=== PATIENT | male | born 1960 | race Caucasian/White ===

== ENCOUNTER 2016-06-28 14:01 | Inpatient (IN) | payer MEDICARE, MEDICAID ==
[~2016-06-28] VITALS: Ht 182.9 cm; Wt 68.0 kg
[~2016-06-28 14:01] MED LIST: ACETAMINOPHEN650 M2 ORAL; ALBUTEROL2.5 MG/3 M HHN; AMANTADINE100 M2 ORAL; ATROVENT500 MCG/2. HHN; CRANBERRY500 MG PO; DEPAKOTE500 MG PO; GABAPENTIN400 MG ORAL; KEPPRA LIQ100 MG/1 M ORAL; LORAZEPAM1 MG ORAL; MILK OF MA400 MG/51 ORAL; MULTI-VITAMIN1 EACH PO; NUEDEXTA 20-101 EAC1 PO; PROVERA10 MG ORAL; RISPERDAL2 MG ORAL; SURFAK240 MG PO; ZYPREXA15 MG ORAL
[2016-06-28] MEDS ORDERED: AMANTADINE100 M2 ORAL (14:07)
[2016-06-28] MEDS ORDERED: ATIVAN1 MG ORAL (14:07)
--- NOTE | 2016-06-28 14:36 | Emergency Room Report ---
History of Present Illness General Chief Complaint: Fever Source: Medical Record, EMS Present Illness HPI This patient presents from a intermediate facility. He has a history of Parkinson's disease and dementia, psychosis and anxiety. He presents at the request of his primary care physician for evaluation of pneumonia. The patient had ongoing cough and fever. MAXIMUM TEMPERATURE of 101. The patient himself has no specific complaints. There is no other history available. Allergies: Coded Allergies: AMOXICILLIN (Verified Allergy, Unknown, 02/21/13) OBTAINED FROM MEDICAL RECORD ASPIRIN (Verified Allergy, Unknown, 02/21/13) OBTAINED FROM MEDICAL RECORD PENICILLINS (Unverified Allergy, Unknown, 12/06/14) Patient History Past Medical History: see triage record, COPD, seizures, psych hx, other - Parkinson's Social History: Denies: alcohol use, drug use, smoking Reviewed Nursing Documentation: PMH: Agreed, PSxH: Agreed Nursing Documentation-PMH Hx COPD: Yes Hx Cancer: No History Of Psychiatric Problem: Yes - Dementia, Parkinson's, Psychosis, Anxiety Hx Parkinson's Disease: Yes Hx Seizures: Yes Review of Systems All Other Systems: negative except mentioned in HPI Physical Exam Vital Signs Date Time Temp Pulse Resp B/P Pulse Ox O2 Delivery O2 Flow Rate FiO2 06/28/16 13:56 99.1 98 16 102/68 95 Room Air Sp02 EP Interpretation: reviewed, normal General Appearance: no apparent distress, alert, GCS 15, non-toxic Head: normocephalic, atraumatic Eyes: bilateral eye PERRL, bilateral eye normal inspection ENT: hearing grossly normal, normal pharynx, no angioedema, normal voice Neck: full range of motion, supple/symm/no masses Respiratory: chest non-tender, lungs clear, normal breath sounds, rhonchi, speaking full sentences Cardiovascular #1: no edema Gastrointestinal: normal bowel sounds, non tender, soft, non-distended, no guarding, no rebound Rectal: deferred Musculoskeletal: back normal, normal range of motion, non-tender Neurologic: alert, responsive, sensory intact, speech normal Psychiatric: judgement/insight normal, memory normal, mood/affect normal, no suicidal/homicidal ideation Skin: warm/dry, well hydrated, other - See RN report Medical Decision Making Diagnostic Impression: Primary Impression: Pneumonia Additional Impression: Sepsis ER Course Patient is found to have pneumonia. He was given broad-spectrum antibiotics with azithromycin and Rocephin. He is also given aggressive IV fluid. On arrival, he was febrile and tachycardic, however this resolved with Tylenol and IV fluids. Initially, the patient did have an elevated lactate. However, repeat lactate showed improvement to normal. The patient is stable and admitted to the medical surgical floor. Labs Test 06/28/16 14:25 06/28/16 15:11 06/28/16 15:40 06/28/16 16:54 Sodium Level 142 mEQ/L (135-145) Potassium Level 3.9 mEQ/L (3.4-4.9) Chloride Level 100 mEQ/L (98-107) Carbon Dioxide Level 28 mEQ/L (20-30) Anion Gap 14 (5-15) Blood Urea Nitrogen 22 mg/dL (7-23) Creatinine 1.2 mg/dL (0.7-1.2) Estimat Glomerular Filtration Rate > 60 mL/min (>60) Glucose Level 134 mg/dL (74-106) Lactic Acid Level 2.70 mmol/L (0.66-2.22) 1.90 mmol/L (0.66-2.22) Calcium Level 8.5 mg/dL (8.6-10.2) Total Bilirubin 0.3 mg/dL (0.0-1.2) Aspartate Amino Transf (AST/SGOT) 56 U/L (5-40) Alanine Aminotransferase (ALT/SGPT) 33 U/L (3-41) Alkaline Phosphatase 39 U/L (40-129) Total Creatine Kinase 1600 U/L (38-174) Creatine Kinase MB 3.5 ng/mL (< 6.7) Creatine Kinase MB Relative Index 0.2 Troponin I < 0.30 ng/mL (<=0.30) Total Protein 6.9 g/dL (6.6-8.7) Albumin 3.3 g/dL (3.5-5.2) Globulin 3.6 g/dL Albumin/Globulin Ratio 0.9 (1.0-2.7) White Blood Count 3.5 K/UL (4.8-10.8) Red Blood Count 6.12 M/UL (4.70-6.10) Hemoglobin 13.9 G/DL (14.2-18.0) Hematocrit 45.1 % (42.0-52.0) Mean Corpuscular Volume 74 FL (80-99) Mean Corpuscular Hemoglobin 22.7 PG (27.0-31.0) Mean Corpuscular Hemoglobin Concent 30.8 G/DL (32.0-36.0) Red Cell Distribution Width 13.3 % (11.6-14.8) Platelet Count 100 K/UL (150-450) Mean Platelet Volume 6.8 FL (6.5-10.1) Neutrophils (%) (Auto) 65.2 % (45.0-75.0) Lymphocytes (%) (Auto) 21.7 % (20.0-45.0) Monocytes (%) (Auto) 12.0 % (1.0-10.0) Eosinophils (%) (Auto) 0.1 % (0.0-3.0) Basophils (%) (Auto) 1.0 % (0.0-2.0) Urine Color Yellow Urine Appearance Clear Urine pH 6 (4.5-8.0) Urine Specific [place] 1.020 (1.005-1.035) Urine Protein 3+ (NEGATIVE) Urine Glucose (UA) Negative (NEGATIVE) Urine Ketones 1+ (NEGATIVE) Urine Occult Blood 2+ (NEGATIVE) Urine Nitrite Negative (NEGATIVE) Urine Bilirubin Negative (NEGATIVE) Urine Urobilinogen 1 MG/DL (0.0-1.0) Urine Leukocyte Esterase 1+ (NEGATIVE) Urine RBC 5-10 /HPF (0 - 0) Urine WBC 2-4 /HPF (0 - 0) Urine Squamous Epithelial Cells None /LPF (NONE/OCC) Urine Amorphous Sediment Few /LPF (NONE) Urine Bacteria Few /HPF (NONE) EKG Diagnostic Results Rate: tachycardiac Rhythm: other ST Segments: no acute changes Other Impression S.tachycardia Rhythm Strip Diag. Results EP Interpretation: yes Rate: 120's Rhythm: no PVC's, no ectopy Chest X-Ray Diagnostic Results EP Interpretation: No Findings: no pneumothorax, other Number of Views: 1 Other Impression RUL opacity. Probable pneumonia accounting for a density in the right upper lobe. Followup recommended Last Vital Signs Date Time Temp Pulse Resp B/P Pulse Ox O2 Delivery O2 Flow Rate FiO2 06/28/16 13:56 99.1 98 16 102/68 95 Room Air Status: improved Disposition: ADMITTED INPATIENT Condition: Serious Referrals: Bernardino Dallas MD (PCP) PEBBLES WILLS D.O. Jun 28, 2016 14:36
[2016-06-28] MEDS ORDERED: Azithromycin 500 MG in NS 250 ML IVPB ONE (14:45)
[2016-06-28 15:07] LABS: TROPONIN I < 0.30 ng/mL (<=0.30)
[2016-06-28 15:11] LABS: ALANINE AMINOTRANSFERASE 33 U/L (3-41); ALBUMIN/GLOBULIN RATIO 0.9 (1.0-2.7); ANION GAP 14 (5-15); ASPARTATE AMINO TRANSFERASE 56 U/L (5-40); CALCIUM 8.5 mg/dL (8.6-10.2); CARBON DIOXIDE 28 mEQ/L (20-30); CHLORIDE 100 mEQ/L (98-107); CREATININE 1.2 mg/dL (0.7-1.2); GLOMERULAR FILTRATION RATE > 60 mL/min (>60); HEMOLYSIS 76; POTASSIUM 3.9 mEQ/L (3.4-4.9); SODIUM 142 mEQ/L (135-145); TOTAL PROTEIN 6.9 g/dL (6.6-8.7)
[2016-06-28 15:21] VITALS: BP 99/65
[2016-06-28 15:22] LABS: CKMB 3.5 ng/mL (< 6.7)
[2016-06-28 15:33] LABS: REFLEX LACTIC ACID YES OR NO YES
[2016-06-28 15:39] LABS: EOSINOPHILS % (AUTO) 0.1 % (0.0-3.0); LYMPHOCYTES % (AUTO) 21.7 % (20.0-45.0); MEAN CORPUSCULAR HEMOGLOBIN 22.7 PG (27.0-31.0); MEAN CORPUSCULAR HGB CONC 30.8 G/DL (32.0-36.0); MEAN CORPUSCULAR VOLUME 74 FL (80-99); MEAN PLATELET VOLUME 6.8 FL (6.5-10.1); NEUTROPHILS % (AUTO) 65.2 % (45.0-75.0); PLATELET COUNT 100 K/UL (150-450); RED BLOOD COUNT 6.12 M/UL (4.70-6.10); RED CELL DISTRIBUTION WIDTH 13.3 % (11.6-14.8); WHITE BLOOD COUNT 3.5 K/UL (4.8-10.8)
[2016-06-28] MEDS ORDERED: Azithromycin Inj IV ONE (15:41)
--- NOTE | 2016-06-28 15:44 | Diagnostic Imaging Report ---
Indication: Chest Pain Comparison: 12/06/14 A single view chest radiograph was obtained. Findings: Slightly larger infiltrate versus mass noted in the right upper lobe. Please correlate clinically. Followup recommended. Heart size is normal. Impression: Probable pneumonia accounting for a density in the right upper lobe. Followup recommended
[2016-06-28 16:16] LABS: APPEARANCE,URINE CLEAR; KETONES,URINE 1+ (NEGATIVE); LEUKOCYTE ESTERASE ,URINE 1+ (NEGATIVE); NITRITE,URINE NEGATIVE (NEGATIVE); PH,URINE 6 (4.5-8.0); PROTEIN,URINE 3+ (NEGATIVE); UROBILINOGEN,URINE 1 MG/DL (0.0-1.0)
[2016-06-28 16:26] LABS: AMORPHOUS SEDIMENT,UR FEW /LPF; BACTERIA,URINE FEW /HPF
[2016-06-28 17:20] VITALS: BP 108/69
[2016-06-28] MEDS ORDERED: Miralax 17gm pkt ORAL PRN (19:00)
[2016-06-28] MEDS ORDERED: DuoNeb 0.5-3(2.5)mg/3ml neb HHN PRN (19:00)
[2016-06-28] MEDS ORDERED: Nitroglycerin Subl 0.4mg tab (Bottle Of 25) SL PRN (19:00)
[2016-06-28] MEDS ORDERED: Mylanta II UD 30ml ORAL PRN (19:00)
--- NOTE | 2016-06-28 19:02 | Consultation ---
History of Present Illness General Date patient seen: Jun 28, 2016 Chief Complaint: Fever Referring physician: Dr. Dallas Reason for Consultation: pneumonia Present Illness HPI 56 year old male with hx of psychiatric disorder, parkinson, anxiety and dementia [facility] for possible [facility]. The patient had ongoing cough and fever of 101. The patient himself has no specific complaints. There is no other history available. Patient is a poor historian and can't give any history and starts to scream in middle of interview. Allergies: Coded Allergies: AMOXICILLIN (Verified Allergy, Unknown, 02/21/13) OBTAINED FROM MEDICAL RECORD ASPIRIN (Verified Allergy, Unknown, 02/21/13) OBTAINED FROM MEDICAL RECORD PENICILLINS (Unverified Allergy, Unknown, 12/06/14) Medication History Scheduled Amantadine Hcl* (Amantadine*), 100 MG ORAL Q8HR, (Reported) Dextromethorphan Hbr/Quinidine (Nuedexta 20-10 Mg Capsule), 1 EACH PO Q12HR, ( Reported) Divalproex Sodium (Depakote), 250 MG PO Q8HR, (Reported) Docusate Calcium (Surfak), 240 MG PO DAILY, (Reported) Gabapentin* (Gabapentin*), 400 MG ORAL DAILY, (Reported) Levetiracetam (Keppra), 5 ML ORAL TWICE A DAY, (Reported) Lorazepam* (Ativan*), 1 MG ORAL BID, (Reported) Multivitamin (Multi-Vitamin Daily), 1 EACH PO DAILY, (Reported) Olanzapine (Zyprexa), 15 MG ORAL DAILY, (Reported) Risperidone* (Risperdal*), 2 MG ORAL QHS, (Reported) Scheduled PRN Acetaminophen (Acetaminophen 8 Hour), 650 MG ORAL Q6H PRN for Mild Pain/Temp > 100.5, (Reported) Albuterol Sulfate* (Albuterol Sulfate Hhn*), 2.5 MG HHN Q6H PRN for Shortness of Breath, (Reported) Cranberry Extract (Cranberry), 500 MG PO DAILY PRN, (Reported) Ipratropium [place] (Atrovent), 500 MCG HHN EVERY 6 HOURS PRN for Shortness of Breath, (Reported) Lorazepam* (Lorazepam*), 1 MG ORAL EVERY 8 HOURS PRN for Agitation, (Reported) Magnesium Hydroxide* (Milk Of Magnesia*), 30 ML ORAL DAILY PRN for Constipation, (Reported) Patient History Healthcare decision maker Resuscitation status Advanced Directive on File Past Medical/Surgical History Past Medical/Surgical History: (1) Seizure disorder (2) Psychiatric disorder (3) Cachexia Review of Systems All Other Systems: negative except mentioned in HPI Physical Exam Lines, tubes and drains: peripheral HEENT: normocephalic Neck: non-tender Respiratory/Chest: chest wall non-tender Cardiovascular/Chest: normal peripheral pulses Abdomen: normal bowel sounds Genitourinary/Rectal: normal genital exam Last 24 Hour Vital Signs Date Time Temp Pulse Resp B/P Pulse Ox O2 Delivery O2 Flow Rate FiO2 06/28/16 17:20 97.3 93 23 108/69 99 Room Air 06/28/16 15:21 97.4 120 12 99/65 99 Room Air 06/28/16 13:56 99.1 98 16 102/68 95 Room Air Laboratory Tests Test 06/28/16 14:25 06/28/16 15:11 06/28/16 15:40 06/28/16 16:54 Sodium Level 142 mEQ/L (135-145) Potassium Level 3.9 mEQ/L (3.4-4.9) Chloride Level 100 mEQ/L (98-107) Carbon Dioxide Level 28 mEQ/L (20-30) Anion Gap 14 (5-15) Blood Urea Nitrogen 22 mg/dL (7-23) Creatinine 1.2 mg/dL (0.7-1.2) Estimat Glomerular Filtration Rate > 60 mL/min (>60) Glucose Level 134 mg/dL (74-106) H Lactic Acid Level 2.70 mmol/L (0.66-2.22) H 1.90 mmol/L (0.66-2.22) Calcium Level 8.5 mg/dL (8.6-10.2) L Total Bilirubin 0.3 mg/dL (0.0-1.2) Aspartate Amino Transf (AST/SGOT) 56 U/L (5-40) H Alanine Aminotransferase (ALT/SGPT) 33 U/L (3-41) Alkaline Phosphatase 39 U/L (40-129) L Total Creatine Kinase 1600 U/L (38-174) H Creatine Kinase MB 3.5 ng/mL (< 6.7) Creatine Kinase MB Relative Index 0.2 Troponin I < 0.30 ng/mL (<=0.30) Total Protein 6.9 g/dL (6.6-8.7) Albumin 3.3 g/dL (3.5-5.2) L Globulin 3.6 g/dL Albumin/Globulin Ratio 0.9 (1.0-2.7) L White Blood Count 3.5 K/UL (4.8-10.8) L Red Blood Count 6.12 M/UL (4.70-6.10) H Hemoglobin 13.9 G/DL (14.2-18.0) L Hematocrit 45.1 % (42.0-52.0) Mean Corpuscular Volume 74 FL (80-99) L Mean Corpuscular Hemoglobin 22.7 PG (27.0-31.0) L Mean Corpuscular Hemoglobin Concent 30.8 G/DL (32.0-36.0) L Red Cell Distribution Width 13.3 % (11.6-14.8) Platelet Count 100 K/UL (150-450) L Mean Platelet Volume 6.8 FL (6.5-10.1) Neutrophils (%) (Auto) 65.2 % (45.0-75.0) Lymphocytes (%) (Auto) 21.7 % (20.0-45.0) Monocytes (%) (Auto) 12.0 % (1.0-10.0) H Eosinophils (%) (Auto) 0.1 % (0.0-3.0) Basophils (%) (Auto) 1.0 % (0.0-2.0) Urine Color Yellow Urine Appearance Clear Urine pH 6 (4.5-8.0) Urine Specific [place] 1.020 (1.005-1.035) Urine Protein 3+ (NEGATIVE) H Urine Glucose (UA) Negative (NEGATIVE) Urine Ketones 1+ (NEGATIVE) H Urine Occult Blood 2+ (NEGATIVE) H Urine Nitrite Negative (NEGATIVE) Urine Bilirubin Negative (NEGATIVE) Urine Urobilinogen 1 MG/DL (0.0-1.0) H Urine Leukocyte Esterase 1+ (NEGATIVE) H Urine RBC 5-10 /HPF (0 - 0) H Urine WBC 2-4 /HPF (0 - 0) Urine Squamous Epithelial Cells None /LPF (NONE/OCC) Urine Amorphous Sediment Few /LPF (NONE) H Urine Bacteria Few /HPF (NONE) Height (Feet): 6 Weight (Pounds): 150 Assessment/Plan Problem List: (1) Pneumonia ICD Codes: J18.9 - Pneumonia, unspecified organism SNOMED: 800276674 (2) UTI (urinary tract infection) ICD Codes: N39.0 - Urinary tract infection, site not specified SNOMED: 61691177 (3) Seizure disorder ICD Codes: G40.909 - Seizure disorder SNOMED: 376902172 (4) Psychiatric disorder ICD Codes: F99 - Psychiatric disorder SNOMED: 11689789 (5) Cachexia ICD Codes: R64 - Cachexia SNOMED: 092621806 Assessment/Plan sputum inductin respiratory treatment iv antibiotics check sputum CT of chest NEERAJ DAMON Jun 28, 2016 19:02
[2016-06-28 19:08] VITALS: BP 108/69
--- NOTE | 2016-06-28 20:17 | Infectious Diseases Prog Note ---
Assessment/Plan Problems: (1) Sepsis Assessment & Plan: continue vancomycin and aztreonam, add flagyl , and send blood culture (2) Pneumonia Assessment & Plan: with RUL consolidation , suspect aspiration pneumonia, VS TB , VS tumor, will continue current antibiotics with vancomycin and aztreonam, add flagyl for anaerobic coverage, and order CT chest (3) UTI (urinary tract infection) Assessment & Plan: on aztreonam, send culture (4) Psychiatric disorder Assessment & Plan: continue psych meds. (5) Seizure disorder Assessment & Plan: continue seizure meds , with hossein check, consult neurology (6) Failure to thrive Assessment & Plan: recommend dietry consult Subjective Allergies: Coded Allergies: AMOXICILLIN (Verified Allergy, Unknown, 02/21/13) OBTAINED FROM MEDICAL RECORD ASPIRIN (Verified Allergy, Unknown, 02/21/13) OBTAINED FROM MEDICAL RECORD PENICILLINS (Unverified Allergy, Unknown, 12/06/14) Objective Vital Signs Last 24 Hour Vital Signs Date Time Temp Pulse Resp B/P Pulse Ox O2 Delivery O2 Flow Rate FiO2 06/28/16 20:02 97.3 93 23 108/69 99 Room Air 06/28/16 19:08 97.3 93 23 108/69 99 Room Air 06/28/16 17:20 97.3 93 23 108/69 99 Room Air 06/28/16 15:21 97.4 120 12 99/65 99 Room Air 06/28/16 13:56 99.1 98 16 102/68 95 Room Air Height (Feet): 6 Weight (Pounds): 150 Laboratory Tests Test 06/28/16 14:25 06/28/16 15:11 06/28/16 15:40 06/28/16 16:54 Sodium Level 142 mEQ/L (135-145) Potassium Level 3.9 mEQ/L (3.4-4.9) Chloride Level 100 mEQ/L (98-107) Carbon Dioxide Level 28 mEQ/L (20-30) Anion Gap 14 (5-15) Blood Urea Nitrogen 22 mg/dL (7-23) Creatinine 1.2 mg/dL (0.7-1.2) Estimat Glomerular Filtration Rate > 60 mL/min (>60) Glucose Level 134 mg/dL (74-106) H Lactic Acid Level 2.70 mmol/L (0.66-2.22) H 1.90 mmol/L (0.66-2.22) Calcium Level 8.5 mg/dL (8.6-10.2) L Total Bilirubin 0.3 mg/dL (0.0-1.2) Aspartate Amino Transf (AST/SGOT) 56 U/L (5-40) H Alanine Aminotransferase (ALT/SGPT) 33 U/L (3-41) Alkaline Phosphatase 39 U/L (40-129) L Total Creatine Kinase 1600 U/L (38-174) H Creatine Kinase MB 3.5 ng/mL (< 6.7) Creatine Kinase MB Relative Index 0.2 Troponin I < 0.30 ng/mL (<=0.30) Total Protein 6.9 g/dL (6.6-8.7) Albumin 3.3 g/dL (3.5-5.2) L Globulin 3.6 g/dL Albumin/Globulin Ratio 0.9 (1.0-2.7) L White Blood Count 3.5 K/UL (4.8-10.8) L Red Blood Count 6.12 M/UL (4.70-6.10) H Hemoglobin 13.9 G/DL (14.2-18.0) L Hematocrit 45.1 % (42.0-52.0) Mean Corpuscular Volume 74 FL (80-99) L Mean Corpuscular Hemoglobin 22.7 PG (27.0-31.0) L Mean Corpuscular Hemoglobin Concent 30.8 G/DL (32.0-36.0) L Red Cell Distribution Width 13.3 % (11.6-14.8) Platelet Count 100 K/UL (150-450) L Mean Platelet Volume 6.8 FL (6.5-10.1) Neutrophils (%) (Auto) 65.2 % (45.0-75.0) Lymphocytes (%) (Auto) 21.7 % (20.0-45.0) Monocytes (%) (Auto) 12.0 % (1.0-10.0) H Eosinophils (%) (Auto) 0.1 % (0.0-3.0) Basophils (%) (Auto) 1.0 % (0.0-2.0) Urine Color Yellow Urine Appearance Clear Urine pH 6 (4.5-8.0) Urine Specific [place] 1.020 (1.005-1.035) Urine Protein 3+ (NEGATIVE) H Urine Glucose (UA) Negative (NEGATIVE) Urine Ketones 1+ (NEGATIVE) H Urine Occult Blood 2+ (NEGATIVE) H Urine Nitrite Negative (NEGATIVE) Urine Bilirubin Negative (NEGATIVE) Urine Urobilinogen 1 MG/DL (0.0-1.0) H Urine Leukocyte Esterase 1+ (NEGATIVE) H Urine RBC 5-10 /HPF (0 - 0) H Urine WBC 2-4 /HPF (0 - 0) Urine Squamous Epithelial Cells None /LPF (NONE/OCC) Urine Amorphous Sediment Few /LPF (NONE) H Urine Bacteria Few /HPF (NONE) Current Medications Medications (Trade) Dose Ordered Sig/Yanelis Route PRN Reason Start Time Stop Time Status Last Admin Dose Admin Acetaminophen (Tylenol) 650 mg Q4H PRN ORAL fever 06/28/16 19:00 07/28/16 18:59 Al Hydroxide/Mg Hydroxide (Mylanta II) 30 ml Q6H PRN ORAL dyspepsia 06/28/16 19:00 07/28/16 18:59 Albuterol/ Ipratropium (DuoNeb 0.5-3(2.5)mg/3ml) 3 ml EVERY 4 HOURS PRN HHN Shortness of Breath 06/28/16 19:00 07/03/16 18:59 Amantadine HCl (Symmetrel) 100 mg Q8HR ORAL 06/28/16 22:00 07/28/16 21:59 Aztreonam 1 gm/ Sodium Chloride 50 ml @ 100 mls/hr EVERY 8 HOURS IVPB 06/28/16 22:00 07/05/16 21:59 Dextromethorphan/ Quinidine (Nuedexta Capsule) 1 cap Q12HR ORAL 06/28/16 21:00 07/28/16 20:59 Divalproex Sodium (Depakote) 250 mg Q8HR ORAL 06/28/16 22:00 07/28/16 21:59 Gabapentin (Neurontin) 400 mg DAILY ORAL 06/29/16 09:00 07/29/16 08:59 Heparin Sodium (Porcine) (Heparin 5000 units/ml) 5,000 units EVERY 12 HOURS SUBQ 06/28/16 21:00 07/28/16 20:59 Levetiracetam (Keppra) 500 mg TWICE A DAY ORAL 06/29/16 09:00 07/29/16 08:59 Nitroglycerin (Ntg) 0.4 mg Q5M PRN SL Prn Chest Pain 06/28/16 19:00 07/28/16 18:59 Ondansetron HCl (Zofran) 4 mg Q6H PRN IVP Nausea & Vomiting 06/28/16 19:00 07/28/16 18:59 Polyethylene Glycol (Miralax) 17 gm DAILYPRN PRN ORAL Constipation 06/28/16 19:00 07/28/16 18:59 Promethazine HCl/ Codeine (Phenergan with Codeine) 5 ml Q4H PRN ORAL For Cough 06/28/16 19:00 07/28/16 18:59 Risperidone (RisperDAL) 2 mg QHS ORAL 06/28/16 21:00 07/28/16 20:59 Temazepam (Restoril) 15 mg HSPRN PRN ORAL Insomnia 06/28/16 19:00 07/05/16 18:59 Vancomycin HCl 1 ea 1 ea DAILY PRN MISC Per rx protocol 06/28/16 19:00 07/28/16 18:59 Vancomycin HCl 1 gm/Dextrose 250 ml @ 167 mls/hr ONCE ONCE IVPB 06/28/16 20:30 06/28/16 21:59 Vancomycin HCl/ Dextrose (Vancomycin/D5W 250ml) 250 ml @ 167 mls/hr Q12HR@0800,2000 IVPB 06/29/16 08:00 07/04/16 07:59 Carli Saleem M.D. Jun 28, 2016 20:17
[2016-06-28 20:29] VITALS: BP_SYST 126; BP_SYST 132; BP_DIAS 73; BP_DIAS 75
[2016-06-28] MEDS ORDERED: Vancomycin 1gm/D5W 250ml IVPB ONE ×2 (20:30)
[2016-06-28] MEDS: Heparin 5000 units/ml inj SUBQ SCH (20:52)
[2016-06-28 20:53] VITALS: BP 126/73
[2016-06-28] MEDS ORDERED: metroNIDAZOLE 500mg 100 ML IVPB SCH (21:00)
[2016-06-28] MEDS: Nuedexta Capsule 20/10mg ORAL SCH (21:14)
[2016-06-28] MEDS: Amantadine 100mg cap ORAL SCH (21:15)
[2016-06-28] MEDS ORDERED: Aztreonam Inj 1 GM in NS 50 ML IVPB SCH (22:00)
[2016-06-29] VITALS: BP 125/61
[2016-06-29] MEDS: metroNIDAZOLE 500mg 100 ML IVPB SCH ×3 (01:19→17:00)
[2016-06-29] MEDS ORDERED: Aztreonam Inj 1 GM in NS 50 ML IVPB SCH (02:00)
[2016-06-29] MEDS: Amantadine 100mg cap ORAL SCH ×4 (06:00→23:08)
[2016-06-29 07:39] LABS: BASOPHILS % (AUTO) 1.8 % (0.0-2.0); LYMPHOCYTES % (AUTO) 28.1 % (20.0-45.0); MEAN CORPUSCULAR HEMOGLOBIN 22.9 PG (27.0-31.0); MEAN CORPUSCULAR HGB CONC 30.4 G/DL (32.0-36.0); MEAN CORPUSCULAR VOLUME 75 FL (80-99); MEAN PLATELET VOLUME 7.1 FL (6.5-10.1); MONOCYTES % (AUTO) 14.8 % (1.0-10.0); NEUTROPHILS % (AUTO) 55.3 % (45.0-75.0); PLATELET COUNT 101 K/UL (150-450); RED BLOOD COUNT 5.34 M/UL (4.70-6.10); RED CELL DISTRIBUTION WIDTH 13.1 % (11.6-14.8); WHITE BLOOD COUNT 4.7 K/UL (4.8-10.8)
[2016-06-29 07:58] LABS: ANION GAP 12 (5-15); CALCIUM 7.7 mg/dL (8.6-10.2); CARBON DIOXIDE 27 mEQ/L (20-30); CHLORIDE 105 mEQ/L (98-107); CREATININE 0.8 mg/dL (0.7-1.2); GLOMERULAR FILTRATION RATE > 60 mL/min (>60); HEMOLYSIS 3; PHOSPHORUS 2.6 mg/dL (2.5-4.8); POTASSIUM 4.3 mEQ/L (3.4-4.9); SODIUM 144 mEQ/L (135-145)
[2016-06-29] MEDS: Vancomycin 750mg/D5W 250ml IVPB SCH ×4 (08:08→20:00)
[2016-06-29] MEDS: Nuedexta Capsule 20/10mg ORAL SCH ×2 (08:08→20:32)
[2016-06-29] MEDS: Heparin 5000 units/ml inj SUBQ SCH ×2 (08:09→20:32)
[2016-06-29] MEDS: levETIRAcetam 500mg/5ml Liquid ORAL SCH ×2 (08:09→17:59)
[2016-06-29 08:28] VITALS: BP 106/65
[2016-06-29 12:00] VITALS: BP 110/67
--- NOTE | 2016-06-29 12:22 | Diagnostic Imaging Report ---
Indications: Chest pain, ill-defined masslike opacity in right upper lung chest radiograph requiring further evaluation Technique: Continuous helical CT imaging of the thorax and upper abdomen was performed with automatic exposure control on a Siemens sensation [address] scanner. Axial images were reconstructed at 5 mm slice thickness and interval. Coronal images were reconstructed at 5 mm slice thickness. No IV contrast was administered secondary to requesting physician's order, despite no contraindications listed in either submitted clinical data or tech note.. CTDI volume(s): 17 mGy Total DLP: 651 mGy-cm Findings: Comparison: None Lack of IV contrast limits evaluation. Irregular lobulated masslike opacity in right upper lobe, 3.5 x 3 x 3 cm. Similar 2.5 x 1.5 x 2 cm masslike opacity medial segment right middle lobe. Similar 1.5 cm irregular lobulated masslike opacity anteromedial aspect left upper lobe. Patchy peripherally based groundglass opacities and in both upper lobes, right lower lobe. Superimposed subsegmental parenchymal consolidation dependent portions of both lower lobes.. Bilateral bronchial barber mildly thickened. No obvious pleural abnormalities. Asymmetric soft tissue fullness right hilar region, cannot separate from vasculature adjacent vasculature. No obvious mediastinal enlarged lymph nodes identified. Heart normal size. No pericardial abnormality. Scattered arterial mural calcifications. Vascular patency indeterminate. Thoracic aorta nonaneurysmal. Chest wall soft tissues nonfocal. Subcentimeter circumscribed low-attenuation focus in the posterior periphery of hepatic segment 3, not further characterizable. Remainder of imaged upper abdominal anatomy unremarkable. No focal skeletal abnormality identified. IMPRESSION: Bilateral pulmonary parenchymal irregular masslike opacities, may be neoplastic or inflammatory Questionable right hilar adenopathy, unable to adequately evaluate due to lack of IV contrast Patchy groundglass opacities in both lungs may be congestive or inflammatory Subsegmental atelectasis in both lung bases Mild bilateral bronchial wall thickening, nonspecific, may be acute or chronic Arteriosclerosis Small low-attenuation focus left hepatic lobe not further characterizable, most likely but not definitely cysts. Ultrasound correlation suggested..
[2016-06-29 16:00] VITALS: BP 115/69
--- NOTE | 2016-06-29 17:50 | Pulmonology Progress Note ---
Assessment/Plan Problems: (1) rule out Tuberculosis (2) Right upper lobe pneumonia (3) UTI (urinary tract infection) (4) Seizure disorder (5) Psychiatric disorder (6) Cachexia Assessment/Plan iv antibiotics sputum for afb TB gold test isolation fungi serology ppd skin test Subjective ROS Limited/Unobtainable: No Interval Events: awake, agitated at times Allergies: Coded Allergies: AMOXICILLIN (Verified Allergy, Unknown, 02/21/13) OBTAINED FROM MEDICAL RECORD ASPIRIN (Verified Allergy, Unknown, 02/21/13) OBTAINED FROM MEDICAL RECORD PENICILLINS (Unverified Allergy, Unknown, 12/06/14) Objective Last 24 Hour Vital Signs Date Time Temp Pulse Resp B/P Pulse Ox O2 Delivery O2 Flow Rate FiO2 06/29/16 16:00 99.7 76 26 115/69 98 Room Air 06/29/16 12:00 99.0 84 20 110/67 95 Room Air 06/29/16 10:20 99.2 06/29/16 08:28 99.2 86 20 106/65 94 Room Air 06/29/16 07:40 103 20 Room Air 21 06/29/16 01:22 99.0 06/29/16 00:00 102.4 103 19 125/61 93 Room Air 06/28/16 20:53 98.2 104 22 126/73 98 Room Air 06/28/16 20:29 98.2 104 22 126/73 98 Room Air 06/28/16 20:02 97.3 93 23 108/69 99 Room Air 06/28/16 19:08 97.3 93 23 108/69 99 Room Air Intake and Output 06/28/16 06/29/16 19:00 07:00 Intake Total 1200 ml 750 ml Balance 1200 ml 750 ml Intake Oral 0 ml 600 ml IV Total 1200 ml 150 ml # Voids 3 General Appearance: WD/WN HEENT: normocephalic, atraumatic Respiratory/Chest: chest wall non-tender, lungs clear Cardiovascular: normal peripheral pulses, normal rate Abdomen: normal bowel sounds, soft, non tender Genitourinary: normal external genitalia Neurologic/Psychiatric: premix operator concentrate II-XII grossly normal Lymphatic: no neck adenopathy Laboratory Tests 06/29/16 06:30: White Blood Count 4.7L, Red Blood Count 5.34, Hemoglobin 12.2L, Hematocrit 40.2L , Mean Corpuscular Volume 75L, Mean Corpuscular Hemoglobin 22.9L, Mean Corpuscular Hemoglobin Concent 30.4L, Red Cell Distribution Width 13.1, Platelet Count 101L, Mean Platelet Volume 7.1, Neutrophils (%) (Auto) 55.3, Lymphocytes (%) (Auto) 28.1, Monocytes (%) (Auto) 14.8H, Eosinophils (%) (Auto) 0.0, Basophils (%) (Auto) 1.8, Sodium Level 144, Potassium Level 4.3, Chloride Level 105, Carbon Dioxide Level 27, Anion Gap 12, Blood Urea Nitrogen 18, Creatinine 0.8, Estimat Glomerular Filtration Rate > 60, Glucose Level 88, Calcium Level 7.7L, Phosphorus Level 2.6, Albumin 3.0L, Blastomyces Ab Immunodiffusion [Pending], Coccidioides Antibody (Comp Fix) [Pending], Cryptococcus Antigen [Pending], Histoplasma Mycelial Antibody [Pending], Histoplasma Antibody w Mycelial Ag [Pending], Histoplasma Antibody with Yeast Ag [Pending], HIV (1&2) Antibody Rapid Negative, Aspergillus flavus Antibody [ Pending], Aspergillus fumigatus Antibody [Pending], Aspergillus niger Antibody [ Pending], TB Test (T-Spot) [Pending], TB Test Nil Control (T-Spot) [Pending], TB Test Panel A (T-Spot) [Pending], TB Test Panel B (T-Spot) [Pending], TB Test Positive Control (T-Spot) [Pending] Current Medications Medications (Trade) Dose Ordered Sig/Yanelis Route PRN Reason Start Time Stop Time Status Last Admin Dose Admin Acetaminophen (Tylenol) 650 mg Q4H PRN ORAL fever 06/28/16 19:00 07/28/16 18:59 06/29/16 00:18 Al Hydroxide/Mg Hydroxide (Mylanta II) 30 ml Q6H PRN ORAL dyspepsia 06/28/16 19:00 07/28/16 18:59 Albuterol/ Ipratropium (DuoNeb 0.5-3(2.5)mg/3ml) 3 ml EVERY 4 HOURS PRN HHN Shortness of Breath 06/28/16 19:00 07/03/16 18:59 Amantadine HCl (Symmetrel) 100 mg Q8HR ORAL 06/28/16 22:00 07/28/16 21:59 06/29/16 15:00 Aztreonam/Dextrose (Azactam/D5W 50ml) 50 ml @ 100 mls/hr Q8HR@0200,1000,1800 IVPB 06/29/16 18:00 07/06/16 17:59 Dextromethorphan/ Quinidine (Nuedexta Capsule) 1 cap Q12HR ORAL 06/28/16 21:00 07/28/16 20:59 06/29/16 08:08 Divalproex Sodium (Depakote) 250 mg Q8HR ORAL 06/28/16 22:00 07/28/16 21:59 06/29/16 15:00 Gabapentin (Neurontin) 400 mg DAILY ORAL 06/29/16 09:00 07/29/16 08:59 06/29/16 08:08 Heparin Sodium (Porcine) (Heparin 5000 units/ml) 5,000 units EVERY 12 HOURS SUBQ 06/28/16 21:00 07/28/16 20:59 Levetiracetam (Keppra) 500 mg TWICE A DAY ORAL 06/29/16 09:00 07/29/16 08:59 06/29/16 08:09 Metronidazole 100 ml @ 100 mls/hr Q8HR@0100,0900,1700 IVPB 06/29/16 01:30 07/06/16 01:29 06/29/16 10:00 Nitroglycerin (Ntg) 0.4 mg Q5M PRN SL Prn Chest Pain 06/28/16 19:00 07/28/16 18:59 Ondansetron HCl (Zofran) 4 mg Q6H PRN IVP Nausea & Vomiting 06/28/16 19:00 07/28/16 18:59 Polyethylene Glycol (Miralax) 17 gm DAILYPRN PRN ORAL Constipation 06/28/16 19:00 07/28/16 18:59 Promethazine HCl/ Codeine (Phenergan with Codeine) 5 ml Q4H PRN ORAL For Cough 06/28/16 19:00 07/28/16 18:59 Risperidone (RisperDAL) 2 mg QHS ORAL 06/28/16 21:00 07/28/16 20:59 06/28/16 21:14 Temazepam (Restoril) 15 mg HSPRN PRN ORAL Insomnia 06/28/16 19:00 07/05/16 18:59 Vancomycin HCl 750 mg/Dextrose 250 ml @ 167 mls/hr Q12HR@0800,2000 IVPB 06/29/16 08:00 07/04/16 07:59 06/29/16 08:08 Vancomycin HCl 1 ea 1 ea DAILY PRN MISC Per rx protocol 06/28/16 19:00 07/28/16 18:59 NEERAJ DAMON Jun 29, 2016 17:50
[2016-06-29] MEDS: D5W IVPB SCH (18:00)
[2016-06-29] MEDS: AZTREONAM IVPB SCH (18:00)
--- NOTE | 2016-06-29 18:23 | Infectious Diseases Prog Note ---
Assessment/Plan Problems: (1) Sepsis Assessment & Plan: due to pneumonia , continue vancomycin and aztreonam, and Flagyl , await blood culture (2) Pneumonia Assessment & Plan: with multiple mass like opacities and consolidation , infectious pneumonia, VS TB, VS fungal VS mets, will send fungal serology screening, quantiferon test is pending, HIV test is negative, continue current antibiotics with vancomycin and aztreonam, and flagyl for anaerobic coverage. (3) UTI (urinary tract infection) Assessment & Plan: on aztreonam, send culture (4) Psychiatric disorder Assessment & Plan: continue psych meds. (5) Seizure disorder Assessment & Plan: continue seizure meds , with hossein check, consult neurology (6) Failure to thrive Assessment & Plan: recommend dietry consult Subjective ROS Limited/Unobtainable: Yes Allergies: Coded Allergies: AMOXICILLIN (Verified Allergy, Unknown, 02/21/13) OBTAINED FROM MEDICAL RECORD ASPIRIN (Verified Allergy, Unknown, 02/21/13) OBTAINED FROM MEDICAL RECORD PENICILLINS (Unverified Allergy, Unknown, 12/06/14) Subjective he is demented, was agitated , dosen't follow commands. Objective Vital Signs Last 24 Hour Vital Signs Date Time Temp Pulse Resp B/P Pulse Ox O2 Delivery O2 Flow Rate FiO2 06/29/16 16:00 99.7 76 26 115/69 98 Room Air 06/29/16 12:00 99.0 84 20 110/67 95 Room Air 06/29/16 10:20 99.2 06/29/16 08:28 99.2 86 20 106/65 94 Room Air 06/29/16 07:40 103 20 Room Air 21 06/29/16 01:22 99.0 06/29/16 00:00 102.4 103 19 125/61 93 Room Air 06/28/16 20:53 98.2 104 22 126/73 98 Room Air 06/28/16 20:29 98.2 104 22 126/73 98 Room Air 06/28/16 20:02 97.3 93 23 108/69 99 Room Air 06/28/16 19:08 97.3 93 23 108/69 99 Room Air Height (Feet): 6 Height (Inches): 0.00 Weight (Pounds): 150 General Appearance: WD/WN, no acute distress HEENT: normocephalic, atraumatic, anicteric, mucous membranes moist Respiratory/Chest: chest wall non-tender, normal breath sounds, no respiratory distress, no accessory muscle use, decreased breath sounds, expiratory wheezing Cardiovascular: normal peripheral pulses, normal rate, regular rhythm, no gallop/murmur Abdomen: normal bowel sounds, soft, non tender, no organomegaly, non distended , no mass Extremities: no cyanosis, no clubbing Skin: no rash, no lesions, ulcers Laboratory Tests Test 06/29/16 06:30 White Blood Count 4.7 K/UL (4.8-10.8) L Red Blood Count 5.34 M/UL (4.70-6.10) Hemoglobin 12.2 G/DL (14.2-18.0) L Hematocrit 40.2 % (42.0-52.0) L Mean Corpuscular Volume 75 FL (80-99) L Mean Corpuscular Hemoglobin 22.9 PG (27.0-31.0) L Mean Corpuscular Hemoglobin Concent 30.4 G/DL (32.0-36.0) L Red Cell Distribution Width 13.1 % (11.6-14.8) Platelet Count 101 K/UL (150-450) L Mean Platelet Volume 7.1 FL (6.5-10.1) Neutrophils (%) (Auto) 55.3 % (45.0-75.0) Lymphocytes (%) (Auto) 28.1 % (20.0-45.0) Monocytes (%) (Auto) 14.8 % (1.0-10.0) H Eosinophils (%) (Auto) 0.0 % (0.0-3.0) Basophils (%) (Auto) 1.8 % (0.0-2.0) Sodium Level 144 mEQ/L (135-145) Potassium Level 4.3 mEQ/L (3.4-4.9) Chloride Level 105 mEQ/L (98-107) Carbon Dioxide Level 27 mEQ/L (20-30) Anion Gap 12 (5-15) Blood Urea Nitrogen 18 mg/dL (7-23) Creatinine 0.8 mg/dL (0.7-1.2) Estimat Glomerular Filtration Rate > 60 mL/min (>60) Glucose Level 88 mg/dL (74-106) Calcium Level 7.7 mg/dL (8.6-10.2) L Phosphorus Level 2.6 mg/dL (2.5-4.8) Albumin 3.0 g/dL (3.5-5.2) L Blastomyces Ab Immunodiffusion Pending Coccidioides Antibody (Comp Fix) Pending Cryptococcus Antigen Pending Histoplasma Mycelial Antibody Pending Histoplasma Antibody w Mycelial Ag Pending Histoplasma Antibody with Yeast Ag Pending HIV (1&2) Antibody Rapid Negative (NEGATIVE) Aspergillus flavus Antibody Pending Aspergillus fumigatus Antibody Pending Aspergillus niger Antibody Pending TB Test (T-Spot) Pending TB Test Nil Control (T-Spot) Pending TB Test Panel A (T-Spot) Pending TB Test Panel B (T-Spot) Pending TB Test Positive Control (T-Spot) Pending Current Medications Medications (Trade) Dose Ordered Sig/Yanelis Route PRN Reason Start Time Stop Time Status Last Admin Dose Admin Acetaminophen (Tylenol) 650 mg Q4H PRN ORAL fever 06/28/16 19:00 07/28/16 18:59 06/29/16 00:18 Al Hydroxide/Mg Hydroxide (Mylanta II) 30 ml Q6H PRN ORAL dyspepsia 06/28/16 19:00 07/28/16 18:59 Albuterol/ Ipratropium (DuoNeb 0.5-3(2.5)mg/3ml) 3 ml EVERY 4 HOURS PRN HHN Shortness of Breath 06/28/16 19:00 07/03/16 18:59 Amantadine HCl (Symmetrel) 100 mg Q8HR ORAL 06/28/16 22:00 07/28/16 21:59 06/29/16 15:00 Aztreonam/Dextrose (Azactam/D5W 50ml) 50 ml @ 100 mls/hr Q8HR@0200,1000,1800 IVPB 06/29/16 18:00 07/06/16 17:59 Dextromethorphan/ Quinidine (Nuedexta Capsule) 1 cap Q12HR ORAL 06/28/16 21:00 07/28/16 20:59 06/29/16 08:08 Divalproex Sodium (Depakote) 250 mg Q8HR ORAL 06/28/16 22:00 2/8/17 21:59 06/29/16 15:00 Gabapentin (Neurontin) 400 mg DAILY ORAL 06/29/16 09:00 07/29/16 08:59 06/29/16 08:08 Heparin Sodium (Porcine) (Heparin 5000 units/ml) 5,000 units EVERY 12 HOURS SUBQ 06/28/16 21:00 07/28/16 20:59 Levetiracetam (Keppra) 500 mg TWICE A DAY ORAL 06/29/16 09:00 07/29/16 08:59 06/29/16 17:59 Metronidazole 100 ml @ 100 mls/hr Q8HR@0100,0900,1700 IVPB 06/29/16 01:30 07/06/16 01:29 06/29/16 10:00 Nitroglycerin (Ntg) 0.4 mg Q5M PRN SL Prn Chest Pain 06/28/16 19:00 07/28/16 18:59 Ondansetron HCl (Zofran) 4 mg Q6H PRN IVP Nausea & Vomiting 06/28/16 19:00 07/28/16 18:59 Polyethylene Glycol (Miralax) 17 gm DAILYPRN PRN ORAL Constipation 06/28/16 19:00 07/28/16 18:59 Promethazine HCl/ Codeine (Phenergan with Codeine) 5 ml Q4H PRN ORAL For Cough 06/28/16 19:00 07/28/16 18:59 Risperidone (RisperDAL) 2 mg QHS ORAL 06/28/16 21:00 07/28/16 20:59 06/28/16 21:14 Temazepam (Restoril) 15 mg HSPRN PRN ORAL Insomnia 06/28/16 19:00 07/05/16 18:59 Tuberculin PPD (Tubersol (PPD)) 0.1 ml ONCE ONCE IDERMAL 06/29/16 19:00 06/29/16 19:01 Vancomycin HCl 750 mg/Dextrose 250 ml @ 167 mls/hr Q12HR@0800,2000 IVPB 06/29/16 08:00 07/04/16 07:59 06/29/16 08:08 Vancomycin HCl 1 ea 1 ea DAILY PRN MISC Per rx protocol 06/28/16 19:00 07/28/16 18:59 Carli Saleem M.D. Jun 29, 2016 18:23
[2016-06-29] MEDS ORDERED: PPD Tuberculin Skin Test 5TU IDERMAL ONE (19:00)
--- NOTE | 2016-06-29 19:17 | History and Physical Report ---
DATE OF ADMISSION: 06/28/2016 HISTORY OF PRESENT ILLNESS: The patient is a very poor historian, cannot obtain any reliable history from the patient. The patient admitted for pneumonia and cough. The patient has tachycardia as well. I cannot obtain any history. The patient with . PAST MEDICAL HISTORY: Advanced dementia, anxiety, psychosis, seizure disorder, GERD. PAST SURGICAL HISTORY: Denies. MEDICATIONS: As mentioned are Depakote, Colace, and Keppra. ALLERGIES: Penicillin and aspirin. FAMILY HISTORY: Unable to obtain. SOCIAL HISTORY: Unable to obtain. REVIEW OF SYSTEMS: Unable to obtain, very poor historian. PHYSICAL EXAMINATION: VITAL SIGNS: Temperature is 102.4 degrees, pulse 103, and blood pressure 125/61. HEENT: PERRLA. NECK: Supple. No lymphadenopathy. CHEST: Clear to auscultation. GASTROINTESTINAL: Soft, nontender and nondistended. No organomegaly. EXTREMITIES: No edema. Moves all four extremities. NEUROLOGIC: Reflexes are equal on both sides. Oriented to name only. LABORATORY AND DIAGNOSTIC DATA: WBC 3.5, hemoglobin 13.9, and platelets 100,000. Sodium 140, potassium 3.9, BUN 22, creatinine 1.2, and glucose 134. ASSESSMENT: 1. Pneumonia. 2. Fever. 3. Tachycardia most likely due to fever. I have asked Dr. Guzman, Dr. Saleem, and Dr. Jay to see the patient regarding the above-mentioned diagnoses and treatment. Bernardino Dallas M.D. DR: uJsto JOB#: [id number] CC:
[2016-06-29 20:00] VITALS: BP 109/58
[2016-06-29 21:59] LABS: ANISOCYTOSIS 1+; BAND NEUTROPHILS % (MANUAL) 12 % (0-8); BASOPHILS % (MANUAL) 2 % (0-2); EOSINOPHILS % (MANUAL) 0 % (0-3); LYMPHOCYTES % (MANUAL) 33 % (20-45); NEUTROPHILS % (MANUAL) 39 % (45-75); PLATELET ESTIMATE DECREASED; PLATELET MORPHOLOGY NORMAL; TOTAL CELLS COUNTED 100
[2016-06-29 22:01] LABS: PATH BLOOD SMEAR/OMC SENT TO PATHOLOGIST
--- NOTE | 2016-06-29 22:27 | Consultation ---
DATE OF CONSULTATION: 06/29/2016 INFECTIOUS DISEASE CONSULTATION REQUESTING PHYSICIAN: Bernardino Dallas M.D. REASON FOR CONSULTATION: Fever and pneumonia. Recommendation for antibiotics therapy in a patient who is allergic to penicillin and amoxicillin. HISTORY OF PRESENT ILLNESS: The patient is a 56-year-old male with history of Parkinson disease, dementia, and psych disorder was sent to [facility] at the request of his primary care physician for evaluation of pneumonia. The patient had a chronic cough and fever with maximum temperature of 101 for a while. Unclear whether he had any recent travel or sick contact. Unclear whether he received any antibiotics as an outpatient. The patient by himself cannot provide any history. He continued to cough mainly dry. At the time of my interview, the patient seems to be demented and unable to provide any history. History was mainly obtained from the medical record and the nursing staff. PAST MEDICAL HISTORY: Significant for COPD, seizure disorder, psych disorder, dementia, and Parkinson disease. ALLERGIES: He is allergic to amoxicillin, aspirin, and penicillin. MEDICATIONS: He is on aztreonam, vancomycin, amantadine, Keppra, Neurontin, Depakote, dextromethorphan, risperidone, heparin, Tylenol, MiraLax, Mylanta, nitroglycerin, Phenergan, DuoNeb, Zofran, and Restoril. SOCIAL HISTORY: The patient lives at residential facility. No recent drugs, tobacco, or alcohol. FAMILY HISTORY: Unable to obtain. REVIEW OF SYSTEMS: A 14-point of system reviewed were all negative apart from the one I mentioned above in my History and Physical. PHYSICAL EXAMINATION: VITAL SIGNS: Temperature 98.2 degrees, pulse 104, respirations 22, blood pressure 126/73, and pulse oximetry 98% on room air. GENERAL: The patient is a middle-aged male, demented, restless in bed, awake, alert, and nonverbal does not follow commands, not in distress. HEENT: Normocephalic and atraumatic. Pupils reactive to light equally. Dry oral mucosa. No exudate. NECK: Supple. No lymphadenopathy. CARDIOVASCULAR: Regular rate and rhythm. No murmur or gallop. LUNG: He had diminished breathing sound on both side with wheezing at the upper lobes. Normal breathing efforts. ABDOMEN: Soft, nontender, and nondistended. Positive bowel sounds. No hepatosplenomegaly. No ascites. EXTREMITIES: No edema. No cyanosis. SKIN: No rash. No hives. No ulceration. LABORATORY DATA: Labs showed white count of 3.5, hemoglobin of 13.9, hematocrit of 45.1, and platelet count of 100,000. BUN of 22 and creatinine of 1.2. Lactic acid of 2.7. AST of 56, alkaline phosphatase of 39, and total CK of 1600. Urinalysis showed negative nitrate, +1 leukocyte esterase, WBC 2 to 4, and few bacteria. Microbiology is pending. Imaging, chest x-ray showed probable pneumonia accounting for a density in the right upper lobe. ASSESSMENT AND PLAN: 1. Healthcare-acquired pneumonia with right upper lobe consolidation rule out aspiration pneumonia versus tuberculosis versus fungal infection versus metastases or tumor. I agree on the current antibiotics with vancomycin, aztreonam and Flagyl since he is allergic for penicillin and amoxicillin. We will order CT scan of the chest to further evaluate his lung consolidation and to rule out cavitary lesion or abscess. 2. Urinary tract infection. The patient already on aztreonam. We will sent for culture. 3. Sepsis due to the above. Continue wide-spectrum antibiotics therapy. Await blood culture results. 4. Seizure disorder stable. Continue seizure medications and neuro check. 5. Psychosis with anxiety. Continue psych medications and sitter at the bedside. 6. Failure to thrive. Recommend dietary consultation and TSH checked. Thank you for the consult. Infectious Disease will continue to follow. Carli Saleem M.D. DR: TOMAS JOB#: [id number] CC:
[2016-06-30] MEDS: metroNIDAZOLE 500mg 100 ML IVPB SCH ×3 (01:00→17:00)
--- NOTE | 2016-06-30 01:38 | Consultation ---
DATE OF CONSULTATION: HISTORY OF PRESENT ILLNESS: The patient is a 56-year-old male with a history of multiple medical problems including Parkinson disease, seizure disorder, and psychotic disorder. He has been admitted for pneumonia, however, he is currently diagnosed with . The patient is a poor historian. He is unable to be engaged during the evaluation. He is compliant with p.o. medication, however, has been disrobing and removing his IV access. The patient cooperates with placement of the IV access, however, afterwards he gets more confused and pulled out his IV access. PAST PSYCHIATRIC HISTORY: Significant for psychotic disorder, anxiety, and also dementia. PAST MEDICAL HISTORY: Includes seizure disorder and GERD. PAST SURGICAL HISTORY: None. MEDICATIONS: Include Depakote, Colace, and Keppra. ALLERGIES: Includes penicillin and aspirin. SUBSTANCE ABUSE HISTORY: There is no known history of illicit drug use or alcohol. MENTAL STATUS EXAMINATION: The patient is alert and oriented x1, confused, disoriented, and unable to provide any history. Mood is anxious. Affect is blunted. Congruent with mood and appropriate. Thought process is tangential. Thought content positive for delusions. No suicidal or homicidal ideation. Cognition is impaired. Insight and judgment impaired. ASSESSMENT: AXIS I Delirium due to underlying medical condition. AXIS II Deferred. AXIS III See past medical history. AXIS IV Low. AXIS V 10. PLAN: 1. The patient was started on olanzapine 5 mg at bedtime. 2. Olanzapine 5 mg every 6 hours p.r.n. for anxiety and agitation. 3. Also ordered soft restraint to prevent removing of his IV access. 4. We will continue follow and readjust the medications. Bridget Jay M.D. DR: Myrna JOB#: [id number] CC:
[2016-06-30] MEDS: AZTREONAM IVPB SCH ×3 (02:00→18:00)
[2016-06-30] MEDS: D5W IVPB SCH ×3 (02:00→18:00)
[2016-06-30] MEDS: Amantadine 100mg cap ORAL SCH ×4 (06:00→22:00)
[2016-06-30] MEDS: Vancomycin 750mg/D5W 250ml IVPB SCH ×4 (08:00→20:00)
[2016-06-30 08:29] VITALS: BP 148/72
[2016-06-30] MEDS: D5 1/2NS 1,000 ML IV SCH (09:00)
[2016-06-30] MEDS: Heparin 5000 units/ml inj SUBQ SCH ×2 (09:00→21:00)
[2016-06-30] MEDS: Nuedexta Capsule 20/10mg ORAL SCH ×2 (09:30→21:00)
[2016-06-30] MEDS: levETIRAcetam 500mg/5ml Liquid ORAL SCH ×2 (09:30→18:15)
--- NOTE | 2016-06-30 10:27 | Consultation ---
DATE OF CONSULTATION: 06/29/2016 NOTE: VERY VERY POOR AUDIO QUALITY: HEMATOLOGY/ONCOLOGY CONSULTATION CONSULTING PHYSICIAN: Farzad Montejo M.D. Requesting Physician: 00:08 REASON FOR CONSULTATION: Evaluation of thrombocytopenia. IDENTIFICATION DATA: Dear Dr. Bernardino Dallas The patient is a pleasant 56-year-old male with a past medical history significant for seizure disorder, history of psychiatric disorder, cachexia, and Parkinson disease at this time presents to [facility] from the halfway facility for evaluation of pneumonia and the fact the patient was febrile. He has been having ongoing cough. At the time of presentation to ER, he had a CAT scan of the chest completed as well as evaluation Pulmonary for potential infectious causes for his pneumonia. The patient antibiotics. Pending TB test as well as AFB sputum. The patient is noted to be white count 4.7 . Hematology service was consulted for further evaluation and treatment. PAST MEDICAL HISTORY: As noted above, seizure disorder, psychiatric disease, and cachexia. PAST SURGICAL HISTORY: None. Unable to obtain MEDICATIONS: ____ dextromethorphan, Colace, ____ multivitamin, . ALLERGIES: Allergic to amoxicillin,aspirin, and penicillin. REVIEW OF SYSTEMS: Difficult to obtain given the patient's mental status. PHYSICAL EXAMINATION: General: No acute distress. VITAL SIGNS: Blood pressure 103/65, O2 saturation 99% on room air, respiratory rate 12, temperature of 97 degrees Fahrenheit, PULMONARY: Decreased breath sounds. CARDIOVASCULAR: Regular rate and rhythm. ABDOMEN: Soft, nontender, nondistended. EXTREMITIES: Edema.1+ LABORATORY DATA: WBC of 4.7, hemoglobin 12.2, hematocrit 40, and platelet count of . BUN of 18 and creatinine 0.8. 2.7 and improved to 1.9. ALT and AST 56. CAT scan of the chest shows bilateral pulmonary parenchymal opacities . Chest x-ray shows probable pneumonia, upper lobe of the right side. ASSESSMENT: 1. Thrombocytopenia, and sepsis. 2. Leukopenia, rule out medication side effects versus infection. 3. Pulmonary masses, potential pneumonia process. We will need to be in 2 to 3 months as per Pulmonary recommendations. 4. pneumonia, rule out . 5. Cachexia. 6. . 7. Infectious etiology workup renal workup. 8. . RECOMMENDATIONS: 1. pending. 2. is pending. 3. . 4. Obtain ultrasound of the abdomen. 5. Discuss with 6. Monitor platelet count. Thank you, Dr. Bernardino Dallas, for this kind referral. Please do not hesitate to contact me with any further questions. Farzad Montejo M.D. DR: Zenobia JOB#: [id number] CC:
--- NOTE | 2016-06-30 16:53 | Diagnostic Imaging Report ---
Indication:Abdominal pain Technique: Grayscale and duplex Doppler imaging of the abdomen performed. Comparison: None Findings: The liver appears enlarged measuring about 20 cm. The demonstrated part of the pancreas, gallbladder, aorta and IVC, both kidneys, spleen appear unremarkable. There is no biliary ductal dilatation identified. CBD is 4 mm. Doppler evaluation of the main portal vein shows patency. There is no ascites. No hydronephrosis seen. Impression: Hepatomegaly
--- NOTE | 2016-06-30 17:05 | General Progress Note ---
Assessment/Plan Assessment/Plan ASSESSMENT: 1. Thrombocytopenia, due to infection and sepsis. 2. Leukopenia, rule out medication side effects versus infection. 3. Pulmonary masses bilaterally, potential 2/2 pneumonia process. We will need to be reimaged in 2 to 3 months as per Pulmonary recommendations. 4. Health care associated PNA 5. Anemia 2/2 chronic disease 6. Decreased h/h rule out GI bleed 7. Infectious etiology workup pending RECOMMENDATIONS: 1. Monitor counts 2. Transfuse as needed 3. Review peripheral smear 4. Transfuse prbc >7, plt >10k 5. Abd US has been ordered 6. Followup on GI, pulm recs 7. D/W staff Thank you, Farzad Montejo MD Subjective Constitutional: Reports: no symptoms HEENT: Reports: no symptoms Cardiovascular: Reports: no symptoms Respiratory: Reports: no symptoms Gastrointestinal/Abdominal: Reports: poor appetite Genitourinary: Reports: no symptoms Neurologic/Psychiatric: Reports: no symptoms Endocrine: Reports: no symptoms Hematologic/Lymphatic: Reports: anemia Allergies: Coded Allergies: AMOXICILLIN (Verified Allergy, Unknown, 02/21/13) OBTAINED FROM MEDICAL RECORD ASPIRIN (Verified Allergy, Unknown, 02/21/13) OBTAINED FROM MEDICAL RECORD PENICILLINS (Unverified Allergy, Unknown, 12/06/14) Subjective stable, no events overnight, no bleeding Objective Last 24 Hour Vital Signs Date Time Temp Pulse Resp B/P Pulse Ox O2 Delivery O2 Flow Rate FiO2 06/30/16 10:28 99.0 06/30/16 08:29 99.0 68 20 148/72 98 Room Air 06/29/16 20:28 90 20 Room Air 21 06/29/16 20:00 98.9 80 24 109/58 98 Room Air Intake and Output 06/29/16 06/30/16 19:00 07:00 Intake Total 250 ml Balance 250 ml IV Total 250 ml # Voids 4 Height (Feet): 6 Height (Inches): 0.00 Weight (Pounds): 150 General Appearance: alert EENT: TMs normal Neck: supple Cardiovascular: normal rate Respiratory/Chest: lungs clear Extremities: non-tender Edema: 1+ Leg (L), 1+ Leg (R) Edema: mild edema Neurologic: alert Skin: warm/dry Farzad Montejo Jun 30, 2016 17:05
[2016-06-30] MEDS: LORazepam 1mg tab ORAL PRN (18:15)
--- NOTE | 2016-06-30 18:21 | General Progress Note ---
Assessment/Plan Problem List: (1) Pneumonia ICD Codes: J18.9 - Pneumonia, unspecified organism SNOMED: 359272557 Status: progressing Assessment/Plan pna is improving afebrile vitals stable Subjective ROS Limited/Unobtainable: Yes Allergies: Coded Allergies: AMOXICILLIN (Verified Allergy, Unknown, 02/21/13) OBTAINED FROM MEDICAL RECORD ASPIRIN (Verified Allergy, Unknown, 02/21/13) OBTAINED FROM MEDICAL RECORD PENICILLINS (Unverified Allergy, Unknown, 12/06/14) Objective Last 24 Hour Vital Signs Date Time Temp Pulse Resp B/P Pulse Ox O2 Delivery O2 Flow Rate FiO2 06/30/16 10:28 99.0 06/30/16 08:29 99.0 68 20 148/72 98 Room Air 06/30/16 07:10 86 18 Room Air 21 06/29/16 20:28 90 20 Room Air 21 06/29/16 20:00 98.9 80 24 109/58 98 Room Air Intake and Output 06/29/16 06/30/16 19:00 07:00 Intake Total 250 ml Balance 250 ml IV Total 250 ml # Voids 4 Height (Feet): 6 Height (Inches): 0.00 Weight (Pounds): 150 EENT: PERRL/EOMI Cardiovascular: normal rate Respiratory/Chest: lungs clear Bernardino Dallas MD Jun 30, 2016 18:21
--- NOTE | 2016-06-30 18:31 | Infectious Diseases Prog Note ---
Assessment/Plan Problems: (1) Sepsis Assessment & Plan: due to pneumonia , continue vancomycin,aztreonam, and Flagyl , await blood culture (2) Pneumonia Assessment & Plan: with multiple mass like opacities and consolidation , infectious pneumonia, VS TB, VS fungal VS mets, will send fungal serology screening, quantiferon test is pending, HIV test is negative, continue current antibiotics with vancomycin and aztreonam, and Flagyl for anaerobic coverage. (3) UTI (urinary tract infection) Assessment & Plan: on aztreonam, await culture (4) Psychiatric disorder Assessment & Plan: continue psych meds. (5) Seizure disorder Assessment & Plan: continue seizure meds , with hossein check, consult neurology (6) Failure to thrive Assessment & Plan: recommend dietry consult Subjective ROS Limited/Unobtainable: Yes Allergies: Coded Allergies: AMOXICILLIN (Verified Allergy, Unknown, 02/21/13) OBTAINED FROM MEDICAL RECORD ASPIRIN (Verified Allergy, Unknown, 02/21/13) OBTAINED FROM MEDICAL RECORD PENICILLINS (Unverified Allergy, Unknown, 12/06/14) Subjective he is demented, agitated , pulled iv line , didn't receive his iv antibiotics , dosen't follow commands. Objective Vital Signs Last 24 Hour Vital Signs Date Time Temp Pulse Resp B/P Pulse Ox O2 Delivery O2 Flow Rate FiO2 06/30/16 10:28 99.0 06/30/16 08:29 99.0 68 20 148/72 98 Room Air 06/30/16 07:10 86 18 Room Air 21 06/29/16 20:28 90 20 Room Air 21 06/29/16 20:00 98.9 80 24 109/58 98 Room Air Height (Feet): 6 Height (Inches): 0.00 Weight (Pounds): 150 General Appearance: WD/WN, other - agitated, restless HEENT: normocephalic, atraumatic, anicteric, mucous membranes moist Respiratory/Chest: normal breath sounds, no respiratory distress, decreased breath sounds, crackles/rales Cardiovascular: normal peripheral pulses, normal rate, regular rhythm, no gallop/murmur Abdomen: normal bowel sounds, soft, non tender, no organomegaly, non distended , no mass Extremities: no cyanosis, no clubbing Skin: no rash, no lesions Microbiology Date/Time Source Procedure Growth Status 06/28/16 15:11 Blood Blood Culture - Preliminary Resulted 06/28/16 14:25 Blood Blood Culture - Preliminary NO GROWTH AFTER 24 HOURS Resulted 06/28/16 19:00 Nasal Nares MRSA Culture - Final Staphylococcus Aureus - Mrsa Complete 06/28/16 19:00 Rectum VRE Culture - Final NO VANCOMYCIN RESISTANT ENTEROCOCCUS ... Complete Current Medications Medications (Trade) Dose Ordered Sig/Yanelis Route PRN Reason Start Time Stop Time Status Last Admin Dose Admin Acetaminophen (Tylenol) 650 mg Q4H PRN ORAL fever 06/28/16 19:00 07/28/16 18:59 06/29/16 00:18 Al Hydroxide/Mg Hydroxide (Mylanta II) 30 ml Q6H PRN ORAL dyspepsia 06/28/16 19:00 07/28/16 18:59 Albuterol/ Ipratropium (DuoNeb 0.5-3(2.5)mg/3ml) 3 ml EVERY 4 HOURS PRN HHN Shortness of Breath 06/28/16 19:00 07/03/16 18:59 Amantadine HCl (Symmetrel) 100 mg Q8HR ORAL 06/28/16 22:00 07/28/16 21:59 06/30/16 14:17 Aztreonam/Dextrose (Azactam/D5W 50ml) 50 ml @ 100 mls/hr Q8HR@0200,1000,1800 IVPB 06/29/16 18:00 07/06/16 17:59 Dextromethorphan/ Quinidine (Nuedexta Capsule) 1 cap Q12HR ORAL 06/28/16 21:00 07/28/16 20:59 06/30/16 09:30 Dextrose/Sodium Chloride (D5 0.45% NS) 1,000 ml @ 50 mls/hr Q20H IV 06/30/16 09:00 07/30/16 08:59 Divalproex Sodium (Depakote) 250 mg Q8HR ORAL 06/28/16 22:00 07/28/16 21:59 06/30/16 14:18 Gabapentin (Neurontin) 400 mg DAILY ORAL 06/29/16 09:00 07/29/16 08:59 06/30/16 09:29 Heparin Sodium (Porcine) (Heparin 5000 units/ml) 5,000 units EVERY 12 HOURS SUBQ 06/28/16 21:00 07/28/16 20:59 Levetiracetam (Keppra) 500 mg TWICE A DAY ORAL 06/29/16 09:00 07/29/16 08:59 06/30/16 18:15 Lorazepam (Ativan) 2 mg Q6H PRN ORAL For Anxiety 06/30/16 14:30 07/07/16 14:29 06/30/16 18:15 Metronidazole 100 ml @ 100 mls/hr Q8HR@0100,0900,1700 IVPB 06/29/16 01:30 07/06/16 01:29 06/29/16 10:00 Nitroglycerin (Ntg) 0.4 mg Q5M PRN SL Prn Chest Pain 06/28/16 19:00 07/28/16 18:59 Olanzapine (ZyPREXA) 5 mg QHS ORAL 06/30/16 22:00 07/30/16 21:59 Olanzapine 5 mg 5 mg Q6HR PRN ORAL Agitation 06/29/16 21:30 07/29/16 21:29 06/30/16 09:30 Ondansetron HCl (Zofran) 4 mg Q6H PRN IVP Nausea & Vomiting 06/28/16 19:00 07/28/16 18:59 Polyethylene Glycol (Miralax) 17 gm DAILYPRN PRN ORAL Constipation 06/28/16 19:00 07/28/16 18:59 Promethazine HCl/ Codeine (Phenergan with Codeine) 5 ml Q4H PRN ORAL For Cough 06/28/16 19:00 07/28/16 18:59 Risperidone (RisperDAL) 2 mg QHS ORAL 06/28/16 21:00 07/28/16 20:59 06/29/16 20:32 Temazepam (Restoril) 15 mg HSPRN PRN ORAL Insomnia 06/28/16 19:00 07/05/16 18:59 Vancomycin HCl 750 mg/Dextrose 250 ml @ 167 mls/hr Q12HR@0800,2000 IVPB 06/29/16 08:00 07/04/16 07:59 06/29/16 08:08 Vancomycin HCl 1 ea 1 ea DAILY PRN MISC Per rx protocol 06/28/16 19:00 07/28/16 18:59 Carli Saleem M.D. Jun 30, 2016 18:31
[2016-06-30] MEDS ORDERED: Tubing IV Secondary IV ONE ×2 (18:40)
[2016-06-30] MEDS ORDERED: NS 275ml ONE ×2 (18:40)
--- NOTE | 2016-06-30 18:47 | Pulmonology Progress Note ---
Assessment/Plan Problems: (1) rule out Tuberculosis (2) Right upper lobe pneumonia (3) UTI (urinary tract infection) (4) Seizure disorder (5) Psychiatric disorder (6) Cachexia Assessment/Plan iv antibiotics sputum for afb TB gold test isolation fungi serology ppd skin test HIV testing was negative Subjective ROS Limited/Unobtainable: No Interval Events: no new complains Allergies: Coded Allergies: AMOXICILLIN (Verified Allergy, Unknown, 02/21/13) OBTAINED FROM MEDICAL RECORD ASPIRIN (Verified Allergy, Unknown, 02/21/13) OBTAINED FROM MEDICAL RECORD PENICILLINS (Unverified Allergy, Unknown, 12/06/14) Objective Last 24 Hour Vital Signs Date Time Temp Pulse Resp B/P Pulse Ox O2 Delivery O2 Flow Rate FiO2 06/30/16 10:28 99.0 06/30/16 08:29 99.0 68 20 148/72 98 Room Air 06/30/16 07:10 86 18 Room Air 21 06/29/16 20:28 90 20 Room Air 21 06/29/16 20:00 98.9 80 24 109/58 98 Room Air Intake and Output 06/29/16 06/30/16 19:00 07:00 Intake Total 250 ml Balance 250 ml IV Total 250 ml # Voids 4 General Appearance: WD/WN HEENT: normocephalic, anicteric Respiratory/Chest: chest wall non-tender, lungs clear Cardiovascular: normal peripheral pulses, normal rate Abdomen: normal bowel sounds, soft, non tender Genitourinary: normal external genitalia Extremities: no cyanosis 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 Complete Current Medications Medications (Trade) Dose Ordered Sig/Yanelis Route PRN Reason Start Time Stop Time Status Last Admin Dose Admin Acetaminophen (Tylenol) 650 mg Q4H PRN ORAL fever 06/28/16 19:00 07/28/16 18:59 06/29/16 00:18 Al Hydroxide/Mg Hydroxide (Mylanta II) 30 ml Q6H PRN ORAL dyspepsia 06/28/16 19:00 07/28/16 18:59 Albuterol/ Ipratropium (DuoNeb 0.5-3(2.5)mg/3ml) 3 ml EVERY 4 HOURS PRN HHN Shortness of Breath 06/28/16 19:00 07/03/16 18:59 Amantadine HCl (Symmetrel) 100 mg Q8HR ORAL 06/28/16 22:00 07/28/16 21:59 06/30/16 14:17 Aztreonam/Dextrose (Azactam/D5W 50ml) 50 ml @ 100 mls/hr Q8HR@0200,1000,1800 IVPB 06/29/16 18:00 07/06/16 17:59 Dextromethorphan/ Quinidine (Nuedexta Capsule) 1 cap Q12HR ORAL 06/28/16 21:00 07/28/16 20:59 06/30/16 09:30 Dextrose/Sodium Chloride (D5 0.45% NS) 1,000 ml @ 50 mls/hr Q20H IV 06/30/16 09:00 07/30/16 08:59 Divalproex Sodium (Depakote) 250 mg Q8HR ORAL 06/28/16 22:00 07/28/16 21:59 06/30/16 14:18 Gabapentin (Neurontin) 400 mg DAILY ORAL 06/29/16 09:00 07/29/16 08:59 06/30/16 09:29 Heparin Sodium (Porcine) (Heparin 5000 units/ml) 5,000 units EVERY 12 HOURS SUBQ 06/28/16 21:00 07/28/16 20:59 Levetiracetam (Keppra) 500 mg TWICE A DAY ORAL 06/29/16 09:00 07/29/16 08:59 06/30/16 18:15 Lorazepam (Ativan) 2 mg Q6H PRN ORAL For Anxiety 06/30/16 14:30 07/07/16 14:29 06/30/16 18:15 Metronidazole 100 ml @ 100 mls/hr Q8HR@0100,0900,1700 IVPB 06/29/16 01:30 07/06/16 01:29 06/29/16 10:00 Nitroglycerin (Ntg) 0.4 mg Q5M PRN SL Prn Chest Pain 06/28/16 19:00 07/28/16 18:59 Olanzapine (ZyPREXA) 5 mg QHS ORAL 06/30/16 22:00 07/30/16 21:59 Olanzapine 5 mg 5 mg Q6HR PRN ORAL Agitation 06/29/16 21:30 07/29/16 21:29 06/30/16 09:30 Ondansetron HCl (Zofran) 4 mg Q6H PRN IVP Nausea & Vomiting 06/28/16 19:00 07/28/16 18:59 Polyethylene Glycol (Miralax) 17 gm DAILYPRN PRN ORAL Constipation 06/28/16 19:00 07/28/16 18:59 Promethazine HCl/ Codeine (Phenergan with Codeine) 5 ml Q4H PRN ORAL For Cough 06/28/16 19:00 07/28/16 18:59 Risperidone (RisperDAL) 2 mg QHS ORAL 06/28/16 21:00 07/28/16 20:59 06/29/16 20:32 Temazepam (Restoril) 15 mg HSPRN PRN ORAL Insomnia 06/28/16 19:00 07/05/16 18:59 Vancomycin HCl 750 mg/Dextrose 250 ml @ 167 mls/hr Q12HR@0800,2000 IVPB 06/29/16 08:00 07/04/16 07:59 06/29/16 08:08 Vancomycin HCl 1 ea 1 ea DAILY PRN MISC Per rx protocol 06/28/16 19:00 07/28/16 18:59 NEERAJ DAMON Jun 30, 2016 18:47
[2016-07-01] VITALS: BP_SYST 121; BP_SYST 138; BP_DIAS 106; BP_DIAS 71
[2016-07-01] MEDS: D5 1/2NS 1,000 ML IV SCH ×2 (00:02→19:25)
[2016-07-01] MEDS: metroNIDAZOLE 500mg 100 ML IVPB SCH ×3 (00:28→18:09)
[2016-07-01] MEDS: D5W IVPB SCH ×3 (01:35→19:26)
[2016-07-01] MEDS: AZTREONAM IVPB SCH ×3 (01:35→19:26)
[2016-07-01 04:00] VITALS: BP 118/70
[2016-07-01] MEDS: Amantadine 100mg cap ORAL SCH ×3 (06:06→22:16)
[2016-07-01 07:44] VITALS: BP 134/70
[2016-07-01] MEDS: Vancomycin 750mg/D5W 250ml IVPB SCH ×6 (09:00→22:18)
[2016-07-01] MEDS: Heparin 5000 units/ml inj SUBQ SCH ×2 (09:00→22:16)
[2016-07-01] MEDS: Nuedexta Capsule 20/10mg ORAL SCH ×2 (09:01→22:15)
[2016-07-01] MEDS: levETIRAcetam 500mg/5ml Liquid ORAL SCH ×2 (09:01→18:24)
--- NOTE | 2016-07-01 11:43 | General Progress Note ---
Assessment/Plan Problem List: (1) Pneumonia ICD Codes: J18.9 - Pneumonia, unspecified organism SNOMED: 753265056 Status: progressing Assessment/Plan pna is improving afebrile dc planning back to snf improving Subjective ROS Limited/Unobtainable: Yes Allergies: Coded Allergies: AMOXICILLIN (Verified Allergy, Unknown, 02/21/13) OBTAINED FROM MEDICAL RECORD ASPIRIN (Verified Allergy, Unknown, 02/21/13) OBTAINED FROM MEDICAL RECORD PENICILLINS (Unverified Allergy, Unknown, 12/06/14) Objective Last 24 Hour Vital Signs Date Time Temp Pulse Resp B/P Pulse Ox O2 Delivery O2 Flow Rate FiO2 07/01/16 10:11 98.1 07/01/16 07:44 98.1 79 18 134/70 97 Room Air 07/01/16 07:12 79 20 Room Air 21 07/01/16 04:00 98.4 89 16 118/70 95 Room Air 07/01/16 00:00 98.1 92 16 121/71 94 Room Air 06/30/16 20:18 70 18 Room Air 21 Intake and Output 06/30/16 07/01/16 19:00 07:00 Intake Total 485 ml Balance 485 ml Intake Oral 60 ml IV Total 425 ml # Voids 5 5 Height (Feet): 6 Height (Inches): 0.00 Weight (Pounds): 150 General Appearance: confused EENT: PERRL/EOMI Cardiovascular: normal rate Respiratory/Chest: lungs clear Bernardino Dallas MD Jul 01, 2016 11:43
[2016-07-01 12:00] VITALS: BP 117/82
[2016-07-01] MEDS: Promethazine/Codeine 5ml UD ORAL PRN (12:49)
--- NOTE | 2016-07-01 15:09 | Infectious Diseases Prog Note ---
Assessment/Plan Problems: (1) Sepsis Assessment & Plan: blood culture grew coag negative staph from one bottle, most likely contaminant , continue vancomycin,aztreonam, and Flagyl , await final blood culture (2) Pneumonia Assessment & Plan: with multiple mass like opacities and consolidation , infectious pneumonia, VS TB, VS fungal VS mets, fungal serology screening,and T- spot test is pending, HIV test is negative, continue current antibiotics with vancomycin and aztreonam, and Flagyl , send sputum culture x3 for AFB, keep in Airborn isolation (3) UTI (urinary tract infection) Assessment & Plan: on aztreonam, await culture (4) Psychiatric disorder Assessment & Plan: continue psych meds. (5) Seizure disorder Assessment & Plan: continue seizure meds , with hossein check, consult neurology (6) Failure to thrive Assessment & Plan: recommend dietry consult Subjective ROS Limited/Unobtainable: Yes Allergies: Coded Allergies: AMOXICILLIN (Verified Allergy, Unknown, 02/21/13) OBTAINED FROM MEDICAL RECORD ASPIRIN (Verified Allergy, Unknown, 02/21/13) OBTAINED FROM MEDICAL RECORD PENICILLINS (Unverified Allergy, Unknown, 12/06/14) Subjective he is demented, not agitated today , comfortable , doesn't follow commands. Objective Vital Signs Last 24 Hour Vital Signs Date Time Temp Pulse Resp B/P Pulse Ox O2 Delivery O2 Flow Rate FiO2 07/01/16 12:00 97.9 80 18 117/82 97 Room Air 07/01/16 10:11 98.1 07/01/16 07:44 98.1 79 18 134/70 97 Room Air 07/01/16 07:12 79 20 Room Air 21 07/01/16 04:00 98.4 89 16 118/70 95 Room Air 07/01/16 00:00 98.1 92 16 121/71 94 Room Air 06/30/16 20:18 70 18 Room Air 21 Height (Feet): 6 Height (Inches): 0.00 Weight (Pounds): 150 General Appearance: WD/WN, no acute distress HEENT: normocephalic, atraumatic, anicteric, mucous membranes moist, PERRL Respiratory/Chest: chest wall non-tender, normal breath sounds, no respiratory distress, no accessory muscle use, decreased breath sounds, inspiratory wheezing Cardiovascular: normal peripheral pulses, normal rate, regular rhythm, no gallop/murmur, no JVD Abdomen: normal bowel sounds, soft, non tender, no organomegaly, non distended , no mass, no scars Extremities: no cyanosis, no clubbing Skin: no rash, no lesions, no ulcers Microbiology Date/Time Source Procedure Growth Status 06/28/16 15:11 Blood Blood Culture - Preliminary Staphylococcus Sp Coag Neg Resulted 06/28/16 19:00 Nasal Nares MRSA Culture - Final Staphylococcus Aureus - Mrsa Complete 06/28/16 19:00 Rectum VRE Culture - Final NO VANCOMYCIN RESISTANT ENTEROCOCCUS ... Complete Current Medications Medications (Trade) Dose Ordered Sig/Yanelis Route PRN Reason Start Time Stop Time Status Last Admin Dose Admin Acetaminophen (Tylenol) 650 mg Q4H PRN ORAL fever 06/28/16 19:00 07/28/16 18:59 06/29/16 00:18 Al Hydroxide/Mg Hydroxide (Mylanta II) 30 ml Q6H PRN ORAL dyspepsia 06/28/16 19:00 07/28/16 18:59 Albuterol/ Ipratropium (DuoNeb 0.5-3(2.5)mg/3ml) 3 ml EVERY 4 HOURS PRN HHN Shortness of Breath 06/28/16 19:00 07/03/16 18:59 Amantadine HCl (Symmetrel) 100 mg Q8HR ORAL 06/28/16 22:00 07/28/16 21:59 07/01/16 12:41 Aztreonam/Dextrose (Azactam/D5W 50ml) 50 ml @ 100 mls/hr Q8HR@0200,1000,1800 IVPB 06/29/16 18:00 07/06/16 17:59 07/01/16 10:11 Dextromethorphan/ Quinidine (Nuedexta Capsule) 1 cap Q12HR ORAL 06/28/16 21:00 07/28/16 20:59 07/01/16 09:01 Dextrose/Sodium Chloride (D5 0.45% NS) 1,000 ml @ 50 mls/hr Q20H IV 06/30/16 09:00 07/30/16 08:59 07/01/16 00:02 Divalproex Sodium (Depakote) 250 mg Q8HR ORAL 06/28/16 22:00 07/28/16 21:59 07/01/16 12:41 Gabapentin (Neurontin) 400 mg DAILY ORAL 06/29/16 09:00 07/29/16 08:59 07/01/16 09:01 Heparin Sodium (Porcine) (Heparin 5000 units/ml) 5,000 units EVERY 12 HOURS SUBQ 06/28/16 21:00 07/28/16 20:59 Levetiracetam (Keppra) 500 mg TWICE A DAY ORAL 06/29/16 09:00 07/29/16 08:59 07/01/16 09:01 Lorazepam (Ativan) 2 mg Q6H PRN ORAL For Anxiety 06/30/16 14:30 07/07/16 14:29 06/30/16 18:15 Metronidazole 100 ml @ 100 mls/hr Q8HR@0100,0900,1700 IVPB 06/29/16 01:30 07/06/16 01:29 07/01/16 09:01 Nitroglycerin (Ntg) 0.4 mg Q5M PRN SL Prn Chest Pain 06/28/16 19:00 07/28/16 18:59 Olanzapine (ZyPREXA) 5 mg QHS ORAL 06/30/16 22:00 07/30/16 21:59 Olanzapine 5 mg 5 mg Q6HR PRN ORAL Agitation 06/29/16 21:30 07/29/16 21:29 06/30/16 09:30 Ondansetron HCl (Zofran) 4 mg Q6H PRN IVP Nausea & Vomiting 06/28/16 19:00 07/28/16 18:59 Polyethylene Glycol (Miralax) 17 gm DAILYPRN PRN ORAL Constipation 06/28/16 19:00 07/28/16 18:59 Promethazine HCl/ Codeine (Phenergan with Codeine) 5 ml Q4H PRN ORAL For Cough 06/28/16 19:00 07/28/16 18:59 07/01/16 12:49 Risperidone (RisperDAL) 2 mg QHS ORAL 06/28/16 21:00 07/28/16 20:59 06/29/16 20:32 Temazepam (Restoril) 15 mg HSPRN PRN ORAL Insomnia 06/28/16 19:00 07/05/16 18:59 Vancomycin HCl 750 mg/Dextrose 250 ml @ 167 mls/hr Q12HR@0800,2000 IVPB 06/29/16 08:00 07/04/16 07:59 07/01/16 09:00 Vancomycin HCl 1 ea 1 ea DAILY PRN MISC Per rx protocol 06/28/16 19:00 07/28/16 18:59 Carli Saleem M.D. Jul 01, 2016 15:09
[2016-07-01 16:00] VITALS: BP 120/77
[2016-07-01] MEDS: LORazepam 1mg tab ORAL PRN (16:29)
--- NOTE | 2016-07-01 17:20 | General Progress Note ---
Assessment/Plan Assessment/Plan ASSESSMENT: 1. Thrombocytopenia, due to infection and sepsis. >90k has been stable 2. Leukopenia, rule out medication side effects versus infection. 3. Bilateral pulmonary masses bilaterally, potential 2/2 pneumonia process. Reimage as per Pulmonary recs 4. Health care associated PNA 5. Anemia 2/2 chronic disease 6. Decreased h/h rule out GI bleed 7. Infectious etiology workup pending RECOMMENDATIONS: 1. Monitor counts 2. Transfuse as needed 3. Review peripheral smear 4. Transfuse prbc >7, plt >10k 5. Reimage CT scan of pulmonary mass like opacities as per Pulmonary recs 6. Followup on GI, ID, pulm recs 7. D/W staff Thank you, Farzad Montejo MD Subjective Constitutional: Reports: no symptoms HEENT: Reports: no symptoms Cardiovascular: Reports: no symptoms Respiratory: Reports: no symptoms Gastrointestinal/Abdominal: Reports: poor appetite Genitourinary: Reports: no symptoms Neurologic/Psychiatric: Reports: no symptoms Endocrine: Reports: no symptoms Hematologic/Lymphatic: Reports: anemia Allergies: Coded Allergies: AMOXICILLIN (Verified Allergy, Unknown, 02/21/13) OBTAINED FROM MEDICAL RECORD ASPIRIN (Verified Allergy, Unknown, 02/21/13) OBTAINED FROM MEDICAL RECORD PENICILLINS (Unverified Allergy, Unknown, 12/06/14) Subjective stable, no events overnight, is not bleeding Objective Last 24 Hour Vital Signs Date Time Temp Pulse Resp B/P Pulse Ox O2 Delivery O2 Flow Rate FiO2 07/01/16 16:00 98.4 44 18 120/77 95 Room Air 07/01/16 12:00 97.9 80 18 117/82 97 Room Air 07/01/16 10:11 98.1 07/01/16 07:44 98.1 79 18 134/70 97 Room Air 07/01/16 07:12 79 20 Room Air 21 07/01/16 04:00 98.4 89 16 118/70 95 Room Air 07/01/16 00:00 98.1 92 16 121/71 94 Room Air 06/30/16 20:18 70 18 Room Air 21 Intake and Output 06/30/16 07/01/16 19:00 07:00 Intake Total 485 ml Balance 485 ml Intake Oral 60 ml IV Total 425 ml # Voids 5 5 Height (Feet): 6 Height (Inches): 0.00 Weight (Pounds): 150 General Appearance: no apparent distress EENT: TMs normal Neck: supple Cardiovascular: regular rhythm Respiratory/Chest: lungs clear Abdomen: non tender Extremities: non-tender Edema: no edema noted Leg (L), no edema noted Leg (R) Edema: mild edema Neurologic: alert Skin: warm/dry Farzad Montejo Jul 01, 2016 17:20
[2016-07-01 19:00] VITALS: BP 92/34
--- NOTE | 2016-07-01 19:14 | Pulmonology Progress Note ---
Assessment/Plan Problems: (1) rule out Tuberculosis (2) Right upper lobe pneumonia (3) UTI (urinary tract infection) (4) Seizure disorder (5) Psychiatric disorder (6) Cachexia Assessment/Plan iv antibiotics sputum for afb TB gold test isolation fungi serology ppd skin test HIV testing was negative Subjective ROS Limited/Unobtainable: No Respiratory: Reports: dry cough, dyspnea at rest, dyspnea on exertion, hemoptysis, pleuritic pain, shortness of breath, wheezing Allergies: Coded Allergies: AMOXICILLIN (Verified Allergy, Unknown, 02/21/13) OBTAINED FROM MEDICAL RECORD ASPIRIN (Verified Allergy, Unknown, 02/21/13) OBTAINED FROM MEDICAL RECORD PENICILLINS (Unverified Allergy, Unknown, 12/06/14) Objective Last 24 Hour Vital Signs Date Time Temp Pulse Resp B/P Pulse Ox O2 Delivery O2 Flow Rate FiO2 07/01/16 16:00 98.4 44 18 120/77 95 Room Air 07/01/16 12:00 97.9 80 18 117/82 97 Room Air 07/01/16 10:11 98.1 07/01/16 07:44 98.1 79 18 134/70 97 Room Air 07/01/16 07:12 79 20 Room Air 21 07/01/16 04:00 98.4 89 16 118/70 95 Room Air 07/01/16 00:00 98.1 92 16 121/71 94 Room Air 06/30/16 20:18 70 18 Room Air 21 Intake and Output 06/30/16 07/01/16 19:00 07:00 Intake Total 485 ml Balance 485 ml Intake Oral 60 ml IV Total 425 ml # Voids 5 5 General Appearance: no acute distress HEENT: atraumatic, PERRL Respiratory/Chest: chest wall non-tender, decreased breath sounds, accessory muscle use, rhonchi Cardiovascular: normal peripheral pulses, normal rate, regular rhythm, no JVD Abdomen: normal bowel sounds, soft, non tender, no organomegaly, non distended , no mass Genitourinary: normal external genitalia Extremities: no cyanosis Skin: no rash, no lesions 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, no motor/sensory deficits Current Medications Medications (Trade) Dose Ordered Sig/Yanelis Route PRN Reason Start Time Stop Time Status Last Admin Dose Admin Acetaminophen (Tylenol) 650 mg Q4H PRN ORAL fever 06/28/16 19:00 2/8/17 18:59 06/29/16 00:18 Al Hydroxide/Mg Hydroxide (Mylanta II) 30 ml Q6H PRN ORAL dyspepsia 06/28/16 19:00 07/28/16 18:59 Albuterol/ Ipratropium (DuoNeb 0.5-3(2.5)mg/3ml) 3 ml EVERY 4 HOURS PRN HHN Shortness of Breath 06/28/16 19:00 07/03/16 18:59 Amantadine HCl (Symmetrel) 100 mg Q8HR ORAL 06/28/16 22:00 07/28/16 21:59 07/01/16 12:41 Aztreonam/Dextrose (Azactam/D5W 50ml) 50 ml @ 100 mls/hr Q8HR@0200,1000,1800 IVPB 06/29/16 18:00 07/06/16 17:59 07/01/16 10:11 Dextromethorphan/ Quinidine (Nuedexta Capsule) 1 cap Q12HR ORAL 06/28/16 21:00 07/28/16 20:59 07/01/16 09:01 Dextrose/Sodium Chloride (D5 0.45% NS) 1,000 ml @ 50 mls/hr Q20H IV 06/30/16 09:00 07/30/16 08:59 07/01/16 00:02 Divalproex Sodium (Depakote) 250 mg Q8HR ORAL 06/28/16 22:00 07/28/16 21:59 07/01/16 12:41 Gabapentin (Neurontin) 400 mg DAILY ORAL 06/29/16 09:00 07/29/16 08:59 07/01/16 09:01 Heparin Sodium (Porcine) (Heparin 5000 units/ml) 5,000 units EVERY 12 HOURS SUBQ 06/28/16 21:00 07/28/16 20:59 Levetiracetam (Keppra) 500 mg TWICE A DAY ORAL 06/29/16 09:00 07/29/16 08:59 07/01/16 18:24 Lorazepam (Ativan) 2 mg Q6H PRN ORAL For Anxiety 06/30/16 14:30 07/07/16 14:29 07/01/16 16:29 Metronidazole 100 ml @ 100 mls/hr Q8HR@0100,0900,1700 IVPB 06/29/16 01:30 07/06/16 01:29 07/01/16 18:09 Nitroglycerin (Ntg) 0.4 mg Q5M PRN SL Prn Chest Pain 06/28/16 19:00 07/28/16 18:59 Olanzapine (ZyPREXA) 5 mg QHS ORAL 06/30/16 22:00 07/30/16 21:59 Olanzapine 5 mg 5 mg Q6HR PRN ORAL Agitation 06/29/16 21:30 07/29/16 21:29 07/01/16 18:24 Ondansetron HCl (Zofran) 4 mg Q6H PRN IVP Nausea & Vomiting 06/28/16 19:00 07/28/16 18:59 Polyethylene Glycol (Miralax) 17 gm DAILYPRN PRN ORAL Constipation 06/28/16 19:00 07/28/16 18:59 Promethazine HCl/ Codeine (Phenergan with Codeine) 5 ml Q4H PRN ORAL For Cough 06/28/16 19:00 07/28/16 18:59 07/01/16 12:49 Risperidone (RisperDAL) 2 mg QHS ORAL 06/28/16 21:00 07/28/16 20:59 06/29/16 20:32 Temazepam (Restoril) 15 mg HSPRN PRN ORAL Insomnia 06/28/16 19:00 07/05/16 18:59 Vancomycin HCl 750 mg/Dextrose 250 ml @ 167 mls/hr Q12HR@0800,2000 IVPB 06/29/16 08:00 07/04/16 07:59 07/01/16 09:00 Vancomycin HCl 1 ea 1 ea DAILY PRN MISC Per rx protocol 06/28/16 19:00 07/28/16 18:59 NEERAJ DAMON Jul 01, 2016 19:14
[2016-07-02] VITALS: BP 138/106
[2016-07-02] MEDS: metroNIDAZOLE 500mg 100 ML IVPB SCH ×3 (00:28→16:12)
[2016-07-02] MEDS: LORazepam 1mg tab ORAL PRN ×2 (01:56→16:13)
[2016-07-02] MEDS: D5W IVPB SCH ×3 (01:56→17:33)
[2016-07-02] MEDS: AZTREONAM IVPB SCH ×3 (01:56→17:33)
[2016-07-02 04:00] VITALS: BP 131/66
[2016-07-02] MEDS: Amantadine 100mg cap ORAL SCH ×3 (05:25→21:24)
[2016-07-02] MEDS: Vancomycin 750mg/D5W 250ml IVPB SCH ×2 (08:18)
[2016-07-02] MEDS: levETIRAcetam 500mg/5ml Liquid ORAL SCH ×2 (08:19→17:34)
[2016-07-02] MEDS: Nuedexta Capsule 20/10mg ORAL SCH ×2 (08:19→21:24)
[2016-07-02] MEDS: Heparin 5000 units/ml inj SUBQ SCH ×2 (08:19→21:00)
[2016-07-02 13:25] LABS: BASOPHILS % (AUTO) 0.5 % (0.0-2.0); EOSINOPHILS % (AUTO) 1.1 % (0.0-3.0); LYMPHOCYTES % (AUTO) 14.3 % (20.0-45.0); MEAN CORPUSCULAR HEMOGLOBIN 22.6 PG (27.0-31.0); MEAN CORPUSCULAR HGB CONC 31.6 G/DL (32.0-36.0); MEAN CORPUSCULAR VOLUME 71 FL (80-99); MONOCYTES % (AUTO) 14.8 % (1.0-10.0); NEUTROPHILS % (AUTO) 69.4 % (45.0-75.0); PLATELET COUNT 293 K/UL (150-450); RED BLOOD COUNT 5.27 M/UL (4.70-6.10); RED CELL DISTRIBUTION WIDTH 13.1 % (11.6-14.8); WHITE BLOOD COUNT 8.6 K/UL (4.8-10.8)
[2016-07-02] MEDS ORDERED: NS 55ml IV ONE (14:22)
[2016-07-02 16:00] VITALS: BP 119/80
--- NOTE | 2016-07-02 16:51 | Pulmonology Progress Note ---
Assessment/Plan Problems: (1) rule out Tuberculosis (2) Right upper lobe pneumonia (3) UTI (urinary tract infection) (4) Seizure disorder (5) Psychiatric disorder (6) Cachexia Assessment/Plan iv antibiotics sputum for afb TB gold test isolation fungi serology ppd skin test HIV testing was negative Subjective ROS Limited/Unobtainable: No Constitutional: Reports: no symptoms HEENT: Repors: no symptoms Respiratory: Reports: no symptoms Cardiovascular: Reports: no symptoms Gastrointestinal/Abdominal: Reports: no symptoms Allergies: Coded Allergies: AMOXICILLIN (Verified Allergy, Unknown, 02/21/13) OBTAINED FROM MEDICAL RECORD ASPIRIN (Verified Allergy, Unknown, 02/21/13) OBTAINED FROM MEDICAL RECORD PENICILLINS (Unverified Allergy, Unknown, 12/06/14) Objective Last 24 Hour Vital Signs Date Time Temp Pulse Resp B/P Pulse Ox O2 Delivery O2 Flow Rate FiO2 07/02/16 16:00 98.1 83 22 119/80 99 Room Air 07/02/16 09:18 98.2 07/02/16 08:30 80 20 Room Air 07/02/16 04:00 98.2 108 20 131/66 92 Room Air 07/02/16 00:00 100.8 100 19 138/106 92 Room Air 07/01/16 19:31 81 20 Room Air 07/01/16 19:00 97.3 96 20 92/34 92 Room Air Intake and Output 07/01/16 07/02/16 19:00 07:00 Intake Total 200 ml 970 ml Balance 200 ml 970 ml Intake Oral 200 ml 120 ml IV Total 0 ml 850 ml # Voids 2 6 # Bowel Movements 1 General Appearance: WD/WN HEENT: normocephalic Respiratory/Chest: chest wall non-tender, lungs clear Cardiovascular: normal peripheral pulses, regular rhythm Abdomen: soft, non tender Extremities: no clubbing 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 tuberculosis Complex DNA (PCR) [Pending] 07/02/16 12:35: White Blood Count 8.6, Red Blood Count 5.27, Hemoglobin 11.9L, Hematocrit 37.6L , Mean Corpuscular Volume 71L, Mean Corpuscular Hemoglobin 22.6L, Mean Corpuscular Hemoglobin Concent 31.6L, Red Cell Distribution Width 13.1, Platelet Count 293, Mean Platelet Volume 6.0L, Neutrophils (%) (Auto) 69.4, Lymphocytes (%) (Auto) 14.3L, Monocytes (%) (Auto) 14.8H, Eosinophils (%) (Auto ) 1.1, Basophils (%) (Auto) 0.5, Hepatitis A IgM Antibody [Pending], Hepatitis B Surface Antigen [Pending], Hepatitis B Core IgM Antibody [Pending], Hepatitis C Antibody [Pending] Current Medications Medications (Trade) Dose Ordered Sig/Yanelis Route PRN Reason Start Time Stop Time Status Last Admin Dose Admin Acetaminophen (Tylenol) 650 mg Q4H PRN ORAL fever 06/28/16 19:00 07/28/16 18:59 06/29/16 00:18 Al Hydroxide/Mg Hydroxide (Mylanta II) 30 ml Q6H PRN ORAL dyspepsia 06/28/16 19:00 07/28/16 18:59 Albuterol/ Ipratropium (DuoNeb 0.5-3(2.5)mg/3ml) 3 ml EVERY 4 HOURS PRN HHN Shortness of Breath 06/28/16 19:00 07/03/16 18:59 Amantadine HCl (Symmetrel) 100 mg Q8HR ORAL 06/28/16 22:00 07/28/16 21:59 07/02/16 14:30 Aztreonam/Dextrose (Azactam/D5W 50ml) 50 ml @ 100 mls/hr Q8HR@0200,1000,1800 IVPB 06/29/16 18:00 07/06/16 17:59 07/02/16 11:40 Dextromethorphan/ Quinidine (Nuedexta Capsule) 1 cap Q12HR ORAL 06/28/16 21:00 07/28/16 20:59 07/02/16 08:19 Dextrose/Sodium Chloride (D5 0.45% NS) 1,000 ml @ 50 mls/hr Q20H IV 06/30/16 09:00 07/30/16 08:59 07/01/16 19:25 Divalproex Sodium (Depakote) 250 mg Q8HR ORAL 06/28/16 22:00 07/28/16 21:59 07/02/16 14:32 Gabapentin (Neurontin) 400 mg DAILY ORAL 06/29/16 09:00 07/29/16 08:59 07/02/16 08:19 Heparin Sodium (Porcine) (Heparin 5000 units/ml) 5,000 units EVERY 12 HOURS SUBQ 06/28/16 21:00 07/28/16 20:59 Levetiracetam (Keppra) 500 mg TWICE A DAY ORAL 06/29/16 09:00 07/29/16 08:59 07/02/16 08:19 Lorazepam (Ativan) 2 mg Q6H PRN ORAL For Anxiety 06/30/16 14:30 07/07/16 14:29 07/02/16 16:13 Metronidazole 100 ml @ 100 mls/hr Q8HR@0100,0900,1700 IVPB 06/29/16 01:30 07/06/16 01:29 07/02/16 16:12 Nitroglycerin (Ntg) 0.4 mg Q5M PRN SL Prn Chest Pain 06/28/16 19:00 07/28/16 18:59 Olanzapine (ZyPREXA) 5 mg QHS ORAL 06/30/16 22:00 07/30/16 21:59 07/01/16 22:15 Olanzapine 5 mg 5 mg Q6HR PRN ORAL Agitation 06/29/16 21:30 07/29/16 21:29 07/01/16 18:24 Ondansetron HCl (Zofran) 4 mg Q6H PRN IVP Nausea & Vomiting 06/28/16 19:00 07/28/16 18:59 Polyethylene Glycol (Miralax) 17 gm DAILYPRN PRN ORAL Constipation 06/28/16 19:00 07/28/16 18:59 Promethazine HCl/ Codeine (Phenergan with Codeine) 5 ml Q4H PRN ORAL For Cough 06/28/16 19:00 07/28/16 18:59 07/01/16 12:49 Risperidone (RisperDAL) 2 mg QHS ORAL 06/28/16 21:00 07/28/16 20:59 07/01/16 22:13 Temazepam (Restoril) 15 mg HSPRN PRN ORAL Insomnia 06/28/16 19:00 07/05/16 18:59 Vancomycin HCl 750 mg/Dextrose 250 ml @ 167 mls/hr Q12HR@0800,2000 IVPB 06/29/16 08:00 07/04/16 07:59 07/02/16 08:18 Vancomycin HCl 1 ea 1 ea DAILY PRN MISC Per rx protocol 06/28/16 19:00 07/28/16 18:59 NEERAJ DAMON Jul 02, 2016 16:51
[2016-07-02] MEDS ORDERED: D5 1/2NS 1000ml IV ONE (18:20)
[2016-07-02] MEDS ORDERED: Tubing IV Secondary IV ONE (18:20)
--- NOTE | 2016-07-02 19:17 | Infectious Diseases Prog Note ---
Assessment/Plan Problems: (1) Sepsis Assessment & Plan: had fever since he was not receiving his iv antibiotics , blood culture grew coag negative staph from one bottle, most likely contaminant , continue vancomycin,aztreonam, and Flagyl , await final blood culture (2) Pneumonia Assessment & Plan: with multiple mass like opacities and consolidation , infectious pneumonia, VS TB, VS fungal VS mets, fungal serology screening,and T- spot test is pending, HIV test is negative, continue current antibiotics with vancomycin and aztreonam, and Flagyl , send sputum culture x3 for AFB, keep in Airborne isolation (3) UTI (urinary tract infection) Assessment & Plan: on aztreonam, await culture (4) Psychiatric disorder Assessment & Plan: continue psych meds. (5) Seizure disorder Assessment & Plan: continue seizure meds , with hossein check, consult neurology (6) Failure to thrive Assessment & Plan: recommend dietry consult Subjective ROS Limited/Unobtainable: Yes Allergies: Coded Allergies: AMOXICILLIN (Verified Allergy, Unknown, 02/21/13) OBTAINED FROM MEDICAL RECORD ASPIRIN (Verified Allergy, Unknown, 02/21/13) OBTAINED FROM MEDICAL RECORD PENICILLINS (Unverified Allergy, Unknown, 12/06/14) Subjective he is demented, not agitated today , comfortable , doesn't follow commands.had fever today, didn't receive antibiotics yesterday Objective Vital Signs Last 24 Hour Vital Signs Date Time Temp Pulse Resp B/P Pulse Ox O2 Delivery O2 Flow Rate FiO2 07/02/16 16:00 98.1 83 22 119/80 99 Room Air 07/02/16 09:18 98.2 07/02/16 08:30 80 20 Room Air 07/02/16 04:00 98.2 108 20 131/66 92 Room Air 07/02/16 00:00 100.8 100 19 138/106 92 Room Air 07/01/16 19:31 81 20 Room Air Height (Feet): 6 Height (Inches): 0.00 Weight (Pounds): 150 General Appearance: WD/WN, no acute distress HEENT: normocephalic, atraumatic, anicteric, supple, no JVD Respiratory/Chest: chest wall non-tender, normal breath sounds, no respiratory distress, decreased breath sounds, expiratory wheezing Cardiovascular: normal peripheral pulses, normal rate, regular rhythm, no gallop/murmur, no JVD Abdomen: normal bowel sounds, soft, non tender, no organomegaly, non distended , no mass, no scars Extremities: no cyanosis, no clubbing Skin: no rash, no lesions, no ulcers Laboratory Tests Test 07/02/16 11:50 07/02/16 12:35 07/02/16 18:40 M. tuberculosis Complex DNA (PCR) Pending White Blood Count 8.6 K/UL (4.8-10.8) Red Blood Count 5.27 M/UL (4.70-6.10) Hemoglobin 11.9 G/DL (14.2-18.0) L Hematocrit 37.6 % (42.0-52.0) L Mean Corpuscular Volume 71 FL (80-99) L Mean Corpuscular Hemoglobin 22.6 PG (27.0-31.0) L Mean Corpuscular Hemoglobin Concent 31.6 G/DL (32.0-36.0) L Red Cell Distribution Width 13.1 % (11.6-14.8) Platelet Count 293 K/UL (150-450) Mean Platelet Volume 6.0 FL (6.5-10.1) L Neutrophils (%) (Auto) 69.4 % (45.0-75.0) Lymphocytes (%) (Auto) 14.3 % (20.0-45.0) L Monocytes (%) (Auto) 14.8 % (1.0-10.0) H Eosinophils (%) (Auto) 1.1 % (0.0-3.0) Basophils (%) (Auto) 0.5 % (0.0-2.0) Hepatitis A IgM Antibody Pending Hepatitis B Surface Antigen Pending Hepatitis B Core IgM Antibody Pending Hepatitis C Antibody Pending Vancomycin Level Trough Pending Current Medications Medications (Trade) Dose Ordered Sig/Yanelis Route PRN Reason Start Time Stop Time Status Last Admin Dose Admin Acetaminophen (Tylenol) 650 mg Q4H PRN ORAL fever 06/28/16 19:00 07/28/16 18:59 06/29/16 00:18 Al Hydroxide/Mg Hydroxide (Mylanta II) 30 ml Q6H PRN ORAL dyspepsia 06/28/16 19:00 07/28/16 18:59 Albuterol/ Ipratropium (DuoNeb 0.5-3(2.5)mg/3ml) 3 ml EVERY 4 HOURS PRN HHN Shortness of Breath 06/28/16 19:00 07/03/16 18:59 Amantadine HCl (Symmetrel) 100 mg Q8HR ORAL 06/28/16 22:00 07/28/16 21:59 07/02/16 14:30 Aztreonam/Dextrose (Azactam/D5W 50ml) 50 ml @ 100 mls/hr Q8HR@0200,1000,1800 IVPB 06/29/16 18:00 07/06/16 17:59 07/02/16 17:33 Dextromethorphan/ Quinidine (Nuedexta Capsule) 1 cap Q12HR ORAL 06/28/16 21:00 07/28/16 20:59 07/02/16 08:19 Dextrose/Sodium Chloride (D5 0.45% NS) 1,000 ml @ 50 mls/hr Q20H IV 06/30/16 09:00 07/30/16 08:59 07/01/16 19:25 Divalproex Sodium (Depakote) 250 mg Q8HR ORAL 06/28/16 22:00 07/28/16 21:59 07/02/16 14:32 Gabapentin (Neurontin) 400 mg DAILY ORAL 06/29/16 09:00 07/29/16 08:59 07/02/16 08:19 Heparin Sodium (Porcine) (Heparin 5000 units/ml) 5,000 units EVERY 12 HOURS SUBQ 06/28/16 21:00 07/28/16 20:59 Levetiracetam (Keppra) 500 mg TWICE A DAY ORAL 06/29/16 09:00 07/29/16 08:59 07/02/16 17:34 Lorazepam (Ativan) 2 mg Q6H PRN ORAL For Anxiety 06/30/16 14:30 07/07/16 14:29 07/02/16 16:13 Metronidazole 100 ml @ 100 mls/hr Q8HR@0100,0900,1700 IVPB 06/29/16 01:30 07/06/16 01:29 07/02/16 16:12 Nitroglycerin (Ntg) 0.4 mg Q5M PRN SL Prn Chest Pain 06/28/16 19:00 07/28/16 18:59 Olanzapine (ZyPREXA) 5 mg QHS ORAL 06/30/16 22:00 07/30/16 21:59 07/01/16 22:15 Olanzapine 5 mg 5 mg Q6HR PRN ORAL Agitation 06/29/16 21:30 07/29/16 21:29 07/01/16 18:24 Ondansetron HCl (Zofran) 4 mg Q6H PRN IVP Nausea & Vomiting 06/28/16 19:00 07/28/16 18:59 Polyethylene Glycol (Miralax) 17 gm DAILYPRN PRN ORAL Constipation 06/28/16 19:00 07/28/16 18:59 Promethazine HCl/ Codeine (Phenergan with Codeine) 5 ml Q4H PRN ORAL For Cough 06/28/16 19:00 07/28/16 18:59 07/01/16 12:49 Risperidone (RisperDAL) 2 mg QHS ORAL 06/28/16 21:00 07/28/16 20:59 07/01/16 22:13 Temazepam (Restoril) 15 mg HSPRN PRN ORAL Insomnia 06/28/16 19:00 07/05/16 18:59 Vancomycin HCl 750 mg/Dextrose 250 ml @ 167 mls/hr Q12HR@0800,2000 IVPB 06/29/16 08:00 07/04/16 07:59 07/02/16 08:18 Vancomycin HCl 1 ea 1 ea DAILY PRN MISC Per rx protocol 06/28/16 19:00 07/28/16 18:59 Carli Saleem M.D. Jul 02, 2016 19:17
[2016-07-02 20:00] VITALS: BP 118/95
[2016-07-02] MEDS: D5 1/2NS 1,000 ML IV SCH (21:00)
[2016-07-03 00:23] VITALS: BP 119/87
[2016-07-03] MEDS: metroNIDAZOLE 500mg 100 ML IVPB SCH ×3 (01:19→17:31)
[2016-07-03] MEDS: D5W IVPB SCH ×3 (02:32→17:52)
[2016-07-03] MEDS: AZTREONAM IVPB SCH ×3 (02:32→17:52)
[2016-07-03] MEDS: LORazepam 1mg tab ORAL PRN ×2 (02:50→18:00)
[2016-07-03 04:09] VITALS: BP 114/96
[2016-07-03] MEDS: Amantadine 100mg cap ORAL SCH ×3 (05:46→22:41)
--- NOTE | 2016-07-03 08:29 | Diagnostic Imaging Report ---
Indication: Dysphasia Procedure and findings: Real-time fluoroscopic imaging performed in a lateral projection in conjunction with the speech pathologist evaluation. Variable consistencies of barium given per mouth. Findings: Significant abnormalities of both oral and pharyngeal phases of swallowing are demonstrated. Total fluoroscopic time 126 seconds. No aspiration appreciated. Abnormal video swallow. Please refer to speech pathology evaluation for more information.
[2016-07-03] MEDS: Heparin 5000 units/ml inj SUBQ SCH ×2 (09:00→20:13)
[2016-07-03] MEDS: levETIRAcetam 500mg/5ml Liquid ORAL SCH ×2 (09:20→18:00)
[2016-07-03] MEDS: Nuedexta Capsule 20/10mg ORAL SCH ×2 (09:21→20:13)
[2016-07-03 09:28] VITALS: BP 135/89
--- NOTE | 2016-07-03 13:40 | General Progress Note ---
Assessment/Plan Problem List: (1) Pneumonia ICD Codes: J18.9 - Pneumonia, unspecified organism SNOMED: [id number] Assessment/Plan id and pulm are trying to r/o tb so needs aft to be negative before dc Subjective ROS Limited/Unobtainable: Yes Allergies: Coded Allergies: AMOXICILLIN (Verified Allergy, Unknown, 02/21/13) OBTAINED FROM MEDICAL RECORD ASPIRIN (Verified Allergy, Unknown, 02/21/13) OBTAINED FROM MEDICAL RECORD PENICILLINS (Unverified Allergy, Unknown, 12/06/14) Objective Last 24 Hour Vital Signs Date Time Temp Pulse Resp B/P Pulse Ox O2 Delivery O2 Flow Rate FiO2 07/03/16 09:40 90 20 Room Air 07/03/16 09:28 98.1 99 22 135/89 95 Room Air 07/03/16 04:09 98.2 88 18 114/96 93 Room Air 07/03/16 00:23 99.0 100 18 119/87 95 Room Air 07/02/16 20:00 98.1 92 22 118/95 91 Room Air 07/02/16 19:00 82 20 Room Air 07/02/16 16:00 98.1 83 22 119/80 99 Room Air Intake and Output 07/02/16 07/03/16 18:59 06:59 Intake Total 770 ml 1163 ml Balance 770 ml 1163 ml Intake Oral 120 ml 480 ml IV Total 650 ml 683 ml # Voids 2 4 Laboratory Tests 07/02/16 18:40: Vancomycin Level Trough 4.5L Height (Feet): 6 Height (Inches): 0.00 Weight (Pounds): 150 EENT: PERRL/EOMI Neck: supple Cardiovascular: regular rhythm Respiratory/Chest: lungs clear Bernardino Dallas MD Jul 03, 2016 13:40
--- NOTE | 2016-07-03 15:15 | General Progress Note ---
Assessment/Plan Assessment/Plan ASSESSMENT: 1. Thrombocytopenia, due to infection and sepsis. >100k has been stable 2. Leukopenia, rule out medication side effects versus infection. 3. Bilateral pulmonary masses bilaterally, potential 2/2 pneumonia process. Reimage as per Pulmonary recs 4. Health care associated PNA 5. Anemia 2/2 chronic disease 6. Decreased h/h rule out GI bleed 7. Infectious etiology workup pending RECOMMENDATIONS: 1. Monitor counts 2. Transfuse as needed 3. Review peripheral smear 4. Transfuse prbc >7, plt >10k 5. Reimage CT scan of pulmonary mass like opacities as per Pulmonary recs 6. Followup on GI, ID, pulm recs 7. D/W staff Thank you, Viji Montejo MD Subjective Constitutional: Reports: no symptoms HEENT: Reports: no symptoms Cardiovascular: Reports: no symptoms Respiratory: Reports: no symptoms Gastrointestinal/Abdominal: Reports: poor appetite Genitourinary: Reports: no symptoms Neurologic/Psychiatric: Reports: no symptoms Endocrine: Reports: no symptoms Hematologic/Lymphatic: Reports: anemia Allergies: Coded Allergies: AMOXICILLIN (Verified Allergy, Unknown, 02/21/13) OBTAINED FROM MEDICAL RECORD ASPIRIN (Verified Allergy, Unknown, 02/21/13) OBTAINED FROM MEDICAL RECORD PENICILLINS (Unverified Allergy, Unknown, 12/06/14) Subjective no bleeding, in bed no complaints Objective Last 24 Hour Vital Signs Date Time Temp Pulse Resp B/P Pulse Ox O2 Delivery O2 Flow Rate FiO2 07/03/16 09:40 90 20 Room Air 07/03/16 09:28 98.1 99 22 135/89 95 Room Air 07/03/16 04:09 98.2 88 18 114/96 93 Room Air 07/03/16 00:23 99.0 100 18 119/87 95 Room Air 07/02/16 20:00 98.1 92 22 118/95 91 Room Air 07/02/16 19:00 82 20 Room Air 07/02/16 16:00 98.1 83 22 119/80 99 Room Air Intake and Output 07/02/16 07/03/16 19:00 07:00 Intake Total 720 ml 1163 ml Balance 720 ml 1163 ml Intake Oral 120 ml 480 ml IV Total 600 ml 683 ml # Voids 2 4 Laboratory Tests 07/02/16 18:40: Vancomycin Level Trough 4.5L Height (Feet): 6 Height (Inches): 0.00 Weight (Pounds): 150 General Appearance: alert EENT: TMs normal Neck: normal alignment Cardiovascular: normal rate Respiratory/Chest: chest wall non-tender Pelvis: normal rectal exam Genitourinary/Rectal: normal rectal exam Extremities: normal range of motion Edema: 1+ Leg (L), 1+ Leg (R) Edema: mild edema Skin: warm/dry VIJI MONTEJO Jul 03, 2016 15:15
--- NOTE | 2016-07-03 15:21 | Infectious Diseases Prog Note ---
Assessment/Plan Problems: (1) Sepsis Assessment & Plan: blood culture grew coag negative staph from one bottle, most likely contaminant , continue vancomycin, aztreonam, and Flagyl , await final blood culture (2) Pneumonia Assessment & Plan: with multiple mass like opacities and consolidation , infectious pneumonia, VS TB, VS fungal VS mets, fungal serology screening,and T- spot test is pending, HIV test is negative, continue current antibiotics with vancomycin and aztreonam, and Flagyl , send sputum culture x3 for AFB, keep in Airborne isolation (3) UTI (urinary tract infection) Assessment & Plan: on aztreonam, await culture (4) Psychiatric disorder Assessment & Plan: continue psych meds. (5) Seizure disorder Assessment & Plan: continue seizure meds , with hossein check, consult neurology (6) Failure to thrive Assessment & Plan: recommend dietry consult Subjective ROS Limited/Unobtainable: Yes Allergies: Coded Allergies: AMOXICILLIN (Verified Allergy, Unknown, 02/21/13) OBTAINED FROM MEDICAL RECORD ASPIRIN (Verified Allergy, Unknown, 02/21/13) OBTAINED FROM MEDICAL RECORD PENICILLINS (Unverified Allergy, Unknown, 12/06/14) Subjective he is demented, not agitated , resting in bed, doesn't follow commands. Objective Vital Signs Last 24 Hour Vital Signs Date Time Temp Pulse Resp B/P Pulse Ox O2 Delivery O2 Flow Rate FiO2 07/03/16 09:40 90 20 Room Air 07/03/16 09:28 98.1 99 22 135/89 95 Room Air 07/03/16 04:09 98.2 88 18 114/96 93 Room Air 07/03/16 00:23 99.0 100 18 119/87 95 Room Air 07/02/16 20:00 98.1 92 22 118/95 91 Room Air 07/02/16 19:00 82 20 Room Air 07/02/16 16:00 98.1 83 22 119/80 99 Room Air Height (Feet): 6 Height (Inches): 0.00 Weight (Pounds): 150 General Appearance: WD/WN, no acute distress HEENT: normocephalic, atraumatic, anicteric, mucous membranes moist Respiratory/Chest: chest wall non-tender, no respiratory distress, no accessory muscle use, decreased breath sounds, expiratory wheezing Cardiovascular: normal peripheral pulses, normal rate, regular rhythm, no gallop/murmur Abdomen: normal bowel sounds, soft, non tender, no organomegaly, non distended , no mass, no scars Extremities: no cyanosis, no clubbing Skin: no rash, no lesions Microbiology Date/Time Source Procedure Growth Status 07/02/16 11:50 Sputum AFB Specimen Processing Tissue - Final Resulted 07/02/16 11:50 Sputum Acid Fast Bacilli Smear - Final Resulted 07/02/16 11:50 Sputum Acid Fast Bacilli Culture Pending Resulted Laboratory Tests Test 07/02/16 18:40 Vancomycin Level Trough 4.5 ug/mL (5.0-12.0) L Current Medications Medications (Trade) Dose Ordered Sig/Yanelis Route PRN Reason Start Time Stop Time Status Last Admin Dose Admin Acetaminophen (Tylenol) 650 mg Q4H PRN ORAL fever 06/28/16 19:00 07/28/16 18:59 06/29/16 00:18 Al Hydroxide/Mg Hydroxide (Mylanta II) 30 ml Q6H PRN ORAL dyspepsia 06/28/16 19:00 07/28/16 18:59 Albuterol/ Ipratropium (DuoNeb 0.5-3(2.5)mg/3ml) 3 ml EVERY 4 HOURS PRN HHN Shortness of Breath 06/28/16 19:00 07/03/16 18:59 Amantadine HCl (Symmetrel) 100 mg Q8HR ORAL 06/28/16 22:00 07/28/16 21:59 07/03/16 05:46 Aztreonam/Dextrose (Azactam/D5W 50ml) 50 ml @ 100 mls/hr Q8HR@0200,1000,1800 IVPB 06/29/16 18:00 07/06/16 17:59 07/03/16 13:16 Dextromethorphan/ Quinidine (Nuedexta Capsule) 1 cap Q12HR ORAL 06/28/16 21:00 07/28/16 20:59 07/03/16 09:21 Dextrose/Sodium Chloride (D5 0.45% NS) 1,000 ml @ 50 mls/hr Q20H IV 06/30/16 09:00 07/30/16 08:59 07/01/16 19:25 Divalproex Sodium (Depakote) 250 mg Q8HR ORAL 06/28/16 22:00 07/28/16 21:59 07/03/16 05:46 Gabapentin (Neurontin) 400 mg DAILY ORAL 06/29/16 09:00 07/29/16 08:59 07/03/16 13:23 Heparin Sodium (Porcine) (Heparin 5000 units/ml) 5,000 units EVERY 12 HOURS SUBQ 06/28/16 21:00 07/28/16 20:59 Levetiracetam (Keppra) 500 mg TWICE A DAY ORAL 06/29/16 09:00 07/29/16 08:59 07/03/16 09:20 Lorazepam 2 mg 2 mg Q6H PRN ORAL For Anxiety 06/30/16 14:30 07/07/16 14:29 07/03/16 02:50 Metronidazole 100 ml @ 100 mls/hr Q8HR@0100,0900,1700 IVPB 06/29/16 01:30 07/06/16 01:29 07/03/16 09:19 Nitroglycerin (Ntg) 0.4 mg Q5M PRN SL Prn Chest Pain 06/28/16 19:00 07/28/16 18:59 Olanzapine (ZyPREXA) 5 mg QHS ORAL 06/30/16 22:00 07/30/16 21:59 07/02/16 21:23 Olanzapine 5 mg 5 mg Q6HR PRN ORAL Agitation 06/29/16 21:30 07/29/16 21:29 07/01/16 18:24 Ondansetron HCl (Zofran) 4 mg Q6H PRN IVP Nausea & Vomiting 06/28/16 19:00 07/28/16 18:59 Polyethylene Glycol (Miralax) 17 gm DAILYPRN PRN ORAL Constipation 06/28/16 19:00 07/28/16 18:59 Promethazine HCl/ Codeine (Phenergan with Codeine) 5 ml Q4H PRN ORAL For Cough 06/28/16 19:00 07/28/16 18:59 07/01/16 12:49 Risperidone (RisperDAL) 2 mg QHS ORAL 06/28/16 21:00 07/28/16 20:59 07/02/16 21:23 Temazepam (Restoril) 15 mg HSPRN PRN ORAL Insomnia 06/28/16 19:00 07/05/16 18:59 07/02/16 21:24 Vancomycin HCl 1 ea 1 ea DAILY PRN MISC Per rx protocol 06/28/16 19:00 07/28/16 18:59 Vancomycin HCl/ Dextrose (Vancomycin/D5W 250ml) 250 ml @ 167 mls/hr Q8H IVPB 07/02/16 20:00 07/07/16 19:59 07/03/16 13:24 Carli Saleem M.D. Jul 03, 2016 15:21
--- NOTE | 2016-07-03 16:09 | Pulmonology Progress Note ---
Assessment/Plan Problems: (1) rule out Tuberculosis (2) Right upper lobe pneumonia (3) UTI (urinary tract infection) (4) Seizure disorder (5) Psychiatric disorder (6) Cachexia Assessment/Plan iv antibiotics sputum for afb TB gold test isolation fungi serology ppd skin test HIV testing was negative Subjective Allergies: Coded Allergies: AMOXICILLIN (Verified Allergy, Unknown, 02/21/13) OBTAINED FROM MEDICAL RECORD ASPIRIN (Verified Allergy, Unknown, 02/21/13) OBTAINED FROM MEDICAL RECORD PENICILLINS (Unverified Allergy, Unknown, 12/06/14) Objective Last 24 Hour Vital Signs Date Time Temp Pulse Resp B/P Pulse Ox O2 Delivery O2 Flow Rate FiO2 07/03/16 09:40 90 20 Room Air 07/03/16 09:28 98.1 99 22 135/89 95 Room Air 07/03/16 04:09 98.2 88 18 114/96 93 Room Air 07/03/16 00:23 99.0 100 18 119/87 95 Room Air 07/02/16 20:00 98.1 92 22 118/95 91 Room Air 07/02/16 19:00 82 20 Room Air Intake and Output 07/02/16 07/03/16 19:00 07:00 Intake Total 720 ml 1163 ml Balance 720 ml 1163 ml Intake Oral 120 ml 480 ml IV Total 600 ml 683 ml # Voids 2 4 General Appearance: no acute distress HEENT: normocephalic, atraumatic, PERRL Respiratory/Chest: chest wall non-tender, decreased breath sounds, accessory muscle use, rhonchi Cardiovascular: normal peripheral pulses, normal rate, regular rhythm, no JVD Abdomen: normal bowel sounds, soft, non tender, no organomegaly, non distended Genitourinary: normal external genitalia Extremities: no cyanosis Skin: no rash, no lesions 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, no motor/sensory deficits Microbiology Date/Time Source Procedure Growth Status 07/02/16 11:50 Sputum AFB Specimen Processing Tissue - Final Resulted 07/02/16 11:50 Sputum Acid Fast Bacilli Smear - Final Resulted 07/02/16 11:50 Sputum Acid Fast Bacilli Culture Pending Resulted Laboratory Tests 07/02/16 18:40: Vancomycin Level Trough 4.5L Current Medications Medications (Trade) Dose Ordered Sig/Yanelis Route PRN Reason Start Time Stop Time Status Last Admin Dose Admin Acetaminophen (Tylenol) 650 mg Q4H PRN ORAL fever 06/28/16 19:00 07/28/16 18:59 06/29/16 00:18 Al Hydroxide/Mg Hydroxide (Mylanta II) 30 ml Q6H PRN ORAL dyspepsia 06/28/16 19:00 07/28/16 18:59 Albuterol/ Ipratropium (DuoNeb 0.5-3(2.5)mg/3ml) 3 ml EVERY 4 HOURS PRN HHN Shortness of Breath 06/28/16 19:00 07/03/16 18:59 Amantadine HCl (Symmetrel) 100 mg Q8HR ORAL 06/28/16 22:00 07/28/16 21:59 07/03/16 15:31 Aztreonam/Dextrose (Azactam/D5W 50ml) 50 ml @ 100 mls/hr Q8HR@0200,1000,1800 IVPB 06/29/16 18:00 07/06/16 17:59 07/03/16 13:16 Dextromethorphan/ Quinidine (Nuedexta Capsule) 1 cap Q12HR ORAL 06/28/16 21:00 07/28/16 20:59 07/03/16 09:21 Dextrose/Sodium Chloride (D5 0.45% NS) 1,000 ml @ 50 mls/hr Q20H IV 06/30/16 09:00 07/30/16 08:59 07/01/16 19:25 Divalproex Sodium (Depakote) 250 mg Q8HR ORAL 06/28/16 22:00 07/28/16 21:59 07/03/16 15:30 Gabapentin (Neurontin) 400 mg DAILY ORAL 06/29/16 09:00 07/29/16 08:59 07/03/16 13:23 Heparin Sodium (Porcine) (Heparin 5000 units/ml) 5,000 units EVERY 12 HOURS SUBQ 06/28/16 21:00 07/28/16 20:59 Levetiracetam (Keppra) 500 mg TWICE A DAY ORAL 06/29/16 09:00 07/29/16 08:59 07/03/16 09:20 Lorazepam 2 mg 2 mg Q6H PRN ORAL For Anxiety 06/30/16 14:30 07/07/16 14:29 07/03/16 02:50 Metronidazole 100 ml @ 100 mls/hr Q8HR@0100,0900,1700 IVPB 06/29/16 01:30 07/06/16 01:29 07/03/16 09:19 Nitroglycerin (Ntg) 0.4 mg Q5M PRN SL Prn Chest Pain 06/28/16 19:00 07/28/16 18:59 Olanzapine (ZyPREXA) 5 mg QHS ORAL 06/30/16 22:00 07/30/16 21:59 07/02/16 21:23 Olanzapine 5 mg 5 mg Q6HR PRN ORAL Agitation 06/29/16 21:30 07/29/16 21:29 07/01/16 18:24 Ondansetron HCl (Zofran) 4 mg Q6H PRN IVP Nausea & Vomiting 06/28/16 19:00 07/28/16 18:59 Polyethylene Glycol (Miralax) 17 gm DAILYPRN PRN ORAL Constipation 06/28/16 19:00 07/28/16 18:59 Promethazine HCl/ Codeine (Phenergan with Codeine) 5 ml Q4H PRN ORAL For Cough 06/28/16 19:00 07/28/16 18:59 07/01/16 12:49 Risperidone (RisperDAL) 2 mg QHS ORAL 06/28/16 21:00 07/28/16 20:59 07/02/16 21:23 Temazepam (Restoril) 15 mg HSPRN PRN ORAL Insomnia 06/28/16 19:00 07/05/16 18:59 07/02/16 21:24 Vancomycin HCl 1 ea 1 ea DAILY PRN MISC Per rx protocol 06/28/16 19:00 07/28/16 18:59 Vancomycin HCl/ Dextrose (Vancomycin/D5W 250ml) 250 ml @ 167 mls/hr Q8H IVPB 07/02/16 20:00 07/07/16 19:59 07/03/16 13:24 NEERAJ DAMON Jul 03, 2016 16:09
[2016-07-03 16:14] LABS: COCCIDIODES AB-CF/SERUM Negative (Neg:<1:2)
[2016-07-03 17:08] LABS: BLASTOMYCES AB - ID Negative (Neg:<1:1); HISTO AB MYCELIAL Negative (Neg:<1:2); HISTO AB YEAST Negative (Neg:<1:2); HISTOPLASMA MYCELIAL ID AB Negative (Negative)
[2016-07-03] MEDS: D5 1/2NS 1,000 ML IV SCH ×2 (17:32→22:41)
[2016-07-03 20:00] VITALS: BP 127/72
[2016-07-03] MEDS ORDERED: Vancomycin 500mg/D5W 100ml IV ONE ×2 (22:00)
[2016-07-03] MEDS: Promethazine/Codeine 5ml UD ORAL PRN (22:41)
[2016-07-04] VITALS: BP 137/92
[2016-07-04] MEDS: metroNIDAZOLE 500mg 100 ML IVPB SCH ×3 (00:42→19:40)
[2016-07-04] MEDS: AZTREONAM IVPB SCH ×3 (01:50→22:04)
[2016-07-04] MEDS: D5W IVPB SCH ×3 (01:50→22:04)
[2016-07-04 04:00] VITALS: BP 127/71
[2016-07-04] MEDS: Vancomycin 750 MG in D5W 250 ML IVPB SCH ×3 (05:23→22:43)
[2016-07-04] MEDS: Amantadine 100mg cap ORAL SCH ×4 (05:24→22:04)
[2016-07-04 08:00] VITALS: BP 127/73
--- NOTE | 2016-07-04 08:06 | General Progress Note ---
Assessment/Plan Assessment/Plan ASSESSMENT: 1. Thrombocytopenia, due to infection and sepsis. >100k has been stable 2. Leukopenia, rule out medication side effects versus infection. 3. Bilateral pulmonary masses bilaterally, potential 2/2 pneumonia process. Reimage as per Pulm recs 4. Health care associated PNA 5. Anemia 2/2 chronic disease 6. Decreased h/h rule out GI bleed 7. Infectious etiology workup pending RECOMMENDATIONS: 1. Monitor counts 2. Transfuse as needed 3. Review peripheral smear 4. Transfuse prbc >7, plt >10k 5. Reimage CT scan of pulmonary mass like opacities as per Pulmonary recs 6. Followup on GI, ID, pulm recs 7. D/W staff Thank you, Viji Montejo MD Subjective Constitutional: Reports: no symptoms HEENT: Reports: no symptoms Cardiovascular: Reports: no symptoms Respiratory: Reports: no symptoms Gastrointestinal/Abdominal: Reports: no symptoms Genitourinary: Reports: no symptoms Neurologic/Psychiatric: Reports: no symptoms Endocrine: Reports: no symptoms Hematologic/Lymphatic: Reports: anemia Allergies: Coded Allergies: AMOXICILLIN (Verified Allergy, Unknown, 02/21/13) OBTAINED FROM MEDICAL RECORD ASPIRIN (Verified Allergy, Unknown, 02/21/13) OBTAINED FROM MEDICAL RECORD PENICILLINS (Unverified Allergy, Unknown, 12/06/14) Subjective no bleeding, in bed without complaints Objective Last 24 Hour Vital Signs Date Time Temp Pulse Resp B/P Pulse Ox O2 Delivery O2 Flow Rate FiO2 07/04/16 04:00 98.0 66 18 127/71 93 Room Air 07/04/16 00:00 98.4 100 18 137/92 95 Room Air 07/03/16 20:00 99.0 99 18 127/72 95 Room Air 07/03/16 19:20 95 20 Room Air 07/03/16 09:40 90 20 Room Air 07/03/16 09:28 98.1 99 22 135/89 95 Room Air Intake and Output 07/03/16 07/04/16 18:59 06:59 Intake Total 567 ml 370 ml Output Total 300 ml Balance 267 ml 370 ml Intake Oral 50 ml 120 ml IV Total 517 ml 250 ml Output Urine Total 300 ml # Voids 2 3 Laboratory Tests 07/03/16 18:20: Vancomycin Level Trough 6.8 Height (Feet): 6 Height (Inches): 0.00 Weight (Pounds): 150 General Appearance: no apparent distress EENT: normal ENT inspection Neck: normal alignment Cardiovascular: normal rate Respiratory/Chest: lungs clear Abdomen: soft Extremities: non-tender Edema: 1+ Leg (L), 1+ Leg (R) Edema: mild edema Neurologic: no motor/sensory deficits Skin: warm/dry VIJI MONTEJO Jul 04, 2016 08:06
[2016-07-04] MEDS: levETIRAcetam 500mg/5ml Liquid ORAL SCH ×2 (09:08→19:16)
[2016-07-04] MEDS: Nuedexta Capsule 20/10mg ORAL SCH ×2 (09:08→22:04)
[2016-07-04] MEDS: Heparin 5000 units/ml inj SUBQ SCH ×2 (09:13→22:06)
[2016-07-04 12:00] VITALS: BP 132/70
--- NOTE | 2016-07-04 13:27 | General Progress Note ---
Assessment/Plan Problem List: (1) Pneumonia ICD Codes: J18.9 - Pneumonia, unspecified organism SNOMED: 276155903 Assessment/Plan id and pulm are trying to r/o tb so needs aft to be negative before dc once off isolation will dc to snf Subjective ROS Limited/Unobtainable: Yes Allergies: Coded Allergies: AMOXICILLIN (Verified Allergy, Unknown, 02/21/13) OBTAINED FROM MEDICAL RECORD ASPIRIN (Verified Allergy, Unknown, 02/21/13) OBTAINED FROM MEDICAL RECORD PENICILLINS (Unverified Allergy, Unknown, 12/06/14) Objective Last 24 Hour Vital Signs Date Time Temp Pulse Resp B/P Pulse Ox O2 Delivery O2 Flow Rate FiO2 07/04/16 07:56 66 20 Room Air 07/04/16 04:00 98.0 66 18 127/71 93 Room Air 07/04/16 00:00 98.4 100 18 137/92 95 Room Air 07/03/16 20:00 99.0 99 18 127/72 95 Room Air 07/03/16 19:20 95 20 Room Air Intake and Output 07/03/16 07/04/16 19:00 07:00 Intake Total 567 ml 370 ml Output Total 300 ml Balance 267 ml 370 ml Intake Oral 50 ml 120 ml IV Total 517 ml 250 ml Output Urine Total 300 ml # Voids 2 3 Laboratory Tests 07/03/16 18:20: Vancomycin Level Trough 6.8 Height (Feet): 6 Height (Inches): 0.00 Weight (Pounds): 150 General Appearance: confused Cardiovascular: normal rate Respiratory/Chest: lungs clear Abdomen: soft Bernardino Dallas MD Jul 04, 2016 13:27
[2016-07-04 15:44] VITALS: BP 138/105
[2016-07-04] MEDS: LORazepam 1mg tab ORAL PRN (16:19)
--- NOTE | 2016-07-04 16:21 | Infectious Diseases Prog Note ---
Assessment/Plan Problems: (1) Sepsis Assessment & Plan: blood culture grew coag negative staph from one bottle, most likely contaminant , continue vancomycin, aztreonam, and Flagyl , await final blood culture (2) Pneumonia Assessment & Plan: with multiple mass like opacities and consolidation , infectious pneumonia, VS TB, VS mets, fungal serology screening are al negative ,T-spot test is pending, HIV test is negative, continue current antibiotics with vancomycin and aztreonam, and Flagyl , await sputum culture x3 for AFB, keep in Airborne isolation, may need bronchoscopy with biopsy if work up is negative (3) UTI (urinary tract infection) Assessment & Plan: on aztreonam, await culture (4) Psychiatric disorder Assessment & Plan: continue psych meds. (5) Seizure disorder Assessment & Plan: continue seizure meds , with hossein check, consult neurology (6) Failure to thrive Assessment & Plan: recommend dietry consult Subjective ROS Limited/Unobtainable: Yes Allergies: Coded Allergies: AMOXICILLIN (Verified Allergy, Unknown, 02/21/13) OBTAINED FROM MEDICAL RECORD ASPIRIN (Verified Allergy, Unknown, 02/21/13) OBTAINED FROM MEDICAL RECORD PENICILLINS (Unverified Allergy, Unknown, 12/06/14) Subjective he is demented, not agitated , resting in bed, doesn't follow commands. Objective Vital Signs Last 24 Hour Vital Signs Date Time Temp Pulse Resp B/P Pulse Ox O2 Delivery O2 Flow Rate FiO2 07/04/16 15:44 98.3 101 22 138/105 95 07/04/16 12:00 98.2 68 22 132/70 92 Room Air 07/04/16 08:00 97.3 72 18 127/73 96 Room Air 07/04/16 07:56 66 20 Room Air 07/04/16 04:00 98.0 66 18 127/71 93 Room Air 07/04/16 00:00 98.4 100 18 137/92 95 Room Air 07/03/16 20:00 99.0 99 18 127/72 95 Room Air 07/03/16 19:20 95 20 Room Air Height (Feet): 6 Height (Inches): 0.00 Weight (Pounds): 150 General Appearance: WD/WN, no acute distress HEENT: normocephalic, atraumatic, anicteric, mucous membranes moist, PERRL Respiratory/Chest: chest wall non-tender, normal breath sounds, no respiratory distress, no accessory muscle use, decreased breath sounds, expiratory wheezing Cardiovascular: normal peripheral pulses, normal rate, regular rhythm, no gallop/murmur, no JVD Abdomen: normal bowel sounds, soft, non tender, no organomegaly, non distended , no mass, no scars Extremities: no cyanosis, no clubbing Skin: no rash, no lesions, no ulcers Microbiology Date/Time Source Procedure Growth Status 07/03/16 10:40 Sputum AFB Specimen Processing Tissue - Final Resulted 07/03/16 10:40 Sputum Acid Fast Bacilli Smear - Final Resulted 07/03/16 10:40 Sputum Acid Fast Bacilli Culture Pending Resulted 07/02/16 11:50 Sputum AFB Specimen Processing Tissue - Final Resulted 07/02/16 11:50 Sputum Acid Fast Bacilli Smear - Final Resulted 07/02/16 11:50 Sputum Acid Fast Bacilli Culture Pending Resulted Laboratory Tests Test 07/03/16 18:20 07/04/16 12:33 Vancomycin Level Trough 6.8 ug/mL (5.0-12.0) M. tuberculosis Complex DNA (PCR) Pending Current Medications Medications (Trade) Dose Ordered Sig/Yanelis Route PRN Reason Start Time Stop Time Status Last Admin Dose Admin Acetaminophen (Tylenol) 650 mg Q4H PRN ORAL fever 06/28/16 19:00 07/28/16 18:59 06/29/16 00:18 Al Hydroxide/Mg Hydroxide (Mylanta II) 30 ml Q6H PRN ORAL dyspepsia 06/28/16 19:00 07/28/16 18:59 Amantadine HCl (Symmetrel) 100 mg Q8HR ORAL 06/28/16 22:00 07/28/16 21:59 07/04/16 14:13 Aztreonam/Dextrose (Azactam/D5W 50ml) 50 ml @ 100 mls/hr Q8HR@0200,1000,1800 IVPB 06/29/16 18:00 07/06/16 17:59 07/04/16 10:53 Dextromethorphan/ Quinidine (Nuedexta Capsule) 1 cap Q12HR ORAL 06/28/16 21:00 07/28/16 20:59 07/04/16 09:08 Dextrose/Sodium Chloride (D5 0.45% NS) 1,000 ml @ 50 mls/hr Q20H IV 06/30/16 09:00 07/30/16 08:59 07/03/16 22:41 Divalproex Sodium (Depakote) 250 mg Q8HR ORAL 06/28/16 22:00 07/28/16 21:59 07/04/16 14:14 Gabapentin (Neurontin) 400 mg DAILY ORAL 06/29/16 09:00 07/29/16 08:59 07/03/16 13:23 Heparin Sodium (Porcine) (Heparin 5000 units/ml) 5,000 units EVERY 12 HOURS SUBQ 06/28/16 21:00 07/28/16 20:59 07/04/16 09:13 Levetiracetam (Keppra) 500 mg TWICE A DAY ORAL 06/29/16 09:00 07/29/16 08:59 07/04/16 09:08 Lorazepam 2 mg 2 mg Q6H PRN ORAL For Anxiety 06/30/16 14:30 07/07/16 14:29 07/03/16 18:00 Metronidazole 100 ml @ 100 mls/hr Q8HR@0100,0900,1700 IVPB 06/29/16 01:30 07/06/16 01:29 07/04/16 09:08 Nitroglycerin (Ntg) 0.4 mg Q5M PRN SL Prn Chest Pain 06/28/16 19:00 07/28/16 18:59 Olanzapine (ZyPREXA) 5 mg QHS ORAL 06/30/16 22:00 07/30/16 21:59 07/03/16 20:13 Olanzapine 5 mg 5 mg Q6HR PRN ORAL Agitation 06/29/16 21:30 07/29/16 21:29 07/03/16 18:00 Ondansetron HCl (Zofran) 4 mg Q6H PRN IVP Nausea & Vomiting 06/28/16 19:00 07/28/16 18:59 Polyethylene Glycol (Miralax) 17 gm DAILYPRN PRN ORAL Constipation 06/28/16 19:00 07/28/16 18:59 Promethazine HCl/ Codeine (Phenergan with Codeine) 5 ml Q4H PRN ORAL For Cough 06/28/16 19:00 07/28/16 18:59 07/03/16 22:41 Risperidone (RisperDAL) 2 mg QHS ORAL 06/28/16 21:00 07/28/16 20:59 07/03/16 20:13 Temazepam (Restoril) 15 mg HSPRN PRN ORAL Insomnia 06/28/16 19:00 07/05/16 18:59 07/03/16 22:41 Vancomycin HCl 1 ea 1 ea DAILY PRN MISC Per rx protocol 06/28/16 19:00 07/28/16 18:59 Vancomycin HCl/ Dextrose (Vancomycin/D5W 250ml) 250 ml @ 167 mls/hr Q6HR IVPB 07/04/16 06:00 07/09/16 05:59 07/04/16 12:12 Carli Saleem M.D. Jul 04, 2016 16:21
--- NOTE | 2016-07-04 19:07 | Pulmonology Progress Note ---
Assessment/Plan Problems: (1) rule out Tuberculosis (2) Right upper lobe pneumonia (3) UTI (urinary tract infection) (4) Seizure disorder (5) Psychiatric disorder (6) Cachexia Assessment/Plan iv antibiotics sputum for afb TB gold test isolation fungi serology ppd skin test HIV testing was negative Subjective ROS Limited/Unobtainable: No Constitutional: Reports: anorexia, fatigue Neurologic: Reports: confusion, numbness, seizures Allergies: Coded Allergies: AMOXICILLIN (Verified Allergy, Unknown, 02/21/13) OBTAINED FROM MEDICAL RECORD ASPIRIN (Verified Allergy, Unknown, 02/21/13) OBTAINED FROM MEDICAL RECORD PENICILLINS (Unverified Allergy, Unknown, 12/06/14) Objective Last 24 Hour Vital Signs Date Time Temp Pulse Resp B/P Pulse Ox O2 Delivery O2 Flow Rate FiO2 07/04/16 15:44 98.3 101 22 138/105 95 07/04/16 12:00 98.2 68 22 132/70 92 Room Air 07/04/16 08:00 97.3 72 18 127/73 96 Room Air 07/04/16 07:56 66 20 Room Air 07/04/16 04:00 98.0 66 18 127/71 93 Room Air 07/04/16 00:00 98.4 100 18 137/92 95 Room Air 07/03/16 20:00 99.0 99 18 127/72 95 Room Air 07/03/16 19:20 95 20 Room Air Intake and Output 07/03/16 07/04/16 19:00 07:00 Intake Total 567 ml 420 ml Output Total 300 ml Balance 267 ml 420 ml Intake Oral 50 ml 120 ml IV Total 517 ml 300 ml Output Urine Total 300 ml # Voids 2 3 General Appearance: no acute distress, cachetic HEENT: normocephalic, atraumatic, anicteric, PERRL Respiratory/Chest: chest wall non-tender, decreased breath sounds, accessory muscle use, rhonchi Cardiovascular: normal peripheral pulses, normal rate, regular rhythm, no JVD Abdomen: normal bowel sounds, soft, non tender, no organomegaly, non distended Genitourinary: normal external genitalia Extremities: no cyanosis Skin: no rash, no lesions 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 tuberculosis Complex DNA (PCR) [Pending] Current Medications Medications (Trade) Dose Ordered Sig/Yanelis Route PRN Reason Start Time Stop Time Status Last Admin Dose Admin Acetaminophen (Tylenol) 650 mg Q4H PRN ORAL fever 06/28/16 19:00 07/28/16 18:59 06/29/16 00:18 Al Hydroxide/Mg Hydroxide (Mylanta II) 30 ml Q6H PRN ORAL dyspepsia 06/28/16 19:00 07/28/16 18:59 Amantadine HCl (Symmetrel) 100 mg Q8HR ORAL 06/28/16 22:00 07/28/16 21:59 07/04/16 14:13 Aztreonam/Dextrose (Azactam/D5W 50ml) 50 ml @ 100 mls/hr Q8HR@0200,1000,1800 IVPB 06/29/16 18:00 07/06/16 17:59 07/04/16 10:53 Dextromethorphan/ Quinidine (Nuedexta Capsule) 1 cap Q12HR ORAL 06/28/16 21:00 07/28/16 20:59 07/04/16 09:08 Dextrose/Sodium Chloride (D5 0.45% NS) 1,000 ml @ 50 mls/hr Q20H IV 06/30/16 09:00 07/30/16 08:59 07/03/16 22:41 Divalproex Sodium (Depakote) 250 mg Q8HR ORAL 06/28/16 22:00 07/28/16 21:59 07/04/16 14:14 Gabapentin (Neurontin) 400 mg DAILY ORAL 06/29/16 09:00 07/29/16 08:59 07/03/16 13:23 Heparin Sodium (Porcine) (Heparin 5000 units/ml) 5,000 units EVERY 12 HOURS SUBQ 06/28/16 21:00 07/28/16 20:59 07/04/16 09:13 Levetiracetam (Keppra) 500 mg TWICE A DAY ORAL 06/29/16 09:00 07/29/16 08:59 07/04/16 09:08 Lorazepam 2 mg 2 mg Q6H PRN ORAL For Anxiety 06/30/16 14:30 07/07/16 14:29 07/04/16 16:19 Metronidazole 100 ml @ 100 mls/hr Q8HR@0100,0900,1700 IVPB 06/29/16 01:30 07/06/16 01:29 07/04/16 09:08 Nitroglycerin (Ntg) 0.4 mg Q5M PRN SL Prn Chest Pain 06/28/16 19:00 07/28/16 18:59 Olanzapine (ZyPREXA) 5 mg QHS ORAL 06/30/16 22:00 07/30/16 21:59 07/03/16 20:13 Olanzapine 5 mg 5 mg Q6HR PRN ORAL Agitation 06/29/16 21:30 07/29/16 21:29 07/03/16 18:00 Ondansetron HCl (Zofran) 4 mg Q6H PRN IVP Nausea & Vomiting 06/28/16 19:00 07/28/16 18:59 Polyethylene Glycol (Miralax) 17 gm DAILYPRN PRN ORAL Constipation 06/28/16 19:00 07/28/16 18:59 Promethazine HCl/ Codeine (Phenergan with Codeine) 5 ml Q4H PRN ORAL For Cough 06/28/16 19:00 07/28/16 18:59 07/03/16 22:41 Risperidone (RisperDAL) 2 mg QHS ORAL 06/28/16 21:00 07/28/16 20:59 07/03/16 20:13 Temazepam (Restoril) 15 mg HSPRN PRN ORAL Insomnia 06/28/16 19:00 07/05/16 18:59 07/03/16 22:41 Vancomycin HCl 1 ea 1 ea DAILY PRN MISC Per rx protocol 06/28/16 19:00 07/28/16 18:59 Vancomycin HCl/ Dextrose (Vancomycin/D5W 250ml) 250 ml @ 167 mls/hr Q6HR IVPB 07/04/16 06:00 07/09/16 05:59 07/04/16 12:12 NEERAJ DAMON Jul 04, 2016 19:07
[2016-07-04 20:00] VITALS: BP 132/81
[2016-07-05] VITALS: BP 126/85
[2016-07-05] MEDS: Vancomycin 750 MG in D5W 250 ML IVPB SCH ×4 (00:44→19:43)
[2016-07-05] MEDS: metroNIDAZOLE 500mg 100 ML IVPB SCH ×3 (02:21→17:25)
[2016-07-05] MEDS: LORazepam 1mg tab ORAL PRN ×2 (02:23→22:47)
[2016-07-05] MEDS: D5W IVPB SCH ×3 (03:53→18:28)
[2016-07-05] MEDS: AZTREONAM IVPB SCH ×3 (03:53→18:28)
[2016-07-05 04:00] VITALS: BP 131/77
[2016-07-05] MEDS: Amantadine 100mg cap ORAL SCH ×3 (06:00→22:49)
[2016-07-05 08:00] VITALS: BP 150/74
--- NOTE | 2016-07-05 08:42 | General Progress Note ---
Assessment/Plan Assessment/Plan ASSESSMENT: 1. Thrombocytopenia, due to infection and sepsis. >100k and has been stable 2. Leukopenia, rule out medication side effects versus infection. 3. Bilateral pulmonary masses bilaterally, potential 2/2 pneumonia process. PPD pending, reimage as per Pulm recs 4. Health care associated PNA 5. Anemia 2/2 chronic disease 6. Decreased h/h rule out GI bleed 7. Infectious etiology workup pending RECOMMENDATIONS: 1. Monitor counts 2. Transfuse as needed 3. Antibiotics as needed 4. Transfuse prbc >7, plt >10k 5. DVT ppx heparin 6. Followup on GI, ID, pulm recs 7. D/W staff Thank you, Farzad Montejo MD Subjective Constitutional: Reports: no symptoms HEENT: Reports: no symptoms Cardiovascular: Reports: no symptoms Respiratory: Reports: no symptoms Gastrointestinal/Abdominal: Reports: poor appetite Genitourinary: Reports: no symptoms Neurologic/Psychiatric: Reports: no symptoms Endocrine: Reports: no symptoms Hematologic/Lymphatic: Reports: anemia Allergies: Coded Allergies: AMOXICILLIN (Verified Allergy, Unknown, 02/21/13) OBTAINED FROM MEDICAL RECORD ASPIRIN (Verified Allergy, Unknown, 02/21/13) OBTAINED FROM MEDICAL RECORD PENICILLINS (Unverified Allergy, Unknown, 12/06/14) Subjective stable, without any events overnight, no bleeding Objective Last 24 Hour Vital Signs Date Time Temp Pulse Resp B/P Pulse Ox O2 Delivery O2 Flow Rate FiO2 07/05/16 08:00 97.4 88 22 150/74 97 Room Air 07/05/16 04:00 89 18 131/77 97 Room Air 07/05/16 00:00 97.2 101 20 126/85 92 Room Air 07/04/16 20:00 97.7 106 21 132/81 93 Room Air 07/04/16 19:30 70 20 Room Air 21 07/04/16 15:44 98.3 101 22 138/105 95 07/04/16 12:00 98.2 68 22 132/70 92 Room Air Intake and Output 07/04/16 07/05/16 19:00 07:00 Intake Total 1116 ml 275 ml Balance 1116 ml 275 ml Intake Oral 240 ml 125 ml IV Total 876 ml 150 ml # Voids 4 2 Laboratory Tests 07/04/16 12:33: M. tuberculosis Complex DNA (PCR) [Pending] 07/05/16 05:20: Vancomycin Level Trough 19.2H Height (Feet): 6 Height (Inches): 0.00 Weight (Pounds): 150 General Appearance: no apparent distress EENT: TMs normal Neck: supple Cardiovascular: regular rhythm Respiratory/Chest: normal breath sounds Abdomen: no organomegaly Extremities: non-tender Edema: no edema noted Leg (L), no edema noted Leg (R) Neurologic: alert Skin: warm/dry Farzad Montejo Jul 05, 2016 08:42
[2016-07-05 08:54] LABS: BASOPHILS % (AUTO) 0.6 % (0.0-2.0); EOSINOPHILS % (AUTO) 3.2 % (0.0-3.0); LYMPHOCYTES % (AUTO) 18.9 % (20.0-45.0); MEAN CORPUSCULAR HEMOGLOBIN 22.7 PG (27.0-31.0); MEAN CORPUSCULAR HGB CONC 31.4 G/DL (32.0-36.0); MEAN CORPUSCULAR VOLUME 72 FL (80-99); MEAN PLATELET VOLUME 5.6 FL (6.5-10.1); MONOCYTES % (AUTO) 13.2 % (1.0-10.0); NEUTROPHILS % (AUTO) 64.1 % (45.0-75.0); PLATELET COUNT 403 K/UL (150-450); RED BLOOD COUNT 5.26 M/UL (4.70-6.10); RED CELL DISTRIBUTION WIDTH 13.3 % (11.6-14.8)
[2016-07-05] MEDS: D5 1/2NS 1,000 ML IV SCH (09:00)
[2016-07-05] MEDS: levETIRAcetam 500mg/5ml Liquid ORAL SCH ×2 (09:23→17:25)
[2016-07-05] MEDS: Nuedexta Capsule 20/10mg ORAL SCH ×2 (09:24→22:50)
[2016-07-05] MEDS: Heparin 5000 units/ml inj SUBQ SCH ×2 (09:34→22:56)
[2016-07-05 11:15] LABS: CRYPTOCOCCAL ANTIGEN SERUM Negative (Negative)
--- NOTE | 2016-07-05 11:50 | General Progress Note ---
Assessment/Plan Problem List: (1) Pneumonia ICD Codes: J18.9 - Pneumonia, unspecified organism SNOMED: 546170099 Status: progressing Assessment/Plan id and pulm are trying to r/o tb so needs aft to be negative before dc afebrile abx per id Subjective ROS Limited/Unobtainable: Yes Constitutional: Reports: no symptoms Allergies: Coded Allergies: AMOXICILLIN (Verified Allergy, Unknown, 02/21/13) OBTAINED FROM MEDICAL RECORD ASPIRIN (Verified Allergy, Unknown, 02/21/13) OBTAINED FROM MEDICAL RECORD PENICILLINS (Unverified Allergy, Unknown, 12/06/14) Objective Last 24 Hour Vital Signs Date Time Temp Pulse Resp B/P Pulse Ox O2 Delivery O2 Flow Rate FiO2 07/05/16 08:00 97.4 88 22 150/74 97 Room Air 07/05/16 04:00 89 18 131/77 97 Room Air 07/05/16 00:00 97.2 101 20 126/85 92 Room Air 07/04/16 20:00 97.7 106 21 132/81 93 Room Air 07/04/16 19:30 70 20 Room Air 21 07/04/16 15:44 98.3 101 22 138/105 95 07/04/16 12:00 98.2 68 22 132/70 92 Room Air Intake and Output 07/04/16 07/05/16 18:59 06:59 Intake Total 1166 ml 275 ml Balance 1166 ml 275 ml Intake Oral 240 ml 125 ml IV Total 926 ml 150 ml # Voids 4 2 Laboratory Tests 07/04/16 12:33: M. tuberculosis Complex DNA (PCR) [Pending] 07/05/16 05:20: White Blood Count 7.0, Red Blood Count 5.26, Hemoglobin 11.9L, Hematocrit 38.0L , Mean Corpuscular Volume 72L, Mean Corpuscular Hemoglobin 22.7L, Mean Corpuscular Hemoglobin Concent 31.4L, Red Cell Distribution Width 13.3, Platelet Count 403, Mean Platelet Volume 5.6L, Neutrophils (%) (Auto) 64.1, Lymphocytes (%) (Auto) 18.9L, Monocytes (%) (Auto) 13.2H, Eosinophils (%) (Auto ) 3.2H, Basophils (%) (Auto) 0.6, Vancomycin Level Trough 19.2H Height (Feet): 6 Height (Inches): 0.00 Weight (Pounds): 150 General Appearance: confused Neck: supple Cardiovascular: normal rate Respiratory/Chest: lungs clear Bernardino Dallas MD Jul 05, 2016 11:50
[2016-07-05 12:00] VITALS: BP 118/78
[2016-07-05 16:00] VITALS: BP 123/86
--- NOTE | 2016-07-05 16:03 | Infectious Diseases Prog Note ---
Assessment/Plan Problems: (1) Sepsis Assessment & Plan: blood culture grew coag negative staph from one bottle, most likely contaminant , continue vancomycin, aztreonam, and Flagyl , await final blood culture (2) Pneumonia Assessment & Plan: with multiple mass like opacities and consolidation , infectious pneumonia, VS TB, VS mets, fungal serology screening are all negative ,T-spot test is pending, HIV test is negative, continue current antibiotics with vancomycin and aztreonam, and Flagyl , await sputum culture x3 for AFB, keep in Airborne isolation, may need bronchoscopy with biopsy if work up is negative (3) UTI (urinary tract infection) Assessment & Plan: on aztreonam, await culture (4) Psychiatric disorder Assessment & Plan: continue psych meds, and sitter . (5) Seizure disorder Assessment & Plan: continue seizure meds , with hossein check, consult neurology (6) Failure to thrive Assessment & Plan: recommend dietry consult Subjective ROS Limited/Unobtainable: Yes Allergies: Coded Allergies: AMOXICILLIN (Verified Allergy, Unknown, 02/21/13) OBTAINED FROM MEDICAL RECORD ASPIRIN (Verified Allergy, Unknown, 02/21/13) OBTAINED FROM MEDICAL RECORD PENICILLINS (Unverified Allergy, Unknown, 12/06/14) Subjective he is demented, not agitated , resting in bed, doesn't follow commands. Objective Vital Signs Last 24 Hour Vital Signs Date Time Temp Pulse Resp B/P Pulse Ox O2 Delivery O2 Flow Rate FiO2 07/05/16 12:00 97.9 79 24 118/78 95 Room Air 07/05/16 08:00 97.4 88 22 150/74 97 Room Air 07/05/16 04:00 89 18 131/77 97 Room Air 07/05/16 00:00 97.2 101 20 126/85 92 Room Air 07/04/16 20:00 97.7 106 21 132/81 93 Room Air 07/04/16 19:30 70 20 Room Air 21 Height (Feet): 6 Height (Inches): 0.00 Weight (Pounds): 150 General Appearance: WD/WN, no acute distress HEENT: normocephalic, atraumatic, anicteric, mucous membranes moist Respiratory/Chest: chest wall non-tender, normal breath sounds, no respiratory distress, no accessory muscle use, decreased breath sounds, crackles/rales Cardiovascular: normal peripheral pulses, normal rate, regular rhythm, no gallop/murmur Abdomen: normal bowel sounds, soft, non tender, no organomegaly, non distended , no mass, no scars Extremities: no cyanosis, no clubbing Skin: no rash, no lesions, no ulcers Microbiology Date/Time Source Procedure Growth Status 07/03/16 10:40 Sputum AFB Specimen Processing Tissue - Final Resulted 07/03/16 10:40 Sputum Acid Fast Bacilli Smear - Final Resulted 07/03/16 10:40 Sputum Acid Fast Bacilli Culture Pending Resulted Laboratory Tests Test 07/05/16 05:20 White Blood Count 7.0 K/UL (4.8-10.8) Red Blood Count 5.26 M/UL (4.70-6.10) Hemoglobin 11.9 G/DL (14.2-18.0) L Hematocrit 38.0 % (42.0-52.0) L Mean Corpuscular Volume 72 FL (80-99) L Mean Corpuscular Hemoglobin 22.7 PG (27.0-31.0) L Mean Corpuscular Hemoglobin Concent 31.4 G/DL (32.0-36.0) L Red Cell Distribution Width 13.3 % (11.6-14.8) Platelet Count 403 K/UL (150-450) Mean Platelet Volume 5.6 FL (6.5-10.1) L Neutrophils (%) (Auto) 64.1 % (45.0-75.0) Lymphocytes (%) (Auto) 18.9 % (20.0-45.0) L Monocytes (%) (Auto) 13.2 % (1.0-10.0) H Eosinophils (%) (Auto) 3.2 % (0.0-3.0) H Basophils (%) (Auto) 0.6 % (0.0-2.0) Vancomycin Level Trough 19.2 ug/mL (5.0-12.0) H Current Medications Medications (Trade) Dose Ordered Sig/Yanelis Route PRN Reason Start Time Stop Time Status Last Admin Dose Admin Acetaminophen (Tylenol) 650 mg Q4H PRN ORAL fever 06/28/16 19:00 07/28/16 18:59 06/29/16 00:18 Al Hydroxide/Mg Hydroxide (Mylanta II) 30 ml Q6H PRN ORAL dyspepsia 06/28/16 19:00 07/28/16 18:59 Amantadine HCl (Symmetrel) 100 mg Q8HR ORAL 06/28/16 22:00 07/28/16 21:59 07/05/16 13:35 Aztreonam/Dextrose (Azactam/D5W 50ml) 50 ml @ 100 mls/hr Q8HR@0200,1000,1800 IVPB 06/29/16 18:00 07/08/16 17:59 07/05/16 09:27 Dextromethorphan/ Quinidine (Nuedexta Capsule) 1 cap Q12HR ORAL 06/28/16 21:00 07/28/16 20:59 07/05/16 09:24 Dextrose/Sodium Chloride (D5 0.45% NS) 1,000 ml @ 50 mls/hr Q20H IV 06/30/16 09:00 07/30/16 08:59 07/03/16 22:41 Divalproex Sodium (Depakote) 250 mg Q8HR ORAL 06/28/16 22:00 07/28/16 21:59 07/05/16 13:36 Gabapentin (Neurontin) 400 mg DAILY ORAL 06/29/16 09:00 07/29/16 08:59 07/05/16 09:25 Heparin Sodium (Porcine) (Heparin 5000 units/ml) 5,000 units EVERY 12 HOURS SUBQ 06/28/16 21:00 07/28/16 20:59 07/05/16 09:34 Levetiracetam (Keppra) 500 mg TWICE A DAY ORAL 06/29/16 09:00 07/29/16 08:59 07/05/16 09:23 Lorazepam 2 mg 2 mg Q6H PRN ORAL For Anxiety 06/30/16 14:30 07/07/16 14:29 07/05/16 02:23 Metronidazole 100 ml @ 100 mls/hr Q8HR@0100,0900,1700 IVPB 06/29/16 01:30 07/08/16 01:29 07/05/16 09:25 Nitroglycerin (Ntg) 0.4 mg Q5M PRN SL Prn Chest Pain 06/28/16 19:00 07/28/16 18:59 Olanzapine (ZyPREXA) 5 mg QHS ORAL 06/30/16 22:00 07/30/16 21:59 07/04/16 22:04 Olanzapine 5 mg 5 mg Q6HR PRN ORAL Agitation 06/29/16 21:30 07/29/16 21:29 07/05/16 09:24 Ondansetron HCl (Zofran) 4 mg Q6H PRN IVP Nausea & Vomiting 06/28/16 19:00 07/28/16 18:59 Polyethylene Glycol (Miralax) 17 gm DAILYPRN PRN ORAL Constipation 06/28/16 19:00 07/28/16 18:59 Promethazine HCl/ Codeine (Phenergan with Codeine) 5 ml Q4H PRN ORAL For Cough 06/28/16 19:00 07/28/16 18:59 07/03/16 22:41 Risperidone (RisperDAL) 2 mg QHS ORAL 06/28/16 21:00 07/28/16 20:59 07/04/16 22:04 Temazepam (Restoril) 15 mg HSPRN PRN ORAL Insomnia 06/28/16 19:00 07/05/16 18:59 07/04/16 23:43 Vancomycin HCl 1 ea 1 ea DAILY PRN MISC Per rx protocol 06/28/16 19:00 07/28/16 18:59 Vancomycin HCl/ Dextrose (Vancomycin/D5W 250ml) 250 ml @ 167 mls/hr Q6HR IVPB 07/04/16 06:00 07/09/16 05:59 07/05/16 11:43 Carli Saleem M.D. Jul 05, 2016 16:03
[2016-07-05 19:57] VITALS: BP 118/78
[2016-07-06] MEDS: Vancomycin 750 MG in D5W 250 ML IVPB SCH ×5 (00:17→23:36)
[2016-07-06 00:35] VITALS: BP 118/71
[2016-07-06] MEDS: metroNIDAZOLE 500mg 100 ML IVPB SCH ×3 (01:46→17:58)
[2016-07-06] MEDS: D5W IVPB SCH ×3 (02:20→19:09)
[2016-07-06] MEDS: AZTREONAM IVPB SCH ×3 (02:20→19:09)
[2016-07-06 04:00] VITALS: BP 121/78
[2016-07-06] MEDS: D5 1/2NS 1,000 ML IV SCH (04:31)
[2016-07-06] MEDS: Amantadine 100mg cap ORAL SCH ×3 (05:46→20:26)
[2016-07-06 07:42] LABS: ALANINE AMINOTRANSFERASE 29 U/L (3-41); ALBUMIN/GLOBULIN RATIO 0.6 (1.0-2.7); ANION GAP 12 (5-15); ASPARTATE AMINO TRANSFERASE 41 U/L (5-40); CALCIUM 8.4 mg/dL (8.6-10.2); CARBON DIOXIDE 27 mEQ/L (20-30); CHLORIDE 99 mEQ/L (98-107); CREATININE 0.8 mg/dL (0.7-1.2); GLOMERULAR FILTRATION RATE > 60 mL/min (>60); HEMOLYSIS 3; POTASSIUM 3.7 mEQ/L (3.4-4.9); SODIUM 138 mEQ/L (135-145); TOTAL PROTEIN 6.8 g/dL (6.6-8.7)
[2016-07-06 08:00] VITALS: BP 118/68
[2016-07-06 08:13] LABS: BASOPHILS % (AUTO) 0.7 % (0.0-2.0); EOSINOPHILS % (AUTO) 3.3 % (0.0-3.0); LYMPHOCYTES % (AUTO) 22.3 % (20.0-45.0); MEAN CORPUSCULAR HEMOGLOBIN 22.4 PG (27.0-31.0); MEAN CORPUSCULAR HGB CONC 31.3 G/DL (32.0-36.0); MEAN CORPUSCULAR VOLUME 72 FL (80-99); MEAN PLATELET VOLUME 5.5 FL (6.5-10.1); MONOCYTES % (AUTO) 13.3 % (1.0-10.0); NEUTROPHILS % (AUTO) 60.5 % (45.0-75.0); PLATELET COUNT 451 K/UL (150-450); RED BLOOD COUNT 5.36 M/UL (4.70-6.10); RED CELL DISTRIBUTION WIDTH 13.3 % (11.6-14.8); WHITE BLOOD COUNT 6.4 K/UL (4.8-10.8)
[2016-07-06] MEDS: Nuedexta Capsule 20/10mg ORAL SCH ×2 (08:28→20:27)
[2016-07-06] MEDS: LORazepam 1mg tab ORAL PRN ×2 (08:28→14:42)
[2016-07-06] MEDS: levETIRAcetam 500mg/5ml Liquid ORAL SCH ×3 (08:28→19:09)
[2016-07-06] MEDS: Heparin 5000 units/ml inj SUBQ SCH ×2 (08:29→20:40)
[2016-07-06 11:36] LABS: NIL (NEG) CONTROL SPOT COUNT 0 (0-9); PANEL A SPOT COUNT 0; PANEL B SPOT COUNT 0; POSITIVE CONTROL SPOT COUNT > 20; T SPOT TB NEGATIVE
[2016-07-06 12:00] VITALS: BP 134/72
--- NOTE | 2016-07-06 12:52 | General Progress Note ---
Assessment/Plan Problem List: (1) Pneumonia ICD Codes: J18.9 - Pneumonia, unspecified organism SNOMED: [id number] Status: progressing Assessment/Plan id and pulm are trying to r/o tb so needs aft to be negative before dc afebrilr awaiting clearance by id and pulm before dc on isolation to r/o tb Subjective ROS Limited/Unobtainable: Yes Constitutional: Reports: no symptoms Allergies: Coded Allergies: AMOXICILLIN (Verified Allergy, Unknown, 02/21/13) OBTAINED FROM MEDICAL RECORD ASPIRIN (Verified Allergy, Unknown, 02/21/13) OBTAINED FROM MEDICAL RECORD PENICILLINS (Unverified Allergy, Unknown, 12/06/14) Objective Last 24 Hour Vital Signs Date Time Temp Pulse Resp B/P Pulse Ox O2 Delivery O2 Flow Rate FiO2 07/06/16 12:00 98.1 89 18 134/72 97 Room Air 89 07/06/16 09:27 97.5 07/06/16 08:00 97.8 89 18 118/68 95 07/06/16 06:30 82 16 Room Air 21 07/06/16 04:00 97.5 101 16 121/78 95 Room Air 07/06/16 00:35 97.4 81 20 118/71 95 Room Air 07/05/16 19:57 97.9 79 24 118/78 95 Room Air 07/05/16 19:41 82 20 Room Air 07/05/16 16:00 96.1 93 22 123/86 92 Room Air Intake and Output 07/05/16 07/06/16 19:00 07:00 Intake Total 1095 ml 535 ml Balance 1095 ml 535 ml Intake Oral 245 ml 135 ml IV Total 850 ml 400 ml # Voids 3 Laboratory Tests 07/06/16 06:35: White Blood Count 6.4, Red Blood Count 5.36, Hemoglobin 12.0L, Hematocrit 38.3L , Mean Corpuscular Volume 72L, Mean Corpuscular Hemoglobin 22.4L, Mean Corpuscular Hemoglobin Concent 31.3L, Red Cell Distribution Width 13.3, Platelet Count 451H, Mean Platelet Volume 5.5L, Neutrophils (%) (Auto) 60.5, Lymphocytes (%) (Auto) 22.3, Monocytes (%) (Auto) 13.3H, Eosinophils (%) (Auto) 3.3H, Basophils (%) (Auto) 0.7, Sodium Level 138, Potassium Level 3.7, Chloride Level 99, Carbon Dioxide Level 27, Anion Gap 12, Blood Urea Nitrogen 10, Creatinine 0.8, Estimat Glomerular Filtration Rate > 60, Glucose Level 111H, Calcium Level 8.4L, Total Bilirubin 0.3, Aspartate Amino Transf (AST/SGOT) 41H, Alanine Aminotransferase (ALT/SGPT) 29, Alkaline Phosphatase 41, Total Protein 6.8, Albumin 2.6L, Globulin 4.2, Albumin/Globulin Ratio 0.6L Height (Feet): 6 Height (Inches): 0.00 Weight (Pounds): 150 Neck: supple Cardiovascular: normal rate Respiratory/Chest: lungs clear Abdomen: soft Bernardino Dallas MD Jul 06, 2016 12:52
[2016-07-06] MEDS: Promethazine/Codeine 5ml UD ORAL PRN (14:36)
--- NOTE | 2016-07-06 14:38 | Diagnostic Imaging Report ---
Indication: Chest pain Technique: Continuous helical transaxial imaging of the chest was obtained from the thoracic inlet to the upper abdomen. No intravenous contrast was administered. Coronal 2-D reformats were also obtained. Total Dose length Product (DLP): [address] Dose Index Volume (CTDIvol): 17 mGy Comparison: none Findings: Groundglass opacities and reticulonodular opacities with minor alveolar component demonstrated in the parenchyma of the right upper lobe. Findings could represent ill-defined infiltrate such as pneumonia. The appearance has changed significantly since 06/29/16. The parenchymal opacities are much less nodular and masslike on the current study. Followup to resolution is recommended. Also, please correlate clinically. The lungs are relatively clear otherwise. There is a trace amount of infiltrate in the left upper lobe. There is a trace basilar effusion on the left side. No adenopathy is appreciated. The heart is unremarkable. Visualized upper abdomen is unremarkable. Impression: Ill-defined infiltrate in the right upper lobe with a minor left upper lobe infiltrate. The parenchymal disease has changed significantly over the last 7 days and is less masslike in appearance. The findings are likely due to pneumonia. Please correlate clinically. Followup until resolution is recommended. The CT scanner at [facility] is accredited by the [employer] [employer] and the scans are performed using protocols designed to limit radiation exposure to as low as reasonably achievable to attain images of sufficient resolution adequate for diagnostic evaluation.
--- NOTE | 2016-07-06 14:55 | Cardiology Report ---
APPROVED REPORT EKG Measurement Heart [id number] DC [id number] [id number] Sinus tachycardia Possible Left atrial enlargement Incomplete right bundle branch block Borderline ECG
[2016-07-06 15:27] VITALS: BP 129/68
--- NOTE | 2016-07-06 16:01 | Diagnostic Imaging Report ---
Indication: Dyspnea Comparison: 06/28/16 A single view chest radiograph was obtained. Findings: Suspected infiltrate in the right upper lobe demonstrated. Heart size is borderline. Lung volumes are low. Bones are osteopenic. Impression: Right upper lobe infiltrate suspected
--- NOTE | 2016-07-06 16:46 | Pulmonology Progress Note ---
Assessment/Plan Problems: (1) rule out Tuberculosis (2) Right upper lobe pneumonia (3) UTI (urinary tract infection) (4) Seizure disorder (5) Psychiatric disorder (6) Cachexia Assessment/Plan Repeat Ct from today showing much improvement iv antibiotics, Vancomycin, Flagyl, sputum for afb TB gold test isolation fungi serology pending HIV testing was negative Subjective ROS Limited/Unobtainable: No Constitutional: Reports: no symptoms Allergies: Coded Allergies: AMOXICILLIN (Verified Allergy, Unknown, 02/21/13) OBTAINED FROM MEDICAL RECORD ASPIRIN (Verified Allergy, Unknown, 02/21/13) OBTAINED FROM MEDICAL RECORD PENICILLINS (Unverified Allergy, Unknown, 12/06/14) Objective Last 24 Hour Vital Signs Date Time Temp Pulse Resp B/P Pulse Ox O2 Delivery O2 Flow Rate FiO2 07/06/16 15:27 98.6 80 19 129/68 94 Room Air 07/06/16 12:00 98.1 89 18 134/72 97 Room Air 89 07/06/16 09:27 97.5 07/06/16 08:00 97.8 89 18 118/68 95 07/06/16 06:30 82 16 Room Air 21 07/06/16 04:00 97.5 101 16 121/78 95 Room Air 07/06/16 00:35 97.4 81 20 118/71 95 Room Air 07/05/16 19:57 97.9 79 24 118/78 95 Room Air 07/05/16 19:41 82 20 Room Air Intake and Output 07/05/16 07/06/16 19:00 07:00 Intake Total 1095 ml 535 ml Balance 1095 ml 535 ml Intake Oral 245 ml 135 ml IV Total 850 ml 400 ml # Voids 3 General Appearance: WD/WN HEENT: normocephalic Respiratory/Chest: chest wall non-tender Cardiovascular: normal peripheral pulses, normal rate Abdomen: normal bowel sounds, soft, non tender Extremities: no cyanosis, no clubbing Skin: no ulcers 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 Laboratory Tests 07/06/16 06:35: White Blood Count 6.4, Red Blood Count 5.36, Hemoglobin 12.0L, Hematocrit 38.3L , Mean Corpuscular Volume 72L, Mean Corpuscular Hemoglobin 22.4L, Mean Corpuscular Hemoglobin Concent 31.3L, Red Cell Distribution Width 13.3, Platelet Count 451H, Mean Platelet Volume 5.5L, Neutrophils (%) (Auto) 60.5, Lymphocytes (%) (Auto) 22.3, Monocytes (%) (Auto) 13.3H, Eosinophils (%) (Auto) 3.3H, Basophils (%) (Auto) 0.7, Sodium Level 138, Potassium Level 3.7, Chloride Level 99, Carbon Dioxide Level 27, Anion Gap 12, Blood Urea Nitrogen 10, Creatinine 0.8, Estimat Glomerular Filtration Rate > 60, Glucose Level 111H, Calcium Level 8.4L, Total Bilirubin 0.3, Aspartate Amino Transf (AST/SGOT) 41H, Alanine Aminotransferase (ALT/SGPT) 29, Alkaline Phosphatase 41, Total Protein 6.8, Albumin 2.6L, Globulin 4.2, Albumin/Globulin Ratio 0.6L Current Medications Medications (Trade) Dose Ordered Sig/Yanelis Route PRN Reason Start Time Stop Time Status Last Admin Dose Admin Acetaminophen (Tylenol) 650 mg Q4H PRN ORAL fever 06/28/16 19:00 07/28/16 18:59 06/29/16 00:18 Al Hydroxide/Mg Hydroxide (Mylanta II) 30 ml Q6H PRN ORAL dyspepsia 06/28/16 19:00 07/28/16 18:59 Amantadine HCl (Symmetrel) 100 mg Q8HR ORAL 06/28/16 22:00 07/28/16 21:59 07/06/16 14:36 Aztreonam/Dextrose (Azactam/D5W 50ml) 50 ml @ 100 mls/hr Q8HR@0200,1000,1800 IVPB 06/29/16 18:00 07/08/16 17:59 07/06/16 02:20 Dextromethorphan/ Quinidine (Nuedexta Capsule) 1 cap Q12HR ORAL 06/28/16 21:00 07/28/16 20:59 07/06/16 08:28 Dextrose/Sodium Chloride (D5 0.45% NS) 1,000 ml @ 50 mls/hr Q20H IV 06/30/16 09:00 07/30/16 08:59 07/06/16 04:31 Divalproex Sodium (Depakote) 250 mg Q8HR ORAL 06/28/16 22:00 07/28/16 21:59 07/06/16 14:36 Gabapentin (Neurontin) 400 mg DAILY ORAL 06/29/16 09:00 07/29/16 08:59 07/06/16 08:28 Heparin Sodium (Porcine) (Heparin 5000 units/ml) 5,000 units EVERY 12 HOURS SUBQ 06/28/16 21:00 07/28/16 20:59 07/05/16 22:56 Levetiracetam (Keppra) 500 mg TWICE A DAY ORAL 06/29/16 09:00 07/29/16 08:59 07/06/16 08:28 Lorazepam 2 mg 2 mg Q6H PRN ORAL For Anxiety 06/30/16 14:30 07/07/16 14:29 07/06/16 14:42 Metronidazole 100 ml @ 100 mls/hr Q8HR@0100,0900,1700 IVPB 06/29/16 01:30 07/08/16 01:29 07/06/16 01:46 Nitroglycerin (Ntg) 0.4 mg Q5M PRN SL Prn Chest Pain 06/28/16 19:00 07/28/16 18:59 Olanzapine (ZyPREXA) 5 mg QHS ORAL 06/30/16 22:00 07/30/16 21:59 07/05/16 22:48 Olanzapine 5 mg 5 mg Q6HR PRN ORAL Agitation 06/29/16 21:30 07/29/16 21:29 07/05/16 09:24 Ondansetron HCl (Zofran) 4 mg Q6H PRN IVP Nausea & Vomiting 06/28/16 19:00 07/28/16 18:59 Polyethylene Glycol (Miralax) 17 gm DAILYPRN PRN ORAL Constipation 06/28/16 19:00 07/28/16 18:59 Promethazine HCl/ Codeine (Phenergan with Codeine) 5 ml Q4H PRN ORAL For Cough 06/28/16 19:00 07/28/16 18:59 07/06/16 14:36 Risperidone (RisperDAL) 2 mg QHS ORAL 06/28/16 21:00 07/28/16 20:59 07/05/16 22:49 Vancomycin HCl 1 ea 1 ea DAILY PRN MISC Per rx protocol 06/28/16 19:00 07/28/16 18:59 Vancomycin HCl/ Dextrose (Vancomycin/D5W 250ml) 250 ml @ 167 mls/hr Q6HR IVPB 07/04/16 06:00 07/09/16 05:59 07/06/16 05:46 NEERAJ DAMON Jul 06, 2016 16:46
--- NOTE | 2016-07-06 16:55 | Infectious Diseases Prog Note ---
Assessment/Plan Problems: (1) Sepsis Assessment & Plan: blood culture grew coag negative staph from one bottle, most likely contaminant , continue vancomycin, aztreonam, and Flagyl for now pending further work up (2) Pneumonia Assessment & Plan: with multiple mass like opacities and consolidation , infectious pneumonia, VS mets, fungal serology screening are all negative ,T- spot test is negative which rule out TB, HIV test is negative, continue current antibiotics with vancomycin and aztreonam, and Flagyl , await sputum culture x3 for AFB, keep in Airborne isolation, may need bronchoscopy with biopsy if work up is negative (3) UTI (urinary tract infection) Assessment & Plan: on aztreonam, await culture (4) Psychiatric disorder Assessment & Plan: continue psych meds, and sitter . (5) Seizure disorder Assessment & Plan: continue seizure meds , with hossein check, consult neurology (6) Failure to thrive Assessment & Plan: recommend dietry consult Subjective ROS Limited/Unobtainable: Yes Allergies: Coded Allergies: AMOXICILLIN (Verified Allergy, Unknown, 02/21/13) OBTAINED FROM MEDICAL RECORD ASPIRIN (Verified Allergy, Unknown, 02/21/13) OBTAINED FROM MEDICAL RECORD PENICILLINS (Unverified Allergy, Unknown, 12/06/14) Subjective he is demented, not agitated , resting in bed, doesn't follow commands. Objective Vital Signs Last 24 Hour Vital Signs Date Time Temp Pulse Resp B/P Pulse Ox O2 Delivery O2 Flow Rate FiO2 07/06/16 15:27 98.6 80 19 129/68 94 Room Air 07/06/16 12:00 98.1 89 18 134/72 97 Room Air 89 07/06/16 09:27 97.5 07/06/16 08:00 97.8 89 18 118/68 95 07/06/16 06:30 82 16 Room Air 21 07/06/16 04:00 97.5 101 16 121/78 95 Room Air 07/06/16 00:35 97.4 81 20 118/71 95 Room Air 07/05/16 19:57 97.9 79 24 118/78 95 Room Air 07/05/16 19:41 82 20 Room Air Height (Feet): 6 Height (Inches): 0.00 Weight (Pounds): 150 General Appearance: WD/WN, other - demented, and sleeping in bed HEENT: normocephalic, atraumatic, anicteric Respiratory/Chest: chest wall non-tender, no respiratory distress, no accessory muscle use, decreased breath sounds Cardiovascular: normal peripheral pulses, normal rate, regular rhythm, no gallop/murmur Abdomen: normal bowel sounds, soft, non tender, no organomegaly, non distended , no mass, no scars Extremities: no cyanosis, no clubbing Skin: no rash, no lesions, no ulcers Laboratory Tests Test 07/06/16 06:35 White Blood Count 6.4 K/UL (4.8-10.8) Red Blood Count 5.36 M/UL (4.70-6.10) Hemoglobin 12.0 G/DL (14.2-18.0) L Hematocrit 38.3 % (42.0-52.0) L Mean Corpuscular Volume 72 FL (80-99) L Mean Corpuscular Hemoglobin 22.4 PG (27.0-31.0) L Mean Corpuscular Hemoglobin Concent 31.3 G/DL (32.0-36.0) L Red Cell Distribution Width 13.3 % (11.6-14.8) Platelet Count 451 K/UL (150-450) H Mean Platelet Volume 5.5 FL (6.5-10.1) L Neutrophils (%) (Auto) 60.5 % (45.0-75.0) Lymphocytes (%) (Auto) 22.3 % (20.0-45.0) Monocytes (%) (Auto) 13.3 % (1.0-10.0) H Eosinophils (%) (Auto) 3.3 % (0.0-3.0) H Basophils (%) (Auto) 0.7 % (0.0-2.0) Sodium Level 138 mEQ/L (135-145) Potassium Level 3.7 mEQ/L (3.4-4.9) Chloride Level 99 mEQ/L (98-107) Carbon Dioxide Level 27 mEQ/L (20-30) Anion Gap 12 (5-15) Blood Urea Nitrogen 10 mg/dL (7-23) Creatinine 0.8 mg/dL (0.7-1.2) Estimat Glomerular Filtration Rate > 60 mL/min (>60) Glucose Level 111 mg/dL (74-106) H Calcium Level 8.4 mg/dL (8.6-10.2) L Total Bilirubin 0.3 mg/dL (0.0-1.2) Aspartate Amino Transf (AST/SGOT) 41 U/L (5-40) H Alanine Aminotransferase (ALT/SGPT) 29 U/L (3-41) Alkaline Phosphatase 41 U/L (40-129) Total Protein 6.8 g/dL (6.6-8.7) Albumin 2.6 g/dL (3.5-5.2) L Globulin 4.2 g/dL Albumin/Globulin Ratio 0.6 (1.0-2.7) L Current Medications Medications (Trade) Dose Ordered Sig/Yanelis Route PRN Reason Start Time Stop Time Status Last Admin Dose Admin Acetaminophen (Tylenol) 650 mg Q4H PRN ORAL fever 06/28/16 19:00 07/28/16 18:59 06/29/16 00:18 Al Hydroxide/Mg Hydroxide (Mylanta II) 30 ml Q6H PRN ORAL dyspepsia 06/28/16 19:00 07/28/16 18:59 Amantadine HCl (Symmetrel) 100 mg Q8HR ORAL 06/28/16 22:00 07/28/16 21:59 07/06/16 14:36 Aztreonam/Dextrose (Azactam/D5W 50ml) 50 ml @ 100 mls/hr Q8HR@0200,1000,1800 IVPB 06/29/16 18:00 07/08/16 17:59 07/06/16 02:20 Dextromethorphan/ Quinidine (Nuedexta Capsule) 1 cap Q12HR ORAL 06/28/16 21:00 07/28/16 20:59 07/06/16 08:28 Dextrose/Sodium Chloride (D5 0.45% NS) 1,000 ml @ 50 mls/hr Q20H IV 06/30/16 09:00 07/30/16 08:59 07/06/16 04:31 Divalproex Sodium (Depakote) 250 mg Q8HR ORAL 06/28/16 22:00 07/28/16 21:59 07/06/16 14:36 Gabapentin (Neurontin) 400 mg DAILY ORAL 06/29/16 09:00 07/29/16 08:59 07/06/16 08:28 Heparin Sodium (Porcine) (Heparin 5000 units/ml) 5,000 units EVERY 12 HOURS SUBQ 06/28/16 21:00 07/28/16 20:59 07/05/16 22:56 Levetiracetam (Keppra) 500 mg TWICE A DAY ORAL 06/29/16 09:00 07/29/16 08:59 07/06/16 08:28 Lorazepam 2 mg 2 mg Q6H PRN ORAL For Anxiety 06/30/16 14:30 07/07/16 14:29 07/06/16 14:42 Metronidazole 100 ml @ 100 mls/hr Q8HR@0100,0900,1700 IVPB 06/29/16 01:30 07/08/16 01:29 07/06/16 01:46 Nitroglycerin (Ntg) 0.4 mg Q5M PRN SL Prn Chest Pain 06/28/16 19:00 07/28/16 18:59 Olanzapine (ZyPREXA) 5 mg QHS ORAL 06/30/16 22:00 07/30/16 21:59 07/05/16 22:48 Olanzapine 5 mg 5 mg Q6HR PRN ORAL Agitation 06/29/16 21:30 07/29/16 21:29 07/05/16 09:24 Ondansetron HCl (Zofran) 4 mg Q6H PRN IVP Nausea & Vomiting 06/28/16 19:00 07/28/16 18:59 Polyethylene Glycol (Miralax) 17 gm DAILYPRN PRN ORAL Constipation 06/28/16 19:00 07/28/16 18:59 Promethazine HCl/ Codeine (Phenergan with Codeine) 5 ml Q4H PRN ORAL For Cough 06/28/16 19:00 07/28/16 18:59 07/06/16 14:36 Risperidone (RisperDAL) 2 mg QHS ORAL 06/28/16 21:00 07/28/16 20:59 07/05/16 22:49 Vancomycin HCl 1 ea 1 ea DAILY PRN MISC Per rx protocol 06/28/16 19:00 07/28/16 18:59 Vancomycin HCl/ Dextrose (Vancomycin/D5W 250ml) 250 ml @ 167 mls/hr Q6HR IVPB 07/04/16 06:00 1/20/17 05:59 07/06/16 05:46 Carli Saleem M.D. Jul 06, 2016 16:55
[2016-07-06 19:28] VITALS: BP 128/70
[2016-07-07] VITALS (7 sets, daily range): BP systolic 115–141; BP diastolic 67–80
--- NOTE | 2016-07-07 00:02 | General Progress Note ---
Assessment/Plan Assessment/Plan ASSESSMENT: 1. Thrombocytopenia, due to infection and sepsis. Improved >200k 2. Leukopenia, rule out medication side effects versus infection. Improved 3. Bilateral pulmonary masses bilaterally, potential 2/2 pneumonia process. Has improved 4. Health care associated PNA 5. Anemia 2/2 chronic disease, >10 6. Decreased h/h rule out GI bleed 7. Infectious etiology workup pending RECOMMENDATIONS: 1. Monitor counts 2. Transfuse as needed 3. Antibiotics as needed 4. Transfuse prbc >7, plt >10k 5. DVT ppx heparin sq 6. Followup on GI, ID, pulm recs 7. D/W staff Thank you, Farzad Montejo MD Subjective Date patient seen: Jul 06, 2016 Constitutional: Reports: no symptoms HEENT: Reports: no symptoms Cardiovascular: Reports: no symptoms Respiratory: Reports: cough Gastrointestinal/Abdominal: Reports: poor appetite Genitourinary: Reports: no symptoms Neurologic/Psychiatric: Reports: anxiety Endocrine: Reports: no symptoms Hematologic/Lymphatic: Reports: anemia Allergies: Coded Allergies: AMOXICILLIN (Verified Allergy, Unknown, 02/21/13) OBTAINED FROM MEDICAL RECORD ASPIRIN (Verified Allergy, Unknown, 02/21/13) OBTAINED FROM MEDICAL RECORD PENICILLINS (Unverified Allergy, Unknown, 12/06/14) Subjective stable, without any events overnight, without bleeding Objective Last 24 Hour Vital Signs Date Time Temp Pulse Resp B/P Pulse Ox O2 Delivery O2 Flow Rate FiO2 07/06/16 20:52 85 18 Room Air 21 07/06/16 19:28 97.6 82 18 128/70 95 Room Air 07/06/16 15:27 98.6 80 19 129/68 94 Room Air 07/06/16 12:00 98.1 89 18 134/72 97 Room Air 89 07/06/16 09:27 97.5 07/06/16 08:00 97.8 89 18 118/68 95 07/06/16 06:30 82 16 Room Air 21 07/06/16 04:00 97.5 101 16 121/78 95 Room Air 07/06/16 00:35 97.4 81 20 118/71 95 Room Air Intake and Output 07/06/16 07/07/16 19:00 07:00 Intake Total 220 ml 540 ml Balance 220 ml 540 ml Intake Oral 120 ml 240 ml IV Total 100 ml 300 ml # Voids 3 # Bowel Movements 1 Laboratory Tests 07/06/16 06:35: White Blood Count 6.4, Red Blood Count 5.36, Hemoglobin 12.0L, Hematocrit 38.3L , Mean Corpuscular Volume 72L, Mean Corpuscular Hemoglobin 22.4L, Mean Corpuscular Hemoglobin Concent 31.3L, Red Cell Distribution Width 13.3, Platelet Count 451H, Mean Platelet Volume 5.5L, Neutrophils (%) (Auto) 60.5, Lymphocytes (%) (Auto) 22.3, Monocytes (%) (Auto) 13.3H, Eosinophils (%) (Auto) 3.3H, Basophils (%) (Auto) 0.7, Sodium Level 138, Potassium Level 3.7, Chloride Level 99, Carbon Dioxide Level 27, Anion Gap 12, Blood Urea Nitrogen 10, Creatinine 0.8, Estimat Glomerular Filtration Rate > 60, Glucose Level 111H, Calcium Level 8.4L, Total Bilirubin 0.3, Aspartate Amino Transf (AST/SGOT) 41H, Alanine Aminotransferase (ALT/SGPT) 29, Alkaline Phosphatase 41, Total Protein 6.8, Albumin 2.6L, Globulin 4.2, Albumin/Globulin Ratio 0.6L Height (Feet): 6 Height (Inches): 0.00 Weight (Pounds): 150 General Appearance: no apparent distress EENT: TMs normal Neck: normal alignment Cardiovascular: regular rhythm Respiratory/Chest: lungs clear Abdomen: normal bowel sounds Extremities: non-tender Edema: no edema noted Leg (L), no edema noted Leg (R) Edema: mild edema Neurologic: alert Skin: warm/dry Farzad Montejo Jul 07, 2016 00:02
[2016-07-07] MEDS: D5 1/2NS 1,000 ML IV SCH (01:00)
[2016-07-07] MEDS: metroNIDAZOLE 500mg 100 ML IVPB SCH ×2 (01:20→09:00)
[2016-07-07] MEDS: D5W IVPB SCH (02:45)
[2016-07-07] MEDS: AZTREONAM IVPB SCH (02:45)
[2016-07-07] MEDS: Amantadine 100mg cap ORAL SCH ×3 (05:35→22:35)
[2016-07-07] MEDS: Vancomycin 750 MG in D5W 250 ML IVPB SCH (05:35)
[2016-07-07] MEDS: Nuedexta Capsule 20/10mg ORAL SCH ×2 (08:59→22:35)
[2016-07-07] MEDS: LORazepam 1mg tab ORAL PRN ×2 (08:59→22:34)
[2016-07-07] MEDS: levETIRAcetam 500mg/5ml Liquid ORAL SCH ×2 (09:00→22:36)
[2016-07-07] MEDS: Heparin 5000 units/ml inj SUBQ SCH ×2 (09:03→22:43)
[2016-07-07] MEDS: Levofloxacin 500mg tab ORAL SCH (10:06)
--- NOTE | 2016-07-07 11:41 | General Progress Note ---
Assessment/Plan Problem List: (1) Pneumonia ICD Codes: J18.9 - Pneumonia, unspecified organism SNOMED: 400861354 Status: progressing Assessment/Plan once cleared from pulm and id will be dc to snf on isolation to r/o tb Subjective ROS Limited/Unobtainable: Yes Constitutional: Reports: no symptoms Allergies: Coded Allergies: AMOXICILLIN (Verified Allergy, Unknown, 02/21/13) OBTAINED FROM MEDICAL RECORD ASPIRIN (Verified Allergy, Unknown, 02/21/13) OBTAINED FROM MEDICAL RECORD PENICILLINS (Unverified Allergy, Unknown, 12/06/14) Objective Last 24 Hour Vital Signs Date Time Temp Pulse Resp B/P Pulse Ox O2 Delivery O2 Flow Rate FiO2 07/07/16 09:58 97.5 07/07/16 08:00 97.5 94 19 139/80 96 Room Air 07/07/16 07:49 93 18 Room Air 21 07/07/16 04:00 97.1 95 18 119/79 97 Room Air 07/07/16 00:00 97.6 98 22 141/68 95 Room Air 07/06/16 20:52 85 18 Room Air 21 07/06/16 19:28 97.6 82 18 128/70 95 Room Air 07/06/16 15:27 98.6 80 19 129/68 94 Room Air 07/06/16 12:00 98.1 89 18 134/72 97 Room Air 89 Intake and Output 07/06/16 07/07/16 19:00 07:00 Intake Total 220 ml 1167 ml Balance 220 ml 1167 ml Intake Oral 120 ml 300 ml IV Total 100 ml 867 ml # Voids 3 5 # Bowel Movements 1 Height (Feet): 6 Height (Inches): 0.00 Weight (Pounds): 150 EENT: PERRL/EOMI Cardiovascular: normal rate Respiratory/Chest: lungs clear Abdomen: soft Bernardino Dallas MD Jul 07, 2016 11:41
--- NOTE | 2016-07-07 13:42 | General Progress Note ---
Assessment/Plan Assessment/Plan ASSESSMENT: 1. Thrombocytopenia, due to infection and sepsis. Improved >200k 2. Leukopenia, rule out medication side effects versus infection. Improved 3. Bilateral pulmonary masses bilaterally, potential 2/2 pneumonia process. Has improved 4. Health care associated PNA 5. Anemia 2/2 chronic disease, >10 6. Decreased h/h rule out GI bleed 7. UTI RECOMMENDATIONS: 1. Monitor counts 2. Transfuse as needed 3. Antibiotics as needed 4. Transfuse prbc >7, plt >10k 5. DVT ppx heparin sq 6. Followup on GI, ID, pulm recs 7. D/W staff Thank you, Farzad Montejo MD Subjective Date patient seen: Jul 07, 2016 Constitutional: Reports: no symptoms HEENT: Reports: no symptoms Cardiovascular: Reports: no symptoms Respiratory: Reports: no symptoms Gastrointestinal/Abdominal: Reports: poor fluid intake Genitourinary: Reports: no symptoms Neurologic/Psychiatric: Reports: no symptoms Endocrine: Reports: no symptoms Hematologic/Lymphatic: Reports: anemia Allergies: Coded Allergies: AMOXICILLIN (Verified Allergy, Unknown, 02/21/13) OBTAINED FROM MEDICAL RECORD ASPIRIN (Verified Allergy, Unknown, 02/21/13) OBTAINED FROM MEDICAL RECORD PENICILLINS (Unverified Allergy, Unknown, 12/06/14) Subjective stable, without any events overnight, somewhat agitated overnight Objective Last 24 Hour Vital Signs Date Time Temp Pulse Resp B/P Pulse Ox O2 Delivery O2 Flow Rate FiO2 07/07/16 12:00 97.7 95 19 115/75 98 Room Air 07/07/16 09:58 97.5 07/07/16 08:00 97.5 94 19 139/80 96 Room Air 07/07/16 07:49 93 18 Room Air 07/07/16 04:00 97.1 95 18 119/79 97 Room Air 07/07/16 00:00 97.6 98 22 141/68 95 Room Air 07/06/16 20:52 85 18 Room Air 21 07/06/16 19:28 97.6 82 18 128/70 95 Room Air 07/06/16 15:27 98.6 80 19 129/68 94 Room Air Intake and Output 07/06/16 07/07/16 19:00 07:00 Intake Total 220 ml 1167 ml Balance 220 ml 1167 ml Intake Oral 120 ml 300 ml IV Total 100 ml 867 ml # Voids 3 5 # Bowel Movements 1 Height (Feet): 6 Height (Inches): 0.00 Weight (Pounds): 150 General Appearance: no apparent distress EENT: TMs normal Neck: supple Cardiovascular: regular rhythm Respiratory/Chest: normal breath sounds Genitourinary/Rectal: normal rectal exam Extremities: non-tender Edema: no edema noted Leg (L), no edema noted Leg (R) Edema: mild edema Neurologic: alert Skin: warm/dry Farzad Montejo Jul 07, 2016 13:42
[2016-07-07] MEDS ORDERED: LORazepam 1mg tab ORAL PRN (15:45)
--- NOTE | 2016-07-07 17:11 | Infectious Diseases Prog Note ---
Assessment/Plan Problems: (1) Sepsis Assessment & Plan: blood culture grew coag negative staph from one bottle, most likely contaminant , on vancomycin, aztreonam, and Flagyl unfortunetly he has been refusing iv treatment and pulled his IV line multiple times, so we will switch his antibiotics to oral zyvox and levofloxacin for now pending further work up (2) Pneumonia Assessment & Plan: with multiple mass like opacities and consolidation , infectious pneumonia, VS mets, fungal serology screening are all negative ,T- spot test is negative which rule out TB, HIV test is negative, continue current antibiotics for two weeks total, sputum culture x3 for AFB are negative , may remove from Airborne isolation, may need bronchoscopy with biopsy to rule out METS (3) UTI (urinary tract infection) Assessment & Plan: on Levofloxacin, await culture (4) Psychiatric disorder Assessment & Plan: continue psych meds, and sitter . (5) Seizure disorder Assessment & Plan: continue seizure meds , with hossein check, consult neurology (6) Failure to thrive Assessment & Plan: recommend dietry consult Subjective ROS Limited/Unobtainable: Yes Allergies: Coded Allergies: AMOXICILLIN (Verified Allergy, Unknown, 02/21/13) OBTAINED FROM MEDICAL RECORD ASPIRIN (Verified Allergy, Unknown, 02/21/13) OBTAINED FROM MEDICAL RECORD PENICILLINS (Unverified Allergy, Unknown, 12/06/14) Subjective he is demented, not agitated , resting in bed, doesn't follow commands. Objective Vital Signs Last 24 Hour Vital Signs Date Time Temp Pulse Resp B/P Pulse Ox O2 Delivery O2 Flow Rate FiO2 07/07/16 16:00 97.7 105 19 129/67 96 Room Air 07/07/16 12:00 97.7 95 19 115/75 98 Room Air 07/07/16 09:58 97.5 07/07/16 08:00 97.5 94 19 139/80 96 Room Air 07/07/16 07:49 93 18 Room Air 21 07/07/16 04:00 97.1 95 18 119/79 97 Room Air 07/07/16 00:00 97.6 98 22 141/68 95 Room Air 07/06/16 20:52 85 18 Room Air 21 07/06/16 19:28 97.6 82 18 128/70 95 Room Air Height (Feet): 6 Height (Inches): 0.00 Weight (Pounds): 150 General Appearance: WD/WN, no acute distress HEENT: normocephalic, atraumatic, anicteric, mucous membranes moist Respiratory/Chest: chest wall non-tender, no respiratory distress, no accessory muscle use, decreased breath sounds, expiratory wheezing Cardiovascular: normal peripheral pulses, normal rate, regular rhythm, no gallop/murmur Abdomen: normal bowel sounds, soft, non tender, no organomegaly, non distended , no mass, no scars Extremities: no cyanosis, no clubbing Skin: no rash, no lesions, no ulcers Microbiology Date/Time Source Procedure Growth Status 07/06/16 00:30 Sputum AFB Specimen Processing Tissue - Final Resulted 07/06/16 00:30 Sputum Acid Fast Bacilli Smear - Final Resulted 07/06/16 00:30 Sputum Acid Fast Bacilli Culture Pending Resulted Current Medications Medications (Trade) Dose Ordered Sig/Yanelis Route PRN Reason Start Time Stop Time Status Last Admin Dose Admin Acetaminophen (Tylenol) 650 mg Q4H PRN ORAL fever 06/28/16 19:00 07/28/16 18:59 06/29/16 00:18 Al Hydroxide/Mg Hydroxide (Mylanta II) 30 ml Q6H PRN ORAL dyspepsia 06/28/16 19:00 07/28/16 18:59 Amantadine HCl (Symmetrel) 100 mg Q8HR ORAL 06/28/16 22:00 07/28/16 21:59 07/07/16 13:28 Dextromethorphan/ Quinidine (Nuedexta Capsule) 1 cap Q12HR ORAL 06/28/16 21:00 07/28/16 20:59 07/07/16 08:59 Divalproex Sodium (Depakote) 250 mg Q8HR ORAL 06/28/16 22:00 07/28/16 21:59 07/07/16 13:29 Gabapentin (Neurontin) 400 mg DAILY ORAL 06/29/16 09:00 07/29/16 08:59 07/07/16 08:59 Heparin Sodium (Porcine) (Heparin 5000 units/ml) 5,000 units EVERY 12 HOURS SUBQ 06/28/16 21:00 07/28/16 20:59 07/07/16 09:03 Levetiracetam (Keppra) 500 mg Q12HR ORAL 07/06/16 21:00 07/29/16 08:59 07/07/16 09:00 Levofloxacin (Levaquin) 500 mg Q24H ORAL 07/07/16 10:00 07/14/16 09:59 07/07/16 10:06 Linezolid (Zyvox) 600 mg EVERY 12 HOURS ORAL 07/07/16 10:00 07/12/16 09:59 07/07/16 10:06 Lorazepam (Ativan) 2 mg Q6H PRN ORAL For Anxiety 07/07/16 16:00 07/14/16 15:59 Nitroglycerin (Ntg) 0.4 mg Q5M PRN SL Prn Chest Pain 06/28/16 19:00 07/28/16 18:59 Olanzapine (ZyPREXA) 5 mg Q6HR PRN ORAL Agitation 06/29/16 21:30 07/29/16 21:29 07/05/16 09:24 Olanzapine (ZyPREXA) 5 mg QHS ORAL 06/30/16 22:00 07/30/16 21:59 07/06/16 20:26 Ondansetron HCl (Zofran) 4 mg Q6H PRN IVP Nausea & Vomiting 06/28/16 19:00 07/28/16 18:59 Polyethylene Glycol (Miralax) 17 gm DAILYPRN PRN ORAL Constipation 06/28/16 19:00 07/28/16 18:59 Promethazine HCl/ Codeine (Phenergan with Codeine) 5 ml Q4H PRN ORAL For Cough 06/28/16 19:00 07/28/16 18:59 07/06/16 14:36 Risperidone (RisperDAL) 2 mg QHS ORAL 06/28/16 21:00 07/28/16 20:59 07/06/16 20:26 Carli Saleem M.D. Jul 07, 2016 17:11
[2016-07-07 20:13] LABS: MTB PROCESSING Concentration (.)
[2016-07-08] VITALS (7 sets, daily range): BP systolic 118–137; BP diastolic 64–95
[2016-07-08] MEDS: Amantadine 100mg cap ORAL SCH ×3 (05:27→22:00)
[2016-07-08] MEDS: levETIRAcetam 500mg/5ml Liquid ORAL SCH ×2 (09:00→22:20)
[2016-07-08] MEDS: Nuedexta Capsule 20/10mg ORAL SCH ×2 (09:00→22:19)
[2016-07-08] MEDS: Heparin 5000 units/ml inj SUBQ SCH ×2 (09:00→22:30)
[2016-07-08] MEDS: Levofloxacin 500mg tab ORAL SCH (10:09)
--- NOTE | 2016-07-08 10:41 | General Progress Note ---
Assessment/Plan Problem List: (1) Pneumonia ICD Codes: J18.9 - Pneumonia, unspecified organism SNOMED: [id number] Status: stable, progressing Assessment/Plan afebrile vitals stable pna awaiting clearance from pulm and id before dc r/o tb Subjective ROS Limited/Unobtainable: Yes Constitutional: Reports: no symptoms Allergies: Coded Allergies: AMOXICILLIN (Verified Allergy, Unknown, 02/21/13) OBTAINED FROM MEDICAL RECORD ASPIRIN (Verified Allergy, Unknown, 02/21/13) OBTAINED FROM MEDICAL RECORD PENICILLINS (Unverified Allergy, Unknown, 12/06/14) Objective Last 24 Hour Vital Signs Date Time Temp Pulse Resp B/P Pulse Ox O2 Delivery O2 Flow Rate FiO2 07/08/16 07:48 94 18 Room Air 21 07/08/16 07:27 96.8 107 20 118/77 98 Room Air 07/08/16 04:45 97.9 92 18 118/69 96 Room Air 07/08/16 00:00 97.9 70 18 133/81 96 Room Air 07/07/16 20:00 97.5 80 19 131/67 97 Room Air 07/07/16 19:00 100 16 Room Air 21 07/07/16 16:00 97.7 105 19 129/67 96 Room Air 07/07/16 12:00 97.7 95 19 115/75 98 Room Air Intake and Output 07/07/16 07/08/16 19:00 07:00 Intake Total 443 ml 360 ml Balance 443 ml 360 ml Intake Oral 360 ml 360 ml IV Total 83 ml # Voids 3 2 Height (Feet): 6 Height (Inches): 0.00 Weight (Pounds): 150 EENT: PERRL/EOMI Neck: supple Cardiovascular: normal rate Respiratory/Chest: lungs clear Abdomen: soft Bernardino Dallas MD Jul 08, 2016 10:41
--- NOTE | 2016-07-08 17:31 | Infectious Diseases Prog Note ---
Assessment/Plan Problems: (1) Sepsis Assessment & Plan: blood culture grew coag negative staph from one bottle, most likely contaminant , was started on vancomycin, aztreonam, and Flagyl, unfortunately he has been refusing iv treatment and pulled his IV line multiple times, so we will switch his antibiotics to oral zyvox and levofloxacin for now pending further work up (2) Pneumonia Assessment & Plan: with multiple mass like opacities and consolidation , infectious pneumonia, VS mets, fungal serology screening are all negative ,T- spot test is negative which rule out TB, HIV test is negative, continue current antibiotics for two weeks total, sputum culture x3 for AFB are negative , may remove from Airborne isolation, may need bronchoscopy with biopsy to rule out mets with close follow up with another CT chest (3) UTI (urinary tract infection) Assessment & Plan: on Levofloxacin, await culture (4) Psychiatric disorder Assessment & Plan: continue psych meds, and sitter . (5) Seizure disorder Assessment & Plan: continue seizure meds , with hossein check, consult neurology (6) Failure to thrive Assessment & Plan: recommend dietry consult Subjective ROS Limited/Unobtainable: Yes Allergies: Coded Allergies: AMOXICILLIN (Verified Allergy, Unknown, 02/21/13) OBTAINED FROM MEDICAL RECORD ASPIRIN (Verified Allergy, Unknown, 02/21/13) OBTAINED FROM MEDICAL RECORD PENICILLINS (Unverified Allergy, Unknown, 12/06/14) Subjective he is demented, not agitated , resting in bed, doesn't follow commands. Objective Vital Signs Last 24 Hour Vital Signs Date Time Temp Pulse Resp B/P Pulse Ox O2 Delivery O2 Flow Rate FiO2 07/08/16 15:38 98.0 116 20 137/92 98 Room Air 07/08/16 12:02 97.5 111 21 120/79 95 Room Air 07/08/16 10:15 97.9 07/08/16 07:48 94 18 Room Air 21 07/08/16 07:27 96.8 107 20 118/77 98 Room Air 07/08/16 04:45 97.9 92 18 118/69 96 Room Air 07/08/16 00:00 97.9 70 18 133/81 96 Room Air 07/07/16 20:00 97.5 80 19 131/67 97 Room Air 07/07/16 19:00 100 16 Room Air 21 Height (Feet): 6 Height (Inches): 0.00 Weight (Pounds): 150 General Appearance: WD/WN, no acute distress HEENT: normocephalic, atraumatic, anicteric, mucous membranes moist Respiratory/Chest: chest wall non-tender, lungs clear, normal breath sounds, no respiratory distress, no accessory muscle use Cardiovascular: normal peripheral pulses, normal rate, regular rhythm, no gallop/murmur Abdomen: normal bowel sounds, soft, non tender, no organomegaly, non distended , no mass Extremities: no cyanosis, no clubbing Skin: no rash, no lesions, no ulcers Microbiology Date/Time Source Procedure Growth Status 07/06/16 00:30 Sputum AFB Specimen Processing Tissue - Final Resulted 07/06/16 00:30 Sputum Acid Fast Bacilli Smear - Final Resulted 07/06/16 00:30 Sputum Acid Fast Bacilli Culture Pending Resulted Current Medications Medications (Trade) Dose Ordered Sig/Yanelis Route PRN Reason Start Time Stop Time Status Last Admin Dose Admin Acetaminophen (Tylenol) 650 mg Q4H PRN ORAL fever 06/28/16 19:00 07/28/16 18:59 06/29/16 00:18 Al Hydroxide/Mg Hydroxide (Mylanta II) 30 ml Q6H PRN ORAL dyspepsia 06/28/16 19:00 07/28/16 18:59 Amantadine HCl (Symmetrel) 100 mg Q8HR ORAL 06/28/16 22:00 07/28/16 21:59 07/08/16 14:26 Dextromethorphan/ Quinidine (Nuedexta Capsule) 1 cap Q12HR ORAL 06/28/16 21:00 07/28/16 20:59 07/08/16 09:00 Divalproex Sodium (Depakote) 250 mg Q8HR ORAL 06/28/16 22:00 07/28/16 21:59 07/08/16 14:19 Gabapentin (Neurontin) 400 mg DAILY ORAL 06/29/16 09:00 07/29/16 08:59 07/08/16 09:00 Heparin Sodium (Porcine) (Heparin 5000 units/ml) 5,000 units EVERY 12 HOURS SUBQ 06/28/16 21:00 07/28/16 20:59 07/08/16 09:00 Levetiracetam (Keppra) 500 mg Q12HR ORAL 07/06/16 21:00 07/29/16 08:59 07/08/16 09:00 Levofloxacin (Levaquin) 500 mg Q24H ORAL 07/07/16 10:00 07/14/16 09:59 07/08/16 10:09 Linezolid (Zyvox) 600 mg EVERY 12 HOURS ORAL 07/07/16 10:00 07/12/16 09:59 07/08/16 09:00 Lorazepam (Ativan) 2 mg Q6H PRN ORAL For Anxiety 07/07/16 16:00 07/14/16 15:59 07/07/16 22:34 Nitroglycerin (Ntg) 0.4 mg Q5M PRN SL Prn Chest Pain 06/28/16 19:00 07/28/16 18:59 Olanzapine (ZyPREXA) 5 mg Q6HR PRN ORAL Agitation 06/29/16 21:30 07/29/16 21:29 07/05/16 09:24 Olanzapine (ZyPREXA) 5 mg QHS ORAL 06/30/16 22:00 07/30/16 21:59 07/07/16 22:35 Ondansetron HCl (Zofran) 4 mg Q6H PRN IVP Nausea & Vomiting 06/28/16 19:00 07/28/16 18:59 Polyethylene Glycol (Miralax) 17 gm DAILYPRN PRN ORAL Constipation 06/28/16 19:00 07/28/16 18:59 Promethazine HCl/ Codeine (Phenergan with Codeine) 5 ml Q4H PRN ORAL For Cough 06/28/16 19:00 07/28/16 18:59 07/06/16 14:36 Risperidone (RisperDAL) 2 mg QHS ORAL 06/28/16 21:00 07/28/16 20:59 07/07/16 22:35 Carli Saleem M.D. Jul 08, 2016 17:31
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
--- NOTE | 2016-07-09 00:20 | General Progress Note ---
Assessment/Plan Assessment/Plan ASSESSMENT: 1. Anemia 2/2 chronic disease, hgb>10 2. Thrombocytopenia, due to infection and sepsis. Improved >200k 3. Leukopenia-- Improved 4. Bilateral pulmonary masses bilaterally, potential 2/2 pneumonia process. Has improved 5. Health care associated PNA----improed 6. UTI RECOMMENDATIONS: 1. Monitor counts 2. Transfuse as needed 3. Antibiotics as needed 4. Transfuse prbc >7, plt >10k 5. DVT ppx heparin sq 6. Followup on GI, ID, pulm recs 7. D/W staff Thank you, Farzad Montejo MD Subjective Constitutional: Reports: no symptoms HEENT: Reports: no symptoms Respiratory: Reports: no symptoms Genitourinary: Reports: no symptoms Neurologic/Psychiatric: Reports: no symptoms Endocrine: Reports: no symptoms Hematologic/Lymphatic: Reports: no symptoms Allergies: Coded Allergies: AMOXICILLIN (Verified Allergy, Unknown, 02/21/13) OBTAINED FROM MEDICAL RECORD ASPIRIN (Verified Allergy, Unknown, 02/21/13) OBTAINED FROM MEDICAL RECORD PENICILLINS (Unverified Allergy, Unknown, 12/06/14) Subjective stable, without any events overnight Objective Last 24 Hour Vital Signs Date Time Temp Pulse Resp B/P Pulse Ox O2 Delivery O2 Flow Rate FiO2 07/08/16 23:53 97.2 92 20 126/95 94 Room Air 07/08/16 20:00 97.5 100 20 134/64 97 Room Air 07/08/16 19:15 96 18 Room Air 21 07/08/16 15:38 98.0 116 20 137/92 98 Room Air 07/08/16 12:02 97.5 111 21 120/79 95 Room Air 07/08/16 10:15 97.9 Intake and Output 07/08/16 07/08/16 11:00 23:00 Intake Total 120 ml 410 ml Balance 120 ml 410 ml Intake Oral 120 ml 410 ml # Voids 4 2 # Bowel Movements 2 Height (Feet): 6 Height (Inches): 0.00 Weight (Pounds): 150 General Appearance: no apparent distress EENT: PERRL/EOMI Neck: supple Respiratory/Chest: no respiratory distress Edema: no edema noted Leg (L), no edema noted Leg (R) Farzad Montejo Jul 09, 2016 00:20
[2016-07-09 01:24] LABS: MTB DETECTION NAA Negative (Negative)
[2016-07-09] MEDS: LORazepam 1mg tab ORAL PRN ×2 (01:46→21:18)
[2016-07-09 04:28] VITALS: BP 119/81
[2016-07-09] MEDS: Amantadine 100mg cap ORAL SCH ×3 (06:00→21:42)
[2016-07-09] MEDS: Nuedexta Capsule 20/10mg ORAL SCH ×2 (08:31→20:32)
[2016-07-09] MEDS: levETIRAcetam 500mg/5ml Liquid ORAL SCH ×2 (08:31→20:32)
[2016-07-09] MEDS: Heparin 5000 units/ml inj SUBQ SCH ×2 (08:39→20:34)
[2016-07-09 08:49] VITALS: BP 152/73
--- NOTE | 2016-07-09 09:15 | General Progress Note ---
Assessment/Plan Assessment/Plan ASSESSMENT: 1. Anemia 2/2 chronic disease, hgb > 10 2. Thrombocytopenia, due to infection and sepsis. Improved >200k 3. Leukopenia - Improved 4. Bilateral pulmonary masses bilaterally, potential 2/2 pneumonia process. Has improved 5. Health care associated PNA - improved 6. UTI RECOMMENDATIONS: 1. Monitor counts 2. Transfuse as needed 3. Antibiotics as needed 4. Transfuse prbc >7 5. DVT ppx heparin sq 6. Followup on GI, ID, pulm recs 7. D/W staff Thank you, Farzad Montejo MD Subjective Constitutional: Reports: no symptoms HEENT: Reports: no symptoms Cardiovascular: Reports: no symptoms Respiratory: Reports: no symptoms Gastrointestinal/Abdominal: Reports: poor appetite Genitourinary: Reports: no symptoms Neurologic/Psychiatric: Reports: no symptoms Endocrine: Reports: no symptoms Hematologic/Lymphatic: Reports: anemia Allergies: Coded Allergies: AMOXICILLIN (Verified Allergy, Unknown, 02/21/13) OBTAINED FROM MEDICAL RECORD ASPIRIN (Verified Allergy, Unknown, 02/21/13) OBTAINED FROM MEDICAL RECORD PENICILLINS (Unverified Allergy, Unknown, 12/06/14) Subjective stable, without any events overnight, no bleeding Objective Last 24 Hour Vital Signs Date Time Temp Pulse Resp B/P Pulse Ox O2 Delivery O2 Flow Rate FiO2 07/09/16 08:49 97.8 86 20 152/73 97 Room Air 07/09/16 06:45 110 20 Room Air 07/09/16 04:28 97.0 96 19 119/81 97 Room Air 07/08/16 23:53 97.2 92 20 126/95 94 Room Air 07/08/16 20:00 97.5 100 20 134/64 97 Room Air 07/08/16 19:15 96 18 Room Air 21 07/08/16 15:38 98.0 116 20 137/92 98 Room Air 07/08/16 12:02 97.5 111 21 120/79 95 Room Air 07/08/16 10:15 97.9 Intake and Output 07/08/16 07/09/16 19:00 07:00 Intake Total 170 ml 360 ml Balance 170 ml 360 ml Intake Oral 170 ml 360 ml # Voids 4 2 # Bowel Movements 2 1 Height (Feet): 6 Height (Inches): 0.00 Weight (Pounds): 150 General Appearance: no apparent distress EENT: TMs normal Neck: supple Cardiovascular: regular rhythm Respiratory/Chest: normal breath sounds Abdomen: non tender Extremities: non-tender Edema: no edema noted Leg (L), no edema noted Leg (R) Edema: mild edema Neurologic: alert Skin: normal pigmentation Farzad Montejo Jul 09, 2016 09:15
--- NOTE | 2016-07-09 11:26 | General Progress Note ---
Assessment/Plan Problem List: (1) Pneumonia ICD Codes: J18.9 - Pneumonia, unspecified organism SNOMED: 685077218 Status: progressing Assessment/Plan no chills poor historian pna awaiting clearance from pulm and id before dc r/o tb Subjective ROS Limited/Unobtainable: Yes Constitutional: Reports: no symptoms Allergies: Coded Allergies: AMOXICILLIN (Verified Allergy, Unknown, 02/21/13) OBTAINED FROM MEDICAL RECORD ASPIRIN (Verified Allergy, Unknown, 02/21/13) OBTAINED FROM MEDICAL RECORD PENICILLINS (Unverified Allergy, Unknown, 12/06/14) Objective Last 24 Hour Vital Signs Date Time Temp Pulse Resp B/P Pulse Ox O2 Delivery O2 Flow Rate FiO2 07/09/16 09:30 97.8 07/09/16 08:49 97.8 86 20 152/73 97 Room Air 07/09/16 06:45 110 20 Room Air 07/09/16 04:28 97.0 96 19 119/81 97 Room Air 07/08/16 23:53 97.2 92 20 126/95 94 Room Air 07/08/16 20:00 97.5 100 20 134/64 97 Room Air 07/08/16 19:15 96 18 Room Air 21 07/08/16 15:38 98.0 116 20 137/92 98 Room Air 07/08/16 12:02 97.5 111 21 120/79 95 Room Air Intake and Output 07/08/16 07/09/16 19:00 07:00 Intake Total 170 ml 360 ml Balance 170 ml 360 ml Intake Oral 170 ml 360 ml # Voids 4 2 # Bowel Movements 2 1 Height (Feet): 6 Height (Inches): 0.00 Weight (Pounds): 150 EENT: PERRL/EOMI Neck: supple Cardiovascular: normal rate Respiratory/Chest: lungs clear Abdomen: soft Bernardino Dallas MD Jul 09, 2016 11:26
[2016-07-09 12:00] VITALS: BP 138/76
[2016-07-09] MEDS: Levofloxacin 500mg tab ORAL SCH (12:11)
--- NOTE | 2016-07-09 12:23 | Pulmonology Progress Note ---
Assessment/Plan Assessment/Plan ASSESSMENT sepsis RUL PNA r/o TB UTI seizure disorder cachexia psychiatric disorder failure to thrive dysphagia PLAN OF CARE MS floor abx , ID follows, blood cx /+ SCON, likely contaminant as rer ID sputum AFB x 3 negative fungal serology negative TB spot test and PPD negative HIV test negative off isolation, TB ruled out repeated CT chest better- Ill-defined infiltrate in the right upper lobe with a minor left upper lobe infiltrate. The parenchymal disease has changed significantly over the last 7 days and is less masslike in appearance. The findings are likely due to pneumonia. O2 HHN prn antitussive prn fup with CXR strict aspiration precaution, diet as per ST recommendation , for quality of life dietary eval seizure precautions, continue Keppra psych meds resumed PMD DVT prophylaxis sitter at the bedside cleared for dc from pulmo stand point need ID recommendations as to duration of abx and type of abx recommend to repeat CT chest in 2 weeks to assure resolution of PNA case discussed and evaluated by supervising physician Subjective Allergies: Coded Allergies: AMOXICILLIN (Verified Allergy, Unknown, 02/21/13) OBTAINED FROM MEDICAL RECORD ASPIRIN (Verified Allergy, Unknown, 02/21/13) OBTAINED FROM MEDICAL RECORD PENICILLINS (Unverified Allergy, Unknown, 12/06/14) Subjective afebrile, no leucocytosis on RA no signs of respiratory distress, stable O2 sat CT chest repeated- better, most consistent with PNA Objective Last 24 Hour Vital Signs Date Time Temp Pulse Resp B/P Pulse Ox O2 Delivery O2 Flow Rate FiO2 07/09/16 09:30 97.8 07/09/16 08:49 97.8 86 20 152/73 97 Room Air 07/09/16 06:45 110 20 Room Air 07/09/16 04:28 97.0 96 19 119/81 97 Room Air 07/08/16 23:53 97.2 92 20 126/95 94 Room Air 07/08/16 20:00 97.5 100 20 134/64 97 Room Air 07/08/16 19:15 96 18 Room Air 21 07/08/16 15:38 98.0 116 20 137/92 98 Room Air Intake and Output 07/08/16 07/09/16 19:00 07:00 Intake Total 170 ml 360 ml Balance 170 ml 360 ml Intake Oral 170 ml 360 ml # Voids 4 2 # Bowel Movements 2 1 General Appearance: no acute distress, cachetic, other - awake, confused, HEENT: normocephalic, atraumatic, anicteric Respiratory/Chest: lungs clear - with moderate air entry Cardiovascular: normal rate, regular rhythm, no JVD Abdomen: normal bowel sounds, soft, non tender, non distended Genitourinary: normal external genitalia Extremities: no edema, pedal pulses normal Neurologic/Psychiatric: abnormal gait, alert Musculoskeletal: atrophy - BLE Current Medications Medications (Trade) Dose Ordered Sig/Yanelis Route PRN Reason Start Time Stop Time Status Last Admin Dose Admin Acetaminophen (Tylenol) 650 mg Q4H PRN ORAL fever 06/28/16 19:00 07/28/16 18:59 06/29/16 00:18 Al Hydroxide/Mg Hydroxide (Mylanta II) 30 ml Q6H PRN ORAL dyspepsia 06/28/16 19:00 07/28/16 18:59 Amantadine HCl (Symmetrel) 100 mg Q8HR ORAL 06/28/16 22:00 07/28/16 21:59 07/08/16 14:26 Dextromethorphan/ Quinidine (Nuedexta Capsule) 1 cap Q12HR ORAL 06/28/16 21:00 07/28/16 20:59 07/09/16 08:31 Divalproex Sodium (Depakote) 250 mg Q8HR ORAL 06/28/16 22:00 07/28/16 21:59 07/08/16 22:20 Gabapentin (Neurontin) 400 mg DAILY ORAL 06/29/16 09:00 07/29/16 08:59 07/09/16 08:31 Heparin Sodium (Porcine) (Heparin 5000 units/ml) 5,000 units EVERY 12 HOURS SUBQ 06/28/16 21:00 07/28/16 20:59 07/09/16 08:39 Levetiracetam (Keppra) 500 mg Q12HR ORAL 07/06/16 21:00 07/29/16 08:59 07/09/16 08:31 Levofloxacin (Levaquin) 500 mg Q24H ORAL 07/07/16 10:00 07/14/16 09:59 07/08/16 10:09 Linezolid (Zyvox) 600 mg EVERY 12 HOURS ORAL 07/07/16 10:00 07/12/16 09:59 07/08/16 22:20 Lorazepam (Ativan) 2 mg Q6H PRN ORAL For Anxiety 07/07/16 16:00 07/14/16 15:59 07/09/16 01:46 Nitroglycerin (Ntg) 0.4 mg Q5M PRN SL Prn Chest Pain 06/28/16 19:00 07/28/16 18:59 Olanzapine (ZyPREXA) 5 mg Q6HR PRN ORAL Agitation 06/29/16 21:30 07/29/16 21:29 07/05/16 09:24 Olanzapine (ZyPREXA) 5 mg QHS ORAL 06/30/16 22:00 07/30/16 21:59 07/08/16 22:20 Ondansetron HCl (Zofran) 4 mg Q6H PRN IVP Nausea & Vomiting 06/28/16 19:00 07/28/16 18:59 Polyethylene Glycol (Miralax) 17 gm DAILYPRN PRN ORAL Constipation 06/28/16 19:00 07/28/16 18:59 Promethazine HCl/ Codeine (Phenergan with Codeine) 5 ml Q4H PRN ORAL For Cough 06/28/16 19:00 07/28/16 18:59 07/06/16 14:36 Risperidone (RisperDAL) 2 mg QHS ORAL 06/28/16 21:00 07/28/16 20:59 07/08/16 22:20 [facility] Hospital[facility] NP Jul 09, 2016 12:23
[2016-07-09 16:05] VITALS: BP 150/70
--- NOTE | 2016-07-09 17:25 | Infectious Diseases Prog Note ---
Assessment/Plan Problems: (1) Sepsis Assessment & Plan: blood culture grew coag negative staph from one bottle, most likely contaminant , was started on vancomycin, aztreonam, and Flagyl, unfortunately he has been refusing iv treatment and pulled his IV line multiple times, so we will continue oral zyvox and levofloxacin for 10 days to treat for possible pneumonia and repeat CT scan image, he will need lung biopsy if continue to have lung nodules on repeated image (2) Pneumonia Assessment & Plan: with multiple mass like opacities and consolidation , infectious pneumonia, VS mets, fungal serology screening are all negative ,T- spot test is negative which rule out TB, HIV test is negative, continue current antibiotics for two weeks total, sputum culture x3 for AFB are negative , may remove from Airborne isolation, may need bronchoscopy with biopsy to rule out mets with close follow up with another CT chest (3) UTI (urinary tract infection) Assessment & Plan: on Levofloxacin, no urine culture was done (4) Psychiatric disorder Assessment & Plan: continue psych meds, and sitter . (5) Seizure disorder Assessment & Plan: continue seizure meds , with hossein check, consult neurology (6) Failure to thrive Assessment & Plan: recommend dietry consult Subjective ROS Limited/Unobtainable: Yes Allergies: Coded Allergies: AMOXICILLIN (Verified Allergy, Unknown, 02/21/13) OBTAINED FROM MEDICAL RECORD ASPIRIN (Verified Allergy, Unknown, 02/21/13) OBTAINED FROM MEDICAL RECORD PENICILLINS (Unverified Allergy, Unknown, 12/06/14) Subjective he is demented, not agitated , resting in bed, doesn't follow commands. Objective Vital Signs Last 24 Hour Vital Signs Date Time Temp Pulse Resp B/P Pulse Ox O2 Delivery O2 Flow Rate FiO2 07/09/16 16:05 97.0 81 19 150/70 97 Room Air 07/09/16 12:00 97.5 100 19 138/76 95 Room Air 07/09/16 09:30 97.8 07/09/16 08:49 97.8 86 20 152/73 97 Room Air 07/09/16 06:45 110 20 Room Air 07/09/16 04:28 97.0 96 19 119/81 97 Room Air 07/08/16 23:53 97.2 92 20 126/95 94 Room Air 07/08/16 20:00 97.5 100 20 134/64 97 Room Air 07/08/16 19:15 96 18 Room Air 21 Height (Feet): 6 Height (Inches): 0.00 Weight (Pounds): 150 General Appearance: WD/WN, no acute distress HEENT: normocephalic, atraumatic, anicteric, mucous membranes moist Respiratory/Chest: chest wall non-tender, lungs clear, no respiratory distress , no accessory muscle use, decreased breath sounds, crackles/rales Cardiovascular: normal peripheral pulses, normal rate, regular rhythm, no gallop/murmur Abdomen: normal bowel sounds, soft, non tender, no organomegaly, non distended , no mass, no scars Extremities: no cyanosis, no clubbing Skin: no rash, no lesions, no ulcers Current Medications Medications (Trade) Dose Ordered Sig/Yanelis Route PRN Reason Start Time Stop Time Status Last Admin Dose Admin Acetaminophen (Tylenol) 650 mg Q4H PRN ORAL fever 06/28/16 19:00 07/28/16 18:59 06/29/16 00:18 Al Hydroxide/Mg Hydroxide (Mylanta II) 30 ml Q6H PRN ORAL dyspepsia 06/28/16 19:00 07/28/16 18:59 Amantadine HCl (Symmetrel) 100 mg Q8HR ORAL 06/28/16 22:00 07/28/16 21:59 07/09/16 13:48 Dextromethorphan/ Quinidine (Nuedexta Capsule) 1 cap Q12HR ORAL 06/28/16 21:00 07/28/16 20:59 07/09/16 08:31 Divalproex Sodium (Depakote) 250 mg Q8HR ORAL 06/28/16 22:00 07/28/16 21:59 07/09/16 13:48 Gabapentin (Neurontin) 400 mg DAILY ORAL 06/29/16 09:00 07/29/16 08:59 07/09/16 08:31 Heparin Sodium (Porcine) (Heparin 5000 units/ml) 5,000 units EVERY 12 HOURS SUBQ 06/28/16 21:00 07/28/16 20:59 07/09/16 08:39 Levetiracetam (Keppra) 500 mg Q12HR ORAL 07/06/16 21:00 07/29/16 08:59 07/09/16 08:31 Levofloxacin (Levaquin) 500 mg Q24H ORAL 07/07/16 10:00 07/14/16 09:59 07/09/16 12:11 Linezolid (Zyvox) 600 mg EVERY 12 HOURS ORAL 07/07/16 10:00 07/12/16 09:59 07/09/16 12:11 Lorazepam (Ativan) 2 mg Q6H PRN ORAL For Anxiety 07/07/16 16:00 07/14/16 15:59 07/09/16 01:46 Nitroglycerin (Ntg) 0.4 mg Q5M PRN SL Prn Chest Pain 06/28/16 19:00 07/28/16 18:59 Olanzapine (ZyPREXA) 5 mg Q6HR PRN ORAL Agitation 06/29/16 21:30 07/29/16 21:29 07/05/16 09:24 Olanzapine (ZyPREXA) 5 mg QHS ORAL 06/30/16 22:00 07/30/16 21:59 07/08/16 22:20 Ondansetron HCl (Zofran) 4 mg Q6H PRN IVP Nausea & Vomiting 06/28/16 19:00 07/28/16 18:59 Polyethylene Glycol (Miralax) 17 gm DAILYPRN PRN ORAL Constipation 06/28/16 19:00 07/28/16 18:59 Promethazine HCl/ Codeine (Phenergan with Codeine) 5 ml Q4H PRN ORAL For Cough 06/28/16 19:00 07/28/16 18:59 07/06/16 14:36 Risperidone (RisperDAL) 2 mg QHS ORAL 06/28/16 21:00 07/28/16 20:59 07/08/16 22:20 Carli Saleem M.D. Jul 09, 2016 17:25
[2016-07-09 20:00] VITALS: BP 120/78
[2016-07-10 04:43] VITALS: BP 133/85
[2016-07-10] MEDS: Amantadine 100mg cap ORAL SCH ×3 (06:29→21:24)
[2016-07-10 08:00] VITALS: BP 154/88
[2016-07-10] MEDS: levETIRAcetam 500mg/5ml Liquid ORAL SCH ×2 (09:10→21:23)
[2016-07-10] MEDS: Nuedexta Capsule 20/10mg ORAL SCH ×2 (09:10→21:24)
[2016-07-10] MEDS: Heparin 5000 units/ml inj SUBQ SCH ×2 (09:11→21:28)
--- NOTE | 2016-07-10 10:49 | General Progress Note ---
Assessment/Plan Assessment/Plan ASSESSMENT: 1. Anemia 2/2 chronic disease, hgb > 11 2. Thrombocytopenia, due to infection and sepsis. Improved >200k 3. Leukopenia - Improved 4. Bilateral pulmonary masses bilaterally, potential 2/2 pneumonia process. Has improved as well 5. Health care associated PNA - improved 6. UTI RECOMMENDATIONS: 1. Monitor counts 2. Transfuse as needed 3. Antibiotics as needed 4. Transfuse prbc >7 5. DVT ppx heparin sq 6. Followup on GI, ID, pulm recs 7. D/W staff Thank you, Viji Montejo MD Subjective Constitutional: Reports: no symptoms HEENT: Reports: no symptoms Cardiovascular: Reports: no symptoms Respiratory: Reports: no symptoms Gastrointestinal/Abdominal: Reports: poor appetite Genitourinary: Reports: no symptoms Neurologic/Psychiatric: Reports: no symptoms Endocrine: Reports: no symptoms Hematologic/Lymphatic: Reports: anemia Allergies: Coded Allergies: AMOXICILLIN (Verified Allergy, Unknown, 02/21/13) OBTAINED FROM MEDICAL RECORD ASPIRIN (Verified Allergy, Unknown, 02/21/13) OBTAINED FROM MEDICAL RECORD PENICILLINS (Unverified Allergy, Unknown, 12/06/14) Subjective no bleeding, in bed without any complaints Objective Last 24 Hour Vital Signs Date Time Temp Pulse Resp B/P Pulse Ox O2 Delivery O2 Flow Rate FiO2 07/10/16 10:09 97.5 07/10/16 08:00 97.5 105 19 154/88 96 Room Air 07/10/16 07:39 105 18 Room Air 07/10/16 04:43 97.7 112 18 133/85 96 Room Air 07/09/16 20:00 98.2 100 20 120/78 98 Room Air 07/09/16 19:00 118 20 Room Air 07/09/16 16:05 97.0 81 19 150/70 97 Room Air 07/09/16 12:00 97.5 100 19 138/76 95 Room Air Intake and Output 07/09/16 07/10/16 19:00 07:00 Intake Total 560 ml 440 ml Balance 560 ml 440 ml Intake Oral 560 ml 440 ml # Voids 2 2 # Bowel Movements 1 Height (Feet): 6 Height (Inches): 0.00 Weight (Pounds): 150 General Appearance: no apparent distress EENT: normal ENT inspection Neck: supple Cardiovascular: normal rate Respiratory/Chest: normal breath sounds Abdomen: normal bowel sounds Extremities: non-tender Edema: 1+ Leg (L), 1+ Leg (R) Edema: mild edema Neurologic: alert Skin: warm/dry VIJI MONTEJO Jul 10, 2016 10:49
[2016-07-10] MEDS: Levofloxacin 500mg tab ORAL SCH (11:20)
--- NOTE | 2016-07-10 11:22 | General Progress Note ---
Assessment/Plan Problem List: (1) Pneumonia ICD Codes: J18.9 - Pneumonia, unspecified organism SNOMED: 592225269 Status: progressing Assessment/Plan afebrile no wheezing vitals stable waiting clearance from pulm and id before dc afebrile Subjective ROS Limited/Unobtainable: Yes Allergies: Coded Allergies: AMOXICILLIN (Verified Allergy, Unknown, 02/21/13) OBTAINED FROM MEDICAL RECORD ASPIRIN (Verified Allergy, Unknown, 02/21/13) OBTAINED FROM MEDICAL RECORD PENICILLINS (Unverified Allergy, Unknown, 12/06/14) Objective Last 24 Hour Vital Signs Date Time Temp Pulse Resp B/P Pulse Ox O2 Delivery O2 Flow Rate FiO2 07/10/16 10:09 97.5 07/10/16 08:00 97.5 105 19 154/88 96 Room Air 07/10/16 07:39 105 18 Room Air 07/10/16 04:43 97.7 112 18 133/85 96 Room Air 07/09/16 20:00 98.2 100 20 120/78 98 Room Air 07/09/16 19:00 118 20 Room Air 07/09/16 16:05 97.0 81 19 150/70 97 Room Air 07/09/16 12:00 97.5 100 19 138/76 95 Room Air Intake and Output 07/09/16 07/10/16 18:59 06:59 Intake Total 560 ml 440 ml Balance 560 ml 440 ml Intake Oral 560 ml 440 ml # Voids 2 2 # Bowel Movements 1 Height (Feet): 6 Height (Inches): 0.00 Weight (Pounds): 150 EENT: PERRL/EOMI Neck: supple Cardiovascular: normal rate Respiratory/Chest: lungs clear Abdomen: soft Bernardino Dallas MD Jul 10, 2016 11:22
[2016-07-10 12:00] VITALS: BP 116/84
[2016-07-10] MEDS ORDERED: D5 1/2NS 1000ml IV ONE ×2 (14:39→16:04)
[2016-07-10] MEDS ORDERED: Tubing IV Secondary IV ONE ×2 (14:39→14:40)
[2016-07-10] MEDS ORDERED: NS 275ml ONE (14:40)
--- NOTE | 2016-07-10 14:52 | Infectious Diseases Prog Note ---
Assessment/Plan Problems: (1) Sepsis Assessment & Plan: improved, blood culture grew coag negative staph from one bottle, most likely contaminant , received initially vancomycin, aztreonam, and Flagyl, unfortunately he has been refusing iv treatment and pulled his IV line multiple times, so we will continue oral zyvox and levofloxacin for 10 days to treat for possible pneumonia and repeat CT scan image, he will need lung biopsy if continue to have lung nodules on repeated image (2) Pneumonia Assessment & Plan: with multiple mass like opacities and consolidation , infectious pneumonia, VS mets, fungal serology screening are all negative ,T- spot test is negative which rule out TB, HIV test is negative, continue current antibiotics for two weeks total, sputum culture x3 for AFB are negative , may remove from Airborne isolation, may need bronchoscopy with biopsy to rule out mets with close follow up with another CT chest (3) UTI (urinary tract infection) Assessment & Plan: on Levofloxacin, no urine culture was done (4) Psychiatric disorder Assessment & Plan: continue psych meds, and sitter . (5) Seizure disorder Assessment & Plan: continue seizure meds , with hossein check, consult neurology (6) Failure to thrive Assessment & Plan: recommend dietry consult Subjective ROS Limited/Unobtainable: Yes Allergies: Coded Allergies: AMOXICILLIN (Verified Allergy, Unknown, 02/21/13) OBTAINED FROM MEDICAL RECORD ASPIRIN (Verified Allergy, Unknown, 02/21/13) OBTAINED FROM MEDICAL RECORD PENICILLINS (Unverified Allergy, Unknown, 12/06/14) Subjective he is demented, not agitated , resting in bed, doesn't follow commands. Objective Vital Signs Last 24 Hour Vital Signs Date Time Temp Pulse Resp B/P Pulse Ox O2 Delivery O2 Flow Rate FiO2 07/10/16 10:09 97.5 07/10/16 08:00 97.5 105 19 154/88 96 Room Air 07/10/16 07:39 105 18 Room Air 07/10/16 04:43 97.7 112 18 133/85 96 Room Air 07/09/16 20:00 98.2 100 20 120/78 98 Room Air 07/09/16 19:00 118 20 Room Air 07/09/16 16:05 97.0 81 19 150/70 97 Room Air Height (Feet): 6 Height (Inches): 0.00 Weight (Pounds): 150 General Appearance: WD/WN, no acute distress HEENT: normocephalic, atraumatic, anicteric, mucous membranes moist Respiratory/Chest: chest wall non-tender, lungs clear, normal breath sounds, no respiratory distress, no accessory muscle use Cardiovascular: normal peripheral pulses, normal rate, regular rhythm, no gallop/murmur, no JVD Abdomen: normal bowel sounds, soft, non tender, no organomegaly, non distended , no mass Extremities: no cyanosis, no clubbing Skin: no rash, no lesions, no ulcers Current Medications Medications (Trade) Dose Ordered Sig/Yanelis Route PRN Reason Start Time Stop Time Status Last Admin Dose Admin Acetaminophen (Tylenol) 650 mg Q4H PRN ORAL fever 06/28/16 19:00 07/28/16 18:59 06/29/16 00:18 Al Hydroxide/Mg Hydroxide (Mylanta II) 30 ml Q6H PRN ORAL dyspepsia 06/28/16 19:00 07/28/16 18:59 Amantadine HCl (Symmetrel) 100 mg Q8HR ORAL 06/28/16 22:00 07/28/16 21:59 07/10/16 14:00 Dextromethorphan/ Quinidine (Nuedexta Capsule) 1 cap Q12HR ORAL 06/28/16 21:00 07/28/16 20:59 07/10/16 09:10 Divalproex Sodium (Depakote) 250 mg Q8HR ORAL 06/28/16 22:00 07/28/16 21:59 07/10/16 14:45 Gabapentin (Neurontin) 400 mg DAILY ORAL 06/29/16 09:00 07/29/16 08:59 07/10/16 09:10 Heparin Sodium (Porcine) (Heparin 5000 units/ml) 5,000 units EVERY 12 HOURS SUBQ 06/28/16 21:00 07/28/16 20:59 07/10/16 09:11 Levetiracetam (Keppra) 500 mg Q12HR ORAL 07/06/16 21:00 07/29/16 08:59 07/10/16 09:10 Levofloxacin (Levaquin) 500 mg Q24H ORAL 07/07/16 10:00 07/14/16 09:59 07/10/16 11:20 Linezolid (Zyvox) 600 mg EVERY 12 HOURS ORAL 07/07/16 10:00 07/12/16 09:59 07/10/16 09:10 Lorazepam (Ativan) 2 mg Q6H PRN ORAL For Anxiety 07/07/16 16:00 07/14/16 15:59 07/09/16 21:18 Nitroglycerin (Ntg) 0.4 mg Q5M PRN SL Prn Chest Pain 06/28/16 19:00 07/28/16 18:59 Olanzapine (ZyPREXA) 5 mg Q6HR PRN ORAL Agitation 06/29/16 21:30 07/29/16 21:29 07/05/16 09:24 Olanzapine (ZyPREXA) 5 mg QHS ORAL 06/30/16 22:00 07/30/16 21:59 07/09/16 20:32 Ondansetron HCl (Zofran) 4 mg Q6H PRN IVP Nausea & Vomiting 06/28/16 19:00 07/28/16 18:59 Polyethylene Glycol (Miralax) 17 gm DAILYPRN PRN ORAL Constipation 06/28/16 19:00 07/28/16 18:59 Promethazine HCl/ Codeine (Phenergan with Codeine) 5 ml Q4H PRN ORAL For Cough 06/28/16 19:00 07/28/16 18:59 07/06/16 14:36 Risperidone (RisperDAL) 2 mg QHS ORAL 06/28/16 21:00 07/28/16 20:59 07/09/16 20:32 Carli Saleem M.D. Jul 10, 2016 14:52
[2016-07-10 16:00] VITALS: BP 130/79
--- NOTE | 2016-07-10 16:59 | Pulmonology Progress Note ---
Assessment/Plan Assessment/Plan ASSESSMENT sepsis RUL PNA r/o TB UTI seizure disorder cachexia psychiatric disorder failure to thrive dysphagia PLAN OF CARE MS floor abx , ID follows, blood cx /+ SCON, likely contaminant as rer ID sputum AFB x 3 negative fungal serology negative TB spot test and PPD negative HIV test negative off isolation, TB ruled out repeated CT chest better- Ill-defined infiltrate in the right upper lobe with a minor left upper lobe infiltrate. The parenchymal disease has changed significantly over the last 7 days and is less masslike in appearance. The findings are likely due to pneumonia. O2 HHN prn antitussive prn fup with CXR strict aspiration precaution, diet as per ST recommendation , for quality of life dietary eval seizure precautions, continue Keppra psych meds resumed PMD DVT prophylaxis sitter at the bedside cleared for dc from pulmo stand point need ID recommendations as to duration of abx and type of abx recommend to repeat CT chest in 2 weeks to assure resolution of PNA case discussed and evaluated by supervising physician Subjective Allergies: Coded Allergies: AMOXICILLIN (Verified Allergy, Unknown, 02/21/13) OBTAINED FROM MEDICAL RECORD ASPIRIN (Verified Allergy, Unknown, 02/21/13) OBTAINED FROM MEDICAL RECORD PENICILLINS (Unverified Allergy, Unknown, 12/06/14) Subjective afebrile, no leucocytosis on RA no signs of respiratory distress, stable O2 sat CT chest repeated- better, most consistent with PNA Objective Last 24 Hour Vital Signs Date Time Temp Pulse Resp B/P Pulse Ox O2 Delivery O2 Flow Rate FiO2 07/10/16 12:00 96.6 119 19 116/84 100 Room Air 07/10/16 10:09 97.5 07/10/16 08:00 97.5 105 19 154/88 96 Room Air 07/10/16 07:39 105 18 Room Air 07/10/16 04:43 97.7 112 18 133/85 96 Room Air 07/09/16 20:00 98.2 100 20 120/78 98 Room Air 07/09/16 19:00 118 20 Room Air Intake and Output 07/09/16 07/10/16 19:00 07:00 Intake Total 560 ml 440 ml Balance 560 ml 440 ml Intake Oral 560 ml 440 ml # Voids 2 2 # Bowel Movements 1 Objective General Appearance: no acute distress, cachetic, awake, confused, HEENT: normocephalic, atraumatic, anicteric Respiratory/Chest: lungs clear - with moderate air entry Cardiovascular: normal rate, regular rhythm, no JVD Abdomen: normal bowel sounds, soft, non tender, non distended Genitourinary: normal external genitalia Extremities: no edema, pedal pulses normal Neurologic/Psychiatric: abnormal gait, alert Musculoskeletal: atrophy - BLE Current Medications Medications (Trade) Dose Ordered Sig/Yanelis Route PRN Reason Start Time Stop Time Status Last Admin Dose Admin Acetaminophen (Tylenol) 650 mg Q4H PRN ORAL fever 06/28/16 19:00 07/28/16 18:59 06/29/16 00:18 Al Hydroxide/Mg Hydroxide (Mylanta II) 30 ml Q6H PRN ORAL dyspepsia 06/28/16 19:00 07/28/16 18:59 Amantadine HCl (Symmetrel) 100 mg Q8HR ORAL 06/28/16 22:00 07/28/16 21:59 07/10/16 14:00 Dextromethorphan/ Quinidine (Nuedexta Capsule) 1 cap Q12HR ORAL 06/28/16 21:00 07/28/16 20:59 07/10/16 09:10 Divalproex Sodium (Depakote) 250 mg Q8HR ORAL 06/28/16 22:00 07/28/16 21:59 07/10/16 14:45 Gabapentin (Neurontin) 400 mg DAILY ORAL 06/29/16 09:00 07/29/16 08:59 07/10/16 09:10 Heparin Sodium (Porcine) (Heparin 5000 units/ml) 5,000 units EVERY 12 HOURS SUBQ 06/28/16 21:00 07/28/16 20:59 07/10/16 09:11 Levetiracetam (Keppra) 500 mg Q12HR ORAL 07/06/16 21:00 07/29/16 08:59 07/10/16 09:10 Levofloxacin (Levaquin) 500 mg Q24H ORAL 07/07/16 10:00 07/14/16 09:59 07/10/16 11:20 Linezolid (Zyvox) 600 mg EVERY 12 HOURS ORAL 07/07/16 10:00 07/12/16 09:59 07/10/16 09:10 Lorazepam (Ativan) 2 mg Q6H PRN ORAL For Anxiety 07/07/16 16:00 07/14/16 15:59 07/09/16 21:18 Nitroglycerin (Ntg) 0.4 mg Q5M PRN SL Prn Chest Pain 06/28/16 19:00 07/28/16 18:59 Olanzapine (ZyPREXA) 5 mg Q6HR PRN ORAL Agitation 06/29/16 21:30 07/29/16 21:29 07/05/16 09:24 Olanzapine (ZyPREXA) 5 mg QHS ORAL 06/30/16 22:00 07/30/16 21:59 07/09/16 20:32 Ondansetron HCl (Zofran) 4 mg Q6H PRN IVP Nausea & Vomiting 06/28/16 19:00 07/28/16 18:59 Polyethylene Glycol (Miralax) 17 gm DAILYPRN PRN ORAL Constipation 06/28/16 19:00 07/28/16 18:59 Promethazine HCl/ Codeine (Phenergan with Codeine) 5 ml Q4H PRN ORAL For Cough 06/28/16 19:00 07/28/16 18:59 07/06/16 14:36 Risperidone (RisperDAL) 2 mg QHS ORAL 06/28/16 21:00 07/28/16 20:59 07/09/16 20:32 Mayur DeanWe[facility] CenterSoraida Washington NP Jul 10, 2016 16:59
[2016-07-10 20:00] VITALS: BP 115/92
[2016-07-11 00:50] VITALS: BP 120/78
[2016-07-11 04:00] VITALS: BP 118/78
[2016-07-11] MEDS: Amantadine 100mg cap ORAL SCH ×3 (05:41→22:21)
[2016-07-11 08:00] VITALS: BP 105/72
[2016-07-11] MEDS: levETIRAcetam 500mg/5ml Liquid ORAL SCH ×2 (09:17→22:23)
[2016-07-11] MEDS: Nuedexta Capsule 20/10mg ORAL SCH ×2 (09:17→22:21)
[2016-07-11] MEDS: Heparin 5000 units/ml inj SUBQ SCH ×2 (09:18→22:24)
[2016-07-11] MEDS: Levofloxacin 500mg tab ORAL SCH (09:20)
--- NOTE | 2016-07-11 09:28 | General Progress Note ---
Assessment/Plan Assessment/Plan ASSESSMENT: 1. Anemia 2/2 chronic disease, hgb >11 2. Thrombocytopenia, due to infection and sepsis. Improved >200k 3. Leukopenia - Improved 4. Bilateral pulmonary masses bilaterally, potential 2/2 pneumonia process. Has improved as well 5. Health care associated PNA - improved 6. UTI RECOMMENDATIONS: 1. Monitor counts 2. Transfuse as needed 3. Antibiotics as needed 4. Transfuse prbc >7 5. DVT ppx heparin sq 6. Followup on GI, ID, pulm recs 7. D/W staff Thank you, Viji Montejo MD Subjective Constitutional: Reports: no symptoms HEENT: Reports: no symptoms Cardiovascular: Reports: no symptoms Respiratory: Reports: no symptoms Gastrointestinal/Abdominal: Reports: no symptoms Genitourinary: Reports: no symptoms Neurologic/Psychiatric: Reports: no symptoms Endocrine: Reports: no symptoms Hematologic/Lymphatic: Reports: anemia Allergies: Coded Allergies: AMOXICILLIN (Verified Allergy, Unknown, 02/21/13) OBTAINED FROM MEDICAL RECORD ASPIRIN (Verified Allergy, Unknown, 02/21/13) OBTAINED FROM MEDICAL RECORD PENICILLINS (Unverified Allergy, Unknown, 12/06/14) Subjective no bleeding, is restless with sitter Objective Last 24 Hour Vital Signs Date Time Temp Pulse Resp B/P Pulse Ox O2 Delivery O2 Flow Rate FiO2 07/11/16 08:00 97.3 69 18 105/72 96 Room Air 07/11/16 04:00 97.3 88 18 118/78 98 Room Air 07/11/16 00:50 97.9 115 18 120/78 96 Room Air 07/10/16 20:00 97.7 117 22 115/92 98 Room Air 07/10/16 19:10 117 18 Room Air 07/10/16 16:00 97.5 107 19 130/79 96 Room Air 07/10/16 12:00 96.6 119 19 116/84 100 Room Air 07/10/16 10:09 97.5 Intake and Output 07/10/16 07/11/16 19:00 07:00 Intake Total 120 ml 270 ml Output Total 2 ml Balance 120 ml 268 ml Intake Oral 120 ml 270 ml Output Urine Total 2 ml Height (Feet): 6 Height (Inches): 0.00 Weight (Pounds): 150 General Appearance: no apparent distress EENT: TMs normal Neck: supple Cardiovascular: regular rhythm Respiratory/Chest: normal breath sounds Abdomen: soft Extremities: non-tender Edema: mild edema Neurologic: alert Skin: warm/dry VIJI MONTEJO Jul 11, 2016 09:28
--- NOTE | 2016-07-11 11:54 | General Progress Note ---
Assessment/Plan Problem List: (1) Pneumonia ICD Codes: J18.9 - Pneumonia, unspecified organism SNOMED: 650741671 Status: progressing Assessment/Plan pna r/o tb improving symptoms afebrile Subjective ROS Limited/Unobtainable: Yes Constitutional: Reports: no symptoms Allergies: Coded Allergies: AMOXICILLIN (Verified Allergy, Unknown, 02/21/13) OBTAINED FROM MEDICAL RECORD ASPIRIN (Verified Allergy, Unknown, 02/21/13) OBTAINED FROM MEDICAL RECORD PENICILLINS (Unverified Allergy, Unknown, 12/06/14) Objective Last 24 Hour Vital Signs Date Time Temp Pulse Resp B/P Pulse Ox O2 Delivery O2 Flow Rate FiO2 07/11/16 10:16 97.3 07/11/16 08:00 97.3 69 18 105/72 96 Room Air 07/11/16 04:00 97.3 88 18 118/78 98 Room Air 07/11/16 00:50 97.9 115 18 120/78 96 Room Air 07/10/16 20:00 97.7 117 22 115/92 98 Room Air 07/10/16 19:10 117 18 Room Air 07/10/16 16:00 97.5 107 19 130/79 96 Room Air 07/10/16 12:00 96.6 119 19 116/84 100 Room Air Intake and Output 07/10/16 07/11/16 18:59 06:59 Intake Total 120 ml 270 ml Output Total 2 ml Balance 120 ml 268 ml Intake Oral 120 ml 270 ml Output Urine Total 2 ml Height (Feet): 6 Height (Inches): 0.00 Weight (Pounds): 150 General Appearance: confused EENT: PERRL/EOMI Neck: supple Cardiovascular: normal rate Respiratory/Chest: lungs clear Bernardino Dallas MD Jul 11, 2016 11:54
[2016-07-11 12:00] VITALS: BP 116/78
--- NOTE | 2016-07-11 12:53 | Pulmonology Progress Note ---
Assessment/Plan Assessment/Plan ASSESSMENT sepsis RUL PNA r/o TB UTI seizure disorder cachexia psychiatric disorder failure to thrive dysphagia PLAN OF CARE MS floor abx , ID follows, blood cx /+ SCON, likely contaminant as rer ID sputum AFB x 3 negative fungal serology negative TB spot test and PPD negative HIV test negative off isolation, TB ruled out repeated CT chest better- Ill-defined infiltrate in the right upper lobe with a minor left upper lobe infiltrate. The parenchymal disease has changed significantly over the last 7 days and is less masslike in appearance. The findings are likely due to pneumonia. O2 HHN prn antitussive prn fup with CXR in am strict aspiration precaution, diet as per ST recommendation , for quality of life dietary eval seizure precautions, continue Keppra psych meds resumed PMD DVT prophylaxis sitter at the bedside cleared for dc from pulmo stand point need ID recommendations as to duration of abx and type of abx recommend to repeat CT chest in 2 weeks to assure resolution of PNA cleared fro dc from pulmo standpoint case discussed and evaluated by supervising physician Subjective Allergies: Coded Allergies: AMOXICILLIN (Verified Allergy, Unknown, 02/21/13) OBTAINED FROM MEDICAL RECORD ASPIRIN (Verified Allergy, Unknown, 02/21/13) OBTAINED FROM MEDICAL RECORD PENICILLINS (Unverified Allergy, Unknown, 12/06/14) Subjective afebrile, no leucocytosis on RA no signs of respiratory distress, stable O2 sat CT chest repeated- better, most consistent with PNA Objective Last 24 Hour Vital Signs Date Time Temp Pulse Resp B/P Pulse Ox O2 Delivery O2 Flow Rate FiO2 07/11/16 12:00 97.5 73 19 116/78 95 Room Air 07/11/16 10:16 97.3 07/11/16 08:00 97.3 69 18 105/72 96 Room Air 07/11/16 04:00 97.3 88 18 118/78 98 Room Air 07/11/16 00:50 97.9 115 18 120/78 96 Room Air 07/10/16 20:00 97.7 117 22 115/92 98 Room Air 07/10/16 19:10 117 18 Room Air 07/10/16 16:00 97.5 107 19 130/79 96 Room Air Intake and Output 07/10/16 07/11/16 19:00 07:00 Intake Total 120 ml 270 ml Output Total 2 ml Balance 120 ml 268 ml Intake Oral 120 ml 270 ml Output Urine Total 2 ml Objective General Appearance: no acute distress, cachetic, awake, confused, HEENT: normocephalic, atraumatic, anicteric Respiratory/Chest: lungs clear - with moderate air entry Cardiovascular: normal rate, regular rhythm, no JVD Abdomen: normal bowel sounds, soft, non tender, non distended Genitourinary: normal external genitalia Extremities: no edema, pedal pulses normal Neurologic/Psychiatric: abnormal gait, alert Musculoskeletal: atrophy - BLE Current Medications Medications (Trade) Dose Ordered Sig/Yanelis Route PRN Reason Start Time Stop Time Status Last Admin Dose Admin Acetaminophen (Tylenol) 650 mg Q4H PRN ORAL fever 06/28/16 19:00 07/28/16 18:59 06/29/16 00:18 Al Hydroxide/Mg Hydroxide (Mylanta II) 30 ml Q6H PRN ORAL dyspepsia 06/28/16 19:00 07/28/16 18:59 Amantadine HCl (Symmetrel) 100 mg Q8HR ORAL 06/28/16 22:00 07/28/16 21:59 07/11/16 05:41 Dextromethorphan/ Quinidine (Nuedexta Capsule) 1 cap Q12HR ORAL 06/28/16 21:00 07/28/16 20:59 07/11/16 09:17 Divalproex Sodium (Depakote) 250 mg Q8HR ORAL 06/28/16 22:00 07/28/16 21:59 07/11/16 05:41 Gabapentin (Neurontin) 400 mg DAILY ORAL 06/29/16 09:00 07/29/16 08:59 07/11/16 09:17 Heparin Sodium (Porcine) (Heparin 5000 units/ml) 5,000 units EVERY 12 HOURS SUBQ 06/28/16 21:00 07/28/16 20:59 07/11/16 09:18 Levetiracetam (Keppra) 500 mg Q12HR ORAL 07/06/16 21:00 07/29/16 08:59 07/11/16 09:17 Levofloxacin (Levaquin) 500 mg Q24H ORAL 07/07/16 10:00 07/14/16 09:59 07/11/16 09:20 Linezolid (Zyvox) 600 mg EVERY 12 HOURS ORAL 07/07/16 10:00 07/12/16 09:59 07/11/16 09:17 Lorazepam (Ativan) 2 mg Q6H PRN ORAL For Anxiety 07/07/16 16:00 07/14/16 15:59 07/09/16 21:18 Nitroglycerin (Ntg) 0.4 mg Q5M PRN SL Prn Chest Pain 06/28/16 19:00 07/28/16 18:59 Olanzapine (ZyPREXA) 5 mg Q6HR PRN ORAL Agitation 06/29/16 21:30 07/29/16 21:29 07/05/16 09:24 Olanzapine (ZyPREXA) 5 mg QHS ORAL 06/30/16 22:00 07/30/16 21:59 07/10/16 21:31 Ondansetron HCl (Zofran) 4 mg Q6H PRN IVP Nausea & Vomiting 06/28/16 19:00 07/28/16 18:59 Polyethylene Glycol (Miralax) 17 gm DAILYPRN PRN ORAL Constipation 06/28/16 19:00 07/28/16 18:59 Promethazine HCl/ Codeine (Phenergan with Codeine) 5 ml Q4H PRN ORAL For Cough 06/28/16 19:00 07/28/16 18:59 07/06/16 14:36 Risperidone (RisperDAL) 2 mg QHS ORAL 06/28/16 21:00 07/28/16 20:59 07/10/16 21:24 Mayur AmayaSoraida jacobo NP Jul 11, 2016 12:53
[2016-07-11 16:00] VITALS: BP 114/77
--- NOTE | 2016-07-11 16:29 | Infectious Diseases Prog Note ---
Assessment/Plan Problems: (1) Sepsis Assessment & Plan: improved, blood culture grew coag negative staph from one bottle, most likely contaminant , received initially vancomycin, aztreonam, and Flagyl, unfortunately he has been refusing iv treatment and pulled his IV line multiple times, so we will continue oral zyvox and levofloxacin for 10 days to treat for possible pneumonia and repeat CT scan image, he will need lung biopsy if continue to have lung nodules on repeated image (2) Pneumonia Assessment & Plan: with multiple mass like opacities and consolidation , infectious pneumonia, VS mets, fungal serology screening are all negative ,T- spot test is negative which rule out TB, HIV test is negative, continue current antibiotics for two weeks total, sputum culture x3 for AFB are negative , may remove from Airborne isolation, may need bronchoscopy with biopsy to rule out mets with close follow up with another CT chest (3) UTI (urinary tract infection) Assessment & Plan: on Levofloxacin, no urine culture was done (4) Psychiatric disorder Assessment & Plan: continue psych meds, and sitter . (5) Seizure disorder Assessment & Plan: continue seizure meds , with hossein check, consult neurology (6) Failure to thrive Assessment & Plan: recommend dietry consult Subjective ROS Limited/Unobtainable: Yes Allergies: Coded Allergies: AMOXICILLIN (Verified Allergy, Unknown, 02/21/13) OBTAINED FROM MEDICAL RECORD ASPIRIN (Verified Allergy, Unknown, 02/21/13) OBTAINED FROM MEDICAL RECORD PENICILLINS (Unverified Allergy, Unknown, 12/06/14) Subjective he is demented, not agitated , resting in bed, doesn't follow commands. Objective Vital Signs Last 24 Hour Vital Signs Date Time Temp Pulse Resp B/P Pulse Ox O2 Delivery O2 Flow Rate FiO2 07/11/16 12:00 97.5 73 19 116/78 95 Room Air 07/11/16 10:16 97.3 07/11/16 08:00 97.3 69 18 105/72 96 Room Air 07/11/16 04:00 97.3 88 18 118/78 98 Room Air 07/11/16 00:50 97.9 115 18 120/78 96 Room Air 07/10/16 20:00 97.7 117 22 115/92 98 Room Air 07/10/16 19:10 117 18 Room Air Height (Feet): 6 Height (Inches): 0.00 Weight (Pounds): 150 General Appearance: WD/WN, no acute distress HEENT: normocephalic, atraumatic, anicteric, mucous membranes moist Respiratory/Chest: chest wall non-tender, normal breath sounds, no accessory muscle use, decreased breath sounds, crackles/rales Cardiovascular: normal peripheral pulses, normal rate, regular rhythm, no gallop/murmur Abdomen: normal bowel sounds, soft, non tender, no organomegaly, non distended , no mass, no scars Extremities: no cyanosis, no clubbing Skin: no rash, no lesions Current Medications Medications (Trade) Dose Ordered Sig/Yanelis Route PRN Reason Start Time Stop Time Status Last Admin Dose Admin Acetaminophen (Tylenol) 650 mg Q4H PRN ORAL fever 06/28/16 19:00 07/28/16 18:59 06/29/16 00:18 Al Hydroxide/Mg Hydroxide (Mylanta II) 30 ml Q6H PRN ORAL dyspepsia 06/28/16 19:00 07/28/16 18:59 Amantadine HCl (Symmetrel) 100 mg Q8HR ORAL 06/28/16 22:00 07/28/16 21:59 07/11/16 13:56 Dextromethorphan/ Quinidine (Nuedexta Capsule) 1 cap Q12HR ORAL 06/28/16 21:00 07/28/16 20:59 07/11/16 09:17 Divalproex Sodium (Depakote) 250 mg Q8HR ORAL 06/28/16 22:00 07/28/16 21:59 07/11/16 13:57 Gabapentin (Neurontin) 400 mg DAILY ORAL 06/29/16 09:00 07/29/16 08:59 07/11/16 09:17 Heparin Sodium (Porcine) (Heparin 5000 units/ml) 5,000 units EVERY 12 HOURS SUBQ 06/28/16 21:00 07/28/16 20:59 07/11/16 09:18 Levetiracetam (Keppra) 500 mg Q12HR ORAL 07/06/16 21:00 07/29/16 08:59 07/11/16 09:17 Levofloxacin (Levaquin) 500 mg Q24H ORAL 07/07/16 10:00 07/17/16 09:59 07/11/16 09:20 Linezolid (Zyvox) 600 mg EVERY 12 HOURS ORAL 07/07/16 10:00 07/17/16 00:00 07/11/16 09:17 Lorazepam (Ativan) 2 mg Q6H PRN ORAL For Anxiety 07/07/16 16:00 07/14/16 15:59 07/09/16 21:18 Nitroglycerin (Ntg) 0.4 mg Q5M PRN SL Prn Chest Pain 06/28/16 19:00 07/28/16 18:59 Olanzapine (ZyPREXA) 5 mg Q6HR PRN ORAL Agitation 06/29/16 21:30 07/29/16 21:29 07/05/16 09:24 Olanzapine (ZyPREXA) 5 mg QHS ORAL 06/30/16 22:00 07/30/16 21:59 07/10/16 21:31 Ondansetron HCl (Zofran) 4 mg Q6H PRN IVP Nausea & Vomiting 06/28/16 19:00 07/28/16 18:59 Polyethylene Glycol (Miralax) 17 gm DAILYPRN PRN ORAL Constipation 06/28/16 19:00 07/28/16 18:59 Promethazine HCl/ Codeine (Phenergan with Codeine) 5 ml Q4H PRN ORAL For Cough 06/28/16 19:00 07/28/16 18:59 07/06/16 14:36 Risperidone (RisperDAL) 2 mg QHS ORAL 06/28/16 21:00 07/28/16 20:59 07/10/16 21:24 Carli Saleem M.D. Jul 11, 2016 16:29
[2016-07-11 20:00] VITALS: BP 112/67
[2016-07-12] VITALS: BP 104/85
[2016-07-12 04:00] VITALS: BP 108/77
[2016-07-12] MEDS: Amantadine 100mg cap ORAL SCH ×2 (05:51→12:18)
[2016-07-12 08:00] VITALS: BP 116/80
[2016-07-12] MEDS: Levofloxacin 500mg tab ORAL SCH (08:43)
[2016-07-12] MEDS: Nuedexta Capsule 20/10mg ORAL SCH (08:43)
[2016-07-12] MEDS: levETIRAcetam 500mg/5ml Liquid ORAL SCH (08:43)
[2016-07-12] MEDS: Heparin 5000 units/ml inj SUBQ SCH (08:45)
[2016-07-12] MEDS ORDERED: LEVAQUIN500 MG ORAL (10:40)
[2016-07-12] MEDS ORDERED: ZYVOX600 MG ORAL (10:41)
[2016-07-12 12:00] VITALS: BP 115/66
--- NOTE | 2016-07-12 14:19 | General Progress Note ---
Assessment/Plan Problem List: (1) Pneumonia ICD Codes: J18.9 - Pneumonia, unspecified organism SNOMED: 036344867 Status: progressing Assessment/Plan pna r/o tb improving symptoms dc to snf once cleared by dr carter and dr [facility] dept of health appparently already cleared the patient for dc Subjective ROS Limited/Unobtainable: Yes Constitutional: Reports: no symptoms Allergies: Coded Allergies: AMOXICILLIN (Verified Allergy, Unknown, 02/21/13) OBTAINED FROM MEDICAL RECORD ASPIRIN (Verified Allergy, Unknown, 02/21/13) OBTAINED FROM MEDICAL RECORD PENICILLINS (Unverified Allergy, Unknown, 12/06/14) Objective Last 24 Hour Vital Signs Date Time Temp Pulse Resp B/P Pulse Ox O2 Delivery O2 Flow Rate FiO2 07/12/16 12:00 96.6 104 16 115/66 96 Room Air 07/12/16 09:42 96.0 07/12/16 08:00 96.0 100 18 116/80 98 Room Air 07/12/16 04:00 97.3 102 20 108/77 95 Room Air 07/12/16 00:00 98.2 126 24 104/85 98 Room Air 07/11/16 20:00 96.8 106 22 112/67 96 Room Air 07/11/16 16:00 96.4 91 20 114/77 98 Room Air Intake and Output 07/11/16 07/12/16 19:00 07:00 Intake Total 360 ml Output Total 3 ml Balance 357 ml Intake Oral 360 ml Output Urine Total 3 ml # Voids 4 Height (Feet): 6 Height (Inches): 0.00 Weight (Pounds): 150 EENT: PERRL/EOMI Neck: supple Cardiovascular: normal rate Respiratory/Chest: lungs clear Bernardino Dallas MD Jul 12, 2016 14:19
--- NOTE | 2016-07-12 16:09 | General Progress Note ---
Assessment/Plan Assessment/Plan ASSESSMENT: 1. Anemia 2/2 chronic disease, hgb > 10 2. Thrombocytopenia, due to infection and sepsis. Has improved >200k 3. Leukopenia - Improved 4. Bilateral pulmonary masses bilaterally, potential 2/2 pneumonia process. Has improved 5. Health care associated PNA - improved 6. UTI RECOMMENDATIONS: 1. Monitor counts 2. Transfuse as needed 3. Antibiotics as needed 4. Transfuse to hgb goal >7 5. DVT ppx heparin sq 6. Followup on GI, ID, pulm recs 7. D/W staff Thank you, Farzad Montejo MD Subjective Constitutional: Reports: no symptoms HEENT: Reports: no symptoms Cardiovascular: Reports: no symptoms Respiratory: Reports: no symptoms Gastrointestinal/Abdominal: Reports: poor appetite Genitourinary: Reports: no symptoms Neurologic/Psychiatric: Reports: no symptoms Endocrine: Reports: no symptoms Hematologic/Lymphatic: Reports: anemia Allergies: Coded Allergies: AMOXICILLIN (Verified Allergy, Unknown, 02/21/13) OBTAINED FROM MEDICAL RECORD ASPIRIN (Verified Allergy, Unknown, 02/21/13) OBTAINED FROM MEDICAL RECORD PENICILLINS (Unverified Allergy, Unknown, 12/06/14) Subjective stable, potential d/c today Objective Last 24 Hour Vital Signs Date Time Temp Pulse Resp B/P Pulse Ox O2 Delivery O2 Flow Rate FiO2 07/12/16 12:00 96.6 104 16 115/66 96 Room Air 07/12/16 09:42 96.0 07/12/16 08:00 96.0 100 18 116/80 98 Room Air 07/12/16 04:00 97.3 102 20 108/77 95 Room Air 07/12/16 00:00 98.2 126 24 104/85 98 Room Air 07/11/16 20:00 96.8 106 22 112/67 96 Room Air Intake and Output 07/11/16 07/12/16 19:00 07:00 Intake Total 360 ml Output Total 3 ml Balance 357 ml Intake Oral 360 ml Output Urine Total 3 ml # Voids 4 Height (Feet): 6 Height (Inches): 0.00 Weight (Pounds): 150 General Appearance: no apparent distress EENT: TMs normal Neck: supple Cardiovascular: regular rhythm Respiratory/Chest: normal breath sounds Abdomen: no organomegaly Extremities: non-tender Edema: 1+ Leg (L), 1+ Leg (R) Edema: mild edema Neurologic: alert Skin: warm/dry Farzad Montejo Jul 12, 2016 16:09
--- NOTE | 2016-07-12 23:50 | Pulmonology Progress Note ---
Assessment/Plan Problems: (1) rule out Tuberculosis (2) Right upper lobe pneumonia (3) UTI (urinary tract infection) (4) Seizure disorder (5) Psychiatric disorder (6) Cachexia Assessment/Plan linezolid and levofloxacin sputum for afb, negative fungi serology negative HIV testing was negative bacterial pneumonia responding to antibiotics ok to dc to skilled nursing Subjective Respiratory: Reports: dyspnea at rest, productive cough, shortness of breath, sputum Neurologic: Reports: seizures Allergies: Coded Allergies: AMOXICILLIN (Verified Allergy, Unknown, 02/21/13) OBTAINED FROM MEDICAL RECORD ASPIRIN (Verified Allergy, Unknown, 02/21/13) OBTAINED FROM MEDICAL RECORD PENICILLINS (Unverified Allergy, Unknown, 12/06/14) Objective Last 24 Hour Vital Signs Date Time Temp Pulse Resp B/P Pulse Ox O2 Delivery O2 Flow Rate FiO2 07/12/16 12:00 96.6 104 16 115/66 96 Room Air 07/12/16 09:42 96.0 07/12/16 08:00 96.0 100 18 116/80 98 Room Air 07/12/16 04:00 97.3 102 20 108/77 95 Room Air 07/12/16 00:00 98.2 126 24 104/85 98 Room Air Intake and Output 07/11/16 07/12/16 19:00 07:00 Intake Total 360 ml Output Total 3 ml Balance 357 ml Intake Oral 360 ml Output Urine Total 3 ml # Voids 4 General Appearance: cachetic HEENT: normocephalic, atraumatic, PERRL Respiratory/Chest: chest wall non-tender, decreased breath sounds, rhonchi Cardiovascular: normal peripheral pulses, normal rate, regular rhythm Abdomen: normal bowel sounds, soft, non tender, no organomegaly Genitourinary: normal external genitalia Extremities: no cyanosis 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
--- NOTE | 2016-07-14 08:52 | Discharge Summary ---
Discharge Summary Hospital Course Date of Admission Jun 28, 2016 at 17:41 Date of Discharge Jul 12, 2016 at 15:00 Admitting Diagnosis Pneumonia HPI Otilio Graves is a 56 year old male who was admitted on Jun 28, 2016 at 17:41 for Pneumonia Hospital Course dc summary dictated #[id number] Discharge Medications Continued Medications: Acetaminophen (Acetaminophen 8 Hour) 650 Mg Tablet 650 MG ORAL Q6H PRN for Mild Pain/Temp > 100.5 Albuterol Sulfate* (Albuterol Sulfate Hhn*) 2.5 Mg/3 Ml Vial.neb 2.5 MG HHN Q6H PRN for Shortness of Breath Amantadine Hcl* (Amantadine*) 100 Mg Tablet 100 MG ORAL Q8HR, TAB Cranberry Extract (Cranberry) 500 Mg Capsule 500 MG PO DAILY PRN Dextromethorphan Hbr/Quinidine (Nuedexta 20-10 Mg Capsule) 1 Each Capsule 1 EACH PO Q12HR, CAP Divalproex Sodium (Depakote) 500 Mg Tabec 250 MG PO Q8HR Docusate Calcium (Surfak) 240 Mg Capsule 240 MG PO DAILY Gabapentin* (Gabapentin*) 400 Mg Capsule 400 MG ORAL DAILY, CAP 0 Refills Ipratropium [place] (Atrovent) 500 Mcg/2.5 Ml Soln 500 MCG HHN EVERY 6 HOURS PRN for Shortness of Breath Levetiracetam (Keppra) 100 Mg/1 Ml Liqd 5 ML ORAL TWICE A DAY, #300 ML 0 Refills Levofloxacin* (Levaquin*) 500 Mg Tablet 500 MG ORAL DAILY for 9 Days, TAB Linezolid* (Zyvox*) 600 Mg Tablet 600 MG ORAL EVERY 12 HOURS for 9 Days, TAB Lorazepam* (Lorazepam*) 1 Mg Tablet 1 MG ORAL EVERY 8 HOURS PRN for Agitation, TAB Lorazepam* (Ativan*) 1 Mg Tablet 1 MG ORAL BID, TAB Magnesium Hydroxide* (Milk Of Magnesia*) 400 Mg/5 Ml Oral.susp 30 ML ORAL DAILY PRN for Constipation, ML Multivitamin (Multi-Vitamin Daily) 1 Each Tablet 1 EACH PO DAILY Olanzapine (Zyprexa) 15 Mg Tablet 15 MG ORAL DAILY, #30 TAB 0 Refills Risperidone* (Risperdal*) 2 Mg Tablet 2 MG ORAL QHS, #30 TAB 0 Refills Discharge Condition Upon Discharge: stable Discharge Disposition [facility]charge Diagnoses: Discharge Instructions Discharge Instructions Special Instructions I have been assigned to complete a D/C Summary on this account. I was not involved in the patient management Soraida Merchant NP (Vanchtein) Jul 14, 2016 08:52
--- NOTE | 2016-07-15 06:18 | Discharge Summary 2 SIG ---
DATE OF ADMISSION: 06/28/2016 DATE OF DISCHARGE: 07/12/2016 REASON FOR ADMISSION: 56-year-old male with history of Parkinson disease, dementia, psychosis, and anxiety, was brought from the residential facility , where he resides, for evaluation of possible pneumonia. The patient had ongoing cough and fever. Upon arrival in the emergency room, the patient was febrile and tachycardiac. No leukocytosis. Chest x-ray with right upper lobe opacity concerning for pneumonia. The patient started on fluid resuscitation. Pancultured, empiric antibiotics initiated. Tachycardia and fever resolved after Tylenol. The patient admitted to med/surg floor for further management. ADMITTING DIAGNOSES: 1. Sepsis. 2. Pneumonia, healthcare associated . 3. Parkinson disease. 4. Dementia. HOSPITAL COURSE: The patient was on med/surg floor. Infectious Disease doctor, hotel registration clerk, book mender, and psychiatrist were all involved in the patient's care. The patient was placed initially in isolation because there was concern of possible TB due to the opacity in the right upper lobe. Subsequently, the patient undergone CT of the chest, which revealed bilateral pulmonary parenchymal irregular masslike opacity, neoplastic versus inflammatory. Questionable right heel adenopathy, unable to adequately evaluate due to the lack of IV contrast. Patchy ground-glass opacity in both lungs, congestive versus inflammatory. The patient was on supplemental oxygen. Pulmonary toilet provided. Workup for TB initiated. Pulmonary and ID followed. Sputum for AFB x3 was negative. Fungal serology negative. PPD negative. TB spot test was negative. HIV test negative. TB was ruled out. The patient was off the isolation. CT of the chest was repeated in one week after IV antibiotic and revealed ill-defined infiltrate in the right upper lobe with the minor left upper lobe infiltrate. The parenchymal disease has changed significantly over the last seven days and is less mass like in appearance. The findings are likely due to pneumonia. The patient to continue antibiotic upon discharge as per ID recommendation. Recommend to repeat CT chest after completion of IV antibiotics. Seizure precautions were maintained. No evidence of seizure while in the hospital. Continue Keppra. Swallow evaluation was done. Diet as per ST evaluation with aspiration precaution and one-to-one assistance. Sitter was at the bedside due to the psychiatric problem. Psychiatrist followed the patient and diagnosed with delirium secondary to medical condition. She started the patient on Zyprexa at bedtime as needed for anxiety. Again, sitter was at the bedside at all times. In terms of the nutritional support, dietary evaluation was done and the patient was on Ensure three times a day while in the hospital and to be continued at the residential facility. Building Operator followed the patient secondary to hematological issues. The patient initially with leukopenia, which improved and resolved likely secondary to infectious process. The patient found to have mild anemia of chronic disease. The patient found to have thrombocytopenia, which resolved and likely was also secondary to infectious process. The patient was stable for discharge back to residential facility with IV antibiotics. All consultants cleared for discharge. DISCHARGE DIAGNOSES: 1. Sepsis. 2. Right upper lobe healthcare associated pneumonia. 3. Tuberculosis was ruled out. 4. Urinary tract infection. 5. Seizure disorder. 6. Dysphagia. 7. Parkinson disease. 8. Thrombocytopenia. 9. Anemia of chronic disease. 10. Leukopenia. 11. Delirium secondary to underlying medical condition. DISCHARGE MEDICATIONS: See medication reconciliation list. DISCHARGE INSTRUCTIONS: The patient discharged to residential facility with antibiotic as per ID recommendation. Close monitoring at the residential facility. Bernardino Dallas M.D. I have been assigned to dictate discharge summary on this account and I was not involved in the patient's management. Soraida Amayadonnell N.PTamera DR: Kwame JOB#: [id number] CC: BRANDEE
== END 2016-07-12 15:00 | DRG 871 ==
LOC: EDBD 14:01 → EMR 14:07 → 4W 17:41 → EDBEDREQ 18:46 → 4W 20:08
DX: A41.9 Sepsis, unspecified organism (principal); J18.9 Pneumonia, unspecified organism; R64 Cachexia; G20 Parkinson's disease; D69.6 Thrombocytopenia, unspecified; F02.80 Dementia in other diseases classified elsewhere, unspecified severity, without behavioral disturbance, psychotic disturbance, mood disturbance, and anxiety; N39.0 Urinary tract infection, site not specified; G40.909 Epilepsy, unspecified, not intractable, without status epilepticus; R62.7 Adult failure to thrive; F41.9 Anxiety disorder, unspecified; F29 Unspecified psychosis not due to a substance or known physiological condition; Z88.1 Allergy status to other antibiotic agents; Z88.0 Allergy status to penicillin; D63.8 Anemia in other chronic diseases classified elsewhere; Z88.6 Allergy status to analgesic agent; R13.10 Dysphagia, unspecified
CPT/HCPCS: 36415; 71010; 71250; 74230; 76700; 80053; 80069; 80202; 81003; 82550; 82553; 83605; 84484; 85007; 85025; 85060; 86171; 86580; 86606; 86612; 86635; 86703; 86705; 86709; 86803; 87040; 87081; 87116; 87181; 87340; 87449; 87556; 93005; 94664

== ENCOUNTER 2016-08-05 18:03 | Inpatient (IN) | payer MEDICARE, MEDICAID ==
[~2016-08-05] VITALS: Ht 175.3 cm; Wt 72.6 kg
[2016-08-05 18:03] VITALS: BP 96/58
[~2016-08-05 18:03] MED LIST changes: +ATIVAN1 MG ORAL; +LEVAQUIN500 MG ORAL; +ZYVOX600 MG ORAL
[2016-08-05] MEDS ORDERED: Acetaminophen 650 MG SUPP RECTAL ONE (18:30)
[2016-08-05 18:39] LABS: BASOPHILS % (AUTO) 0.6 % (0.0-2.0); EOSINOPHILS % (AUTO) 0.1 % (0.0-3.0); LYMPHOCYTES % (AUTO) 8.4 % (20.0-45.0); MEAN CORPUSCULAR HEMOGLOBIN 24.5 PG (27.0-31.0); MEAN CORPUSCULAR HGB CONC 32.7 G/DL (32.0-36.0); MEAN CORPUSCULAR VOLUME 75 FL (80-99); MEAN PLATELET VOLUME 5.9 FL (6.5-10.1); MONOCYTES % (AUTO) 9.1 % (1.0-10.0); NEUTROPHILS % (AUTO) 81.8 % (45.0-75.0); PLATELET COUNT 208 K/UL (150-450); RED BLOOD COUNT 5.54 M/UL (4.70-6.10); RED CELL DISTRIBUTION WIDTH 15.8 % (11.6-14.8); WHITE BLOOD COUNT 17.8 K/UL (4.8-10.8)
[2016-08-05 18:46] LABS: APPEARANCE,URINE CLOUDY; KETONES,URINE 1+ (NEGATIVE); LEUKOCYTE ESTERASE ,URINE 3+ (NEGATIVE); NITRITE,URINE NEGATIVE (NEGATIVE); PH,URINE 8 (4.5-8.0); PROTEIN,URINE 2+ (NEGATIVE); UROBILINOGEN,URINE 1 MG/DL (0.0-1.0)
[2016-08-05 18:53] LABS: BACTERIA,URINE MANY /HPF; SQUAMOUS EPITHELIAL CELL,UR FEW /LPF (NONE/OCC); WBC,URINE TNTC /HPF (0 - 0)
[2016-08-05 18:56] LABS: ALANINE AMINOTRANSFERASE 8 U/L (3-41); ALBUMIN/GLOBULIN RATIO 1.2 (1.0-2.7); ANION GAP 13 (5-15); ASPARTATE AMINO TRANSFERASE 13 U/L (5-40); CARBON DIOXIDE 26 mEQ/L (20-30); CHLORIDE 96 mEQ/L (98-107); GLOMERULAR FILTRATION RATE > 60 mL/min (>60); HEMOLYSIS 31; POTASSIUM 4.3 mEQ/L (3.4-4.9); SODIUM 135 mEQ/L (135-145); TOTAL PROTEIN 6.6 g/dL (6.6-8.7); TROPONIN I < 0.30 ng/mL (<=0.30)
[2016-08-05 19:06] LABS: CKMB < 1.5 ng/mL (< 6.7)
[2016-08-05 19:24] VITALS: BP 104/65
[2016-08-05 20:17] VITALS: BP 129/69
--- NOTE | 2016-08-05 20:18 | Emergency Room Report ---
History of Present Illness General Chief Complaint: Fever Source: Medical Record, EMS Present Illness HPI 56-year-old male presents to ED for evaluation. Per EMS patient noted have fever at his convalescent home today. Temp in ED 100.8. Patient has dementia and is unable to provide any additional history at this time. No reported cough shortness of breath. No reported nausea or vomiting. No aggravating relieving factors. No other associated symptoms Allergies: Coded Allergies: AMOXICILLIN (Verified Allergy, Unknown, 02/21/13) OBTAINED FROM MEDICAL RECORD ASPIRIN (Verified Allergy, Unknown, 02/21/13) OBTAINED FROM MEDICAL RECORD PENICILLINS (Unverified Allergy, Unknown, 12/06/14) Patient History Past Medical History: COPD, dementia, seizures Social History: Denies: alcohol use, drug use, smoking Immunizations: UTD Reviewed Nursing Documentation: PMH: Agreed, PSxH: Agreed Nursing Documentation-PMH Past Medical History: No History, Except For Hx Cardiac Problems: No Hx COPD: Yes Hx Cancer: No Hx Gastrointestinal Problems: No Hx Dementia: Yes Hx Parkinson's Disease: Yes Hx Seizures: Yes - epipelsy, pneumonia, sepsis, BPH Hx Epilepsy: Yes Review of Systems All Other Systems: negative except mentioned in HPI Physical Exam Vital Signs Date Time Temp Pulse Resp B/P Pulse Ox O2 Delivery O2 Flow Rate FiO2 08/05/16 17:59 100.8 114 25 96/58 97 Room Air Sp02 EP Interpretation: reviewed, normal General Appearance: thin, other - dementia Head: normocephalic Eyes: bilateral eye PERRL, bilateral eye normal inspection ENT: normal ENT inspection, hearing grossly normal Neck: normal inspection Respiratory: chest non-tender, lungs clear, normal breath sounds, speaking full sentences Cardiovascular #1: regular rate, rhythm, no edema Gastrointestinal: normal bowel sounds, non tender, soft, non-distended, no guarding, no rebound Rectal: deferred Genitourinary: no CVA tenderness Musculoskeletal: normal inspection Neurologic: other - dementia Psychiatric: other - dementia Skin: normal inspection Lymphatic: normal inspection Medical Decision Making Diagnostic Impression: Primary Impression: UTI (urinary tract infection) Qualified Codes: N39.0 - Urinary tract infection, site not specified Additional Impression: Fever Qualified Codes: R50.9 - Fever, unspecified ER Course Hospital Course 56-year-old male presents to ED with fever times one day. h/o dementia Differential diagnoses include: Pneumonia, UTI, sepsis, dehydration, MT/ unstable angina Clinical course Patient placed on stretcher. On security investigator with tachycardia. After initial history and physical, I ordered labs, IV fluids, EKG, chest x-ray, blood cultures, UA, tylenol. Labs - electrolytes ok, lactateo k, noted leukocytosis, troponins negative, UA grossly positive for UTI EKG - sinus tachycardia, no ischemic changes CXR - no acute process Abx given. tachycardia resolving with IVFs. Case discussed with Dr Dallas and they agreed to admit patient to their service for further care and support I feel this is a highly complex case requiring extensive working including EKG/ Rhythm strip, Xray/CT/US, Blood/urine lab work, repeat exams while in ED, and administration of strong opiates/narcotics for pain control, admission to hospital or close patient follow up. Diagnosis - UTI, fever Patient admitted to floor in serious condition Labs Test 08/05/16 18:22 White Blood Count 17.8 K/UL (4.8-10.8) Red Blood Count 5.54 M/UL (4.70-6.10) Hemoglobin 13.6 G/DL (14.2-18.0) Hematocrit 41.5 % (42.0-52.0) Mean Corpuscular Volume 75 FL (80-99) Mean Corpuscular Hemoglobin 24.5 PG (27.0-31.0) Mean Corpuscular Hemoglobin Concent 32.7 G/DL (32.0-36.0) Red Cell Distribution Width 15.8 % (11.6-14.8) Platelet Count 208 K/UL (150-450) Mean Platelet Volume 5.9 FL (6.5-10.1) Neutrophils (%) (Auto) 81.8 % (45.0-75.0) Lymphocytes (%) (Auto) 8.4 % (20.0-45.0) Monocytes (%) (Auto) 9.1 % (1.0-10.0) Eosinophils (%) (Auto) 0.1 % (0.0-3.0) Basophils (%) (Auto) 0.6 % (0.0-2.0) Urine Color Yellow Urine Appearance Cloudy Urine pH 8 (4.5-8.0) Urine Specific [place] 1.010 (1.005-1.035) Urine Protein 2+ (NEGATIVE) Urine Glucose (UA) Negative (NEGATIVE) Urine Ketones 1+ (NEGATIVE) Urine Occult Blood 2+ (NEGATIVE) Urine Nitrite Negative (NEGATIVE) Urine Bilirubin Negative (NEGATIVE) Urine Urobilinogen 1 MG/DL (0.0-1.0) Urine Leukocyte Esterase 3+ (NEGATIVE) Urine RBC 2-4 /HPF (0 - 0) Urine WBC Tntc /HPF (0 - 0) Urine Squamous Epithelial Cells Few /LPF (NONE/OCC) Urine Bacteria Many /HPF (NONE) Sodium Level 135 mEQ/L (135-145) Potassium Level 4.3 mEQ/L (3.4-4.9) Chloride Level 96 mEQ/L (98-107) Carbon Dioxide Level 26 mEQ/L (20-30) Anion Gap 13 (5-15) Blood Urea Nitrogen 16 mg/dL (7-23) Creatinine 1.0 mg/dL (0.7-1.2) Estimat Glomerular Filtration Rate > 60 mL/min (>60) Glucose Level 106 mg/dL (74-106) Lactic Acid Level 1.70 mmol/L (0.66-2.22) Calcium Level 9.0 mg/dL (8.6-10.2) Total Bilirubin 0.3 mg/dL (0.0-1.2) Aspartate Amino Transf (AST/SGOT) 13 U/L (5-40) Alanine Aminotransferase (ALT/SGPT) 8 U/L (3-41) Alkaline Phosphatase 47 U/L (40-129) Total Creatine Kinase 34 U/L (38-174) Creatine Kinase MB < 1.5 ng/mL (< 6.7) Creatine Kinase MB Relative Index 4.4 Troponin I < 0.30 ng/mL (<=0.30) Total Protein 6.6 g/dL (6.6-8.7) Albumin 3.6 g/dL (3.5-5.2) Globulin 3.0 g/dL Albumin/Globulin Ratio 1.2 (1.0-2.7) EKG Diagnostic Results Rate: tachycardiac Rhythm: NSR ST Segments: no acute changes ASA given to the pt in ED: No Rhythm Strip Diag. Results EP Interpretation: yes Rhythm: NSR, no PVC's, no ectopy Chest X-Ray Diagnostic Results EP Interpretation: Yes Findings: no consolidation, no effusion, no pneumothorax, no acute cardiopulmonary disease Number of Views: 1 Last Vital Signs Date Time Temp Pulse Resp B/P Pulse Ox O2 Delivery O2 Flow Rate FiO2 08/05/16 19:24 99.4 108 20 104/65 98 Room Air Status: improved Disposition: ADMITTED INPATIENT Condition: Serious Referrals: Bernardino Dallas MD (PCP) MONSTER LEAL M.D. Aug 05, 2016 20:18
[2016-08-05] MEDS ORDERED: Miralax 17gm pkt ORAL PRN (20:30)
[2016-08-05] MEDS ORDERED: Nitroglycerin Subl 0.4mg tab (Bottle Of 25) SL PRN (20:30)
[2016-08-05] MEDS ORDERED: DuoNeb 0.5-3(2.5)mg/3ml neb HHN PRN (20:30)
[2016-08-05] MEDS ORDERED: Morphine Sulfate 2mg/ml Inj IVP PRN (20:30)
[2016-08-05] MEDS: Heparin 5000 units/ml inj SUBQ SCH (22:44)
[2016-08-05 22:53] VITALS: BP 130/70
[2016-08-06] MEDS: Vancomycin 1 GM in D5W 275 ML IVPB SCH ×2 (00:26→12:00)
[2016-08-06] MEDS ORDERED: Vancomycin 1 GM in D5W 275 ML IV SCH (00:30)
[2016-08-06] MEDS: Aztreonam Inj 1 GM in NS 55 ML IVPB SCH ×2 (02:37→12:37)
[2016-08-06 03:34] VITALS: BP 135/73
[2016-08-06 04:50] VITALS: BP 132/70
[2016-08-06] MEDS: Amantadine 100mg cap ORAL SCH ×3 (05:29→21:34)
[2016-08-06 07:15] LABS: ALANINE AMINOTRANSFERASE 5 U/L (3-41); ALBUMIN/GLOBULIN RATIO 0.9 (1.0-2.7); ANION GAP 13 (5-15); ASPARTATE AMINO TRANSFERASE 9 U/L (5-40); CALCIUM 8.5 mg/dL (8.6-10.2); CARBON DIOXIDE 24 mEQ/L (20-30); CHLORIDE 97 mEQ/L (98-107); CREATININE 0.8 mg/dL (0.7-1.2); GLOMERULAR FILTRATION RATE > 60 mL/min (>60); HEMOLYSIS 3; SODIUM 134 mEQ/L (135-145); TOTAL PROTEIN 6.1 g/dL (6.6-8.7)
[2016-08-06 07:24] LABS: MEAN CORPUSCULAR HEMOGLOBIN 23.1 PG (27.0-31.0); MEAN CORPUSCULAR HGB CONC 31.9 G/DL (32.0-36.0); MEAN CORPUSCULAR VOLUME 72 FL (80-99); MEAN PLATELET VOLUME 6.3 FL (6.5-10.1); PLATELET COUNT 185 K/UL (150-450); RED CELL DISTRIBUTION WIDTH 15.6 % (11.6-14.8); WHITE BLOOD COUNT 18.8 K/UL (4.8-10.8)
[2016-08-06 08:00] VITALS: BP 126/58
[2016-08-06] MEDS: Heparin 5000 units/ml inj SUBQ SCH ×2 (09:07→21:00)
[2016-08-06] MEDS: LORazepam Inj 2mg/ml 1ml IM PRN (10:19)
[2016-08-06 10:21] LABS: ANISOCYTOSIS 1+; BAND NEUTROPHILS % (MANUAL) 2 % (0-8); BASOPHILS % (MANUAL) 0 % (0-2); EOSINOPHILS % (MANUAL) 0 % (0-3); HYPOCHROMASIA 1+; LYMPHOCYTES % (MANUAL) 13 % (20-45); MICROCYTES 1+; NEUTROPHILS % (MANUAL) 79 % (45-75); PLATELET ESTIMATE ADEQUATE; PLATELET MORPHOLOGY NORMAL; TOTAL CELLS COUNTED 100
[2016-08-06 10:22] LABS: OVALOCYTES OCCASIONAL
--- NOTE | 2016-08-06 10:41 | Diagnostic Imaging Report ---
Indication: COUGH Technique: One view of the chest Comparison: none Findings: Lungs and pleural spaces are clear. Heart size is normal. The aorta is ectatic the prior exam of previously demonstrated right apical opacity has cleared Impression: No acute process. Interim clearing of previously demonstrated right upper lobe infiltrate This agrees with the preliminary interpretation provided by the emergency room physician
--- NOTE | 2016-08-06 11:43 | Diagnostic Imaging Report ---
Indication: DYSPNEA Technique: One view of the chest Comparison: 08/05/2016 Findings: Lungs and pleural spaces are clear. Heart size is normal . No significant change Impression: No acute process
[2016-08-06 12:55] VITALS: BP 122/60
--- NOTE | 2016-08-06 14:47 | Cardiology Report ---
APPROVED REPORT EKG Measurement Heart [id number] Sinus tachycardia Incomplete right bundle branch block Borderline ECG
--- NOTE | 2016-08-06 15:22 | Consultation ---
History of Present Illness General Date patient seen: Aug 06, 2016 Time patient seen: 14:30 Chief Complaint: Fever Referring physician: Gen Reason for Consultation: internal medicine management Present Illness HPI 56-year-old male presented to ED for evaluation.from SNF patient was noted to have fever at SNF. Temp in ED 100.8. Patient with underlying dementia and was unable to provide any additional history No reported cough shortness of breath. No reported nausea or vomiting. Workup in ED revealed leukocytosis (17.8), fever (101.9), tachycardia (113), low BP 96/58 UA grossly positive for UTI troponin negative ECG - no ischemic changes, ST with incomplete BBB CXR no acute process lytes stable, HH stable lactate WNL in ED started on IVF and empiric antibiotic patient was subsequently transferred to [facility] floor for further management Allergies: Coded Allergies: AMOXICILLIN (Verified Allergy, Unknown, 02/21/13) OBTAINED FROM MEDICAL RECORD ASPIRIN (Verified Allergy, Unknown, 02/21/13) OBTAINED FROM MEDICAL RECORD PENICILLINS (Unverified Allergy, Unknown, 12/06/14) Medication History Scheduled Amantadine Hcl* (Amantadine*), 100 MG ORAL Q8HR, (Reported) Dextromethorphan Hbr/Quinidine (Nuedexta 20-10 Mg Capsule), 1 EACH PO Q12HR, ( Reported) Divalproex Sodium (Depakote), 250 MG PO Q8HR, (Reported) Docusate Calcium (Surfak), 240 MG PO DAILY, (Reported) Gabapentin* (Gabapentin*), 400 MG ORAL DAILY, (Reported) Levetiracetam (Keppra), 5 ML ORAL TWICE A DAY, (Reported) Levofloxacin* (Levaquin*), 500 MG ORAL DAILY, (Reported) Linezolid* (Zyvox*), 600 MG ORAL EVERY 12 HOURS, (Reported) Lorazepam* (Ativan*), 1 MG ORAL BID, (Reported) Multivitamin (Multi-Vitamin Daily), 1 EACH PO DAILY, (Reported) Olanzapine (Zyprexa), 15 MG ORAL DAILY, (Reported) Risperidone* (Risperdal*), 2 MG ORAL QHS, (Reported) Scheduled PRN Acetaminophen (Acetaminophen 8 Hour), 650 MG ORAL Q6H PRN for Mild Pain/Temp > 100.5, (Reported) Albuterol Sulfate* (Albuterol Sulfate Hhn*), 2.5 MG HHN Q6H PRN for Shortness of Breath, (Reported) Cranberry Extract (Cranberry), 500 MG PO DAILY PRN, (Reported) Ipratropium [place] (Atrovent), 500 MCG HHN EVERY 6 HOURS PRN for Shortness of Breath, (Reported) Lorazepam* (Lorazepam*), 1 MG ORAL EVERY 8 HOURS PRN for Agitation, (Reported) Magnesium Hydroxide* (Milk Of Magnesia*), 30 ML ORAL DAILY PRN for Constipation, (Reported) Patient History History Provided By: Medical Record Healthcare decision maker Resuscitation status Full Code Advanced Directive on File Past Medical/Surgical History Past Medical/Surgical History: (1) Parkinson disease (2) BPH (benign prostatic hyperplasia) (3) Seizure disorder (4) Psychiatric disorder (5) Dehydration (6) Cachexia Review of Systems ROS Narrative unable to obtain ROS due to dementia Physical Exam General Appearance: no apparent distress, alert, confused Lines, tubes and drains: peripheral HEENT: normocephalic, atraumatic, anicteric, mucous membranes moist, PERRL Neck: non-tender, supple Respiratory/Chest: chest wall non-tender, lungs clear, no respiratory distress , no accessory muscle use Cardiovascular/Chest: normal peripheral pulses, normal rate, regular rhythm, no JVD Abdomen: normal bowel sounds, non tender, soft Extremities: no calf tenderness, normal capillary refill, no edema Neurologic: alert, responsive Musculoskeletal: atrophy - BLE Last 24 Hour Vital Signs Date Time Temp Pulse Resp B/P Pulse Ox O2 Delivery O2 Flow Rate FiO2 08/06/16 12:55 98.6 106 20 122/60 98 Room Air 106 08/06/16 11:25 78 18 Room Air 21 08/06/16 10:06 98.6 08/06/16 08:00 97.4 118 20 126/58 98 Room Air 08/06/16 04:50 98.6 98 22 132/70 95 Room Air 08/06/16 03:34 98.6 121 22 135/73 95 Room Air 08/05/16 23:13 99.1 08/05/16 22:53 99.1 80 20 130/70 98 Room Air 08/05/16 21:09 99.4 98 18 129/69 99 Room Air 08/05/16 20:17 99.4 98 18 129/69 99 Room Air 08/05/16 19:24 99.4 108 20 104/65 98 Room Air 08/05/16 19:05 99.4 08/05/16 18:03 101.9 113 25 96/58 97 Room Air 08/05/16 17:59 100.8 114 25 96/58 97 Room Air Intake and Output 08/05/16 08/06/16 19:00 07:00 Intake Total 1508.0 ml Output Total 100 ml 1800 ml Balance -100 ml -292.0 ml Intake Oral 178 ml IV Total 1330.0 ml Output Urine Total 100 ml 1800 ml # Voids 1 Laboratory Tests Test 08/05/16 18:22 08/06/16 05:15 White Blood Count 17.8 K/UL (4.8-10.8) H 18.8 K/UL (4.8-10.8) H Red Blood Count 5.54 M/UL (4.70-6.10) 5.00 M/UL (4.70-6.10) Hemoglobin 13.6 G/DL (14.2-18.0) L 11.5 G/DL (14.2-18.0) L Hematocrit 41.5 % (42.0-52.0) L 36.2 % (42.0-52.0) L Mean Corpuscular Volume 75 FL (80-99) L 72 FL (80-99) L Mean Corpuscular Hemoglobin 24.5 PG (27.0-31.0) L 23.1 PG (27.0-31.0) L Mean Corpuscular Hemoglobin Concent 32.7 G/DL (32.0-36.0) 31.9 G/DL (32.0-36.0) L Red Cell Distribution Width 15.8 % (11.6-14.8) H 15.6 % (11.6-14.8) H Platelet Count 208 K/UL (150-450) 185 K/UL (150-450) Mean Platelet Volume 5.9 FL (6.5-10.1) L 6.3 FL (6.5-10.1) L Neutrophils (%) (Auto) 81.8 % (45.0-75.0) H % (45.0-75.0) Lymphocytes (%) (Auto) 8.4 % (20.0-45.0) L % (20.0-45.0) Monocytes (%) (Auto) 9.1 % (1.0-10.0) % (1.0-10.0) Eosinophils (%) (Auto) 0.1 % (0.0-3.0) % (0.0-3.0) Basophils (%) (Auto) 0.6 % (0.0-2.0) % (0.0-2.0) Urine Color Yellow Urine Appearance Cloudy Urine pH 8 (4.5-8.0) Urine Specific [place] 1.010 (1.005-1.035) Urine Protein 2+ (NEGATIVE) H Urine Glucose (UA) Negative (NEGATIVE) Urine Ketones 1+ (NEGATIVE) H Urine Occult Blood 2+ (NEGATIVE) H Urine Nitrite Negative (NEGATIVE) Urine Bilirubin Negative (NEGATIVE) Urine Urobilinogen 1 MG/DL (0.0-1.0) H Urine Leukocyte Esterase 3+ (NEGATIVE) H Urine RBC 2-4 /HPF (0 - 0) H Urine WBC Tntc /HPF (0 - 0) H Urine Squamous Epithelial Cells Few /LPF (NONE/OCC) Urine Bacteria Many /HPF (NONE) H Sodium Level 135 mEQ/L (135-145) 134 mEQ/L (135-145) L Potassium Level 4.3 mEQ/L (3.4-4.9) 4.0 mEQ/L (3.4-4.9) Chloride Level 96 mEQ/L (98-107) L 97 mEQ/L (98-107) L Carbon Dioxide Level 26 mEQ/L (20-30) 24 mEQ/L (20-30) Anion Gap 13 (5-15) 13 (5-15) Blood Urea Nitrogen 16 mg/dL (7-23) 12 mg/dL (7-23) Creatinine 1.0 mg/dL (0.7-1.2) 0.8 mg/dL (0.7-1.2) Estimat Glomerular Filtration Rate > 60 mL/min (>60) > 60 mL/min (>60) Glucose Level 106 mg/dL (74-106) 80 mg/dL (74-106) Lactic Acid Level 1.70 mmol/L (0.66-2.22) Calcium Level 9.0 mg/dL (8.6-10.2) 8.5 mg/dL (8.6-10.2) L Total Bilirubin 0.3 mg/dL (0.0-1.2) 0.5 mg/dL (0.0-1.2) Aspartate Amino Transf (AST/SGOT) 13 U/L (5-40) 9 U/L (5-40) Alanine Aminotransferase (ALT/SGPT) 8 U/L (3-41) 5 U/L (3-41) Alkaline Phosphatase 47 U/L (40-129) 50 U/L (40-129) Total Creatine Kinase 34 U/L (38-174) L Creatine Kinase MB < 1.5 ng/mL (< 6.7) Creatine Kinase MB Relative Index 4.4 Troponin I < 0.30 ng/mL (<=0.30) Total Protein 6.6 g/dL (6.6-8.7) 6.1 g/dL (6.6-8.7) L Albumin 3.6 g/dL (3.5-5.2) 3.0 g/dL (3.5-5.2) L Globulin 3.0 g/dL 3.1 g/dL Albumin/Globulin Ratio 1.2 (1.0-2.7) 0.9 (1.0-2.7) L Differential Total Cells Counted 100 Neutrophils % (Manual) 79 % (45-75) H Lymphocytes % (Manual) 13 % (20-45) L Monocytes % (Manual) 6 % (1-10) Eosinophils % (Manual) 0 % (0-3) Basophils % (Manual) 0 % (0-2) Band Neutrophils 2 % (0-8) Platelet Estimate Adequate Platelet Morphology Normal Hypochromasia 1+ Anisocytosis 1+ Microcytosis 1+ Ovalocytes Occasional Microbiology Date/Time Source Procedure Growth Status 08/05/16 18:22 Urine,Clean Catch Urine Culture - Preliminary Gram Negative Bacillus 1 Resulted Height (Feet): 5 Height (Inches): 9.00 Weight (Pounds): 160 Medications Current Medications Medications (Trade) Dose Ordered Sig/Yanelis Route PRN Reason Start Time Stop Time Status Last Admin Dose Admin Acetaminophen (Tylenol) 650 mg Q4H PRN ORAL fever 08/05/16 20:30 09/04/16 20:29 Albuterol/ Ipratropium (DuoNeb 0.5-3(2.5)mg/3ml) 3 ml EVERY 4 HOURS PRN HHN Shortness of Breath 08/05/16 20:30 08/10/16 20:29 Amantadine HCl (Symmetrel) 100 mg Q8HR ORAL 08/06/16 06:00 09/05/16 05:59 08/06/16 14:00 Aztreonam 1 gm/ Sodium Chloride 55 ml @ 110 mls/hr EVERY 8 HOURS IVPB 08/06/16 02:00 08/13/16 01:59 08/06/16 02:37 Divalproex Sodium (Depakote) 250 mg Q8HR ORAL 08/05/16 22:00 09/04/16 21:59 08/06/16 14:49 Gabapentin (Neurontin) 400 mg DAILY ORAL 08/06/16 09:00 09/05/16 08:59 08/06/16 09:07 Heparin Sodium (Porcine) (Heparin 5000 units/ml) 5,000 units EVERY 12 HOURS SUBQ 08/05/16 22:00 09/04/16 21:59 08/06/16 09:07 Levetiracetam (Keppra) 500 mg Q12HR ORAL 08/05/16 22:00 09/04/16 21:59 08/06/16 09:07 Levofloxacin (Levaquin) 100 ml @ 100 mls/hr Q24H IVPB 08/06/16 20:00 08/13/16 19:59 Lorazepam (Ativan 2mg/ml 1ml) 1 mg Q4H PRN IM For Anxiety 08/06/16 10:00 08/13/16 09:59 08/06/16 10:19 Morphine Sulfate (Morphine Sulfate) 2 mg EVERY 4 HOURS PRN IVP Moderate Pain (Pain Scale 4-6) 08/05/16 20:30 08/12/16 20:29 08/05/16 22:43 Nitroglycerin 0.4 mg 0.4 mg Q5M PRN SL Prn Chest Pain 08/05/16 20:30 09/04/16 20:29 Ondansetron HCl (Zofran) 4 mg Q6H PRN IVP Nausea & Vomiting 08/05/16 20:30 09/04/16 20:29 Polyethylene Glycol (Miralax) 17 gm DAILYPRN PRN ORAL Constipation 08/05/16 20:30 09/04/16 20:29 Risperidone (RisperDAL) 2 mg QHS ORAL 08/05/16 22:00 09/04/16 21:59 08/05/16 22:43 Temazepam (Restoril) 15 mg HSPRN PRN ORAL Insomnia 08/05/16 20:30 08/12/16 20:29 08/06/16 01:10 Vancomycin HCl (Vanco rx to dose) 1 ea DAILY PRN MISC . 08/05/16 22:00 09/04/16 21:59 Vancomycin HCl 1 gm/Dextrose 275 ml @ 183.3 mls/ hr Q12HR@0000,1200 IVPB 08/06/16 00:00 08/11/16 00:00 08/06/16 00:26 Assessment/Plan Assessment/Plan ASSESSMENT sepsis UTI dehydration dementia seizure disorder Parkinson disease COPD PLAN OF CARE [facility] floor IVF monitor renal parameters, lytes empiric antibiotics, fup with cx ID consult - per PMD seizure precautions continue Keppra and Depakote O2, HHN prn bowel regimen DVT prophylaxis continue Amantadine case discussed and evaluated by supervising physician Mayur (Sreedhar),Soraida JENSEN Aug 06, 2016 15:22
[2016-08-06 16:00] VITALS: BP 120/60
--- NOTE | 2016-08-06 16:10 | Consultation ---
Consult Note Consult Note DATE OF CONSULTATION: 08/06/2016 NOTE: HEMATOLOGY/ONCOLOGY CONSULTATION CONSULTING PHYSICIAN: Frazad Montejo M.D. Requesting Physician: Bernardino Dallas MD REASON FOR CONSULTATION: Evaluation of anemia IDENTIFICATION DATA: Dear Dr. Bernardino Dallas, The patient is a pleasant 56-year-old male with a past medical history significant for seizure disorder, history of psychiatric disorder, cachexia, and Parkinson disease at this time presents to [facility] from the [facility] facility for evaluation of sepsis, elevated temp and went to the ER. He has been having ongoing cough. He was begun on abx. Lactate was wnl. He had a leukocytosis as well as a ongoing anemia and hematology service was consulted for further eval. Patient was nonverbal. PAST MEDICAL HISTORY: As noted above, seizure disorder, psychiatric disease, and cachexia. PAST SURGICAL HISTORY: None. MEDICATIONS: aztreonam, vanc, levo ALLERGIES: Allergic to amoxicillin,aspirin, and penicillin. REVIEW OF SYSTEMS: Difficult to obtain given the patient's mental status. PHYSICAL EXAMINATION: VITAL SIGNS: Last 24 Hour Vital Signs Date Time Temp Pulse Resp B/P Pulse Ox O2 Delivery O2 Flow Rate FiO2 08/06/16 12:55 98.6 106 20 122/60 98 Room Air 106 08/06/16 11:25 78 18 Room Air 21 08/06/16 10:06 98.6 08/06/16 08:00 97.4 118 20 126/58 98 Room Air 08/06/16 04:50 98.6 98 22 132/70 95 Room Air 08/06/16 03:34 98.6 121 22 135/73 95 Room Air 08/05/16 23:13 99.1 08/05/16 22:53 99.1 80 20 130/70 98 Room Air 08/05/16 21:09 99.4 98 18 129/69 99 Room Air 08/05/16 20:17 99.4 98 18 129/69 99 Room Air 08/05/16 19:24 99.4 108 20 104/65 98 Room Air 08/05/16 19:05 99.4 08/05/16 18:03 101.9 113 25 96/58 97 Room Air 08/05/16 17:59 100.8 114 25 96/58 97 Room Air General: No acute distress. PULMONARY: Decreased breath sounds. CARDIOVASCULAR: Regular rate and rhythm. ABDOMEN: Soft, nontender, nondistended. EXTREMITIES: Edema.1+ LABORATORY DATA: Laboratory Tests Test 08/05/16 18:22 08/06/16 05:15 White Blood Count 17.8 K/UL (4.8-10.8) H 18.8 K/UL (4.8-10.8) H Red Blood Count 5.54 M/UL (4.70-6.10) 5.00 M/UL (4.70-6.10) Hemoglobin 13.6 G/DL (14.2-18.0) L 11.5 G/DL (14.2-18.0) L Hematocrit 41.5 % (42.0-52.0) L 36.2 % (42.0-52.0) L Mean Corpuscular Volume 75 FL (80-99) L 72 FL (80-99) L Mean Corpuscular Hemoglobin 24.5 PG (27.0-31.0) L 23.1 PG (27.0-31.0) L Mean Corpuscular Hemoglobin Concent 32.7 G/DL (32.0-36.0) 31.9 G/DL (32.0-36.0) L Red Cell Distribution Width 15.8 % (11.6-14.8) H 15.6 % (11.6-14.8) H Platelet Count 208 K/UL (150-450) 185 K/UL (150-450) Mean Platelet Volume 5.9 FL (6.5-10.1) L 6.3 FL (6.5-10.1) L Neutrophils (%) (Auto) 81.8 % (45.0-75.0) H % (45.0-75.0) Lymphocytes (%) (Auto) 8.4 % (20.0-45.0) L % (20.0-45.0) Monocytes (%) (Auto) 9.1 % (1.0-10.0) % (1.0-10.0) Eosinophils (%) (Auto) 0.1 % (0.0-3.0) % (0.0-3.0) Basophils (%) (Auto) 0.6 % (0.0-2.0) % (0.0-2.0) Urine Color Yellow Urine Appearance Cloudy Urine pH 8 (4.5-8.0) Urine Specific [place] 1.010 (1.005-1.035) Urine Protein 2+ (NEGATIVE) H Urine Glucose (UA) Negative (NEGATIVE) Urine Ketones 1+ (NEGATIVE) H Urine Occult Blood 2+ (NEGATIVE) H Urine Nitrite Negative (NEGATIVE) Urine Bilirubin Negative (NEGATIVE) Urine Urobilinogen 1 MG/DL (0.0-1.0) H Urine Leukocyte Esterase 3+ (NEGATIVE) H Urine RBC 2-4 /HPF (0 - 0) H Urine WBC Tntc /HPF (0 - 0) H Urine Squamous Epithelial Cells Few /LPF (NONE/OCC) Urine Bacteria Many /HPF (NONE) H Sodium Level 135 mEQ/L (135-145) 134 mEQ/L (135-145) L Potassium Level 4.3 mEQ/L (3.4-4.9) 4.0 mEQ/L (3.4-4.9) Chloride Level 96 mEQ/L (98-107) L 97 mEQ/L (98-107) L Carbon Dioxide Level 26 mEQ/L (20-30) 24 mEQ/L (20-30) Anion Gap 13 (5-15) 13 (5-15) Blood Urea Nitrogen 16 mg/dL (7-23) 12 mg/dL (7-23) Creatinine 1.0 mg/dL (0.7-1.2) 0.8 mg/dL (0.7-1.2) Estimat Glomerular Filtration Rate > 60 mL/min (>60) > 60 mL/min (>60) Glucose Level 106 mg/dL (74-106) 80 mg/dL (74-106) Lactic Acid Level 1.70 mmol/L (0.66-2.22) Calcium Level 9.0 mg/dL (8.6-10.2) 8.5 mg/dL (8.6-10.2) L Total Bilirubin 0.3 mg/dL (0.0-1.2) 0.5 mg/dL (0.0-1.2) Aspartate Amino Transf (AST/SGOT) 13 U/L (5-40) 9 U/L (5-40) Alanine Aminotransferase (ALT/SGPT) 8 U/L (3-41) 5 U/L (3-41) Alkaline Phosphatase 47 U/L (40-129) 50 U/L (40-129) Total Creatine Kinase 34 U/L (38-174) L Creatine Kinase MB < 1.5 ng/mL (< 6.7) Creatine Kinase MB Relative Index 4.4 Troponin I < 0.30 ng/mL (<=0.30) Total Protein 6.6 g/dL (6.6-8.7) 6.1 g/dL (6.6-8.7) L Albumin 3.6 g/dL (3.5-5.2) 3.0 g/dL (3.5-5.2) L Globulin 3.0 g/dL 3.1 g/dL Albumin/Globulin Ratio 1.2 (1.0-2.7) 0.9 (1.0-2.7) L Differential Total Cells Counted 100 Neutrophils % (Manual) 79 % (45-75) H Lymphocytes % (Manual) 13 % (20-45) L Monocytes % (Manual) 6 % (1-10) Eosinophils % (Manual) 0 % (0-3) Basophils % (Manual) 0 % (0-2) Band Neutrophils 2 % (0-8) Platelet Estimate Adequate Platelet Morphology Normal Hypochromasia 1+ Anisocytosis 1+ Microcytosis 1+ Ovalocytes Occasional Chest x-ray shows probable pneumonia, upper lobe of the right side. ASSESSMENT: 1. Anemia 2/2 chronic disease, hgb > 10 2. Leukocytosis potentially 2/2 infection, is on abx 3. Thrombocytopenia, due to infection and sepsis. Has improved >200k 4. Bilateral pulmonary masses bilaterally, potential 2/2 pneumonia process. Has improved 5. Sepsis - being evaluated and treated by ID 6. Health care associated PNA - in prior, now improved RECS: 1. Monitor counts 2. Transfuse as needed 3. Antibiotics as needed 4. Transfuse to hgb goal >7 5. DVT ppx heparin sq 6. Followup on GI, ID, pulm recs 7. Ferritin has been ordered 8. D/W staff Thank you, Farzad Montejo MD Thank you, Dr. Bernardino Dallas, for this kind referral. Please do not hesitate to contact me with any further questions. Farzad Montejo Aug 06, 2016 16:10
--- NOTE | 2016-08-06 16:52 | Infectious Diseases Prog Note ---
Assessment/Plan Problems: (1) Sepsis Assessment & Plan: continue wide spectrum antibiotics, to cover for possible pneumonia too, await culture results. (2) UTI (urinary tract infection) Assessment & Plan: on aztreonam and levofloxacin, await urine culture (3) Cachexia Assessment & Plan: recommend dietary consult (4) Fever Assessment & Plan: due to the above, continue wide spectrum antibiotics, await culture (5) Seizure disorder Assessment & Plan: continue seizure meds, consult neurology Subjective Allergies: Coded Allergies: AMOXICILLIN (Verified Allergy, Unknown, 02/21/13) OBTAINED FROM MEDICAL RECORD ASPIRIN (Verified Allergy, Unknown, 02/21/13) OBTAINED FROM MEDICAL RECORD PENICILLINS (Unverified Allergy, Unknown, 12/06/14) Objective Vital Signs Last 24 Hour Vital Signs Date Time Temp Pulse Resp B/P Pulse Ox O2 Delivery O2 Flow Rate FiO2 08/06/16 12:55 98.6 106 20 122/60 98 Room Air 106 08/06/16 11:25 78 18 Room Air 21 08/06/16 10:06 98.6 08/06/16 08:00 97.4 118 20 126/58 98 Room Air 08/06/16 04:50 98.6 98 22 132/70 95 Room Air 08/06/16 03:34 98.6 121 22 135/73 95 Room Air 08/05/16 23:13 99.1 08/05/16 22:53 99.1 80 20 130/70 98 Room Air 08/05/16 21:09 99.4 98 18 129/69 99 Room Air 08/05/16 20:17 99.4 98 18 129/69 99 Room Air 08/05/16 19:24 99.4 108 20 104/65 98 Room Air 08/05/16 19:05 99.4 08/05/16 18:03 101.9 113 25 96/58 97 Room Air 08/05/16 17:59 100.8 114 25 96/58 97 Room Air Height (Feet): 5 Height (Inches): 9.00 Weight (Pounds): 160 Microbiology Date/Time Source Procedure Growth Status 08/05/16 18:22 Urine,Clean Catch Urine Culture - Preliminary Gram Negative Bacillus 1 Resulted Laboratory Tests Test 08/05/16 18:22 08/06/16 05:15 White Blood Count 17.8 K/UL (4.8-10.8) H 18.8 K/UL (4.8-10.8) H Red Blood Count 5.54 M/UL (4.70-6.10) 5.00 M/UL (4.70-6.10) Hemoglobin 13.6 G/DL (14.2-18.0) L 11.5 G/DL (14.2-18.0) L Hematocrit 41.5 % (42.0-52.0) L 36.2 % (42.0-52.0) L Mean Corpuscular Volume 75 FL (80-99) L 72 FL (80-99) L Mean Corpuscular Hemoglobin 24.5 PG (27.0-31.0) L 23.1 PG (27.0-31.0) L Mean Corpuscular Hemoglobin Concent 32.7 G/DL (32.0-36.0) 31.9 G/DL (32.0-36.0) L Red Cell Distribution Width 15.8 % (11.6-14.8) H 15.6 % (11.6-14.8) H Platelet Count 208 K/UL (150-450) 185 K/UL (150-450) Mean Platelet Volume 5.9 FL (6.5-10.1) L 6.3 FL (6.5-10.1) L Neutrophils (%) (Auto) 81.8 % (45.0-75.0) H % (45.0-75.0) Lymphocytes (%) (Auto) 8.4 % (20.0-45.0) L % (20.0-45.0) Monocytes (%) (Auto) 9.1 % (1.0-10.0) % (1.0-10.0) Eosinophils (%) (Auto) 0.1 % (0.0-3.0) % (0.0-3.0) Basophils (%) (Auto) 0.6 % (0.0-2.0) % (0.0-2.0) Urine Color Yellow Urine Appearance Cloudy Urine pH 8 (4.5-8.0) Urine Specific [place] 1.010 (1.005-1.035) Urine Protein 2+ (NEGATIVE) H Urine Glucose (UA) Negative (NEGATIVE) Urine Ketones 1+ (NEGATIVE) H Urine Occult Blood 2+ (NEGATIVE) H Urine Nitrite Negative (NEGATIVE) Urine Bilirubin Negative (NEGATIVE) Urine Urobilinogen 1 MG/DL (0.0-1.0) H Urine Leukocyte Esterase 3+ (NEGATIVE) H Urine RBC 2-4 /HPF (0 - 0) H Urine WBC Tntc /HPF (0 - 0) H Urine Squamous Epithelial Cells Few /LPF (NONE/OCC) Urine Bacteria Many /HPF (NONE) H Sodium Level 135 mEQ/L (135-145) 134 mEQ/L (135-145) L Potassium Level 4.3 mEQ/L (3.4-4.9) 4.0 mEQ/L (3.4-4.9) Chloride Level 96 mEQ/L (98-107) L 97 mEQ/L (98-107) L Carbon Dioxide Level 26 mEQ/L (20-30) 24 mEQ/L (20-30) Anion Gap 13 (5-15) 13 (5-15) Blood Urea Nitrogen 16 mg/dL (7-23) 12 mg/dL (7-23) Creatinine 1.0 mg/dL (0.7-1.2) 0.8 mg/dL (0.7-1.2) Estimat Glomerular Filtration Rate > 60 mL/min (>60) > 60 mL/min (>60) Glucose Level 106 mg/dL (74-106) 80 mg/dL (74-106) Lactic Acid Level 1.70 mmol/L (0.66-2.22) Calcium Level 9.0 mg/dL (8.6-10.2) 8.5 mg/dL (8.6-10.2) L Total Bilirubin 0.3 mg/dL (0.0-1.2) 0.5 mg/dL (0.0-1.2) Aspartate Amino Transf (AST/SGOT) 13 U/L (5-40) 9 U/L (5-40) Alanine Aminotransferase (ALT/SGPT) 8 U/L (3-41) 5 U/L (3-41) Alkaline Phosphatase 47 U/L (40-129) 50 U/L (40-129) Total Creatine Kinase 34 U/L (38-174) L Creatine Kinase MB < 1.5 ng/mL (< 6.7) Creatine Kinase MB Relative Index 4.4 Troponin I < 0.30 ng/mL (<=0.30) Total Protein 6.6 g/dL (6.6-8.7) 6.1 g/dL (6.6-8.7) L Albumin 3.6 g/dL (3.5-5.2) 3.0 g/dL (3.5-5.2) L Globulin 3.0 g/dL 3.1 g/dL Albumin/Globulin Ratio 1.2 (1.0-2.7) 0.9 (1.0-2.7) L Differential Total Cells Counted 100 Neutrophils % (Manual) 79 % (45-75) H Lymphocytes % (Manual) 13 % (20-45) L Monocytes % (Manual) 6 % (1-10) Eosinophils % (Manual) 0 % (0-3) Basophils % (Manual) 0 % (0-2) Band Neutrophils 2 % (0-8) Platelet Estimate Adequate Platelet Morphology Normal Hypochromasia 1+ Anisocytosis 1+ Microcytosis 1+ Ovalocytes Occasional Current Medications Medications (Trade) Dose Ordered Sig/Yanelis Route PRN Reason Start Time Stop Time Status Last Admin Dose Admin Acetaminophen (Tylenol) 650 mg Q4H PRN ORAL fever 08/05/16 20:30 09/04/16 20:29 Albuterol/ Ipratropium (DuoNeb 0.5-3(2.5)mg/3ml) 3 ml EVERY 4 HOURS PRN HHN Shortness of Breath 08/05/16 20:30 08/10/16 20:29 Amantadine HCl (Symmetrel) 100 mg Q8HR ORAL 08/06/16 06:00 09/05/16 05:59 08/06/16 14:00 Aztreonam 1 gm/ Sodium Chloride 55 ml @ 110 mls/hr EVERY 8 HOURS IVPB 08/06/16 02:00 08/13/16 01:59 08/06/16 02:37 Divalproex Sodium (Depakote) 250 mg Q8HR ORAL 08/05/16 22:00 09/04/16 21:59 08/06/16 14:49 Gabapentin (Neurontin) 400 mg DAILY ORAL 08/06/16 09:00 09/05/16 08:59 08/06/16 09:07 Heparin Sodium (Porcine) (Heparin 5000 units/ml) 5,000 units EVERY 12 HOURS SUBQ 08/05/16 22:00 09/04/16 21:59 08/06/16 09:07 Levetiracetam (Keppra) 500 mg Q12HR ORAL 08/05/16 22:00 09/04/16 21:59 08/06/16 09:07 Levofloxacin (Levaquin) 100 ml @ 100 mls/hr Q24H IVPB 08/06/16 20:00 08/13/16 19:59 Lorazepam (Ativan 2mg/ml 1ml) 1 mg Q4H PRN IM For Anxiety 08/06/16 10:00 08/13/16 09:59 08/06/16 10:19 Morphine Sulfate (Morphine Sulfate) 2 mg EVERY 4 HOURS PRN IVP Moderate Pain (Pain Scale 4-6) 08/05/16 20:30 08/12/16 20:29 08/05/16 22:43 Nitroglycerin 0.4 mg 0.4 mg Q5M PRN SL Prn Chest Pain 08/05/16 20:30 09/04/16 20:29 Ondansetron HCl (Zofran) 4 mg Q6H PRN IVP Nausea & Vomiting 08/05/16 20:30 09/04/16 20:29 Polyethylene Glycol (Miralax) 17 gm DAILYPRN PRN ORAL Constipation 08/05/16 20:30 09/04/16 20:29 Risperidone (RisperDAL) 2 mg QHS ORAL 08/05/16 22:00 09/04/16 21:59 08/05/16 22:43 Temazepam (Restoril) 15 mg HSPRN PRN ORAL Insomnia 08/05/16 20:30 08/12/16 20:29 08/06/16 01:10 Vancomycin HCl (Vanco rx to dose) 1 ea DAILY PRN MISC . 08/05/16 22:00 09/04/16 21:59 Vancomycin HCl 1 gm/Dextrose 275 ml @ 183.3 mls/ hr Q12HR@0000,1200 IVPB 08/06/16 00:00 08/11/16 00:00 08/06/16 00:26 Caril Saleem M.D. Aug 06, 2016 16:52
--- NOTE | 2016-08-06 19:29 | History and Physical Report ---
DATE OF ADMISSION: 08/05/2016 HISTORY OF PRESENT ILLNESS: The patient is a very poor historian, cannot obtain any history from the patient. The patient comes to the emergency room with a fever of 102, with sepsis, unknown source of infection. I cannot obtain any history from the patient. The patient is very demented. PAST MEDICAL HISTORY: Advanced dementia, history of seizure disorder, history of anxiety and psychosis, and GERD. PAST SURGICAL HISTORY: Denies. ALLERGIES: Aspirin and penicillin. MEDICATIONS: Amantadine, albuterol, gabapentin, Keppra, lorazepam, multivitamin, and Risperdal. FAMILY HISTORY: Unable to obtain. SOCIAL HISTORY: Unable to obtain. REVIEW OF SYSTEMS: Unable to obtain, very poor historian. PHYSICAL EXAMINATION: VITAL SIGNS: Temperature is 99.4 degrees, pulse 98, and blood pressure 129/65. HEENT: PERRLA. NECK: Supple. No lymphadenopathy. CHEST: Clear to auscultation. CARDIOVASCULAR: Regular rate and rhythm. No murmur. GASTROINTESTINAL: Soft, nontender and nondistended. No organomegaly. EXTREMITIES: No edema. NEUROLOGIC: He is at baseline. LABORATORY DATA: WBC 17.8, hemoglobin 13.6, and platelets 208,000. Sodium 135, potassium 4.3, BUN 16, and creatinine 1. ASSESSMENT: 1. Dehydration. 2. Severe sepsis. 3. Leukocytosis. PLAN: I have asked Dr. Marie and Dr. Saleem to see the patient for the above-mentioned diagnoses and treatment. I have also asked Infectious Diseases ____ pneumonia. Bernardino Dallas M.D. DR: KWASI JOB#: [id number] CC:
[2016-08-06 20:24] VITALS: BP 100/60
[2016-08-06] MEDS ORDERED: Levofloxacin 500mg tab ORAL SCH (21:00)
[2016-08-06] MEDS: Clindamycin 150mg cap ORAL SCH (21:30)
--- NOTE | 2016-08-06 22:19 | Consultation ---
DATE OF CONSULTATION: 08/05/2016 INFECTIOUS DISEASE CONSULTATION REASON FOR CONSULTATION: Seizure, UTI, possible sepsis, and recommendation for antibiotics therapy. REQUESTING PHYSICIAN: Bernardino Dallas M.D. HISTORY OF PRESENT ILLNESS: The patient is a 56-year-old male, well known to us from his previous admission when he had the multifocal pneumonia and discharged recently from the hospital a couple of weeks ago, was sent from the convalescent home yesterday for temperature of a 100.8. It is unclear whether he had a cough or shortness of breath at the convalescent home. No nausea or vomiting. No hematuria. The patient is a poor historian, cannot provide any history. History was mainly obtained from the medical record. In the emergency room, his temperature was found to be 100.8, and here he was saturating 97% on room air. Labs revealed leukocytosis and evidence of urinary tract infection. The patient was started on antibiotics and admitted to the hospital and I was consulted by the primary provider for antibiotics recommendation and further management. PAST MEDICAL HISTORY: Significant for COPD, dementia, Parkinson disease, seizure, and epilepsy. PAST SURGICAL HISTORY: Unknown. SOCIAL HISTORY: The patient lives in [facility]. No recent drugs, tobacco, or alcohol. ALLERGIES: He is allergic to amoxicillin, aspirin, and penicillin. MEDICATIONS: Currently, he is on levofloxacin, aztreonam, and vancomycin. REVIEW OF SYSTEMS: Unable to obtain. The patient is demented, cannot provide any history. PHYSICAL EXAMINATION: VITAL SIGNS: Temperature 98.6, pulse 106, respirations 20, blood pressure 122/60, and saturation 98% on room air. GENERAL: A middle-aged male, demented, cachectic, lying in bed, alert, not in any distress, and not agitated. HEENT: Normocephalic and atraumatic. Pupils are reactive to light. Pale sclera. Dry oral mucosa. No exudate. NECK: Supple. No lymphadenopathy. CARDIOVASCULAR: He is tachycardic. S1 and S2 positive. No murmur. No gallop. LUNGS: He has diminished breathing sound at the bases with crackles. No wheezing. No rhonchi. ABDOMEN: Soft, nontender, and nondistended. Positive bowel sounds. No hepatosplenomegaly. EXTREMITIES: No edema. No cyanosis. LABORATORY DATA: Labs today showed white count of 18.8, hemoglobin of 11.5, and platelet count of 185,000. BUN of 12 and creatinine of 0.8. Urinalysis showed +3 leukocyte esterase, WBC too numerous to count, and many bacteria. Microbiology, urine culture showed gram-negative bacillus. IMAGING DATA: Chest x-ray on 08/05/2016 showed no acute process improvement of previously demonstrated right upper lobe infiltrate. ASSESSMENT AND PLAN: 1. Sepsis, suspect due to urinary tract infection versus pneumonia. The patient is already on vancomycin, aztreonam, and levofloxacin. We will continue current coverage until further culture is obtained. We will monitor WBC. 2. Possible pneumonia. We will continue wide-spectrum antibiotics therapy and sent sputum culture. Pulmonary is following. 3. Urinary tract infection, gram-negative rods. He is already on aztreonam and levofloxacin. Await final identification and sensitivity. 4. Fever due to the above. We will continue wide-spectrum antibiotics. Await cultures. 5. Cachexia. Recommend dietary consultation and swallow evaluation to rule out aspiration. 6. Seizure disorder, stable. We will continue seizure medications. Consult Neurology. Carli Saleem M.D. DR: ANJANA JOB#: [id number] CC: BRANDEE
[2016-08-07] VITALS: BP 116/96
[2016-08-07 04:00] VITALS: BP 116/84
[2016-08-07] MEDS: Clindamycin 150mg cap ORAL SCH ×3 (05:26→21:46)
[2016-08-07] MEDS: Amantadine 100mg cap ORAL SCH ×3 (05:27→21:47)
[2016-08-07 07:39] LABS: ANION GAP 19 (5-15); CARBON DIOXIDE 24 mEQ/L (20-30); CHLORIDE 95 mEQ/L (98-107); CREATININE 0.9 mg/dL (0.7-1.2); GLOMERULAR FILTRATION RATE > 60 mL/min (>60); HEMOLYSIS 3; POTASSIUM 3.7 mEQ/L (3.4-4.9); SODIUM 138 mEQ/L (135-145)
[2016-08-07 07:45] LABS: BASOPHILS % (AUTO) 0.3 % (0.0-2.0); EOSINOPHILS % (AUTO) 0.8 % (0.0-3.0); LYMPHOCYTES % (AUTO) 9.1 % (20.0-45.0); MEAN CORPUSCULAR HEMOGLOBIN 23.4 PG (27.0-31.0); MEAN CORPUSCULAR HGB CONC 32.2 G/DL (32.0-36.0); MEAN CORPUSCULAR VOLUME 73 FL (80-99); MEAN PLATELET VOLUME 6.1 FL (6.5-10.1); MONOCYTES % (AUTO) 8.3 % (1.0-10.0); NEUTROPHILS % (AUTO) 81.4 % (45.0-75.0); PLATELET COUNT 210 K/UL (150-450); RED BLOOD COUNT 5.64 M/UL (4.70-6.10); RED CELL DISTRIBUTION WIDTH 15.3 % (11.6-14.8)
[2016-08-07 07:49] VITALS: BP 178/63
[2016-08-07] MEDS: LORazepam Inj 2mg/ml 1ml IM PRN (08:09)
[2016-08-07] MEDS: Heparin 5000 units/ml inj SUBQ SCH ×2 (08:09→21:51)
[2016-08-07 11:37] VITALS: BP 112/72
--- NOTE | 2016-08-07 12:19 | Pulmonology Progress Note ---
Assessment/Plan Assessment/Plan ASSESSMENT sepsis UTI dehydration dementia seizure disorder Parkinson disease COPD PLAN OF CARE MS floor s/p IVF monitor renal parameters, lytes-stable antibiotics, urine cx + Serratia, blood cx preliminary negative ID follows seizure precautions continue Keppra and Depakote O2, HHN prn bowel regimen DVT prophylaxis continue Amantadine case discussed and evaluated by supervising physician Subjective Allergies: Coded Allergies: AMOXICILLIN (Verified Allergy, Unknown, 02/21/13) OBTAINED FROM MEDICAL RECORD ASPIRIN (Verified Allergy, Unknown, 02/21/13) OBTAINED FROM MEDICAL RECORD PENICILLINS (Unverified Allergy, Unknown, 12/06/14) Subjective leukocytosis trending down,afebrile no signs of respiratory distress on RA, pulse oximetry stable Objective Last 24 Hour Vital Signs Date Time Temp Pulse Resp B/P Pulse Ox O2 Delivery O2 Flow Rate FiO2 08/07/16 11:37 98.0 117 20 112/72 99 Room Air 08/07/16 09:06 98.4 08/07/16 07:49 98.4 110 20 178/63 98 Room Air 08/07/16 07:30 110 20 Room Air 21 08/07/16 04:00 97.9 111 19 116/84 96 Room Air 08/07/16 00:00 98.8 110 22 116/96 97 Room Air 08/06/16 20:24 98.9 98 20 100/60 100 Room Air 08/06/16 18:45 89 18 Room Air 08/06/16 16:00 98.0 101 20 120/60 100 Room Air 08/06/16 12:55 98.6 106 20 122/60 98 Room Air 106 Intake and Output 08/06/16 08/07/16 19:00 07:00 Intake Total 120 ml 480 ml Output Total 200 ml 4700 ml Balance -80 ml -4220 ml Intake Oral 120 ml 480 ml Output Urine Total 200 ml 4700 ml # Bowel Movements 5 Objective General Appearance: no apparent distress, alert, confused Lines, tubes and drains: peripheral HEENT: normocephalic, atraumatic, anicteric, mucous membranes moist, PERRL Neck: non-tender, supple Respiratory/Chest: chest wall non-tender, lungs clear, no respiratory distress , no accessory muscle use Cardiovascular/Chest: normal peripheral pulses, normal rate, regular rhythm, no JVD Abdomen: normal bowel sounds, non tender, soft Extremities: no calf tenderness, normal capillary refill, no edema Neurologic: alert, responsive Musculoskeletal: atrophy BLE Microbiology Date/Time Source Procedure Growth Status 08/05/16 18:15 Blood Blood Culture - Preliminary NO GROWTH AFTER 24 HOURS Resulted 08/05/16 18:00 Blood Blood Culture - Preliminary NO GROWTH AFTER 24 HOURS Resulted 08/05/16 21:00 Nasal Nares MRSA Culture - Final Staphylococcus Aureus - Mrsa Complete 08/05/16 18:22 Urine,Clean Catch Urine Culture - Final Serratia Marcescens Complete 08/05/16 21:00 Rectum VRE Culture - Final Enterococcus Faecium - Vre Complete Laboratory Tests 08/07/16 05:20: White Blood Count 15.0H, Red Blood Count 5.64, Hemoglobin 13.2L, Hematocrit 41.1L, Mean Corpuscular Volume 73L, Mean Corpuscular Hemoglobin 23.4L, Mean Corpuscular Hemoglobin Concent 32.2, Red Cell Distribution Width 15.3H, Platelet Count 210, Mean Platelet Volume 6.1L, Neutrophils (%) (Auto) 81.4H, Lymphocytes (%) (Auto) 9.1L, Monocytes (%) (Auto) 8.3, Eosinophils (%) (Auto) 0.8, Basophils (%) (Auto) 0.3, Sodium Level 138, Potassium Level 3.7, Chloride Level 95L, Carbon Dioxide Level 24, Anion Gap 19H, Blood Urea Nitrogen 12, Creatinine 0.9, Estimat Glomerular Filtration Rate > 60, Glucose Level 94, Calcium Level 9.0 Current Medications Medications (Trade) Dose Ordered Sig/Yanelis Route PRN Reason Start Time Stop Time Status Last Admin Dose Admin Acetaminophen (Tylenol) 650 mg Q4H PRN ORAL fever 08/05/16 20:30 09/04/16 20:29 Albuterol/ Ipratropium (DuoNeb 0.5-3(2.5)mg/3ml) 3 ml EVERY 4 HOURS PRN HHN Shortness of Breath 08/05/16 20:30 08/10/16 20:29 Amantadine HCl (Symmetrel) 100 mg Q8HR ORAL 08/06/16 06:00 09/05/16 05:59 08/07/16 05:27 Clindamycin HCl (Cleocin) 450 mg Q8HR ORAL 08/06/16 22:00 08/13/16 21:59 08/07/16 05:26 Divalproex Sodium (Depakote) 250 mg Q8HR ORAL 08/05/16 22:00 09/04/16 21:59 08/07/16 05:26 Gabapentin (Neurontin) 400 mg DAILY ORAL 08/06/16 09:00 09/05/16 08:59 08/07/16 08:07 Heparin Sodium (Porcine) (Heparin 5000 units/ml) 5,000 units EVERY 12 HOURS SUBQ 08/05/16 22:00 09/04/16 21:59 08/07/16 08:09 Levetiracetam (Keppra) 500 mg Q12HR ORAL 08/05/16 22:00 09/04/16 21:59 08/07/16 08:07 Levofloxacin (Levaquin) 500 mg QHS ORAL 08/06/16 21:00 08/13/16 20:59 08/06/16 21:25 Lorazepam (Ativan 2mg/ml 1ml) 1 mg Q4H PRN IM For Anxiety 08/06/16 10:00 08/13/16 09:59 08/07/16 08:09 Morphine Sulfate (Morphine Sulfate) 2 mg EVERY 4 HOURS PRN IVP Moderate Pain (Pain Scale 4-6) 08/05/16 20:30 08/12/16 20:29 08/05/16 22:43 Nitroglycerin (Ntg) 0.4 mg Q5M PRN SL Prn Chest Pain 08/05/16 20:30 09/04/16 20:29 Ondansetron HCl (Zofran) 4 mg Q6H PRN IVP Nausea & Vomiting 08/05/16 20:30 09/04/16 20:29 Polyethylene Glycol (Miralax) 17 gm DAILYPRN PRN ORAL Constipation 08/05/16 20:30 09/04/16 20:29 Risperidone (RisperDAL) 2 mg QHS ORAL 08/05/16 22:00 09/04/16 21:59 08/06/16 21:25 Temazepam (Restoril) 15 mg HSPRN PRN ORAL Insomnia 08/05/16 20:30 08/12/16 20:29 08/06/16 23:36 Soraida Merchant NP (Vanchtein) Aug 07, 2016 12:19
--- NOTE | 2016-08-07 14:13 | General Progress Note ---
Assessment/Plan Problem List: (1) Failure to thrive ICD Codes: R62.51 - Failure to thrive SNOMED: 57453045 (2) Fever ICD Codes: R50.9 - Fever, unspecified SNOMED: 178854179 Qualifiers: Qualified Codes: R50.9 - Fever, unspecified (3) Cachexia ICD Codes: R64 - Cachexia SNOMED: 346107492 (4) Dehydration ICD Codes: E86.0 - Dehydration SNOMED: 27307968 (5) Psychiatric disorder ICD Codes: F99 - Psychiatric disorder SNOMED: 79269343 (6) Parkinson disease ICD Codes: G20 - Parkinson's disease SNOMED: 95658793 (7) BPH (benign prostatic hyperplasia) ICD Codes: N40.0 - Benign prostatic hyperplasia without lower urinary tract symptoms SNOMED: 762699918, 665419259 (8) UTI (urinary tract infection) ICD Codes: N39.0 - Urinary tract infection, site not specified SNOMED: 34412579 (9) Gastric wall thickening ICD Codes: K31.89 - Gastric wall thickening SNOMED: 31420076 Status: progressing Assessment/Plan no fever today reviewed chart and labs abx per id await culture results Subjective ROS Limited/Unobtainable: Yes Constitutional: Reports: no symptoms HEENT: Reports: no symptoms Allergies: Coded Allergies: AMOXICILLIN (Verified Allergy, Unknown, 02/21/13) OBTAINED FROM MEDICAL RECORD ASPIRIN (Verified Allergy, Unknown, 02/21/13) OBTAINED FROM MEDICAL RECORD PENICILLINS (Unverified Allergy, Unknown, 12/06/14) Objective Last 24 Hour Vital Signs Date Time Temp Pulse Resp B/P Pulse Ox O2 Delivery O2 Flow Rate FiO2 08/07/16 11:37 98.0 117 20 112/72 99 Room Air 08/07/16 09:06 98.4 08/07/16 07:49 98.4 110 20 178/63 98 Room Air 08/07/16 07:30 110 20 Room Air 21 08/07/16 04:00 97.9 111 19 116/84 96 Room Air 08/07/16 00:00 98.8 110 22 116/96 97 Room Air 08/06/16 20:24 98.9 98 20 100/60 100 Room Air 08/06/16 18:45 89 18 Room Air 08/06/16 16:00 98.0 101 20 120/60 100 Room Air Intake and Output 08/06/16 08/07/16 19:00 07:00 Intake Total 120 ml 480 ml Output Total 200 ml 4700 ml Balance -80 ml -4220 ml Intake Oral 120 ml 480 ml Output Urine Total 200 ml 4700 ml # Bowel Movements 5 Laboratory Tests 08/07/16 05:20: White Blood Count 15.0H, Red Blood Count 5.64, Hemoglobin 13.2L, Hematocrit 41.1L, Mean Corpuscular Volume 73L, Mean Corpuscular Hemoglobin 23.4L, Mean Corpuscular Hemoglobin Concent 32.2, Red Cell Distribution Width 15.3H, Platelet Count 210, Mean Platelet Volume 6.1L, Neutrophils (%) (Auto) 81.4H, Lymphocytes (%) (Auto) 9.1L, Monocytes (%) (Auto) 8.3, Eosinophils (%) (Auto) 0.8, Basophils (%) (Auto) 0.3, Sodium Level 138, Potassium Level 3.7, Chloride Level 95L, Carbon Dioxide Level 24, Anion Gap 19H, Blood Urea Nitrogen 12, Creatinine 0.9, Estimat Glomerular Filtration Rate > 60, Glucose Level 94, Calcium Level 9.0 Height (Feet): 5 Height (Inches): 9.00 Weight (Pounds): 160 EENT: PERRL/EOMI Neck: supple Cardiovascular: normal rate Respiratory/Chest: lungs clear Abdomen: soft Bernardino Dallas MD Aug 07, 2016 14:13
[2016-08-07] MEDS ORDERED: NS 275ml ONE (14:14)
[2016-08-07] MEDS ORDERED: NS Irrig 1000ml ONE (14:14)
[2016-08-07] MEDS ORDERED: Tubing IV Secondary IV ONE (14:14)
--- NOTE | 2016-08-07 15:25 | Infectious Diseases Prog Note ---
Assessment/Plan Problems: (1) Sepsis Assessment & Plan: continue wide spectrum antibiotics, to cover for possible pneumonia too, await culture results. (2) UTI (urinary tract infection) Assessment & Plan: due to serratia marcescens , sensitive to Bactrim and resistant to quinolone , so will switch to Bactrim for 7 days . (3) Cachexia Assessment & Plan: recommend dietary consult (4) Fever Assessment & Plan: due to the above, improving, continue wide spectrum antibiotics, await culture (5) Seizure disorder Assessment & Plan: continue seizure meds, consult neurology (6) MRSA nasal colonization Assessment & Plan: will start Bactroban to decolonize him (7) Colonization with VRE (vancomycin-resistant enterococcus) Assessment & Plan: keep in contact for now Subjective ROS Limited/Unobtainable: Yes Allergies: Coded Allergies: AMOXICILLIN (Verified Allergy, Unknown, 02/21/13) OBTAINED FROM MEDICAL RECORD ASPIRIN (Verified Allergy, Unknown, 02/21/13) OBTAINED FROM MEDICAL RECORD PENICILLINS (Unverified Allergy, Unknown, 12/06/14) Subjective he is demented, up in bed, awake and alert, not agitated, comfortable. Objective Vital Signs Last 24 Hour Vital Signs Date Time Temp Pulse Resp B/P Pulse Ox O2 Delivery O2 Flow Rate FiO2 08/07/16 11:37 98.0 117 20 112/72 99 Room Air 08/07/16 09:06 98.4 08/07/16 07:49 98.4 110 20 178/63 98 Room Air 08/07/16 07:30 110 20 Room Air 21 08/07/16 04:00 97.9 111 19 116/84 96 Room Air 08/07/16 00:00 98.8 110 22 116/96 97 Room Air 08/06/16 20:24 98.9 98 20 100/60 100 Room Air 08/06/16 18:45 89 18 Room Air 08/06/16 16:00 98.0 101 20 120/60 100 Room Air Height (Feet): 5 Height (Inches): 9.00 Weight (Pounds): 160 General Appearance: WD/WN, no acute distress HEENT: normocephalic, atraumatic, anicteric, mucous membranes moist Respiratory/Chest: chest wall non-tender, lungs clear, normal breath sounds, no respiratory distress, no accessory muscle use Cardiovascular: normal peripheral pulses, normal rate, regular rhythm Abdomen: normal bowel sounds, soft, non tender, no organomegaly, non distended , no mass Extremities: no cyanosis, no clubbing Skin: no rash, no lesions Microbiology Date/Time Source Procedure Growth Status 08/05/16 18:15 Blood Blood Culture - Preliminary NO GROWTH AFTER 24 HOURS Resulted 08/05/16 18:00 Blood Blood Culture - Preliminary NO GROWTH AFTER 24 HOURS Resulted 08/05/16 21:00 Nasal Nares MRSA Culture - Final Staphylococcus Aureus - Mrsa Complete 08/05/16 18:22 Urine,Clean Catch Urine Culture - Final Serratia Marcescens Complete 08/05/16 21:00 Rectum VRE Culture - Final Enterococcus Faecium - Vre Complete Laboratory Tests Test 08/07/16 05:20 White Blood Count 15.0 K/UL (4.8-10.8) H Red Blood Count 5.64 M/UL (4.70-6.10) Hemoglobin 13.2 G/DL (14.2-18.0) L Hematocrit 41.1 % (42.0-52.0) L Mean Corpuscular Volume 73 FL (80-99) L Mean Corpuscular Hemoglobin 23.4 PG (27.0-31.0) L Mean Corpuscular Hemoglobin Concent 32.2 G/DL (32.0-36.0) Red Cell Distribution Width 15.3 % (11.6-14.8) H Platelet Count 210 K/UL (150-450) Mean Platelet Volume 6.1 FL (6.5-10.1) L Neutrophils (%) (Auto) 81.4 % (45.0-75.0) H Lymphocytes (%) (Auto) 9.1 % (20.0-45.0) L Monocytes (%) (Auto) 8.3 % (1.0-10.0) Eosinophils (%) (Auto) 0.8 % (0.0-3.0) Basophils (%) (Auto) 0.3 % (0.0-2.0) Sodium Level 138 mEQ/L (135-145) Potassium Level 3.7 mEQ/L (3.4-4.9) Chloride Level 95 mEQ/L (98-107) L Carbon Dioxide Level 24 mEQ/L (20-30) Anion Gap 19 (5-15) H Blood Urea Nitrogen 12 mg/dL (7-23) Creatinine 0.9 mg/dL (0.7-1.2) Estimat Glomerular Filtration Rate > 60 mL/min (>60) Glucose Level 94 mg/dL (74-106) Calcium Level 9.0 mg/dL (8.6-10.2) Current Medications Medications (Trade) Dose Ordered Sig/Yanelis Route PRN Reason Start Time Stop Time Status Last Admin Dose Admin Acetaminophen (Tylenol) 650 mg Q4H PRN ORAL fever 08/05/16 20:30 09/04/16 20:29 Albuterol/ Ipratropium (DuoNeb 0.5-3(2.5)mg/3ml) 3 ml EVERY 4 HOURS PRN HHN Shortness of Breath 08/05/16 20:30 08/10/16 20:29 Amantadine HCl (Symmetrel) 100 mg Q8HR ORAL 08/06/16 06:00 09/05/16 05:59 08/07/16 13:41 Clindamycin HCl (Cleocin) 450 mg Q8HR ORAL 08/06/16 22:00 08/13/16 21:59 08/07/16 13:41 Divalproex Sodium (Depakote) 250 mg Q8HR ORAL 08/05/16 22:00 09/04/16 21:59 08/07/16 13:41 Gabapentin (Neurontin) 400 mg DAILY ORAL 08/06/16 09:00 09/05/16 08:59 08/07/16 08:07 Heparin Sodium (Porcine) (Heparin 5000 units/ml) 5,000 units EVERY 12 HOURS SUBQ 08/05/16 22:00 09/04/16 21:59 08/07/16 08:09 Levetiracetam (Keppra) 500 mg Q12HR ORAL 08/05/16 22:00 09/04/16 21:59 08/07/16 08:07 Lorazepam (Ativan 2mg/ml 1ml) 1 mg Q4H PRN IM For Anxiety 08/06/16 10:00 08/13/16 09:59 08/07/16 08:09 Morphine Sulfate (Morphine Sulfate) 2 mg EVERY 4 HOURS PRN IVP Moderate Pain (Pain Scale 4-6) 08/05/16 20:30 08/12/16 20:29 08/05/16 22:43 Nitroglycerin (Ntg) 0.4 mg Q5M PRN SL Prn Chest Pain 08/05/16 20:30 09/04/16 20:29 Ondansetron HCl (Zofran) 4 mg Q6H PRN IVP Nausea & Vomiting 08/05/16 20:30 09/04/16 20:29 Polyethylene Glycol (Miralax) 17 gm DAILYPRN PRN ORAL Constipation 08/05/16 20:30 09/04/16 20:29 Risperidone (RisperDAL) 2 mg QHS ORAL 08/05/16 22:00 09/04/16 21:59 08/06/16 21:25 Temazepam (Restoril) 15 mg HSPRN PRN ORAL Insomnia 08/05/16 20:30 08/12/16 20:29 08/06/16 23:36 Trimethoprim/ Sulfamethoxazole (Bactrim-DS) 2 ea TWICE A DAY ORAL 08/07/16 18:00 08/14/16 17:59 Carli Saleem M.D. Aug 07, 2016 15:25
[2016-08-07 16:07] VITALS: BP 145/73
--- NOTE | 2016-08-07 16:58 | General Progress Note ---
Assessment/Plan Assessment/Plan ASSESSMENT: 1. Anemia 2/2 chronic disease, hgb > 10 2. Leukocytosis potentially 2/2 infection, is on abx 3. Thrombocytopenia, due to infection and sepsis. Has improved >200k 4. Bilateral pulmonary masses bilaterally, potential 2/2 pneumonia process. Has improved 5. Sepsis - being evaluated and treated by ID 6. Health care associated PNA - in prior, now improved RECS: 1. Monitor counts 2. Transfuse as needed 3. Antibiotics as needed 4. Transfuse to hgb goal >7 5. DVT ppx heparin sq 6. Followup on GI, ID, pulm recs 7. Ferritin has been ordered 8. D/W staff Thank you, Viji Montejo MD Subjective Constitutional: Reports: no symptoms HEENT: Reports: no symptoms Cardiovascular: Reports: no symptoms Gastrointestinal/Abdominal: Reports: no symptoms Genitourinary: Reports: no symptoms Neurologic/Psychiatric: Reports: no symptoms Endocrine: Reports: no symptoms Hematologic/Lymphatic: Reports: no symptoms Allergies: Coded Allergies: AMOXICILLIN (Verified Allergy, Unknown, 02/21/13) OBTAINED FROM MEDICAL RECORD ASPIRIN (Verified Allergy, Unknown, 02/21/13) OBTAINED FROM MEDICAL RECORD PENICILLINS (Unverified Allergy, Unknown, 12/06/14) Objective Last 24 Hour Vital Signs Date Time Temp Pulse Resp B/P Pulse Ox O2 Delivery O2 Flow Rate FiO2 08/07/16 16:07 98.6 105 20 145/73 98 Room Air 08/07/16 11:37 98.0 117 20 112/72 99 Room Air 08/07/16 09:06 98.4 08/07/16 07:49 98.4 110 20 178/63 98 Room Air 08/07/16 07:30 110 20 Room Air 21 08/07/16 04:00 97.9 111 19 116/84 96 Room Air 08/07/16 00:00 98.8 110 22 116/96 97 Room Air 08/06/16 20:24 98.9 98 20 100/60 100 Room Air 08/06/16 18:45 89 18 Room Air Intake and Output 08/06/16 08/07/16 19:00 07:00 Intake Total 120 ml 480 ml Output Total 200 ml 4700 ml Balance -80 ml -4220 ml Intake Oral 120 ml 480 ml Output Urine Total 200 ml 4700 ml # Bowel Movements 5 Laboratory Tests 08/07/16 05:20: White Blood Count 15.0H, Red Blood Count 5.64, Hemoglobin 13.2L, Hematocrit 41.1L, Mean Corpuscular Volume 73L, Mean Corpuscular Hemoglobin 23.4L, Mean Corpuscular Hemoglobin Concent 32.2, Red Cell Distribution Width 15.3H, Platelet Count 210, Mean Platelet Volume 6.1L, Neutrophils (%) (Auto) 81.4H, Lymphocytes (%) (Auto) 9.1L, Monocytes (%) (Auto) 8.3, Eosinophils (%) (Auto) 0.8, Basophils (%) (Auto) 0.3, Sodium Level 138, Potassium Level 3.7, Chloride Level 95L, Carbon Dioxide Level 24, Anion Gap 19H, Blood Urea Nitrogen 12, Creatinine 0.9, Estimat Glomerular Filtration Rate > 60, Glucose Level 94, Calcium Level 9.0 Height (Feet): 5 Height (Inches): 9.00 Weight (Pounds): 160 General Appearance: lethargic EENT: pharynx normal Neck: supple Cardiovascular: normal rate Respiratory/Chest: lungs clear Abdomen: soft Extremities: non-tender Edema: no edema noted Arm (L), no edema noted Arm (R), no edema noted Leg (L), no edema noted Leg (R), no edema noted Pedal (L), no edema noted Pedal (R), no edema noted Generalized Edema: mild edema Neurologic: alert Skin: warm/dry Lymphatic: normal anterior cervical (L), normal anterior cervical (R), normal axillary (L), normal axillary (R), normal inguinal (L), normal inguinal (R), normal other, normal posterior cervical (L), normal posterior cervical (R), normal submandibular (L), normal submandibular (R), normal supraclavicular (L), normal supraclavicular (R) VIJI MONTEJO Aug 07, 2016 16:58
[2016-08-07] MEDS: Bactrim DS (160mg/800mg) tab ORAL SCH (18:55)
[2016-08-07 20:19] VITALS: BP 120/47
[2016-08-08 00:49] VITALS: BP 119/78
[2016-08-08 04:14] VITALS: BP 111/73
[2016-08-08] MEDS: Clindamycin 150mg cap ORAL SCH ×3 (06:39→21:15)
[2016-08-08] MEDS: Amantadine 100mg cap ORAL SCH ×3 (06:41→21:16)
[2016-08-08 07:39] LABS: BASOPHILS % (AUTO) 1.3 % (0.0-2.0); EOSINOPHILS % (AUTO) 3.4 % (0.0-3.0); LYMPHOCYTES % (AUTO) 12.4 % (20.0-45.0); MEAN CORPUSCULAR HEMOGLOBIN 22.9 PG (27.0-31.0); MEAN CORPUSCULAR HGB CONC 31.5 G/DL (32.0-36.0); MEAN CORPUSCULAR VOLUME 72 FL (80-99); MEAN PLATELET VOLUME 6.7 FL (6.5-10.1); MONOCYTES % (AUTO) 11.6 % (1.0-10.0); NEUTROPHILS % (AUTO) 71.4 % (45.0-75.0); PLATELET COUNT 199 K/UL (150-450); RED BLOOD COUNT 5.52 M/UL (4.70-6.10)
[2016-08-08 07:49] LABS: ANION GAP 16 (5-15); CALCIUM 8.9 mg/dL (8.6-10.2); CARBON DIOXIDE 27 mEQ/L (20-30); CHLORIDE 93 mEQ/L (98-107); CREATININE 0.9 mg/dL (0.7-1.2); GLOMERULAR FILTRATION RATE > 60 mL/min (>60); HEMOLYSIS 6; POTASSIUM 4.1 mEQ/L (3.4-4.9); SODIUM 136 mEQ/L (135-145)
[2016-08-08 08:00] VITALS: BP 112/86
[2016-08-08] MEDS: Bactrim DS (160mg/800mg) tab ORAL SCH ×2 (08:18→18:01)
[2016-08-08] MEDS: Heparin 5000 units/ml inj SUBQ SCH ×3 (08:20→21:00)
--- NOTE | 2016-08-08 10:36 | Infectious Diseases Prog Note ---
Assessment/Plan Problems: (1) Sepsis Assessment & Plan: on clindamycin and bactrim , to cover for possible pneumonia too, he is not a candidate for iv antibiotics treatment , await culture results. (2) UTI (urinary tract infection) Assessment & Plan: due to serratia marcescens , sensitive to Bactrim and resistant to quinolone , continue Bactrim for 7 days . (3) Cachexia Assessment & Plan: recommend dietary consult (4) Fever Assessment & Plan: due to the above, improving, continue wide spectrum antibiotics, await culture (5) Seizure disorder Assessment & Plan: continue seizure meds, consult neurology (6) MRSA nasal colonization Assessment & Plan: will start Bactroban to decolonize him (7) Colonization with VRE (vancomycin-resistant enterococcus) Assessment & Plan: keep in contact for now Subjective ROS Limited/Unobtainable: Yes Allergies: Coded Allergies: AMOXICILLIN (Verified Allergy, Unknown, 02/21/13) OBTAINED FROM MEDICAL RECORD ASPIRIN (Verified Allergy, Unknown, 02/21/13) OBTAINED FROM MEDICAL RECORD PENICILLINS (Unverified Allergy, Unknown, 12/06/14) Subjective he is demented, up in bed, awake and alert, not agitated, comfortable. Objective Vital Signs Last 24 Hour Vital Signs Date Time Temp Pulse Resp B/P Pulse Ox O2 Delivery O2 Flow Rate FiO2 08/08/16 09:17 97.3 08/08/16 04:14 97.3 98 17 111/73 98 Room Air 08/08/16 00:49 97.5 16 119/78 96 Room Air 08/07/16 20:19 98.5 20 120/47 94 Room Air 08/07/16 19:59 100 20 Room Air 21 08/07/16 16:07 98.6 105 20 145/73 98 Room Air 08/07/16 11:37 98.0 117 20 112/72 99 Room Air Height (Feet): 5 Height (Inches): 9.00 Weight (Pounds): 160 General Appearance: WD/WN, no acute distress HEENT: normocephalic, atraumatic, anicteric, mucous membranes moist Respiratory/Chest: chest wall non-tender, lungs clear, normal breath sounds, no respiratory distress Cardiovascular: normal peripheral pulses, normal rate, regular rhythm, no gallop/murmur, no JVD Abdomen: normal bowel sounds, soft, non tender, no organomegaly, non distended , no mass, no scars Extremities: no cyanosis, no clubbing Skin: no rash Microbiology Date/Time Source Procedure Growth Status 08/05/16 18:15 Blood Blood Culture - Preliminary NO GROWTH AFTER 48 HOURS Resulted 08/05/16 18:00 Blood Blood Culture - Preliminary NO GROWTH AFTER 48 HOURS Resulted 08/05/16 21:00 Nasal Nares MRSA Culture - Final Staphylococcus Aureus - Mrsa Complete 08/05/16 18:22 Urine,Clean Catch Urine Culture - Final Serratia Marcescens Complete 08/05/16 21:00 Rectum VRE Culture - Final Enterococcus Faecium - Vre Complete Laboratory Tests Test 08/08/16 05:20 White Blood Count 7.0 K/UL (4.8-10.8) # Red Blood Count 5.52 M/UL (4.70-6.10) Hemoglobin 12.6 G/DL (14.2-18.0) L Hematocrit 40.0 % (42.0-52.0) L Mean Corpuscular Volume 72 FL (80-99) L Mean Corpuscular Hemoglobin 22.9 PG (27.0-31.0) L Mean Corpuscular Hemoglobin Concent 31.5 G/DL (32.0-36.0) L Red Cell Distribution Width 15.0 % (11.6-14.8) H Platelet Count 199 K/UL (150-450) Mean Platelet Volume 6.7 FL (6.5-10.1) Neutrophils (%) (Auto) 71.4 % (45.0-75.0) Lymphocytes (%) (Auto) 12.4 % (20.0-45.0) L Monocytes (%) (Auto) 11.6 % (1.0-10.0) H Eosinophils (%) (Auto) 3.4 % (0.0-3.0) H Basophils (%) (Auto) 1.3 % (0.0-2.0) Sodium Level 136 mEQ/L (135-145) Potassium Level 4.1 mEQ/L (3.4-4.9) Chloride Level 93 mEQ/L (98-107) L Carbon Dioxide Level 27 mEQ/L (20-30) Anion Gap 16 (5-15) H Blood Urea Nitrogen 10 mg/dL (7-23) Creatinine 0.9 mg/dL (0.7-1.2) Estimat Glomerular Filtration Rate > 60 mL/min (>60) Glucose Level 72 mg/dL (74-106) L Calcium Level 8.9 mg/dL (8.6-10.2) Current Medications Medications (Trade) Dose Ordered Sig/Yanelis Route PRN Reason Start Time Stop Time Status Last Admin Dose Admin Acetaminophen (Tylenol) 650 mg Q4H PRN ORAL fever 08/05/16 20:30 09/04/16 20:29 Albuterol/ Ipratropium (DuoNeb 0.5-3(2.5)mg/3ml) 3 ml EVERY 4 HOURS PRN HHN Shortness of Breath 08/05/16 20:30 08/10/16 20:29 Amantadine HCl (Symmetrel) 100 mg Q8HR ORAL 08/06/16 06:00 09/05/16 05:59 08/08/16 06:41 Clindamycin HCl (Cleocin) 450 mg Q8HR ORAL 08/06/16 22:00 08/13/16 21:59 08/08/16 06:39 Divalproex Sodium (Depakote) 250 mg Q8HR ORAL 08/05/16 22:00 09/04/16 21:59 08/08/16 06:37 Gabapentin (Neurontin) 400 mg DAILY ORAL 08/06/16 09:00 09/05/16 08:59 08/08/16 08:18 Heparin Sodium (Porcine) (Heparin 5000 units/ml) 5,000 units EVERY 12 HOURS SUBQ 08/05/16 22:00 09/04/16 21:59 08/07/16 21:51 Levetiracetam (Keppra) 500 mg Q12HR ORAL 08/05/16 22:00 09/04/16 21:59 08/08/16 08:18 Lorazepam (Ativan 2mg/ml 1ml) 1 mg Q4H PRN IM For Anxiety 08/06/16 10:00 08/13/16 09:59 08/07/16 08:09 Morphine Sulfate (Morphine Sulfate) 2 mg EVERY 4 HOURS PRN IVP Moderate Pain (Pain Scale 4-6) 08/05/16 20:30 08/12/16 20:29 08/05/16 22:43 Mupirocin (Bactroban Oint) 1 applic THREE TIMES A DAY TOPIC 08/07/16 18:00 08/12/16 17:59 08/08/16 08:19 Nitroglycerin (Ntg) 0.4 mg Q5M PRN SL Prn Chest Pain 08/05/16 20:30 09/04/16 20:29 Ondansetron HCl (Zofran) 4 mg Q6H PRN IVP Nausea & Vomiting 08/05/16 20:30 09/04/16 20:29 Polyethylene Glycol (Miralax) 17 gm DAILYPRN PRN ORAL Constipation 08/05/16 20:30 09/04/16 20:29 Risperidone (RisperDAL) 2 mg QHS ORAL 08/05/16 22:00 09/04/16 21:59 08/07/16 21:47 Temazepam (Restoril) 15 mg HSPRN PRN ORAL Insomnia 08/05/16 20:30 08/12/16 20:29 08/08/16 01:14 Trimethoprim/ Sulfamethoxazole (Bactrim-DS) 2 ea TWICE A DAY ORAL 08/07/16 18:00 08/14/16 17:59 08/08/16 08:18 Carli Saleem M.D. Aug 08, 2016 10:36
[2016-08-08 12:00] VITALS: BP 128/76
--- NOTE | 2016-08-08 13:49 | General Progress Note ---
Assessment/Plan Assessment/Plan ASSESSMENT: 1. Anemia 2/2 chronic disease, hgb > 10, has improved markedly 2. Leukocytosis potentially 2/2 infection, is on abx 3. Thrombocytopenia, due to infection and sepsis. Has improved >200k 4. Bilateral pulmonary masses bilaterally, potential 2/2 pneumonia process. Has improved 5. Sepsis - being evaluated and treated by ID 6. Health care associated PNA - in prior, now improved RECS: 1. Monitor counts 2. Transfuse as needed 3. Antibiotics as needed 4. Transfuse to hgb goal >7 5. DVT ppx heparin sq 6. Followup on GI, ID, pulm recs 7. Ferritin has been ordered 8. D/W staff Thank you, Farzad Montejo MD Subjective Constitutional: Reports: no symptoms HEENT: Reports: no symptoms Cardiovascular: Reports: no symptoms Respiratory: Reports: no symptoms Gastrointestinal/Abdominal: Reports: no symptoms Genitourinary: Reports: no symptoms Neurologic/Psychiatric: Reports: no symptoms Endocrine: Reports: no symptoms Hematologic/Lymphatic: Reports: anemia Allergies: Coded Allergies: AMOXICILLIN (Verified Allergy, Unknown, 02/21/13) OBTAINED FROM MEDICAL RECORD ASPIRIN (Verified Allergy, Unknown, 02/21/13) OBTAINED FROM MEDICAL RECORD PENICILLINS (Unverified Allergy, Unknown, 12/06/14) Subjective stable, no events overnight, no f/c Objective Last 24 Hour Vital Signs Date Time Temp Pulse Resp B/P Pulse Ox O2 Delivery O2 Flow Rate FiO2 08/08/16 12:00 98.0 86 19 128/76 97 Room Air 08/08/16 09:17 97.3 08/08/16 08:00 97.8 88 18 112/86 98 Room Air 08/08/16 04:14 97.3 98 17 111/73 98 Room Air 08/08/16 00:49 97.5 16 119/78 96 Room Air 08/07/16 20:19 98.5 20 120/47 94 Room Air 08/07/16 19:59 100 20 Room Air 21 08/07/16 16:07 98.6 105 20 145/73 98 Room Air Intake and Output 08/07/16 08/08/16 19:00 07:00 Intake Total 720 ml 300 ml Output Total 600 ml 675 ml Balance 120 ml -375 ml Intake Oral 720 ml 300 ml Output Urine Total 600 ml 675 ml # Bowel Movements 2 Laboratory Tests 08/08/16 05:20: White Blood Count 7.0#, Red Blood Count 5.52, Hemoglobin 12.6L, Hematocrit 40.0L , Mean Corpuscular Volume 72L, Mean Corpuscular Hemoglobin 22.9L, Mean Corpuscular Hemoglobin Concent 31.5L, Red Cell Distribution Width 15.0H, Platelet Count 199, Mean Platelet Volume 6.7, Neutrophils (%) (Auto) 71.4, Lymphocytes (%) (Auto) 12.4L, Monocytes (%) (Auto) 11.6H, Eosinophils (%) (Auto ) 3.4H, Basophils (%) (Auto) 1.3, Sodium Level 136, Potassium Level 4.1, Chloride Level 93L, Carbon Dioxide Level 27, Anion Gap 16H, Blood Urea Nitrogen 10, Creatinine 0.9, Estimat Glomerular Filtration Rate > 60, Glucose Level 72L, Calcium Level 8.9 Height (Feet): 5 Height (Inches): 9.00 Weight (Pounds): 160 General Appearance: no apparent distress EENT: TMs normal Neck: supple Cardiovascular: regular rhythm Respiratory/Chest: normal breath sounds Abdomen: non tender Extremities: non-tender Edema: 1+ Leg (L), 1+ Leg (R) Neurologic: alert Skin: warm/dry Farzad Montejo Aug 08, 2016 13:49
--- NOTE | 2016-08-08 13:55 | Pulmonology Progress Note ---
Assessment/Plan Assessment/Plan ASSESSMENT sepsis UTI dehydration dementia seizure disorder Parkinson disease COPD PLAN OF CARE [place] floor s/p IVF monitor renal parameters, lytes-stable antibiotics, urine cx + Serratia, blood cx preliminary negative, leukocytosis resolved ID follows seizure precautions continue Keppra and Depakote O2, HHN prn bowel regimen DVT prophylaxis continue Amantadine dc plan for tomorrow case discussed and evaluated by supervising physician Subjective Allergies: Coded Allergies: AMOXICILLIN (Verified Allergy, Unknown, 02/21/13) OBTAINED FROM MEDICAL RECORD ASPIRIN (Verified Allergy, Unknown, 02/21/13) OBTAINED FROM MEDICAL RECORD PENICILLINS (Unverified Allergy, Unknown, 12/06/14) Subjective leukocytosis resolved,afebrile no signs of respiratory distress on RA, pulse oximetry stable Objective Last 24 Hour Vital Signs Date Time Temp Pulse Resp B/P Pulse Ox O2 Delivery O2 Flow Rate FiO2 08/08/16 12:00 98.0 86 19 128/76 97 Room Air 08/08/16 09:17 97.3 08/08/16 08:00 97.8 88 18 112/86 98 Room Air 08/08/16 04:14 97.3 98 17 111/73 98 Room Air 08/08/16 00:49 97.5 16 119/78 96 Room Air 08/07/16 20:19 98.5 20 120/47 94 Room Air 08/07/16 19:59 100 20 Room Air 21 08/07/16 16:07 98.6 105 20 145/73 98 Room Air Intake and Output 08/07/16 08/08/16 19:00 07:00 Intake Total 720 ml 300 ml Output Total 600 ml 675 ml Balance 120 ml -375 ml Intake Oral 720 ml 300 ml Output Urine Total 600 ml 675 ml # Bowel Movements 2 Objective General Appearance: no apparent distress, alert, confused Lines, tubes and drains: peripheral HEENT: normocephalic, atraumatic, anicteric, mucous membranes moist, PERRL Neck: non-tender, supple Respiratory/Chest: chest wall non-tender, lungs clear, no respiratory distress , no accessory muscle use Cardiovascular/Chest: normal peripheral pulses, normal rate, regular rhythm, no JVD Abdomen: normal bowel sounds, non tender, soft Extremities: no calf tenderness, normal capillary refill, no edema Neurologic: alert, responsive Musculoskeletal: atrophy BLE Microbiology Date/Time Source Procedure Growth Status 2/16/17 18:15 Blood Blood Culture - Preliminary NO GROWTH AFTER 48 HOURS Resulted 08/05/16 18:00 Blood Blood Culture - Preliminary NO GROWTH AFTER 48 HOURS Resulted 08/05/16 21:00 Nasal Nares MRSA Culture - Final Staphylococcus Aureus - Mrsa Complete 08/05/16 18:22 Urine,Clean Catch Urine Culture - Final Serratia Marcescens Complete 08/05/16 21:00 Rectum VRE Culture - Final Enterococcus Faecium - Vre Complete Laboratory Tests 08/08/16 05:20: White Blood Count 7.0#, Red Blood Count 5.52, Hemoglobin 12.6L, Hematocrit 40.0L , Mean Corpuscular Volume 72L, Mean Corpuscular Hemoglobin 22.9L, Mean Corpuscular Hemoglobin Concent 31.5L, Red Cell Distribution Width 15.0H, Platelet Count 199, Mean Platelet Volume 6.7, Neutrophils (%) (Auto) 71.4, Lymphocytes (%) (Auto) 12.4L, Monocytes (%) (Auto) 11.6H, Eosinophils (%) (Auto ) 3.4H, Basophils (%) (Auto) 1.3, Sodium Level 136, Potassium Level 4.1, Chloride Level 93L, Carbon Dioxide Level 27, Anion Gap 16H, Blood Urea Nitrogen 10, Creatinine 0.9, Estimat Glomerular Filtration Rate > 60, Glucose Level 72L, Calcium Level 8.9 Current Medications Medications (Trade) Dose Ordered Sig/Yanelis Route PRN Reason Start Time Stop Time Status Last Admin Dose Admin Acetaminophen (Tylenol) 650 mg Q4H PRN ORAL fever 08/05/16 20:30 09/04/16 20:29 Albuterol/ Ipratropium (DuoNeb 0.5-3(2.5)mg/3ml) 3 ml EVERY 4 HOURS PRN HHN Shortness of Breath 08/05/16 20:30 08/10/16 20:29 Amantadine HCl (Symmetrel) 100 mg Q8HR ORAL 08/06/16 06:00 09/05/16 05:59 08/08/16 12:26 Clindamycin HCl (Cleocin) 450 mg Q8HR ORAL 08/06/16 22:00 08/13/16 21:59 08/08/16 12:24 Divalproex Sodium (Depakote) 250 mg Q8HR ORAL 08/05/16 22:00 09/04/16 21:59 08/08/16 12:25 Gabapentin (Neurontin) 400 mg DAILY ORAL 08/06/16 09:00 09/05/16 08:59 08/08/16 08:18 Heparin Sodium (Porcine) (Heparin 5000 units/ml) 5,000 units EVERY 12 HOURS SUBQ 08/05/16 22:00 09/04/16 21:59 08/07/16 21:51 Levetiracetam (Keppra) 500 mg Q12HR ORAL 08/05/16 22:00 09/04/16 21:59 08/08/16 08:18 Lorazepam (Ativan 2mg/ml 1ml) 1 mg Q4H PRN IM For Anxiety 08/06/16 10:00 08/13/16 09:59 08/07/16 08:09 Morphine Sulfate (Morphine Sulfate) 2 mg EVERY 4 HOURS PRN IVP Moderate Pain (Pain Scale 4-6) 08/05/16 20:30 08/12/16 20:29 08/05/16 22:43 Mupirocin (Bactroban Oint) 1 applic THREE TIMES A DAY TOPIC 08/07/16 18:00 08/12/16 17:59 08/08/16 08:19 Nitroglycerin (Ntg) 0.4 mg Q5M PRN SL Prn Chest Pain 08/05/16 20:30 09/04/16 20:29 Ondansetron HCl (Zofran) 4 mg Q6H PRN IVP Nausea & Vomiting 08/05/16 20:30 09/04/16 20:29 Polyethylene Glycol (Miralax) 17 gm DAILYPRN PRN ORAL Constipation 08/05/16 20:30 09/04/16 20:29 Risperidone (RisperDAL) 2 mg QHS ORAL 08/05/16 22:00 09/04/16 21:59 08/07/16 21:47 Temazepam (Restoril) 15 mg HSPRN PRN ORAL Insomnia 08/05/16 20:30 08/12/16 20:29 08/08/16 01:14 Trimethoprim/ Sulfamethoxazole (Bactrim-DS) 2 ea TWICE A DAY ORAL 08/07/16 18:00 08/14/16 17:59 08/08/16 08:18 Mayur ([facility])Soraida NP Aug 08, 2016 13:55
[2016-08-08 16:42] VITALS: BP 114/73
[2016-08-08 20:12] VITALS: BP 111/79
[2016-08-09] VITALS: BP 105/68
--- NOTE | 2016-08-09 03:18 | Consultation ---
DATE OF CONSULTATION: 08/08/2016 UROLOGY CONSULTATION CONSULTING PHYSICIAN: Davi Valerio M.D. REQUESTING PHYSICIAN: Bernardino Dallas M.D. REASON FOR CONSULTATION: The patient is a 56-year-old male admitted with pneumonia and has urinary retention. The patient was found to have urinary tract infection and gross hematuria. The patient is currently comfortable. A Lu catheter was in place draining relatively clear urine. PAST MEDICAL HISTORY: The patient's other past medical history is significant for COPD, pneumonia, and urinary retention. MEDICATIONS: The patient's medications includes, 1. Acetaminophen. 2. Nebulizer. 3. Amantadine. 4. Clindamycin. 5. Gabapentin. 6. Heparin. 7. Keppra. 8. Lorazepam. 9. Morphine Sulfate. 10. . 11. Nitroglycerin. 12. Zofran. 13. MiraLAX. 14. Risperdal. 15. Restoril. 16. Bactrim. SOCIAL HISTORY: Noncontributory. REVIEW OF SYSTEMS: Noncontributory. PHYSICAL EXAMINATION: VITAL SIGNS: Current vital signs include temperature 98.0 and blood pressure 120/76. HEAD AND NECK: No palpable abnormalities. LUNGS: Shallow breath sounds. ABDOMEN: Soft and nontender. BACK: No CVA tenderness. GENITOURINARY: Lu catheter is in place, relatively clear urine, and he has testicles bilaterally descended without masses. RECTAL: Prostate mildly enlarged and without any nodules present. LABORATORY DATA: Laboratory values include white blood cell count 7.0, hemoglobin 12.6, and hematocrit 40.0. He has sodium 136, potassium 4.1, BUN of 10, and creatinine 0.9. ASSESSMENT: My assessment on this patient is that likely his gross hematuria was secondary to Lu catheter trauma or as a result of the urinary tract infection. This is now improved. RECOMMENDATIONS: My recommendation is to continue the Lu catheter. If at a future date there is reason to consider removal of the Lu catheter, this can be done as a voiding trial and I would recommend starting the patient on Flomax when this is done with the chance of the Lu catheter will need to be replaced. I will not consult further on this patient during his hospital stay. Please call the office if needed for any further Urology intervention during this hospital stay. Davi Valerio DR: BLUE JOB#: [id number] CC:
[2016-08-09 04:00] VITALS: BP 104/72
[2016-08-09] MEDS: Amantadine 100mg cap ORAL SCH ×3 (05:44→22:08)
[2016-08-09] MEDS: Clindamycin 150mg cap ORAL SCH ×3 (05:44→22:07)
[2016-08-09 08:00] VITALS: BP 109/76
[2016-08-09] MEDS: Bactrim DS (160mg/800mg) tab ORAL SCH ×2 (08:59→18:24)
[2016-08-09] MEDS: Heparin 5000 units/ml inj SUBQ SCH ×2 (09:06→22:09)
--- NOTE | 2016-08-09 11:36 | General Progress Note ---
Assessment/Plan Problem List: (1) Failure to thrive ICD Codes: R62.51 - Failure to thrive SNOMED: 32477749 (2) Fever ICD Codes: R50.9 - Fever, unspecified SNOMED: 732129266 Qualifiers: Qualified Codes: R50.9 - Fever, unspecified (3) Cachexia ICD Codes: R64 - Cachexia SNOMED: 977295404 (4) Dehydration ICD Codes: E86.0 - Dehydration SNOMED: 47160981 (5) Psychiatric disorder ICD Codes: F99 - Psychiatric disorder SNOMED: 26260560 (6) Parkinson disease ICD Codes: G20 - Parkinson's disease SNOMED: 63497239 (7) BPH (benign prostatic hyperplasia) ICD Codes: N40.0 - Benign prostatic hyperplasia without lower urinary tract symptoms SNOMED: 168305754, 546500177 (8) UTI (urinary tract infection) ICD Codes: N39.0 - Urinary tract infection, site not specified SNOMED: 73525003 (9) Gastric wall thickening ICD Codes: K31.89 - Gastric wall thickening SNOMED: 50321326 Status: progressing Assessment/Plan no fever today reviewed chart and labs sepsis check wbc persistent leukocytosis Subjective ROS Limited/Unobtainable: Yes Constitutional: Reports: no symptoms Allergies: Coded Allergies: AMOXICILLIN (Verified Allergy, Unknown, 02/21/13) OBTAINED FROM MEDICAL RECORD ASPIRIN (Verified Allergy, Unknown, 02/21/13) OBTAINED FROM MEDICAL RECORD PENICILLINS (Unverified Allergy, Unknown, 12/06/14) Objective Last 24 Hour Vital Signs Date Time Temp Pulse Resp B/P Pulse Ox O2 Delivery O2 Flow Rate FiO2 08/09/16 09:59 96.8 08/09/16 08:00 97.7 69 19 109/76 97 Room Air 08/09/16 07:18 117 18 Room Air 08/09/16 04:00 96.8 100 18 104/72 95 Room Air 08/09/16 00:00 98.5 98 20 105/68 98 Room Air 08/08/16 20:12 97.7 101 20 111/79 95 Room Air 08/08/16 19:30 91 18 Room Air 08/08/16 16:42 97.5 78 18 114/73 99 Room Air 08/08/16 12:00 98.0 86 19 128/76 97 Room Air Intake and Output 08/08/16 08/09/16 19:00 07:00 Intake Total 240 ml 360 ml Output Total 1650 ml Balance 240 ml -1290 ml Intake Oral 240 ml 360 ml Output Urine Total 1650 ml Height (Feet): 5 Height (Inches): 9.00 Weight (Pounds): 160 General Appearance: confused Neck: supple Cardiovascular: normal rate Respiratory/Chest: lungs clear Bernardino Dallas MD Aug 09, 2016 11:36
[2016-08-09 12:00] VITALS: BP 112/78
[2016-08-09 16:00] VITALS: BP 108/70
--- NOTE | 2016-08-09 17:03 | Infectious Diseases Prog Note ---
Assessment/Plan Problems: (1) Sepsis Assessment & Plan: on clindamycin and bactrim , to cover for possible pneumonia too, he is not a candidate for iv antibiotics treatment , await culture results. (2) UTI (urinary tract infection) Assessment & Plan: due to serratia marcescens , sensitive to Bactrim and resistant to quinolone , continue Bactrim for 7 days . (3) Cachexia Assessment & Plan: recommend dietary consult (4) Fever Assessment & Plan: due to the above, improving, continue wide spectrum antibiotics, await culture (5) Seizure disorder Assessment & Plan: continue seizure meds, consult neurology (6) MRSA nasal colonization Assessment & Plan: on Bactroban to decolonize him (7) Colonization with VRE (vancomycin-resistant enterococcus) Assessment & Plan: keep in contact for now Subjective ROS Limited/Unobtainable: Yes Allergies: Coded Allergies: AMOXICILLIN (Verified Allergy, Unknown, 02/21/13) OBTAINED FROM MEDICAL RECORD ASPIRIN (Verified Allergy, Unknown, 02/21/13) OBTAINED FROM MEDICAL RECORD PENICILLINS (Unverified Allergy, Unknown, 12/06/14) Subjective he is demented, up in bed, awake and alert, not agitated, comfortable. Objective Vital Signs Last 24 Hour Vital Signs Date Time Temp Pulse Resp B/P Pulse Ox O2 Delivery O2 Flow Rate FiO2 08/09/16 12:00 97.6 77 20 112/78 97 Room Air 08/09/16 09:59 96.8 08/09/16 08:00 97.7 69 19 109/76 97 Room Air 08/09/16 07:18 117 18 Room Air 08/09/16 04:00 96.8 100 18 104/72 95 Room Air 08/09/16 00:00 98.5 98 20 105/68 98 Room Air 08/08/16 20:12 97.7 101 20 111/79 95 Room Air 08/08/16 19:30 91 18 Room Air Height (Feet): 5 Height (Inches): 9.00 Weight (Pounds): 160 General Appearance: WD/WN, no acute distress HEENT: normocephalic, atraumatic, anicteric Respiratory/Chest: chest wall non-tender, lungs clear, normal breath sounds, no respiratory distress, decreased breath sounds Cardiovascular: normal peripheral pulses, normal rate, regular rhythm, no gallop/murmur Abdomen: normal bowel sounds, soft, non tender, no organomegaly, non distended Extremities: no cyanosis, no clubbing Skin: no rash Current Medications Medications (Trade) Dose Ordered Sig/Yanelis Route PRN Reason Start Time Stop Time Status Last Admin Dose Admin Acetaminophen (Tylenol) 650 mg Q4H PRN ORAL fever 08/05/16 20:30 09/04/16 20:29 Albuterol/ Ipratropium (DuoNeb 0.5-3(2.5)mg/3ml) 3 ml EVERY 4 HOURS PRN HHN Shortness of Breath 08/05/16 20:30 08/10/16 20:29 Amantadine HCl (Symmetrel) 100 mg Q8HR ORAL 08/06/16 06:00 09/05/16 05:59 08/09/16 12:59 Clindamycin HCl (Cleocin) 450 mg Q8HR ORAL 08/06/16 22:00 08/13/16 21:59 08/09/16 12:58 Divalproex Sodium (Depakote) 250 mg Q8HR ORAL 08/05/16 22:00 09/04/16 21:59 08/09/16 12:58 Gabapentin (Neurontin) 400 mg DAILY ORAL 08/06/16 09:00 09/05/16 08:59 08/09/16 09:00 Heparin Sodium (Porcine) (Heparin 5000 units/ml) 5,000 units EVERY 12 HOURS SUBQ 08/05/16 22:00 09/04/16 21:59 08/09/16 09:06 Levetiracetam (Keppra) 500 mg Q12HR ORAL 08/05/16 22:00 09/04/16 21:59 08/09/16 08:59 Lorazepam (Ativan 2mg/ml 1ml) 1 mg Q4H PRN IM For Anxiety 08/06/16 10:00 08/13/16 09:59 08/07/16 08:09 Morphine Sulfate (Morphine Sulfate) 2 mg EVERY 4 HOURS PRN IVP Moderate Pain (Pain Scale 4-6) 08/05/16 20:30 08/12/16 20:29 08/05/16 22:43 Mupirocin (Bactroban Oint) 1 applic THREE TIMES A DAY TOPIC 08/07/16 18:00 08/12/16 17:59 08/09/16 09:00 Nitroglycerin (Ntg) 0.4 mg Q5M PRN SL Prn Chest Pain 08/05/16 20:30 09/04/16 20:29 Ondansetron HCl (Zofran) 4 mg Q6H PRN IVP Nausea & Vomiting 08/05/16 20:30 09/04/16 20:29 Polyethylene Glycol (Miralax) 17 gm DAILYPRN PRN ORAL Constipation 08/05/16 20:30 09/04/16 20:29 Risperidone (RisperDAL) 2 mg QHS ORAL 08/05/16 22:00 09/04/16 21:59 08/08/16 21:15 Temazepam (Restoril) 15 mg HSPRN PRN ORAL Insomnia 08/05/16 20:30 08/12/16 20:29 08/08/16 23:26 Trimethoprim/ Sulfamethoxazole (Bactrim-DS) 2 ea TWICE A DAY ORAL 08/07/16 18:00 08/14/16 17:59 08/09/16 08:59 Carli Saleem M.D. Aug 09, 2016 17:03
--- NOTE | 2016-08-09 18:09 | General Progress Note ---
Assessment/Plan Assessment/Plan ASSESSMENT: 1. Anemia 2/2 chronic disease, hgb > 10 2. Leukocytosis potentially 2/2 infection, is on abx 3. Thrombocytopenia, due to infection and sepsis. Has improved >200k 4. Bilateral pulmonary masses bilaterally, potential 2/2 pneumonia process. Has improved 5. Sepsis - being evaluated and treated by ID 6. Health care associated PNA - in prior, now improved RECS: 1. Monitor counts 2. Transfuse as needed 3. Antibiotics as needed 4. Transfuse to hgb goal >7 5. DVT ppx heparin sq 6. Followup on GI, ID, pulm recs 7. Ferritin has been ordered 8. D/W staff Thank you, Viji Montejo MD Subjective Constitutional: Reports: no symptoms HEENT: Reports: no symptoms Cardiovascular: Reports: no symptoms Respiratory: Reports: no symptoms Gastrointestinal/Abdominal: Reports: no symptoms Genitourinary: Reports: no symptoms Neurologic/Psychiatric: Reports: no symptoms Endocrine: Reports: no symptoms Hematologic/Lymphatic: Reports: no symptoms Allergies: Coded Allergies: AMOXICILLIN (Verified Allergy, Unknown, 02/21/13) OBTAINED FROM MEDICAL RECORD ASPIRIN (Verified Allergy, Unknown, 02/21/13) OBTAINED FROM MEDICAL RECORD PENICILLINS (Unverified Allergy, Unknown, 12/06/14) Objective Last 24 Hour Vital Signs Date Time Temp Pulse Resp B/P Pulse Ox O2 Delivery O2 Flow Rate FiO2 08/09/16 12:00 97.6 77 20 112/78 97 Room Air 08/09/16 09:59 96.8 08/09/16 08:00 97.7 69 19 109/76 97 Room Air 08/09/16 07:18 117 18 Room Air 08/09/16 04:00 96.8 100 18 104/72 95 Room Air 08/09/16 00:00 98.5 98 20 105/68 98 Room Air 08/08/16 20:12 97.7 101 20 111/79 95 Room Air Intake and Output 08/08/16 08/09/16 17:00 05:00 Intake Total 240 ml 240 ml Output Total 850 ml Balance 240 ml -610 ml Intake Oral 240 ml 240 ml Output Urine Total 850 ml Height (Feet): 5 Height (Inches): 9.00 Weight (Pounds): 160 General Appearance: no apparent distress EENT: normal ENT inspection Neck: non-tender Cardiovascular: normal rate Respiratory/Chest: lungs clear Abdomen: soft Pelvis: no masses Edema: no edema noted Arm (L), no edema noted Arm (R), no edema noted Leg (L), no edema noted Leg (R), no edema noted Pedal (L), no edema noted Pedal (R), no edema noted Generalized Edema: mild edema Neurologic: alert Skin: warm/dry Lymphatic: normal anterior cervical (L), normal anterior cervical (R), normal axillary (L), normal axillary (R), normal inguinal (L), normal inguinal (R), normal other, normal posterior cervical (L), normal posterior cervical (R), normal submandibular (L), normal submandibular (R), normal supraclavicular (L), normal supraclavicular (R) VIJI MONTEJO Aug 09, 2016 18:09
[2016-08-09 20:00] VITALS: BP 123/78
--- NOTE | 2016-08-09 23:11 | Pulmonology Progress Note ---
Assessment/Plan Assessment/Plan Assessment/Plan ASSESSMENT sepsis UTI dehydration dementia seizure disorder Parkinson disease COPD PLAN OF CARE MS floor s/p IVF monitor renal parameters, lytes-stable antibiotics, urine cx + Serratia, blood cx preliminary negative ID follows seizure precautions Subjective ROS Limited/Unobtainable: Yes Constitutional: Reports: anorexia, fatigue Neurologic: Reports: confusion, weakness Allergies: Coded Allergies: AMOXICILLIN (Verified Allergy, Unknown, 02/21/13) OBTAINED FROM MEDICAL RECORD ASPIRIN (Verified Allergy, Unknown, 02/21/13) OBTAINED FROM MEDICAL RECORD PENICILLINS (Unverified Allergy, Unknown, 12/06/14) Objective Last 24 Hour Vital Signs Date Time Temp Pulse Resp B/P Pulse Ox O2 Delivery O2 Flow Rate FiO2 08/09/16 16:00 98.0 82 20 108/70 97 Room Air 08/09/16 12:00 97.6 77 20 112/78 97 Room Air 08/09/16 09:59 96.8 08/09/16 08:00 97.7 69 19 109/76 97 Room Air 08/09/16 07:18 117 18 Room Air 08/09/16 04:00 96.8 100 18 104/72 95 Room Air 08/09/16 00:00 98.5 98 20 105/68 98 Room Air Intake and Output 08/08/16 08/09/16 19:00 07:00 Intake Total 240 ml 360 ml Output Total 1650 ml Balance 240 ml -1290 ml Intake Oral 240 ml 360 ml Output Urine Total 1650 ml General Appearance: no acute distress HEENT: normocephalic, atraumatic, PERRL Respiratory/Chest: chest wall non-tender, decreased breath sounds, accessory muscle use Cardiovascular: normal peripheral pulses, normal rate, regular rhythm, no JVD Abdomen: normal bowel sounds, soft, non tender, no organomegaly Genitourinary: normal external genitalia Extremities: no cyanosis Skin: lesions Neurologic/Psychiatric: responsive, abnormal CN, motor weakness, disoriented Current Medications Medications (Trade) Dose Ordered Sig/Yanelis Route PRN Reason Start Time Stop Time Status Last Admin Dose Admin Acetaminophen (Tylenol) 650 mg Q4H PRN ORAL fever 08/05/16 20:30 09/04/16 20:29 Albuterol/ Ipratropium (DuoNeb 0.5-3(2.5)mg/3ml) 3 ml EVERY 4 HOURS PRN HHN Shortness of Breath 08/05/16 20:30 08/10/16 20:29 Amantadine HCl (Symmetrel) 100 mg Q8HR ORAL 08/06/16 06:00 09/05/16 05:59 08/09/16 22:08 Clindamycin HCl (Cleocin) 450 mg Q8HR ORAL 08/06/16 22:00 08/13/16 21:59 08/09/16 22:07 Divalproex Sodium (Depakote) 250 mg Q8HR ORAL 08/05/16 22:00 09/04/16 21:59 08/09/16 22:07 Gabapentin (Neurontin) 400 mg DAILY ORAL 08/06/16 09:00 09/05/16 08:59 08/09/16 09:00 Heparin Sodium (Porcine) (Heparin 5000 units/ml) 5,000 units EVERY 12 HOURS SUBQ 08/05/16 22:00 09/04/16 21:59 08/09/16 22:09 Levetiracetam (Keppra) 500 mg Q12HR ORAL 08/05/16 22:00 09/04/16 21:59 08/09/16 22:08 Lorazepam (Ativan 2mg/ml 1ml) 1 mg Q4H PRN IM For Anxiety 08/06/16 10:00 08/13/16 09:59 08/07/16 08:09 Morphine Sulfate (Morphine Sulfate) 2 mg EVERY 4 HOURS PRN IVP Moderate Pain (Pain Scale 4-6) 08/05/16 20:30 08/12/16 20:29 08/05/16 22:43 Mupirocin (Bactroban Oint) 1 applic THREE TIMES A DAY TOPIC 08/07/16 18:00 08/12/16 17:59 08/09/16 18:25 Nitroglycerin (Ntg) 0.4 mg Q5M PRN SL Prn Chest Pain 08/05/16 20:30 09/04/16 20:29 Ondansetron HCl (Zofran) 4 mg Q6H PRN IVP Nausea & Vomiting 08/05/16 20:30 09/04/16 20:29 Polyethylene Glycol (Miralax) 17 gm DAILYPRN PRN ORAL Constipation 08/05/16 20:30 09/04/16 20:29 Risperidone (RisperDAL) 2 mg QHS ORAL 08/05/16 22:00 09/04/16 21:59 08/09/16 22:08 Temazepam (Restoril) 15 mg HSPRN PRN ORAL Insomnia 08/05/16 20:30 08/12/16 20:29 08/08/16 23:26 Trimethoprim/ Sulfamethoxazole (Bactrim-DS) 2 ea TWICE A DAY ORAL 08/07/16 18:00 08/14/16 17:59 08/09/16 18:24 NEERAJ DAMON Aug 09, 2016 23:11
[2016-08-10] VITALS: BP 131/77
[2016-08-10 04:00] VITALS: BP 106/73
[2016-08-10] MEDS: Clindamycin 150mg cap ORAL SCH ×3 (05:32→21:57)
[2016-08-10] MEDS: Amantadine 100mg cap ORAL SCH ×3 (05:32→21:59)
[2016-08-10 07:35] VITALS: BP 142/81
[2016-08-10] MEDS: Bactrim DS (160mg/800mg) tab ORAL SCH ×2 (08:32→18:46)
[2016-08-10] MEDS: Heparin 5000 units/ml inj SUBQ SCH ×2 (08:49→22:00)
--- NOTE | 2016-08-10 11:14 | General Progress Note ---
Assessment/Plan Problem List: (1) Failure to thrive ICD Codes: R62.51 - Failure to thrive SNOMED: 24167310 (2) Fever ICD Codes: R50.9 - Fever, unspecified SNOMED: 052547067 Qualifiers: Qualified Codes: R50.9 - Fever, unspecified (3) Cachexia ICD Codes: R64 - Cachexia SNOMED: 297820225 (4) Dehydration ICD Codes: E86.0 - Dehydration SNOMED: 22727084 (5) Psychiatric disorder ICD Codes: F99 - Psychiatric disorder SNOMED: 50925718 (6) Parkinson disease ICD Codes: G20 - Parkinson's disease SNOMED: 71237169 (7) BPH (benign prostatic hyperplasia) ICD Codes: N40.0 - Benign prostatic hyperplasia without lower urinary tract symptoms SNOMED: 589125456, 807549966 (8) UTI (urinary tract infection) ICD Codes: N39.0 - Urinary tract infection, site not specified SNOMED: 32195731 (9) Gastric wall thickening ICD Codes: K31.89 - Gastric wall thickening SNOMED: 24365344 Status: progressing Assessment/Plan sepsis intermettint fever abx per id pna improving Subjective ROS Limited/Unobtainable: Yes Constitutional: Reports: no symptoms Allergies: Coded Allergies: AMOXICILLIN (Verified Allergy, Unknown, 02/21/13) OBTAINED FROM MEDICAL RECORD ASPIRIN (Verified Allergy, Unknown, 02/21/13) OBTAINED FROM MEDICAL RECORD PENICILLINS (Unverified Allergy, Unknown, 12/06/14) Objective Last 24 Hour Vital Signs Date Time Temp Pulse Resp B/P Pulse Ox O2 Delivery O2 Flow Rate FiO2 08/10/16 09:32 97.0 08/10/16 08:00 119 20 Room Air 08/10/16 07:35 97.0 119 19 142/81 95 Room Air 08/10/16 04:00 98.4 88 19 106/73 99 Room Air 08/10/16 00:00 98.1 88 20 131/77 97 Room Air 08/09/16 20:00 97.9 92 18 123/78 98 Room Air 08/09/16 19:00 92 18 Room Air 08/09/16 16:00 98.0 82 20 108/70 97 Room Air 08/09/16 12:00 97.6 77 20 112/78 97 Room Air Intake and Output 08/09/16 08/10/16 19:00 07:00 Intake Total 480 ml 600 ml Output Total 1500 ml Balance 480 ml -900 ml Intake Oral 480 ml 600 ml Output Urine Total 1500 ml Height (Feet): 5 Height (Inches): 9.00 Weight (Pounds): 160 General Appearance: confused EENT: PERRL/EOMI Cardiovascular: normal rate Respiratory/Chest: lungs clear Abdomen: soft Bernardino Dallas MD Aug 10, 2016 11:14
[2016-08-10 12:30] VITALS: BP 121/57
[2016-08-10 16:00] VITALS: BP 123/85
--- NOTE | 2016-08-10 16:42 | Infectious Diseases Prog Note ---
Assessment/Plan Problems: (1) Sepsis Assessment & Plan: on clindamycin and bactrim , to cover for possible pneumonia too, he is not a candidate for iv antibiotics treatment , continue both antibiotics for 7 more days. EOT 08/17/16. (2) UTI (urinary tract infection) Assessment & Plan: due to serratia marcescens , sensitive to Bactrim and resistant to quinolone , continue Bactrim for 7 days . (3) Cachexia Assessment & Plan: recommend dietary consult (4) Seizure disorder Assessment & Plan: continue seizure meds, consult neurology (5) MRSA nasal colonization Assessment & Plan: on Bactroban to decolonize him (6) Colonization with VRE (vancomycin-resistant enterococcus) Assessment & Plan: keep in contact for now Subjective ROS Limited/Unobtainable: Yes Allergies: Coded Allergies: AMOXICILLIN (Verified Allergy, Unknown, 02/21/13) OBTAINED FROM MEDICAL RECORD ASPIRIN (Verified Allergy, Unknown, 02/21/13) OBTAINED FROM MEDICAL RECORD PENICILLINS (Unverified Allergy, Unknown, 12/06/14) Subjective he is demented, up in bed, awake and alert, not agitated, comfortable. Objective Vital Signs Last 24 Hour Vital Signs Date Time Temp Pulse Resp B/P Pulse Ox O2 Delivery O2 Flow Rate FiO2 08/10/16 12:30 97.5 84 19 121/57 95 Room Air 08/10/16 09:32 97.0 08/10/16 08:00 119 20 Room Air 08/10/16 07:35 97.0 119 19 142/81 95 Room Air 08/10/16 04:00 98.4 88 19 106/73 99 Room Air 08/10/16 00:00 98.1 88 20 131/77 97 Room Air 08/09/16 20:00 97.9 92 18 123/78 98 Room Air 08/09/16 19:00 92 18 Room Air Height (Feet): 5 Height (Inches): 9.00 Weight (Pounds): 160 General Appearance: WD/WN, no acute distress HEENT: normocephalic, atraumatic, anicteric Respiratory/Chest: chest wall non-tender, lungs clear, normal breath sounds, no respiratory distress, no accessory muscle use Cardiovascular: normal peripheral pulses, normal rate, regular rhythm, no gallop/murmur Abdomen: normal bowel sounds, soft, non tender, no organomegaly, non distended Extremities: no cyanosis, no clubbing Skin: no rash, no lesions Current Medications Medications (Trade) Dose Ordered Sig/Yanelis Route PRN Reason Start Time Stop Time Status Last Admin Dose Admin Acetaminophen (Tylenol) 650 mg Q4H PRN ORAL fever 08/05/16 20:30 09/04/16 20:29 Albuterol/ Ipratropium (DuoNeb 0.5-3(2.5)mg/3ml) 3 ml EVERY 4 HOURS PRN HHN Shortness of Breath 08/05/16 20:30 08/10/16 20:29 Amantadine HCl (Symmetrel) 100 mg Q8HR ORAL 08/06/16 06:00 09/05/16 05:59 08/10/16 13:50 Clindamycin HCl (Cleocin) 450 mg Q8HR ORAL 08/06/16 22:00 08/13/16 21:59 08/10/16 13:49 Divalproex Sodium (Depakote) 250 mg Q8HR ORAL 08/05/16 22:00 09/04/16 21:59 08/10/16 13:51 Gabapentin (Neurontin) 400 mg DAILY ORAL 08/06/16 09:00 09/05/16 08:59 08/10/16 08:33 Heparin Sodium (Porcine) (Heparin 5000 units/ml) 5,000 units EVERY 12 HOURS SUBQ 08/05/16 22:00 09/04/16 21:59 08/10/16 08:49 Levetiracetam (Keppra) 500 mg Q12HR ORAL 08/05/16 22:00 09/04/16 21:59 08/10/16 08:33 Lorazepam (Ativan 2mg/ml 1ml) 1 mg Q4H PRN IM For Anxiety 08/06/16 10:00 08/13/16 09:59 08/07/16 08:09 Morphine Sulfate (Morphine Sulfate) 2 mg EVERY 4 HOURS PRN IVP Moderate Pain (Pain Scale 4-6) 08/05/16 20:30 08/12/16 20:29 08/05/16 22:43 Mupirocin (Bactroban Oint) 1 applic THREE TIMES A DAY TOPIC 08/07/16 18:00 08/12/16 17:59 08/10/16 13:49 Nitroglycerin (Ntg) 0.4 mg Q5M PRN SL Prn Chest Pain 08/05/16 20:30 09/04/16 20:29 Ondansetron HCl (Zofran) 4 mg Q6H PRN IVP Nausea & Vomiting 08/05/16 20:30 09/04/16 20:29 Polyethylene Glycol (Miralax) 17 gm DAILYPRN PRN ORAL Constipation 08/05/16 20:30 09/04/16 20:29 Risperidone (RisperDAL) 2 mg QHS ORAL 08/05/16 22:00 09/04/16 21:59 08/09/16 22:08 Temazepam (Restoril) 15 mg HSPRN PRN ORAL Insomnia 08/05/16 20:30 08/12/16 20:29 08/09/16 23:58 Trimethoprim/ Sulfamethoxazole (Bactrim-DS) 2 ea TWICE A DAY ORAL 08/07/16 18:00 08/14/16 17:59 08/10/16 08:32 Carli Saleem M.D. Aug 10, 2016 16:41
--- NOTE | 2016-08-10 18:24 | General Progress Note ---
Assessment/Plan Assessment/Plan ASSESSMENT: 1. Anemia 2/2 chronic disease, hgb > 10 2. Leukocytosis potentially 2/2 infection, is on abx 3. Thrombocytopenia, due to infection and sepsis. Has improved >200k 4. Bilateral pulmonary masses bilaterally, potential 2/2 pneumonia process. Has improved 5. Sepsis - being evaluated and treated by ID 6. Health care associated PNA - in prior, now improved RECS: 1. Monitor counts 2. Transfuse as needed 3. Antibiotics as needed 4. Transfuse to hgb goal >7 5. DVT ppx heparin sq 6. Followup on GI, ID, pulm recs 7. Ferritin has been ordered 8. D/W staff Thank you, Viji Montejo MD Subjective Constitutional: Reports: no symptoms HEENT: Reports: no symptoms Cardiovascular: Reports: no symptoms Respiratory: Reports: no symptoms Gastrointestinal/Abdominal: Reports: no symptoms Genitourinary: Reports: no symptoms Neurologic/Psychiatric: Reports: no symptoms Endocrine: Reports: no symptoms Hematologic/Lymphatic: Reports: no symptoms Allergies: Coded Allergies: AMOXICILLIN (Verified Allergy, Unknown, 02/21/13) OBTAINED FROM MEDICAL RECORD ASPIRIN (Verified Allergy, Unknown, 02/21/13) OBTAINED FROM MEDICAL RECORD PENICILLINS (Unverified Allergy, Unknown, 12/06/14) Objective Last 24 Hour Vital Signs Date Time Temp Pulse Resp B/P Pulse Ox O2 Delivery O2 Flow Rate FiO2 08/10/16 16:00 97.7 88 18 123/85 97 Room Air 08/10/16 12:30 97.5 84 19 121/57 95 Room Air 08/10/16 09:32 97.0 08/10/16 08:00 119 20 Room Air 08/10/16 07:35 97.0 119 19 142/81 95 Room Air 08/10/16 04:00 98.4 88 19 106/73 99 Room Air 08/10/16 00:00 98.1 88 20 131/77 97 Room Air Intake and Output 08/09/16 08/10/16 17:00 05:00 Intake Total 600 ml 480 ml Output Total 800 ml 600 ml Balance -200 ml -120 ml Intake Oral 600 ml 480 ml Output Urine Total 800 ml 600 ml Height (Feet): 5 Height (Inches): 9.00 Weight (Pounds): 160 General Appearance: alert Neck: supple Cardiovascular: regular rhythm Respiratory/Chest: lungs clear Abdomen: soft Pelvis: no masses Edema: no edema noted Arm (L), no edema noted Arm (R), no edema noted Leg (L), no edema noted Leg (R), no edema noted Pedal (L), no edema noted Pedal (R), no edema noted Generalized Neurologic: oriented x 3 Skin: warm/dry Lymphatic: normal anterior cervical (L), normal anterior cervical (R), normal axillary (L), normal axillary (R), normal inguinal (L), normal inguinal (R), normal other, normal posterior cervical (L), normal posterior cervical (R), normal submandibular (L), normal submandibular (R), normal supraclavicular (L), normal supraclavicular (R) VIJI MONTEJO Aug 10, 2016 18:24
[2016-08-10 20:00] VITALS: BP 120/79
--- NOTE | 2016-08-10 22:38 | Pulmonology Progress Note ---
Assessment/Plan Assessment/Plan Assessment/Plan Assessment/Plan COPD Dyspnea sepsis UTI dehydration dementia seizure disorder Parkinson disease PLAN OF CARE Breathing Tx Prn SOB MS floor s/p IVF monitor renal parameters, antibiotics, ID follows seizure precautions Subjective ROS Limited/Unobtainable: No Respiratory: Reports: dry cough, dyspnea at rest, shortness of breath Allergies: Coded Allergies: AMOXICILLIN (Verified Allergy, Unknown, 02/21/13) OBTAINED FROM MEDICAL RECORD ASPIRIN (Verified Allergy, Unknown, 02/21/13) OBTAINED FROM MEDICAL RECORD PENICILLINS (Unverified Allergy, Unknown, 12/06/14) Objective Last 24 Hour Vital Signs Date Time Temp Pulse Resp B/P Pulse Ox O2 Delivery O2 Flow Rate FiO2 08/10/16 20:00 97.9 83 18 120/79 95 Room Air 08/10/16 19:30 90 20 Room Air 21 08/10/16 16:00 97.7 88 18 123/85 97 Room Air 08/10/16 12:30 97.5 84 19 121/57 95 Room Air 08/10/16 09:32 97.0 08/10/16 08:00 119 20 Room Air 08/10/16 07:35 97.0 119 19 142/81 95 Room Air 08/10/16 04:00 98.4 88 19 106/73 99 Room Air 08/10/16 00:00 98.1 88 20 131/77 97 Room Air Intake and Output 08/09/16 08/10/16 19:00 07:00 Intake Total 480 ml 600 ml Output Total 1500 ml Balance 480 ml -900 ml Intake Oral 480 ml 600 ml Output Urine Total 1500 ml General Appearance: no acute distress HEENT: normocephalic, atraumatic, PERRL Respiratory/Chest: chest wall non-tender, decreased breath sounds, accessory muscle use, rhonchi Cardiovascular: normal peripheral pulses, normal rate, regular rhythm, no JVD Abdomen: normal bowel sounds, soft, non tender, no organomegaly, non distended Genitourinary: normal external genitalia Extremities: no cyanosis Neurologic/Psychiatric: boat wrapper II-XII grossly normal, no motor/sensory deficits Current Medications Medications (Trade) Dose Ordered Sig/Yanelis Route PRN Reason Start Time Stop Time Status Last Admin Dose Admin Acetaminophen (Tylenol) 650 mg Q4H PRN ORAL fever 08/05/16 20:30 09/04/16 20:29 Amantadine HCl (Symmetrel) 100 mg Q8HR ORAL 08/06/16 06:00 09/05/16 05:59 08/10/16 21:59 Clindamycin HCl (Cleocin) 450 mg Q8HR ORAL 08/06/16 22:00 08/13/16 21:59 08/10/16 21:57 Divalproex Sodium (Depakote) 250 mg Q8HR ORAL 08/05/16 22:00 09/04/16 21:59 08/10/16 21:58 Gabapentin (Neurontin) 400 mg DAILY ORAL 08/06/16 09:00 09/05/16 08:59 08/10/16 08:33 Heparin Sodium (Porcine) (Heparin 5000 units/ml) 5,000 units EVERY 12 HOURS SUBQ 08/05/16 22:00 09/04/16 21:59 08/10/16 22:00 Levetiracetam (Keppra) 500 mg Q12HR ORAL 08/05/16 22:00 09/04/16 21:59 08/10/16 21:58 Lorazepam (Ativan 2mg/ml 1ml) 1 mg Q4H PRN IM For Anxiety 08/06/16 10:00 08/13/16 09:59 08/07/16 08:09 Morphine Sulfate (Morphine Sulfate) 2 mg EVERY 4 HOURS PRN IVP Moderate Pain (Pain Scale 4-6) 08/05/16 20:30 08/12/16 20:29 08/05/16 22:43 Mupirocin (Bactroban Oint) 1 applic THREE TIMES A DAY TOPIC 08/07/16 18:00 08/12/16 17:59 08/10/16 18:46 Nitroglycerin (Ntg) 0.4 mg Q5M PRN SL Prn Chest Pain 08/05/16 20:30 09/04/16 20:29 Ondansetron HCl (Zofran) 4 mg Q6H PRN IVP Nausea & Vomiting 08/05/16 20:30 09/04/16 20:29 Polyethylene Glycol (Miralax) 17 gm DAILYPRN PRN ORAL Constipation 08/05/16 20:30 09/04/16 20:29 Risperidone (RisperDAL) 2 mg QHS ORAL 08/05/16 22:00 09/04/16 21:59 08/10/16 21:58 Temazepam (Restoril) 15 mg HSPRN PRN ORAL Insomnia 08/05/16 20:30 08/12/16 20:29 08/09/16 23:58 Trimethoprim/ Sulfamethoxazole (Bactrim-DS) 2 ea TWICE A DAY ORAL 08/07/16 18:00 08/14/16 17:59 08/10/16 18:46 NEERAJ DAMON Aug 10, 2016 22:38
[2016-08-11] VITALS: BP 120/56
[2016-08-11] MEDS: Clindamycin 150mg cap ORAL SCH ×2 (05:50→13:02)
[2016-08-11] MEDS: Amantadine 100mg cap ORAL SCH ×2 (05:53→13:03)
[2016-08-11] MEDS: Bactrim DS (160mg/800mg) tab ORAL SCH (07:49)
[2016-08-11] MEDS: Heparin 5000 units/ml inj SUBQ SCH (07:51)
[2016-08-11 08:04] VITALS: BP 136/64
[2016-08-11 12:00] VITALS: BP 129/73
[2016-08-11] MEDS ORDERED: CLEOCIN HCL300 MG PO (13:00)
[2016-08-11] MEDS ORDERED: MUPIROCIN22 GM TOPIC (13:01)
[2016-08-11] MEDS ORDERED: BACTRIM-DS1 EA ORAL (13:02)
--- NOTE | 2016-08-11 20:50 | General Progress Note ---
Assessment/Plan Assessment/Plan ASSESSMENT: 1. Anemia 2/2 chronic disease, hgb > 10, has improved markedly. Ferritin elevated, will see PCP as outpatient 2. Leukocytosis potentially 2/2 infection, is on abx 3. Thrombocytopenia, due to infection and sepsis. Has improved >200k 4. Bilateral pulmonary masses bilaterally, potential 2/2 pneumonia process. Has improved 5. Sepsis - being evaluated and treated by ID 6. Health care associated PNA - in prior, now improved RECS: 1. Monitor counts 2. Transfuse as needed 3. Antibiotics as needed 4. Transfuse to hgb goal >7 5. DVT ppx heparin sq 6. Followup on GI, ID, pulm recs 7. Ferritin reviewed 8. D/W staff Thank you, Farzad Montejo MD Subjective Constitutional: Reports: no symptoms HEENT: Reports: no symptoms Cardiovascular: Reports: no symptoms Respiratory: Reports: cough Gastrointestinal/Abdominal: Reports: no symptoms Genitourinary: Reports: no symptoms Neurologic/Psychiatric: Reports: anxiety Endocrine: Reports: no symptoms Hematologic/Lymphatic: Reports: anemia Allergies: Coded Allergies: AMOXICILLIN (Verified Allergy, Unknown, 02/21/13) OBTAINED FROM MEDICAL RECORD ASPIRIN (Verified Allergy, Unknown, 02/21/13) OBTAINED FROM MEDICAL RECORD PENICILLINS (Unverified Allergy, Unknown, 12/06/14) Subjective stable, no events overnight, no f/c reported Objective Last 24 Hour Vital Signs Date Time Temp Pulse Resp B/P Pulse Ox O2 Delivery O2 Flow Rate FiO2 08/11/16 12:00 97.7 77 18 129/73 96 Room Air 08/11/16 08:49 98.1 08/11/16 08:04 98.1 100 19 136/64 99 Room Air 08/11/16 07:56 95 18 Room Air 21 08/11/16 00:00 98.1 96 18 120/56 95 Room Air Intake and Output 08/10/16 08/11/16 19:00 07:00 Intake Total 600 ml 960 ml Output Total 600 ml 1100 ml Balance 0 ml -140 ml Intake Oral 600 ml 960 ml Output Urine Total 600 ml 1100 ml Height (Feet): 5 Height (Inches): 9.00 Weight (Pounds): 160 General Appearance: no apparent distress EENT: TMs normal Neck: non-tender Cardiovascular: normal rate Respiratory/Chest: chest wall non-tender Abdomen: normal bowel sounds Extremities: non-tender Edema: 1+ Leg (L), 1+ Leg (R) Edema: mild edema Neurologic: alert Skin: warm/dry Farzad Montejo Aug 11, 2016 20:50
--- NOTE | 2016-08-12 14:30 | Discharge Summary ---
Discharge Summary Hospital Course Date of Admission Aug 05, 2016 at 18:52 Date of Discharge Aug 11, 2016 at 14:55 Admitting Diagnosis fever HPI Otilio Graves is a 56 year old male who was admitted on Aug 05, 2016 at 18:52 for FEVER Hospital Course [id number] Discharge Discharge Disposition Patient was discharged to snf Discharge Diagnoses: Judi Vasquez NP Aug 12, 2016 14:30
--- NOTE | 2016-08-13 05:08 | Discharge Summary 2 SIG ---
DATE OF ADMISSION: 08/05/2016 DATE OF DISCHARGE: 08/11/2016 CONSULTANTS: 1. Adair Montejo M.D. 2. Carli Saleem M.D. 3. Davi Valerio M.D. 4. Henry Guzman M.D. BRIEF HOSPITAL COURSE: The patient is a 56-year-old male who was admitted secondary to fever with sepsis. WBC was elevated. Chest x-ray showed no acute process. He was started empirically on vancomycin, aztreonam, and levofloxacin. Urine showed 3+ leukocyte esterase, WBC too many to count. He also came in with anemia, assessed to be secondary to chronic disease and thrombocytopenia secondary to infection and sepsis. He was found to have urinary retention with gross hematuria secondary to Lu catheter trauma and result of urinary tract infection. Urine culture showed growth of Serratia Marcscens sensitive to Bactrim and resistant to quinolone. The patient was given Bactrim and clindamycin. He had history of seizure disorder and was placed on seizure precaution, continued with Keppra and Depakote. He was eventually discharged back to SNF to continue p.o. antibiotics. FINAL DIAGNOSES: 1. Sepsis. 2. Urinary tract infection due to Serratia. 3. Seizure disorder. 4. Dehydration. 5. Parkinson disease. 6. Benign prostatic hypertrophy. 7. Dementia. 8. Anemia of chronic disease. 9. Leukocytosis and thrombocytopenia due to infection. 10. Gross hematuria secondary to urinary tract infection and Lu trauma. 11. Methicillin-resistant Staphylococcus aureus and vancomycin-resistant enterococcus colonization. 12. Cachexia/failure to thrive/malnutrition. Bernardino Dallas M.D. I have been assigned to dictate discharge summary on this account and I was not involved in the patient's management. Judi Vasquez N.P. DR: XU JOB#: [id number] CC:
== END 2016-08-11 14:55 | DRG 871 ==
LOC: EDBD 18:03 → EMR 18:39 → 4W 18:52 → EDBEDREQ 21:04 → 4W 23:36
DX: A41.9 Sepsis, unspecified organism (principal); J18.9 Pneumonia, unspecified organism; R64 Cachexia; D69.6 Thrombocytopenia, unspecified; E46 Unspecified protein-calorie malnutrition; F03.90 Unspecified dementia, unspecified severity, without behavioral disturbance, psychotic disturbance, mood disturbance, and anxiety; J44.9 Chronic obstructive pulmonary disease, unspecified; N39.0 Urinary tract infection, site not specified; G40.909 Epilepsy, unspecified, not intractable, without status epilepticus; E86.0 Dehydration; D63.8 Anemia in other chronic diseases classified elsewhere; K21.9 Gastro-esophageal reflux disease without esophagitis; R62.7 Adult failure to thrive; R31.9 Hematuria, unspecified; N40.1 Benign prostatic hyperplasia with lower urinary tract symptoms; R33.8 Other retention of urine; Z88.0 Allergy status to penicillin; Y95 Nosocomial condition; Z68.23 Body mass index [BMI] 23.0-23.9, adult; Z16.21 Resistance to vancomycin; Z22.322 Carrier or suspected carrier of Methicillin resistant Staphylococcus aureus
CPT/HCPCS: 36415; 71010; 80048; 80053; 80299; 81003; 82550; 82553; 83605; 84484; 85007; 85025; 87040; 87081; 87086; 87181; 93005; 94664